=== PATIENT | male | born 1945 | race African-American/Black ===

== ENCOUNTER 2017-05-08 11:21 | Inpatient (IN) | payer MEDICARE, MEDICAID ==
[~2017-05-08] VITALS: Ht 177.8 cm; Wt 50.8 kg
[~2017-05-08 11:21] MED LIST: AMLODIPINE BESY10 MG ORAL; AMLODIPINE BESY10 MG PO; ASPIR 8181 MG ORAL; ATROVENT; ATROVENT HFA12.9 GM; DELARA; DULERA 100 MCG/13 GM; DULERA 100 MCG/13 GM IH; PROAIR HFA8.5 GM; TUDORZA PRESS400 MCG IH; proventil
[2017-05-08 16:00] VITALS: BP 159/83
[2017-05-08] MEDS ORDERED: Zolpidem 5mg tab ORAL PRN (16:00)
--- NOTE | 2017-05-08 16:55 | History & Physical ---
History and Physical History & Physicial 123 71-year-old male presents with increasing shortness of breath and congestion over the past 5-7 days. Patient noted to have sticky secretions and chest tightness. Patient denies any fevers or chills at this time. Patient has a long-standing history of severe COPD. The patient has had prior history of respiratory failure, requiring intubation. Patient does not have any oxygen at home. Patient has been compliant with therapy at this time and presents due to lack of improvement. Patient was recently treated with prednisone by an outside here as well as antibiotic. Patient reviewed the patient for some time. Patient also 5 difficulty with activities of daily living. Active Medications (reviewed today): DULERA 200-5 MCG/ACT INHALATION AEROSOL (MOMETASONE FURO-FORMOTEROL FUM) 2 puffs bid TUDORZA PRESSAIR 400 MCG/ACT INHALATION AEROSOL POWDER BREATH ACTIVATED ( ACLIDINIUM BROMIDE) 1puff bid PROAIR HFA 108 (90 Base) MCG/ACT INHALATION AEROSOL SOLUTION (ALBUTEROL SULFATE ) 2 puff q 4hr prn ALBUTEROL SULFATE (2.5 MG/3ML) 0.083% INHALATION NEBULIZATION SOLUTION ( ALBUTEROL SULFATE) 1 vial in HHN every 4 hours as needed VITAMIN D3 5000 UNIT ORAL TABLET (CHOLECALCIFEROL) Take one tablet daily ASPIRIN 81 MG ORAL TABLET (ASPIRIN) 1 by mouth every day ATORVASTATIN CALCIUM 40 MG ORAL TABLET (ATORVASTATIN CALCIUM) 1 tab qd HYDRALAZINE HCL 50 MG ORAL TABLET (HYDRALAZINE HCL) 1 PO BID THEOPHYLLINE 80 MG/15ML ORAL SOLUTION (THEOPHYLLINE) 15ml qid Current Allergies: No known allergies No Known Drug Allergies Past History Past Medical History (reviewed - no changes required): Hypertension, COPD, hypoxemia, GERD; copd exacerbation 02/2014 Cdif Respiratory failure vitamin D deficiency pulmonary hypertension allergic rhinitis Pt was in a coma for 2 weeks at [facility] due to respiratory failure Surgical History (reviewed - no changes required): Tracheotomy Gtube Catheter Family History (reviewed - no changes required): Uecxav-excqikxc-yigkk of unknown Nkzfys-dzjwshzg-tifyfbg causes at 89 Social History (reviewed - no changes required): TEQUILA lives alone. He lives at home in [place]. He is single with 4 children. was in a SNF and now staying with friends (DAUGHTER IN [facility] [place]- [phone] (SON IN [place]) (FRIEND-PHIL- [phone]) Risk Factors: Smoked Tobacco Use: Former smoker Cigarettes: Yes -- 1-2 every 3 days pack(s) per day, Pack-years: 2 cigars per day for 50 years Years smoked: 50 Year quit: 09/2016 Cigars: Yes -- 1 per week Year started: 50 years ago Cigars/Pipes Year Quit: 07/2014 Smokeless Tobacco Use: Never Tobacco Use Comments: patient is trying to stop smoking, patient has not smoked for 2 days Passive smoke exposure: no Drug use: no HIV high-risk behavior: no Caffeine use: 1 drinks per day Alcohol use: no Seatbelt use: 100 % Sun Exposure: occasionally Review of Systems Respiratory: see HPI Physical Exam General Appearance: well nourished, well hydrated, no acute distress thin Respiratory Respiratory Effort: no intercostal retractions or use of accessory muscles Palpation: normal fremitus Auscultation: reduced breath entry without rhonchi or wheeze; Cardiovascular Palpation: no thrill or palpable murmurs, no displacement of PMI Auscultation: S1, S2, no murmur, rub, or gallop Pedal pulse: pulses 2+, symmetric Peripheral Circulation: no cyanosis, clubbing, edema, cords on upper and lower extremities Musculoskeletal Gait and Station: using a cane LLE: knee pain IMPRESSION 1. COPD exacerbation 2. Respiratory insufficiency 3. concern for underlying infection 4. Increasing debility 5. Increasing fatigue 6. Shortness of breath 7. Weight loss Plan IV Solu-Medrol IV antibiotics Resume home meds Respiratory therapy Oxygen therapy Physical therapy evaluation Monitor clinically monitor for disposition Consider short-term rehab with worsening debility JOSIE MORRISON May 08, 2017 16:55
[2017-05-08] MEDS ORDERED: Albuterol/Ipratropium 3ml neb HHN SCH (19:00)
[2017-05-08] MEDS ORDERED: Albuterol 90mcg Inhaler 8gm INH PRN (20:30)
[2017-05-08 21:00] VITALS: BP 152/82
[2017-05-08] MEDS: Solu-MEDROL 40mg Inj IVP SCH (21:34)
[2017-05-08] MEDS: cefTRIAXone 1 GM in NS 55 ML IVPB SCH (21:34)
[2017-05-08] MEDS: Albuterol/Ipratropium 3ml neb HHN SCH (23:00)
[2017-05-09] VITALS (8 sets, daily range): BP systolic 123–197; BP diastolic 58–106
[2017-05-09] MEDS: Albuterol/Ipratropium 3ml neb HHN SCH ×6 (04:52→23:18)
[2017-05-09] MEDS: Solu-MEDROL 40mg Inj IVP SCH ×3 (05:14→21:43)
[2017-05-09] MEDS: Aspirin EC 81mg tab ORAL SCH (08:55)
[2017-05-09] MEDS: Heparin 5000 units/ml inj SUBQ SCH ×2 (09:00→21:44)
[2017-05-09] MEDS: Breo Ellipta 100/25mcg - 14 dose INH SCH (09:30)
--- NOTE | 2017-05-09 10:01 | General Progress Note ---
Assessment/Plan Assessment/Plan IMPRESSION 1. COPD exacerbation 2. Respiratory insufficiency 3. concern for underlying infection 4. Increasing debility 5. Increasing fatigue 6. Shortness of breath 7. Weight loss 8. Cdif history Plan IV Solu-Medrol for now IV antibiotics Resume home meds Respiratory therapy check stool Oxygen therapy Physical therapy evaluation Monitor clinically monitor for disposition Consider short-term rehab with worsening debility Subjective Allergies: Coded Allergies: No Known Allergies (Unverified , 03/01/14) Subjective care noted and reviewed with some sob notes some abnormal stool Objective Last 24 Hour Vital Signs Date Time Temp Pulse Resp B/P (MAP) Pulse Ox O2 Delivery O2 Flow Rate FiO2 05/09/17 08:55 100 169/85 05/09/17 08:00 98.1 100 20 169/85 97 05/09/17 07:49 86 16 100 Nasal Cannula 28 05/09/17 07:41 81 18 98 Nasal Cannula 28 05/09/17 04:57 82 16 99 Nasal Cannula 28 05/09/17 04:52 76 18 98 Nasal Cannula 28 05/09/17 04:00 97.2 98 19 158/90 95 05/09/17 01:15 98 160/90 05/09/17 00:35 100 197/106 05/09/17 00:00 97.7 104 20 197/94 94 05/08/17 23:31 Room Air 21 05/08/17 23:30 76 16 Room Air 21 05/08/17 23:30 Room Air 21 05/08/17 21:00 97.7 91 20 152/82 99 05/08/17 16:00 97.5 88 20 159/83 100 Intake and Output 05/08/17 05/09/17 19:00 07:00 Intake Total 240 ml Balance 240 ml Intake Oral 240 ml # Voids 1 2 # Bowel Movements 2 Height (Feet): 5 Height (Inches): 10.00 Weight (Pounds): 112 Objective WDWN NAD reduced breath sounds bilaterally with wheeze [id number] without MRG NABS nontender no HSM no CCE nonfocal JOSIE MORRISON May 09, 2017 10:01
[2017-05-09] MEDS: Lactobacillus-GG tablet ORAL SCH ×2 (16:43→18:00)
[2017-05-09 18:35] LABS: BASOPHILS % (AUTO) 0.8 % (0.0-2.0); HEMATOCRIT 37.3 % (42.0-52.0); HEMOGLOBIN 11.8 G/DL (14.2-18.0); LYMPHOCYTES % (AUTO) 32.8 % (20.0-45.0); MEAN CORPUSCULAR VOLUME 90 FL (80-99); NEUTROPHILS % (AUTO) 59.4 % (45.0-75.0); PLATELET COUNT 412 K/UL (150-450); RED BLOOD COUNT 4.13 M/UL (4.70-6.10); RED CELL DISTRIBUTION WIDTH 14.6 % (11.6-14.8); WHITE BLOOD COUNT 7.2 K/UL (4.8-10.8)
[2017-05-09] MEDS: cefTRIAXone 1 GM in NS 55 ML IVPB SCH (22:06)
[2017-05-10] VITALS: BP 129/65
[2017-05-10] MEDS: Albuterol/Ipratropium 3ml neb HHN SCH ×5 (03:43→21:48)
[2017-05-10 04:00] VITALS: BP 144/64
[2017-05-10] MEDS: Solu-MEDROL 40mg Inj IVP SCH ×3 (06:17→22:24)
[2017-05-10 08:15] VITALS: BP 136/67
[2017-05-10] MEDS: Aspirin EC 81mg tab ORAL SCH (08:53)
[2017-05-10] MEDS: Lactobacillus-GG tablet ORAL SCH ×3 (08:53→17:58)
[2017-05-10] MEDS: Heparin 5000 units/ml inj SUBQ SCH ×2 (08:54→21:00)
[2017-05-10] MEDS: Breo Ellipta 100/25mcg - 14 dose INH SCH (09:00)
--- NOTE | 2017-05-10 09:00 | General Progress Note ---
Assessment/Plan Assessment/Plan IMPRESSION 1. COPD exacerbation 2. Respiratory insufficiency 3. concern for underlying infection 4. Increasing debility 5. Increasing fatigue 6. Shortness of breath 7. Weight loss 8. Cdif history Plan IV Solu-Medrol for now as is IV antibiotics and dc in am if improved Resume home meds Respiratory therapy check stool Oxygen therapy Physical therapy evaluation short term rehab Monitor clinically monitor for disposition Consider short-term rehab with worsening debility Subjective Allergies: Coded Allergies: No Known Allergies (Unverified , 03/01/14) Subjective care noted and reviewed with some sob and slightly improved notes some abnormal stool Objective Last 24 Hour Vital Signs Date Time Temp Pulse Resp B/P (MAP) Pulse Ox O2 Delivery O2 Flow Rate FiO2 05/10/17 08:15 97.7 86 20 136/67 98 Room Air 05/10/17 08:01 81 16 100 21 05/10/17 07:53 78 18 99 Room Air 21 05/10/17 04:00 98.5 84 21 144/64 96 05/10/17 03:18 83 16 100 21 05/10/17 03:10 82 18 99 Room Air 21 05/10/17 00:00 98.5 88 21 129/65 94 05/09/17 23:31 87 18 100 21 05/09/17 23:18 88 18 98 Room Air 21 05/09/17 20:00 97.5 83 21 135/71 100 05/09/17 19:49 85 18 100 Nasal Cannula 1.0 24 05/09/17 19:42 85 18 100 Nasal Cannula 1.0 24 05/09/17 16:05 86 18 98 Nasal Cannula 1.0 24 05/09/17 16:04 98.6 93 19 123/58 100 05/09/17 12:19 88 16 100 Nasal Cannula 1.0 24 05/09/17 12:07 91 18 99 Nasal Cannula 1.0 24 05/09/17 12:01 Nasal Cannula 05/09/17 12:00 98.4 94 20 135/76 99 Intake and Output 05/09/17 05/10/17 19:00 07:00 Intake Total 560 ml Balance 560 ml Intake Oral 560 ml # Voids 6 4 # Bowel Movements 1 Laboratory Tests 05/09/17 17:50: White Blood Count 7.2, Red Blood Count 4.13L, Hemoglobin 11.8L, Hematocrit 37.3L , Mean Corpuscular Volume 90, Mean Corpuscular Hemoglobin 28.6, Mean Corpuscular Hemoglobin Concent 31.7L, Red Cell Distribution Width 14.6, Platelet Count 412, Mean Platelet Volume 6.0L, Neutrophils (%) (Auto) 59.4, Lymphocytes (%) (Auto) 32.8, Monocytes (%) (Auto) 7.0, Eosinophils (%) (Auto) 0.0, Basophils (%) (Auto) 0.8 Height (Feet): 5 Height (Inches): 10.00 Weight (Pounds): 112 Objective WDWN NAD reduced breath sounds bilaterally with wheeze [id number] without MRG NABS nontender no HSM no CCE nonfocal JOSIE MORRISON May 10, 2017 09:00
[2017-05-10 11:59] VITALS: BP 165/85
[2017-05-10 16:01] VITALS: BP 135/68
[2017-05-10 20:00] VITALS: BP 131/66
[2017-05-10] MEDS: cefTRIAXone 1 GM in NS 55 ML IVPB SCH (22:24)
[2017-05-11] VITALS: BP 127/67
[2017-05-11] MEDS: Albuterol/Ipratropium 3ml neb HHN SCH ×4 (00:02→10:44)
[2017-05-11 04:00] VITALS: BP 141/77
[2017-05-11] MEDS: Solu-MEDROL 40mg Inj IVP SCH (06:13)
[2017-05-11 08:00] VITALS: BP 141/76
--- NOTE | 2017-05-11 08:25 | General Progress Note ---
Assessment/Plan Assessment/Plan IMPRESSION 1. COPD exacerbation 2. Respiratory insufficiency 3. concern for underlying infection 4. Increasing debility 5. Increasing fatigue 6. Shortness of breath 7. Weight loss 8. Cdif history Plan IV Solu-Medrol dc IV antibiotics dc Respiratory therapy check stool - none available Oxygen therapy Physical therapy evaluation short term rehab for now Monitor clinically monitor for disposition dc today and stable for dc Subjective Allergies: Coded Allergies: No Known Allergies (Unverified , 03/01/14) Subjective care noted and reviewed improved overall Objective Last 24 Hour Vital Signs Date Time Temp Pulse Resp B/P (MAP) Pulse Ox O2 Delivery O2 Flow Rate FiO2 05/11/17 08:00 92.0 92 18 141/76 100 05/11/17 07:44 92 18 100 Room Air 21 05/11/17 07:35 21 05/11/17 07:34 91 20 98 Room Air 21 05/11/17 04:00 97.0 94 20 141/77 96 05/11/17 03:10 82 18 100 Room Air 21 05/11/17 03:00 21 05/11/17 03:00 82 20 98 Room Air 21 05/11/17 00:00 98.2 94 21 127/67 100 05/10/17 23:14 85 22 100 Room Air 21 05/10/17 23:02 95 18 97 Room Air 21 05/10/17 23:02 21 05/10/17 21:56 71 21 96 Room Air 21 05/10/17 21:47 21 05/10/17 21:46 71 21 96 Room Air 21 05/10/17 20:00 98.8 80 21 131/66 98 05/10/17 16:01 98.5 91 21 135/68 99 Room Air 05/10/17 15:13 85 16 98 Room Air 21 05/10/17 15:04 76 18 98 Room Air 05/10/17 11:59 97.7 102 23 165/85 99 05/10/17 11:52 80 16 100 Room Air 21 05/10/17 11:42 80 18 98 Room Air 21 05/10/17 08:53 86 136/67 Intake and Output 05/10/17 05/11/17 19:00 07:00 Intake Total 1440 ml 55 ml Balance 1440 ml 55 ml Intake Oral 1440 ml IV Total 55 ml # Voids 2 1 Height (Feet): 5 Height (Inches): 10.00 Weight (Pounds): 112 Objective WDWN NAD reduced breath sounds bilaterally with improved wheeze [id number] without MRG NABS nontender no HSM no CCE nonfocal able to ambulate but unsteady JOSIE MORRISON May 11, 2017 08:25
[2017-05-11] MEDS: Aspirin EC 81mg tab ORAL SCH (08:54)
[2017-05-11] MEDS: Heparin 5000 units/ml inj SUBQ SCH (08:54)
[2017-05-11] MEDS: Lactobacillus-GG tablet ORAL SCH ×2 (08:54→13:13)
[2017-05-11] MEDS: Breo Ellipta 100/25mcg - 14 dose INH SCH (09:00)
[2017-05-11] MEDS ORDERED: AMBIEN5 M1 PO (11:21)
[2017-05-11] MEDS ORDERED: PROTONIX20 MG ORAL (11:22)
[2017-05-11] MEDS ORDERED: CULTURELLE1 TAB GT (11:28)
[2017-05-11] MEDS ORDERED: HEPARIN2000 UNIT/ SUBQ (11:29)
[2017-05-11] MEDS ORDERED: BREO ELLIPTA 11 EACH IH (11:30)
[2017-05-11] MEDS ORDERED: MYLANTA30 M1 ORAL (11:32)
[2017-05-11] MEDS ORDERED: ALBUTEROL2.5 MG/3 M INH (11:33)
[2017-05-11] MEDS ORDERED: ACETAMINOPHEN160 MG ORAL (11:36)
[2017-05-11 12:00] VITALS: BP 130/67
[2017-05-11] MEDS ORDERED: NS 275ml ONE (13:59)
--- NOTE | 2017-05-12 12:15 | Discharge Summary ---
Discharge Summary Hospital Course Date of Admission May 08, 2017 at 14:07 Date of Discharge May 11, 2017 at 14:00 Admitting Diagnosis HPI Kristyn James is a 71 year old male who was admitted on May 08, 2017 at 14:07 for Chronic Obstruction Pulmonary Desease Hospital Course [id number] Discharge Discharge Disposition Patient was discharged to SNF/Subacute Facility(03) Discharge Diagnoses: Ashly Jerry NP May 12, 2017 12:15
--- NOTE | 2017-05-13 01:15 | Discharge Summary 2 SIG ---
DATE OF ADMISSION: 05/08/2017 DATE OF DISCHARGE: 05/11/2017 BRIEF HOSPITAL COURSE: The patient is a 71-year-old male, who presented to ED with increasing shortness of breath and congestion over the past five to seven days. He had secretions and chest tightness. Denied fevers or chills. He has longstanding history of severe chronic obstructive pulmonary disease and had prior history of respiratory failure requiring intubation. He had been compliant with his usual therapy, however, there was lack of improvement. He was recently treated with prednisone and was given antibiotic. He had difficulty with activities of daily living. He was then admitted for acute chronic obstructive pulmonary disease exacerbation and respiratory insufficiency. He was started on IV Solu-Medrol, O2 therapy, and nebulization therapy. He was given ceftriaxone. Sputum culture showed growth of Deanna and usual upper respiratory zuleyma. IV ceftriaxone was discontinued. He was given PT and OT and was eventually discharged home with home health. FINAL DIAGNOSES: 1. Acute chronic obstructive pulmonary disease exacerbation. 2. Respiratory insufficiency. 3. Concerning for underlying infection. 4. Increasing debility. 5. Increasing fatigue. 6. Shortness of breath. 7. Weight loss. 8. Clostridium difficile history. DISPOSITION: The patient was discharged home with home health. DISCHARGE MEDICATIONS: Refer to medication list. DISCHARGE INSTRUCTIONS: Follow up with office in a week as outpatient. Phil Felipe M.D. I have been assigned to dictate discharge summary on this account and I was not involved in the patient's management. Ashly Jerry N.P. DR: ELE JOB#: [id number] CC:
== END 2017-05-11 14:00 | disposition home health service (06) | DRG 191 ==
LOC: 4E 14:07
DX: J44.1 Chronic obstructive pulmonary disease with (acute) exacerbation (principal); Z68.1 Body mass index [BMI] 19.9 or less, adult; R53.81 Other malaise; R53.83 Other fatigue; R63.4 Abnormal weight loss; Z87.891 Personal history of nicotine dependence; K21.9 Gastro-esophageal reflux disease without esophagitis
CPT/HCPCS: 36415; 85025; 87070; 87205; 94640; 94664; J7620

== ENCOUNTER 2017-07-21 13:01 | Inpatient (IN) | payer MEDICARE, MEDICAID ==
[~2017-07-21] VITALS: Ht 172.7 cm; Wt 58.1 kg
[~2017-07-21 13:01] MED LIST changes: +ACETAMINOPHEN160 MG ORAL; +ALBUTEROL2.5 MG/3 M INH; +AMBIEN5 M1 PO; +BREO ELLIPTA 11 EACH IH; +CULTURELLE1 TAB GT; +HEPARIN2000 UNIT/ SUBQ; +MYLANTA30 M1 ORAL; +PROTONIX20 MG ORAL
[2017-07-21] MEDS ORDERED: Milk of Magnesia 30ml Ud ORAL PRN (18:30)
[2017-07-21] MEDS ORDERED: Zolpidem 5mg tab ORAL PRN (18:30)
[2017-07-21 18:50] VITALS: BP 152/81
[2017-07-21 19:26] VITALS: BP 154/85
[2017-07-21] MEDS: cefTRIAXone 1 GM in D5W 55 ML IVPB SCH (20:29)
[2017-07-21] MEDS: Solu-MEDROL 125mg Inj IVP SCH (20:30)
[2017-07-21 20:35] LABS: EOSINOPHILS % (AUTO) 1.2 % (0.0-3.0); HEMATOCRIT 42.3 % (42.0-52.0); HEMOGLOBIN 13.6 G/DL (14.2-18.0); LYMPHOCYTES % (AUTO) 48.5 % (20.0-45.0); MEAN CORPUSCULAR VOLUME 88 FL (80-99); MONOCYTES % (AUTO) 8.5 % (1.0-10.0); NEUTROPHILS % (AUTO) 39.9 % (45.0-75.0); PLATELET COUNT 308 K/UL (150-450); RED CELL DISTRIBUTION WIDTH 14.1 % (11.6-14.8); WHITE BLOOD COUNT 7.2 K/UL (4.8-10.8)
[2017-07-21 20:48] LABS: ANION GAP 8 mmol/L (5-15); BLOOD UREA NITROGEN 12 mg/dL (7-18); CARBON DIOXIDE 26 MMOL/L (21-32); CHLORIDE 106 MMOL/L (98-107); POTASSIUM 5.2 MMOL/L (3.5-5.1); SODIUM 140 MMOL/L (136-145)
[2017-07-21] MEDS: Heparin 5000 units/ml inj SUBQ SCH (21:10)
[2017-07-21] MEDS: Albuterol/Ipratropium 3ml neb HHN SCH (21:43)
[2017-07-22] VITALS (7 sets, daily range): BP systolic 138–168; BP diastolic 59–79
[2017-07-22] MEDS: Albuterol/Ipratropium 3ml neb HHN SCH ×4 (07:13→20:09)
[2017-07-22] MEDS: Solu-MEDROL 125mg Inj IVP SCH ×2 (08:34→21:01)
[2017-07-22] MEDS: Heparin 5000 units/ml inj SUBQ SCH ×2 (08:45→21:00)
[2017-07-22] MEDS: Aspirin Baby 81mg ORAL SCH (08:45)
[2017-07-22] MEDS ORDERED: Albuterol 90mcg Inhaler 8gm INH PRN (09:00)
[2017-07-22] MEDS: TUDORZA INH SCH ×2 (09:00→18:00)
--- NOTE | 2017-07-22 09:14 | Consultation ---
Consult Note Consult Note 71-year-old male presents with increasing shortness of breath and congestion over the past 5-7 days. Patient noted to have worsening secretions and chest tightness. Patient denies any fevers or chills at this time. Patient has a long-standing history of severe COPD and now notes worsening symptoms. The patient has had prior history of respiratory failure, requiring intubation this year. Patient does not have any oxygen at home but has low oxygen saturation. Patient has been compliant with therapy at this time and presents due to lack of improvement. Patient was recently treated with prednisone on repeated episodes as an outpatient but has failed to improve. Patient care reviewed. Patient also with difficulty with activities of daily living. Active Medications (reviewed today): DULERA 200-5 MCG/ACT INHALATION AEROSOL (MOMETASONE FURO-FORMOTEROL FUM) 2 puffs bid TUDORZA PRESSAIR 400 MCG/ACT INHALATION AEROSOL POWDER BREATH ACTIVATED ( ACLIDINIUM BROMIDE) 1puff bid PROAIR HFA 108 (90 Base) MCG/ACT INHALATION AEROSOL SOLUTION (ALBUTEROL SULFATE ) 2 puff q 4hr prn ALBUTEROL SULFATE (2.5 MG/3ML) 0.083% INHALATION NEBULIZATION SOLUTION ( ALBUTEROL SULFATE) 1 vial in HHN every 4 hours as needed VITAMIN D3 5000 UNIT ORAL TABLET (CHOLECALCIFEROL) Take one tablet daily ASPIRIN 81 MG ORAL TABLET (ASPIRIN) 1 by mouth every day ATORVASTATIN CALCIUM 40 MG ORAL TABLET (ATORVASTATIN CALCIUM) 1 tab qd HYDRALAZINE HCL 50 MG ORAL TABLET (HYDRALAZINE HCL) 1 PO BID THEOPHYLLINE 80 MG/15ML ORAL SOLUTION (THEOPHYLLINE) 15ml qid Current Allergies: No known allergies No Known Drug Allergies Past History Past Medical History (reviewed - no changes required): Hypertension, COPD, hypoxemia, GERD; copd exacerbation 02/2014 Cdif Respiratory failure vitamin D deficiency pulmonary hypertension allergic rhinitis Pt was in a coma for 2 weeks at [facility] due to respiratory failure Surgical History (reviewed - no changes required): Tracheotomy Gtube Catheter Family History (reviewed - no changes required): Cucvou-wnlxknau-aicdc of unknown Ariqfb-rewfdyny-qvxeftg causes at 89 Social History (reviewed - no changes required): TEQUILA lives alone. He lives at home in [place]. He is single with 4 children. was in a SNF and now staying with friends (DAUGHTER IN [facility]- [phone] (SON IN [place]) (FRIEND-PHIL- [phone]) Risk Factors: Smoked Tobacco Use: Former smoker Cigarettes: Yes -- 1-2 every 3 days pack(s) per day, Pack-years: 2 cigars per day for 50 years Years smoked: 50 Year quit: 09/2016 Cigars: Yes -- 1 per week Year started: 50 years ago Cigars/Pipes Year Quit: 07/2014 Smokeless Tobacco Use: Never Tobacco Use Comments: patient is trying to stop smoking, patient has not smoked for 2 days Passive smoke exposure: no Drug use: no HIV high-risk behavior: no Caffeine use: 1 drinks per day Alcohol use: no Seatbelt use: 100 % Sun Exposure: occasionally Review of Systems Respiratory: see HPI Physical Exam General Appearance: well nourished, well hydrated, no acute distress thin Respiratory Respiratory Effort: no intercostal retractions or use of accessory muscles Palpation: normal fremitus Auscultation: reduced breath entry without rhonchi or wheeze; Cardiovascular Palpation: no thrill or palpable murmurs, no displacement of PMI Auscultation: S1, S2, no murmur, rub, or gallop Pedal pulse: pulses 2+, symmetric Peripheral Circulation: no cyanosis, clubbing, edema, cords on upper and lower extremities Musculoskeletal Gait and Station: using a cane LLE: knee pain Laboratory Tests Test 07/21/17 20:00 White Blood Count 7.2 K/UL (4.8-10.8) Red Blood Count 4.80 M/UL (4.70-6.10) Hemoglobin 13.6 G/DL (14.2-18.0) L Hematocrit 42.3 % (42.0-52.0) Mean Corpuscular Volume 88 FL (80-99) Mean Corpuscular Hemoglobin 28.4 PG (27.0-31.0) Mean Corpuscular Hemoglobin Concent 32.2 G/DL (32.0-36.0) Red Cell Distribution Width 14.1 % (11.6-14.8) Platelet Count 308 K/UL (150-450) Mean Platelet Volume 6.1 FL (6.5-10.1) L Neutrophils (%) (Auto) 39.9 % (45.0-75.0) L Lymphocytes (%) (Auto) 48.5 % (20.0-45.0) H Monocytes (%) (Auto) 8.5 % (1.0-10.0) Eosinophils (%) (Auto) 1.2 % (0.0-3.0) Basophils (%) (Auto) 2.0 % (0.0-2.0) Sodium Level 140 MMOL/L (136-145) Potassium Level 5.2 MMOL/L (3.5-5.1) H Chloride Level 106 MMOL/L (98-107) Carbon Dioxide Level 26 MMOL/L (21-32) Anion Gap 8 mmol/L (5-15) Blood Urea Nitrogen 12 mg/dL (7-18) Creatinine 1.0 MG/DL (0.55-1.30) Estimat Glomerular Filtration Rate > 60 mL/min (>60) Glucose Level 155 MG/DL (74-106) H Calcium Level 9.0 MG/DL (8.5-10.1) IMPRESSION 1. COPD exacerbation 2. Respiratory insufficiency 3. concern for underlying infection 4. Increasing debility 5. Increasing fatigue 6. Shortness of breath 7. Weight loss Plan IV Solu-Medrol IV antibiotics Resume home meds Respiratory therapy Oxygen therapy Physical therapy evaluation Monitor clinically monitor for disposition Consider short-term rehab with worsening debility impression, plan, and exam edited and reviewed in detail care discussed with JOSIE BIRD Jul 22, 2017 09:14
--- NOTE | 2017-07-22 10:00 | History and Physical Report ---
DATE OF ADMISSION: 07/21/2017 CHIEF COMPLAINT: COPD exacerbation. HISTORY OF PRESENT ILLNESS: The patient is a pleasant 71-year-old male. 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 According to the patient, he has been well until 5 days prior to admission when he noticed increased dyspnea on exertion, shortness of breath. He has had increased mucus production that is mostly clear. He has been taking his nebulizers without any improvement. In light of his failure to respond to outpatient therapy, he is now admitted for further evaluation and care. He denies any ill contacts. He has had no recent travel. He denies any medication noncompliance. He denies any chest pain. PAST MEDICAL HISTORY: As above. PAST SURGICAL HISTORY: None. CURRENT MEDICATIONS: Reconciled and reviewed. ALLERGIES: None. SOCIAL HISTORY: The patient has a 50-pack year history of smoking. No alcohol. No drugs. FAMILY HISTORY: None. REVIEW OF SYSTEMS: GENERAL: No fever or chills. HEENT: No headaches or visual changes. CARDIOPULMONARY: No chest pain. Positive shortness of breath. GASTROINTESTINAL: No nausea or vomiting. GENITOURINARY: No urgency or frequency. MUSCULOSKELETAL: No joint pain or swelling. NEUROLOGIC: No evidence of seizures. PHYSICAL EXAMINATION: VITAL SIGNS: Temperature 97.5 degrees, pulse 82, respirations 20, and blood pressure 144/73. GENERAL: The patient is a well-developed male, in no apparent distress. He is awake and alert. NECK: Supple. There is no jugular venous distention. HEART: Regular rate and rhythm. LUNGS: Diminished breath sounds throughout. ABDOMEN: Soft, nontender, and nondistended. EXTREMITIES: No clubbing, cyanosis, or edema. LABORATORY DATA: The white count was 7, hemoglobin 13, hematocrit 42, platelets of 308,000. Sodium 140, potassium was 5.2. ASSESSMENT: This is a pleasant male with complaints of chronic obstructive pulmonary disease exacerbation: 1. Chronic obstructive pulmonary disease exacerbation. 2. Hypertension. 3. Gastroesophageal reflux disease. PLAN: Follow up chest x-ray. Continue respiratory treatments and intravenous steroids. Pulmonary evaluation has been obtained. IV antibiotics. Temo Navarro M.D. DR: Akanksha JOB#: [id number] CC:
--- NOTE | 2017-07-22 10:29 | Diagnostic Imaging Report ---
Indication: Cough Technique: XRAY Chest 1v Comparison: 04/14/2015 Findings: Cardiomediastinal silhouette is within normal limits. Atherosclerotic changes are present. The lungs are hyperinflated. There is no consolidation or pleural effusion. Osseous structures are stable. Impression: No acute cardiopulmonary disease.
[2017-07-22] MEDS: cefTRIAXone 1 GM in D5W 55 ML IVPB SCH (21:01)
[2017-07-23] VITALS: BP 147/81
[2017-07-23 04:00] VITALS: BP 149/89
[2017-07-23] MEDS: Albuterol/Ipratropium 3ml neb HHN SCH ×4 (07:45→19:48)
[2017-07-23 07:49] LABS: ALANINE AMINOTRANSFERASE 20 U/L (12-78); ALBUMIN 3.1 G/DL (3.4-5.0); ALBUMIN/GLOBULIN RATIO 0.8 (1.0-2.7); ALKALINE PHOSPHATASE 90 U/L (46-116); ANION GAP 7 mmol/L (5-15); ASPARTATE AMINO TRANSFERASE 22 U/L (15-37); BILIRUBIN,TOTAL 0.2 MG/DL (0.2-1.0); BLOOD UREA NITROGEN 18 mg/dL (7-18); CALCIUM 9.3 MG/DL (8.5-10.1); CARBON DIOXIDE 28 MMOL/L (21-32); CHLORIDE 103 MMOL/L (98-107); POTASSIUM 4.6 MMOL/L (3.5-5.1); SODIUM 138 MMOL/L (136-145)
[2017-07-23 08:00] VITALS: BP 142/83
[2017-07-23] MEDS: Aspirin Baby 81mg ORAL SCH (08:27)
[2017-07-23] MEDS: Heparin 5000 units/ml inj SUBQ SCH ×2 (08:27→20:36)
--- NOTE | 2017-07-23 08:54 | General Progress Note ---
Assessment/Plan Problem List: (1) Dyspnea ICD Codes: R06.00 - Dyspnea, unspecified SNOMED: 252586769 (2) Respiratory distress ICD Codes: R06.00 - Dyspnea, unspecified SNOMED: 907913051 (3) COPD exacerbation ICD Codes: J44.1 - Chronic obstructive pulmonary disease with (acute) exacerbation SNOMED: 170318854 Status: stable Assessment/Plan steroids resp rx abx o2 Subjective ROS Limited/Unobtainable: No Constitutional: Reports: malaise, weakness HEENT: Reports: no symptoms Cardiovascular: Reports: no symptoms Respiratory: Reports: cough, shortness of breath Gastrointestinal/Abdominal: Reports: no symptoms Genitourinary: Reports: no symptoms Neurologic/Psychiatric: Reports: no symptoms Endocrine: Reports: no symptoms Hematologic/Lymphatic: Reports: no symptoms Allergies: Coded Allergies: No Known Allergies (Unverified , 03/01/14) All Systems: reviewed and negative except above Subjective stable sob. decreased wheezing. no chest pain . Objective Last 24 Hour Vital Signs Date Time Temp Pulse Resp B/P (MAP) Pulse Ox O2 Delivery O2 Flow Rate FiO2 07/23/17 08:27 99 142/83 07/23/17 08:00 97.9 99 21 142/83 94 Room Air 97.9 07/23/17 07:54 Nasal Cannula 2.0 28 07/23/17 07:54 99 Nasal Cannula 2.0 28 07/23/17 07:53 88 18 98 Nasal Cannula 2.0 28 07/23/17 07:40 83 20 98 Nasal Cannula 2.0 28 07/23/17 04:00 Nasal Cannula 2.0 07/23/17 04:00 98.2 74 18 149/89 100 98.2 07/23/17 00:45 Nasal Cannula 2.0 07/23/17 00:00 97.9 86 18 147/81 97 97.9 07/22/17 20:10 21 07/22/17 20:10 88 20 95 Room Air 21 07/22/17 20:00 Nasal Cannula 2.0 07/22/17 20:00 98.1 76 18 138/59 98 98.1 07/22/17 16:30 85 141/79 07/22/17 16:00 Room Air 07/22/17 16:00 98.1 76 20 168/71 100 98.1 07/22/17 15:51 83 18 98 Nasal Cannula 2.0 28 07/22/17 15:42 21 07/22/17 15:36 81 20 95 Room Air 21 07/22/17 12:00 Room Air 07/22/17 12:00 97.7 80 20 138/75 99 97.7 07/22/17 11:28 28 07/22/17 11:28 95 18 96 Nasal Cannula 2.0 28 Intake and Output 07/22/17 07/23/17 19:00 07:00 Intake Total 500 ml 455 ml Balance 500 ml 455 ml Intake Oral 500 ml 400 ml IV Total 55 ml # Voids 2 3 Laboratory Tests 07/23/17 05:10: Sodium Level 138, Potassium Level 4.6, Chloride Level 103, Carbon Dioxide Level 28, Anion Gap 7, Blood Urea Nitrogen 18, Creatinine 1.0, Estimat Glomerular Filtration Rate > 60, Glucose Level 138H, Calcium Level 9.3, Total Bilirubin 0.2 , Aspartate Amino Transf (AST/SGOT) 22, Alanine Aminotransferase (ALT/SGPT) 20, Alkaline Phosphatase 90, Total Protein 7.2, Albumin 3.1L, Globulin 4.1, Albumin/ Globulin Ratio 0.8L Height (Feet): 5 Height (Inches): 8.00 Weight (Pounds): 128 General Appearance: WD/WN, alert Neck: supple Cardiovascular: regular rhythm Respiratory/Chest: rhonchi - bilaterally Abdomen: normal bowel sounds, non tender, soft, no organomegaly Edema: no edema noted Arm (L), no edema noted Arm (R), no edema noted Leg (L), no edema noted Leg (R), no edema noted Pedal (L), no edema noted Pedal (R), no edema noted Generalized MELVIN AWAD Jul 23, 2017 08:54
[2017-07-23] MEDS: Solu-MEDROL 125mg Inj IVP SCH ×2 (09:00→20:37)
[2017-07-23] MEDS: TUDORZA INH SCH ×2 (11:36→17:31)
[2017-07-23 11:49] VITALS: BP 144/79
--- NOTE | 2017-07-23 12:01 | Pulmonology Progress Note ---
Assessment/Plan Assessment/Plan IMPRESSION 1. COPD exacerbation 2. Respiratory insufficiency 3. concern for underlying infection 4. Increasing debility 5. Increasing fatigue 6. Shortness of breath 7. Weight loss Plan IV Solu-Medrol IV antibiotics pending cultures maintain home meds Respiratory therapy Oxygen therapy Physical therapy evaluation and therapy Monitor clinically monitor for disposition Plan for short-term rehab with worsening debility impression, plan, and exam edited and reviewed in detail care discussed with RN Subjective Allergies: Coded Allergies: No Known Allergies (Unverified , 03/01/14) Subjective care noted slight improvement on oxygen Objective Last 24 Hour Vital Signs Date Time Temp Pulse Resp B/P (MAP) Pulse Ox O2 Delivery O2 Flow Rate FiO2 07/23/17 11:54 84 18 98 Room Air 21 07/23/17 11:49 98.2 77 18 144/79 95 Room Air 98.2 07/23/17 11:40 81 16 Room Air 21 07/23/17 08:27 99 142/83 07/23/17 08:00 97.9 99 21 142/83 94 Room Air 97.9 07/23/17 07:54 Nasal Cannula 2.0 28 07/23/17 07:54 99 Nasal Cannula 2.0 28 07/23/17 07:53 88 18 98 Nasal Cannula 2.0 28 07/23/17 07:40 83 20 98 Nasal Cannula 2.0 28 07/23/17 04:00 Nasal Cannula 2.0 07/23/17 04:00 98.2 74 18 149/89 100 98.2 07/23/17 00:45 Nasal Cannula 2.0 07/23/17 00:00 97.9 86 18 147/81 97 97.9 07/22/17 20:10 21 07/22/17 20:10 88 20 95 Room Air 21 07/22/17 20:00 Nasal Cannula 2.0 07/22/17 20:00 98.1 76 18 138/59 98 98.1 07/22/17 16:30 85 141/79 07/22/17 16:00 Room Air 07/22/17 16:00 98.1 76 20 168/71 100 98.1 07/22/17 15:51 83 18 98 Nasal Cannula 2.0 28 07/22/17 15:42 21 07/22/17 15:36 81 20 95 Room Air 21 07/22/17 12:00 Room Air 4/21/18 12:00 97.7 80 20 138/75 99 97.7 Intake and Output 07/22/17 07/23/17 19:00 07:00 Intake Total 500 ml 455 ml Balance 500 ml 455 ml Intake Oral 500 ml 400 ml IV Total 55 ml # Voids 2 3 Objective WDWN NAD reduced breath sounds with wheeze [id number] without MRG NABS nontender no HSM no CCE thin nonfocal Laboratory Tests 07/23/17 05:10: Sodium Level 138, Potassium Level 4.6, Chloride Level 103, Carbon Dioxide Level 28, Anion Gap 7, Blood Urea Nitrogen 18, Creatinine 1.0, Estimat Glomerular Filtration Rate > 60, Glucose Level 138H, Calcium Level 9.3, Total Bilirubin 0.2 , Aspartate Amino Transf (AST/SGOT) 22, Alanine Aminotransferase (ALT/SGPT) 20, Alkaline Phosphatase 90, Total Protein 7.2, Albumin 3.1L, Globulin 4.1, Albumin/ Globulin Ratio 0.8L Current Medications Medications (Trade) Dose Ordered Sig/Charlie Route PRN Reason Start Time Stop Time Status Last Admin Dose Admin Acetaminophen (Tylenol) 650 mg Q4H PRN ORAL Mild Pain/Temp > 100.5 07/21/17 18:30 08/20/17 18:29 Al Hydroxide/Mg Hydroxide (Mylanta) 30 ml Q4H PRN ORAL HEARTBURN 07/21/17 18:30 08/20/17 18:29 Albuterol Sulfate (Proventil MDI) 2 puff Q12H PRN INH Shortness of Breath 07/22/17 09:00 08/21/17 08:59 Albuterol/ Ipratropium (Albuterol/ Ipratropium) 3 ml QIDRT HHN 07/21/17 19:00 07/26/17 18:59 07/23/17 11:42 Amlodipine Besylate (Norvasc) 5 mg DAILY ORAL 07/22/17 09:00 08/21/17 08:59 07/23/17 08:27 Aspirin (ASA) 81 mg DAILY ORAL 07/22/17 09:00 08/21/17 08:59 07/23/17 08:27 Ceftriaxone Sodium 1 gm/ Dextrose 55 ml @ 110 mls/hr Q24H IVPB 07/21/17 20:00 07/28/17 19:59 07/22/17 21:01 Heparin Sodium (Porcine) (Heparin 5000 units/ml) 5,000 units EVERY 12 HOURS SUBQ 07/21/17 21:00 08/20/17 20:59 07/21/17 21:10 Magnesium Hydroxide (Mom) 30 ml DAILYPRN PRN ORAL Constipation 07/21/17 18:30 08/20/17 18:29 Methylprednisolone Sodium Succinate (Solu-MEDROL) 60 mg EVERY 12 HOURS IVP 07/21/17 21:00 08/20/17 20:59 07/23/17 09:00 Pantoprazole (Protonix) 40 mg ACBREAKFAST ORAL 07/22/17 06:30 08/21/17 06:29 07/23/17 05:49 Patient Own Medication (Patient's Own Med) 2 ea BID INH 07/22/17 09:00 08/21/17 08:59 07/23/17 11:36 Zolpidem Tartrate (Ambien) 5 mg HSPRN PRN ORAL Insomnia 07/21/17 18:30 07/28/17 18:29 JOSIE MORRISON Jul 23, 2017 12:01
[2017-07-23] MEDS ORDERED: NS 275ml ONE (14:28)
[2017-07-23 16:00] VITALS: BP 156/75
[2017-07-23 20:00] VITALS: BP 143/80
[2017-07-23] MEDS: cefTRIAXone 1 GM in D5W 55 ML IVPB SCH (20:37)
[2017-07-24] VITALS (8 sets, daily range): BP systolic 129–164; BP diastolic 67–90
--- NOTE | 2017-07-24 07:49 | General Progress Note ---
Assessment/Plan Problem List: (1) Dyspnea ICD Codes: R06.00 - Dyspnea, unspecified SNOMED: 053122973 (2) Respiratory distress ICD Codes: R06.00 - Dyspnea, unspecified SNOMED: 705874903 (3) COPD exacerbation ICD Codes: J44.1 - Chronic obstructive pulmonary disease with (acute) exacerbation SNOMED: 062926432 Status: stable Assessment/Plan steroids resp rx abx o2 dc per pulm Subjective ROS Limited/Unobtainable: No Constitutional: Reports: malaise, weakness HEENT: Reports: no symptoms Cardiovascular: Reports: no symptoms Respiratory: Reports: cough, shortness of breath, SOB with excertion Gastrointestinal/Abdominal: Reports: no symptoms Genitourinary: Reports: no symptoms Neurologic/Psychiatric: Reports: no symptoms Endocrine: Reports: no symptoms Hematologic/Lymphatic: Reports: no symptoms Allergies: Coded Allergies: No Known Allergies (Unverified , 03/01/14) All Systems: reviewed and negative except above Subjective stable sob. decreased wheezing. no chest pain .still with some sob with exertion Objective Last 24 Hour Vital Signs Date Time Temp Pulse Resp B/P (MAP) Pulse Ox O2 Delivery O2 Flow Rate FiO2 07/24/17 04:00 97.7 80 20 143/67 100 Room Air 97.7 07/24/17 00:00 98.6 84 17 143/80 100 Room Air 98.6 07/23/17 20:00 98.4 78 19 143/80 96 Room Air 98.4 07/23/17 19:58 83 18 99 Nasal Cannula 2.0 07/23/17 19:48 95 Room Air 21 07/23/17 19:48 Nasal Cannula 2.0 28 07/23/17 19:48 91 18 95 Room Air 21 07/23/17 16:00 98.2 79 20 156/75 98 Room Air 98.2 07/23/17 15:27 86 16 Room Air 21 07/23/17 15:19 81 16 95 Room Air 21 07/23/17 11:54 84 18 98 Room Air 21 07/23/17 11:49 98.2 77 18 144/79 95 Room Air 98.2 07/23/17 11:40 81 16 Room Air 21 07/23/17 08:27 99 142/83 07/23/17 08:00 97.9 99 21 142/83 94 Room Air 97.9 07/23/17 07:54 Nasal Cannula 2.0 28 07/23/17 07:54 99 Nasal Cannula 2.0 28 07/23/17 07:53 88 18 98 Nasal Cannula 2.0 28 Intake and Output 07/23/17 07/24/17 19:00 07:00 Intake Total 640 ml 55 ml Balance 640 ml 55 ml Intake Oral 640 ml IV Total 55 ml # Voids 5 3 # Bowel Movements 1 Height (Feet): 5 Height (Inches): 8.00 Weight (Pounds): 128 MELVIN AWAD Jul 24, 2017 07:49
--- NOTE | 2017-07-24 08:03 | Pulmonology Progress Note ---
Assessment/Plan Assessment/Plan IMPRESSION 1. COPD exacerbation 2. Respiratory insufficiency 3. concern for underlying infection 4. Increasing debility 5. Increasing fatigue 6. Shortness of breath 7. Weight loss Plan dc Solu-Medrol IV antibiotics to po maintain home meds Respiratory therapy Oxygen therapy Physical therapy dc to snf today for short term rehab impression, plan, and exam edited and reviewed in detail care discussed with RN Subjective Allergies: Coded Allergies: No Known Allergies (Unverified , 03/01/14) Subjective care noted better on oxygen Objective Last 24 Hour Vital Signs Date Time Temp Pulse Resp B/P (MAP) Pulse Ox O2 Delivery O2 Flow Rate FiO2 07/24/17 04:00 97.7 80 20 143/67 100 Room Air 97.7 07/24/17 00:00 98.6 84 17 143/80 100 Room Air 98.6 07/23/17 20:00 98.4 78 19 143/80 96 Room Air 98.4 07/23/17 19:58 83 18 99 Nasal Cannula 2.0 28 07/23/17 19:48 95 Room Air 21 07/23/17 19:48 Nasal Cannula 2.0 28 07/23/17 19:48 91 18 95 Room Air 21 07/23/17 16:00 98.2 79 20 156/75 98 Room Air 98.2 07/23/17 15:27 86 16 Room Air 21 07/23/17 15:19 81 16 95 Room Air 21 07/23/17 11:54 84 18 98 Room Air 21 07/23/17 11:49 98.2 77 18 144/79 95 Room Air 98.2 07/23/17 11:40 81 16 Room Air 21 07/23/17 08:27 99 142/83 Intake and Output 07/23/17 07/24/17 19:00 07:00 Intake Total 640 ml 55 ml Balance 640 ml 55 ml Intake Oral 640 ml IV Total 55 ml # Voids 5 3 # Bowel Movements 1 Objective WDWN NAD reduced breath sounds with reduced wheeze [id number] without MRG NABS nontender no HSM no CCE thin nonfocal ambulatory and less dyspneic Current Medications Medications (Trade) Dose Ordered Sig/Charlie Route PRN Reason Start Time Stop Time Status Last Admin Dose Admin Acetaminophen (Tylenol) 650 mg Q4H PRN ORAL Mild Pain/Temp > 100.5 07/21/17 18:30 5/20/18 18:29 Al Hydroxide/Mg Hydroxide (Mylanta) 30 ml Q4H PRN ORAL HEARTBURN 07/21/17 18:30 08/20/17 18:29 Albuterol Sulfate (Proventil MDI) 2 puff Q12H PRN INH Shortness of Breath 07/22/17 09:00 08/21/17 08:59 Albuterol/ Ipratropium (Albuterol/ Ipratropium) 3 ml QIDRT HHN 07/21/17 19:00 07/26/17 18:59 07/23/17 19:48 Amlodipine Besylate (Norvasc) 5 mg DAILY ORAL 07/22/17 09:00 08/21/17 08:59 07/23/17 08:27 Aspirin (ASA) 81 mg DAILY ORAL 07/22/17 09:00 08/21/17 08:59 07/23/17 08:27 Ceftriaxone Sodium 1 gm/ Dextrose 55 ml @ 110 mls/hr Q24H IVPB 07/21/17 20:00 07/28/17 19:59 07/23/17 20:37 Heparin Sodium (Porcine) (Heparin 5000 units/ml) 5,000 units EVERY 12 HOURS SUBQ 07/21/17 21:00 08/20/17 20:59 07/21/17 21:10 Magnesium Hydroxide (Mom) 30 ml DAILYPRN PRN ORAL Constipation 07/21/17 18:30 08/20/17 18:29 Methylprednisolone Sodium Succinate (Solu-MEDROL) 60 mg EVERY 12 HOURS IVP 07/21/17 21:00 08/20/17 20:59 07/23/17 20:37 Pantoprazole (Protonix) 40 mg ACBREAKFAST ORAL 07/22/17 06:30 08/21/17 06:29 07/24/17 05:48 Patient Own Medication (Patient's Own Med) 2 ea BID INH 07/22/17 09:00 08/21/17 08:59 07/23/17 17:31 Zolpidem Tartrate (Ambien) 5 mg HSPRN PRN ORAL Insomnia 07/21/17 18:30 07/28/17 18:29 JOSIE MORRISON Jul 24, 2017 08:03
[2017-07-24] MEDS: Albuterol/Ipratropium 3ml neb HHN SCH ×3 (08:09→15:52)
[2017-07-24] MEDS: TUDORZA INH SCH ×2 (08:17→20:21)
[2017-07-24] MEDS: Aspirin Baby 81mg ORAL SCH (08:48)
[2017-07-24] MEDS: Heparin 5000 units/ml inj SUBQ SCH (08:50)
[2017-07-24] MEDS ORDERED: Levofloxacin 500mg tab ORAL SCH (09:00)
[2017-07-24] MEDS ORDERED: LEVAQUIN500 MG ORAL (18:30)
[2017-07-24] MEDS ORDERED: NORVASC5 MG ORAL (18:30)
[2017-07-24] MEDS ORDERED: MILK OF MA400 MG/51 ORAL (18:30)
[2017-07-24] MEDS ORDERED: PROVENTIL HFA6.7 G1 INH (18:32)
[2017-07-24] MEDS ORDERED: MYLANTA30 M1 PO (18:36)
--- NOTE | 2017-07-25 18:16 | Discharge Summary ---
Discharge Summary Hospital Course Date of Admission Jul 21, 2017 at 17:43 Date of Discharge Jul 24, 2017 at 21:10 Admitting Diagnosis HPI Kristyn James is a 71 year old male who was admitted on Jul 21, 2017 at 17:43 for Chronic Obstractive Pulmonary Disease Hospital Course [id number] Discharge Discharge Disposition Patient was discharged to SNF/Subacute Facility(03) Ashly Jerry NP Jul 25, 2017 18:16
--- NOTE | 2017-07-25 19:45 | Discharge Summary 2 SIG ---
DATE OF ADMISSION: 07/21/2017 DATE OF DISCHARGE: 07/24/2017 GRADUATING MACHINE OPERATOR: Temo Navarro M.D. BRIEF HOSPITAL COURSE: The patient is a 71-year-old male with history of severe chronic obstructive pulmonary disease, pulmonary hypertension, and gastroesophageal reflux disease presented from the office with worsening shortness of breath, cough, and congestion. According to the patient, he had been doing well until 5 days prior to admission when he noticed increased dyspnea on exertion with shortness of breath. He had increased mucus production and has been taking his nebulizers without any improvement. He in light of his failure to respond to outpatient therapy, he was admitted for further evaluation and care. He was continued on respiratory treatments and was started on IV steroids. Chest x-ray done showed no acute cardiopulmonary disease. He was started on IV antibiotic ceftriaxone, which was eventually switched to Levaquin p.o. Solu-Medrol was discontinued. He was given physical therapy. He was eventually discharged to SNF for short-term rehabilitation. FINAL DIAGNOSES: 1. Acute chronic obstructive pulmonary disease exacerbation. 2. Respiratory insufficiency. 3. Concerning for underlying infection. 4. Increasing debility. 5. Increasing fatigue. 6. Shortness of breath. 7. Weight loss. DISPOSITION: The patient was discharged to [facility]. DISCHARGE MEDICATIONS: Refer to medication list. Phil Felipe M.D. I have been assigned to dictate discharge summary on this account and I was not involved in the patient's management. Ashly Jerry N.P. DR: ELE JOB#: [id number] CC: DARYL
== END 2017-07-24 21:10 | DRG 192 ==
LOC: 4W 17:43
DX: J44.1 Chronic obstructive pulmonary disease with (acute) exacerbation (principal); I10 Essential (primary) hypertension; K21.9 Gastro-esophageal reflux disease without esophagitis; R63.4 Abnormal weight loss; R53.81 Other malaise; I27.20 Pulmonary hypertension, unspecified; Z79.82 Long term (current) use of aspirin
CPT/HCPCS: 36415; 71045; 80048; 80053; 85025; 94640; 94664; 94760; J7620

== ENCOUNTER 2017-12-16 18:23 | Emergency (ER) | payer MEDICARE, MEDICAID ==
[~2017-12-16] VITALS: Ht 177.8 cm; Wt 54.0 kg
[~2017-12-16 18:23] MED LIST changes: +LEVAQUIN500 MG ORAL; +MILK OF MA400 MG/51 ORAL; +MYLANTA30 M1 PO; +NORVASC5 MG ORAL; +PROVENTIL HFA6.7 G1 INH
[2017-12-16] MEDS ORDERED: MELOXICAM15 MG PO (18:37)
[2017-12-16] MEDS ORDERED: ARNUITY ELLIP100 MCG IH (18:37)
[2017-12-16 18:44] VITALS: BP 166/88
[2017-12-16] MEDS ORDERED: Albuterol/Ipratropium 3ml neb HHN ONE (19:15)
--- NOTE | 2017-12-16 20:21 | Diagnostic Imaging Report ---
EXAM: XR Chest, 2 Views CLINICAL HISTORY: SOB TECHNIQUE: Frontal and lateral views of the chest. COMPARISON: 07/22/17 FINDINGS: Lungs: Suspect COPD. Lungs are clear Pleural space: Unremarkable. No pneumothorax. Heart: Unremarkable. No cardiomegaly. Mediastinum: Unremarkable. Bones/joints: Unremarkable. IMPRESSION: No acute findings or substantial change.
--- NOTE | 2017-12-16 20:37 | Emergency Room Report ---
History of Present Illness General Chief Complaint: Upper Respiratory Illness Source: Patient Present Illness HPI Patient is a 72-year-old male with history of COPD status, one year ago here complaining of increased shortness of shortness of breath in the past 2 days post nonproductive cough. He denies fever or chills rhinorrhea and all other URI symptoms. Denies syncope, palpitation patient has recently been using an inhaled steroid in addition to his albuterol inhaler Allergies: Coded Allergies: No Known Allergies (Unverified , 03/01/14) Patient History Past Medical History: see triage record Past Surgical History: none Social History: Reports: smoking - history of COPD Reviewed Nursing Documentation: PMH: Agreed; PSxH: Agreed Nursing Documentation-PMH Past Medical History: No History, Except For Hx Cardiac Problems: Yes Hx Hypertension: Yes Hx COPD: Yes Hx Cancer: No Hx Gastrointestinal Problems: Yes - Hx Cdiff Hx Neurological Problems: No Hx Neurologic Surgery: No Review of Systems All Other Systems: negative except mentioned in HPI Physical Exam Vital Signs Date Time Temp Pulse Resp B/P (MAP) Pulse Ox O2 Delivery O2 Flow Rate FiO2 12/16/17 18:27 97.8 97 23 164/90 95 Room Air 97.9 12/16/17 19:38 21 Sp02 EP Interpretation: reviewed, normal General Appearance: normal inspection, well appearing, no apparent distress, alert Head: normocephalic Eyes: bilateral eye normal inspection, bilateral eye PERRL ENT: normal ENT inspection, hearing grossly normal, normal pharynx Neck: normal inspection, full range of motion, supple Respiratory: chest non-tender, lungs clear, no rhonchi, no wheezing, other - difficulty breathing when taking deep breath Cardiovascular #1: normal inspection, regular rate, rhythm, no murmur Gastrointestinal: normal inspection, soft Rectal: deferred Genitourinary: deferred Musculoskeletal: normal inspection, back normal Neurologic: normal inspection, alert, oriented x3 Psychiatric: normal inspection, judgement/insight normal, memory normal Skin: normal inspection, normal color, no rash, warm/dry Lymphatic: normal inspection, no adenopathy Medical Decision Making PA Attestation All diagnosis and treatment plans are reviewed and discussed with my supervising physician Dr. Anne Diagnostic Impression: Primary Impression: Shortness of breath Additional Impression: COPD exacerbation ER Course Patient is a 72-year-old male with history of COPD status, one year ago here complaining of increased shortness of shortness of breath in the past 2 days post nonproductive cough. He denies fever or chills rhinorrhea and all other URI symptoms. Denies syncope, palpitation patient has recently been using an inhaled steroid in addition to his albuterol inhaler Ddx considered but are not limited to shortness of breath due to COPD, pneumonia Vital signs: are WNL, pt. is afebrile H&PE are most consistent with shortness of breath due to COPD ORDERS: chest x-ray, albuterol salmeterol treatment, prednisone ED INTERVENTIONS: albuterol Solu-Medrol treatment and chest x-ray DISCHARGE: At this time pt. is stable for d/c to home. Will provide printed patient care instructions, and any necessary prescriptions. Care plan and follow up instructions have been discussed with the patient prior to discharge. follow with primary care provider regarding management of COPD and possible change of inhaled steroids, take oral steroids as directed Chest X-Ray Diagnostic Results Chest X-Ray Diagnostic Results : Chest X-Ray Ordered: Yes # of Views/Limited/Complete: 2 View Indication: Shortness of Breath EP Interpretation: Yes PA Xray: Interpretation reviewed, by supervising MD, and agrees with findings. Interpretation: no consolidation, no effusion, no pneumothorax, no acute cardiopulmonary disease Impression: No acute disease Electronically Signed by: gretel STARKS Scribe Text no acute changes, no changes and COPD according to radiologist's report Last Vital Signs Date Time Temp Pulse Resp B/P (MAP) Pulse Ox O2 Delivery O2 Flow Rate FiO2 12/16/17 19:57 80 20 100 Room Air 21 12/16/17 18:44 98.1 166/88 98.1 Disposition: HOME, SELF-CARE Condition: Stable Scripts Prednisone* (PREDNISONE*) 20 Mg Tablet 20 MG ORAL BID for 5 Days, #10 TAB 0 Refills Prov: Gretel Manning 12/16/17 Albuterol Sulfate (VENTOLIN HFA) 18 Gm Hfa.aer.ad 2 PUFFS INH EVERY 6 HOURS, #18 GM 0 Refills Prov: Gretel Manning 12/16/17 Patient Instructions: Shortness of Breath, [id number] Additional Instructions: and follow with a primary care provider regarding COPD management and shortness of breath but consider changing the inhaled steroid Gretel Manning Dec 16, 2017 20:37
[2017-12-16] MEDS ORDERED: VENTOLIN HFA18 GM INH (20:39)
[2017-12-16] MEDS ORDERED: PREDNISONE20 MG ORAL (20:39)
[2017-12-16 20:55] VITALS: BP 166/88
== END 2017-12-16 20:55 | disposition home or self-care (01) ==
LOC: EMR 18:56
DX: J44.1 Chronic obstructive pulmonary disease with (acute) exacerbation (principal); I10 Essential (primary) hypertension; R06.02 Shortness of breath; F17.200 Nicotine dependence, unspecified, uncomplicated; Z79.51 Long term (current) use of inhaled steroids
CPT/HCPCS: 71046; 94640; 99284; J7620

== ENCOUNTER 2017-12-29 09:15 | Emergency (ER) | payer MEDICARE, MEDICAID ==
[~2017-12-29] VITALS: Ht 157.5 cm; Wt 70.3 kg
[~2017-12-29 09:15] MED LIST changes: +ARNUITY ELLIP100 MCG IH; +MELOXICAM15 MG PO; +PREDNISONE20 MG ORAL; +VENTOLIN HFA18 GM INH
[2017-12-29] MEDS ORDERED: Ipratropium 0.02% Inh Soln 2.5ml UD HHN ONE ×2 (09:45→10:15)
[2017-12-29] MEDS ORDERED: Albuterol ud Inhalation HHN ONE ×2 (09:45→10:15)
--- NOTE | 2017-12-29 09:55 | Emergency Room Report ---
History of Present Illness General Chief Complaint: Dyspnea/Respdistress Source: Patient Present Illness HPI 72-year-old male presents ED for evaluation. Complaining of shortness of breath for a few days. History of COPD. States he is feeling short of breath. Denies cough. Denies chest pain. Denies fevers or chills. Was seen here a few weeks ago. Was discharged on albuterol and prednisone. States his symptoms overall did improve and then returned recently. Denies sick contacts or recent travel. No other aggravating relieving factors. Denies any other associated symptoms Allergies: Coded Allergies: No Known Allergies (Unverified , 03/01/14) Patient History Past Medical History: HTN, COPD Pertinent Family History: none Social History: Denies: smoking, alcohol use, drug use Immunizations: UTD Reviewed Nursing Documentation: PMH: Agreed; PSxH: Agreed Nursing Documentation-PMH Hx Cardiac Problems: Yes Hx Hypertension: Yes Hx COPD: Yes Hx Cancer: No Hx Gastrointestinal Problems: Yes - Hx Cdiff Hx Neurological Problems: No Hx Neurologic Surgery: No Review of Systems All Other Systems: negative except mentioned in HPI Physical Exam Vital Signs Date Time Temp Pulse Resp B/P (MAP) Pulse Ox O2 Delivery O2 Flow Rate FiO2 12/29/17 09:18 98.2 95 22 155/77 96 Room Air 98.2 12/29/17 09:45 21 Sp02 EP Interpretation: reviewed, normal General Appearance: no apparent distress, alert, GCS 15, non-toxic Head: normocephalic, atraumatic Eyes: bilateral eye normal inspection, bilateral eye PERRL ENT: hearing grossly normal, normal pharynx, no angioedema, normal voice Neck: full range of motion, supple/symm/no masses Respiratory: chest non-tender, lungs clear, no rhonchi, decreased breath sounds , speaking full sentences Cardiovascular #1: regular rate, rhythm, no edema Cardiovascular #2: 2+ carotid (R), 2+ carotid (L), 2+ radial (R), 2+ radial (L) , 2+ dorsalis pedis (R), 2+ dorsalis pedis (L) Gastrointestinal: normal bowel sounds, non tender, soft, non-distended, no guarding, no rebound Rectal: deferred Genitourinary: normal inspection, no CVA tenderness Musculoskeletal: back normal, gait/station normal, normal range of motion, non- tender Neurologic: alert, oriented x3, responsive, motor strength/tone normal, sensory intact, speech normal Psychiatric: judgement/insight normal, memory normal, mood/affect normal, no suicidal/homicidal ideation Reflexes: 3+ bicep (R), 3+ bicep (L), 3+ tricep (R), 3+ tricep (L), 3+ knee (R) , 3+ knee (L) Skin: normal color, no rash, warm/dry, well hydrated Lymphatic: no adenopathy Medical Decision Making Diagnostic Impression: Primary Impression: COPD exacerbation ER Course Hospital Course 72-year-old male presents to ED complaining of sob, wheezing. h/o COPD Differential diagnoses include: URI, bronchitis, asthma/COPD, pneumonia Clinical course Patient placed on stretcher. After initial history and physical I ordered prednisone and nebulizer treatment. Chest x-ray shows hyperinflated lungs, no acute infiltrate, no pneumothorax Upon reassessment patient states his shortness of breath has resolved. Breathing better. Given history of COPD we will discharge on antibiotics. After prednisone course patient will resume his inhaled steroid. PMD Dr Felipe aware; will followup as outpatient Diagnosis -COPD exacerbation Stable and discharged home with prescriptions for Rx levaquin, prednisone, albuterol. Instructed to followup with PMD. Return to ED if symptoms recur or worsen Chest X-Ray Diagnostic Results Chest X-Ray Diagnostic Results : Chest X-Ray Ordered: Yes # of Views/Limited/Complete: 1 View Indication: Shortness of Breath EP Interpretation: Yes Interpretation: no consolidation, no effusion, no pneumothorax, no acute cardiopulmonary disease, other - hyperinflated lungs Impression: Other - COPD Electronically Signed by: Electronically signed by Angelo Barber MD Last Vital Signs Date Time Temp Pulse Resp B/P (MAP) Pulse Ox O2 Delivery O2 Flow Rate FiO2 12/29/17 09:46 89 20 Room Air 21 12/29/17 09:45 97 12/29/17 09:18 98.2 155/77 98.2 Status: improved Disposition: HOME, SELF-CARE Condition: Stable Scripts Levofloxacin* (LEVAQUIN*) 750 Mg Tablet 750 MG ORAL DAILY for 5 Days, TAB Prov: Angelo Barber MD 12/29/17 Prednisone* (PREDNISONE*) 20 Mg Tablet 40 MG ORAL DAILY, #10 TAB Prov: Angelo Barber MD 12/29/17 Albuterol Sulfate* (ALBUTEROL SULFATE MDI*) 8.5 Gm Hfa.aer.ad 2 PUFF INH Q6H, #1 EA 0 Refills Prov: Angelo Barber MD 12/29/17 Referrals: Phil Felipe MD (PCP) Angelo Barber MD Dec 29, 2017 09:55
[2017-12-29 10:12] VITALS: BP 155/77
--- NOTE | 2017-12-29 10:14 | Diagnostic Imaging Report ---
Indication: Shortness of breath Technique: One view of the chest Comparison: 12/16/2017 Findings: No acute infiltrates, effusions, or congestion. Tortuous calcified aorta. Normal heart size. Upper mediastinum unremarkable. No significant interim change Impression: No acute process.
[2017-12-29] MEDS ORDERED: PREDNISONE20 MG ORAL (10:49)
[2017-12-29] MEDS ORDERED: ALBUTEROL SULF8.5 GM INH (10:49)
[2017-12-29] MEDS ORDERED: LEVAQUIN750 MG ORAL (10:49)
[2017-12-29 11:02] VITALS: BP 151/76
== END 2017-12-29 11:16 | disposition home or self-care (01) ==
LOC: EMR 09:35
DX: J44.1 Chronic obstructive pulmonary disease with (acute) exacerbation (principal); I10 Essential (primary) hypertension; Z86.79 Personal history of other diseases of the circulatory system
CPT/HCPCS: 71045; 94640; 94664; 99284; J7512

== ENCOUNTER 2018-02-21 17:25 | Inpatient (IN) | payer MEDICAID, MEDICARE ==
[~2018-02-21] VITALS: Ht 177.8 cm; Wt 54.4 kg
[~2018-02-21 17:25] MED LIST changes: +ALBUTEROL SULF8.5 GM INH; +LEVAQUIN750 MG ORAL
[2018-02-21] MEDS ORDERED: UNOBMED (17:33)
[2018-02-21] MEDS ORDERED: Solu-MEDROL 125mg Inj IVP ONE (17:45)
[2018-02-21] MEDS ORDERED: Levalbuterol Inh UD 1.25mg/0.5ml HHN ONE (17:45)
--- NOTE | 2018-02-21 17:50 | Emergency Room Report ---
History of Present Illness General Chief Complaint: Dyspnea/Respdistress Source: Patient, Medical Record Present Illness HPI Patient just with complaints of shortness of breath and COPD exacerbation Patient reports that he was Crossing the street when he became more short of breath and says the afternoon has had difficulty catching his breath Denies any chest pain denies any vomiting Patient has had multiple hospitalizations for similar COPD exacerbation Reports that he is on his medications and denies any recent travel denies any fevers Allergies: Coded Allergies: No Known Allergies (Unverified , 02/21/18) Patient History Past Medical History: see triage record Pertinent Family History: none Reviewed Nursing Documentation: PMH: Agreed; PSxH: Agreed Nursing Documentation-PMH Past Medical History: No History, Except For Hx Cardiac Problems: Yes Hx Hypertension: Yes Hx COPD: Yes Hx Cancer: No Hx Gastrointestinal Problems: Yes - Hx Cdiff Hx Neurological Problems: No Hx Neurologic Surgery: No Review of Systems All Other Systems: negative except mentioned in HPI Physical Exam Vital Signs Date Time Temp Pulse Resp B/P (MAP) Pulse Ox O2 Delivery O2 Flow Rate FiO2 02/21/18 17:29 98.4 98 18 176/84 95 Room Air Sp02 EP Interpretation: reviewed, normal General Appearance: well appearing, no apparent distress Head: normocephalic, atraumatic Eyes: bilateral eye PERRL, bilateral eye EOMI ENT: hearing grossly normal, normal pharynx, TMs + canals normal, uvula midline Neck: full range of motion, supple, no meningismus, no bony tend Respiratory: no retraction, no accessory muscle use, wheezing - And crackles bilaterally, other - Mildly tachypneic Cardiovascular #1: normal peripheral pulses, regular rate, rhythm, no edema, no gallop, no JVD, no murmur Gastrointestinal: normal bowel sounds, non tender, soft, no mass, no organomegaly, non-distended, no guarding, no hernia, no pulsatile mass, no rebound Genitourinary: no CVA tenderness Musculoskeletal: normal inspection Neurologic: oriented x3, responsive, special education coordinator III-XII nml as tested, motor strength/ tone normal, sensory intact Psychiatric: mood/affect normal Skin: normal color, no rash, warm/dry, palpation normal Lymphatic: normal inspection, no adenopathy Medical Decision Making ER Course Patient is a fairly complex patient with multiple differential to consideration including but not limited to cardiac cardiopulmonary and vascular emergencies Patient's imaging shows findings consistent with COPD Blood work initially shows high calcium level My suspicion is that there is some hemolysis with this And this will be repeated at a later time No EKG changes Patient received continued breathing treatments low steroids and requires further inpatient care Labs Test 02/21/18 17:50 02/21/18 17:55 02/21/18 18:20 02/21/18 18:25 White Blood Count 6.0 K/UL (4.8-10.8) Red Blood Count 4.57 M/UL (4.70-6.10) Hemoglobin 12.9 G/DL (14.2-18.0) Hematocrit 38.9 % (42.0-52.0) Mean Corpuscular Volume 85 FL (80-99) Mean Corpuscular Hemoglobin 28.3 PG (27.0-31.0) Mean Corpuscular Hemoglobin Concent 33.1 G/DL (32.0-36.0) Red Cell Distribution Width 14.4 % (11.6-14.8) Platelet Count 471 K/UL (150-450) Mean Platelet Volume 5.8 FL (6.5-10.1) Neutrophils (%) (Auto) 36.0 % (45.0-75.0) Lymphocytes (%) (Auto) 47.5 % (20.0-45.0) Monocytes (%) (Auto) 7.6 % (1.0-10.0) Eosinophils (%) (Auto) 6.4 % (0.0-3.0) Basophils (%) (Auto) 2.5 % (0.0-2.0) Arterial Blood pH 7.390 (7.350-7.450) Arterial Blood Partial Pressure CO2 45.6 mmHg (35.0-45.0) Arterial Blood Partial Pressure O2 77.3 mmHg (75.0-100.0) Arterial Blood HCO3 27.5 mmol/L (22.0-26.0) Arterial Blood Oxygen Saturation 95.4 % (95-100) Arterial Blood Base Excess 2.2 (-2-2) Bobby Test Positive Lactic Acid Level 0.80 mmol/L (0.4-2.0) Sodium Level 139 MMOL/L (136-145) Potassium Level 6.4 MMOL/L (3.5-5.1) Chloride Level 104 MMOL/L (98-107) Carbon Dioxide Level 27 MMOL/L (21-32) Anion Gap 8 mmol/L (5-15) Blood Urea Nitrogen 19 mg/dL (7-18) Creatinine 1.1 MG/DL (0.55-1.30) Estimat Glomerular Filtration Rate mL/min (>60) Glucose Level 109 MG/DL (74-106) Calcium Level 9.4 MG/DL (8.5-10.1) Total Bilirubin 0.4 MG/DL (0.2-1.0) Aspartate Amino Transf (AST/SGOT) 42 U/L (15-37) Alanine Aminotransferase (ALT/SGPT) < 6 U/L (12-78) Alkaline Phosphatase 105 U/L (46-116) Total Creatine Kinase 410 U/L (26-308) Creatine Kinase MB 5.7 NG/ML (0.0-3.6) Creatine Kinase MB Relative Index 1.3 Troponin I 0.111 ng/mL (0.000-0.056) Pro-B-Type Natriuretic Peptide 148 pg/mL (0-125) Total Protein 8.5 G/DL (6.4-8.2) Albumin 3.1 G/DL (3.4-5.0) Globulin 5.4 g/dL Albumin/Globulin Ratio 0.6 (1.0-2.7) Lipase 91 U/L (73-393) Test 02/21/18 19:30 02/21/18 19:35 02/22/18 05:15 Potassium Level 4.2 MMOL/L (3.5-5.1) 5.1 MMOL/L (3.5-5.1) Urine Color Yellow Urine Appearance Clear Urine pH 5 (4.5-8.0) Urine Specific [place] 1.025 (1.005-1.035) Urine Protein Negative (NEGATIVE) Urine Glucose (UA) Negative (NEGATIVE) Urine Ketones 1+ (NEGATIVE) Urine Blood 1+ (NEGATIVE) Urine Nitrite Negative (NEGATIVE) Urine Bilirubin Negative (NEGATIVE) Urine Urobilinogen Normal MG/DL (0.0-1.0) Urine Leukocyte Esterase Negative (NEGATIVE) Urine RBC 0-2 /HPF (0 - 0) Urine WBC 0-2 /HPF (0 - 0) Urine Squamous Epithelial Cells None /LPF (NONE/OCC) Urine Bacteria Few /HPF (NONE) Urine Mucus Moderate /LPF (NONE/OCC) White Blood Count 4.4 K/UL (4.8-10.8) Red Blood Count 5.02 M/UL (4.70-6.10) Hemoglobin 13.5 G/DL (14.2-18.0) Hematocrit 42.5 % (42.0-52.0) Mean Corpuscular Volume 85 FL (80-99) Mean Corpuscular Hemoglobin 27.0 PG (27.0-31.0) Mean Corpuscular Hemoglobin Concent 31.9 G/DL (32.0-36.0) Red Cell Distribution Width 14.1 % (11.6-14.8) Platelet Count 501 K/UL (150-450) Mean Platelet Volume 5.3 FL (6.5-10.1) Neutrophils (%) (Auto) 59.5 % (45.0-75.0) Lymphocytes (%) (Auto) 37.4 % (20.0-45.0) Monocytes (%) (Auto) 2.3 % (1.0-10.0) Eosinophils (%) (Auto) 0.1 % (0.0-3.0) Basophils (%) (Auto) 0.7 % (0.0-2.0) Sodium Level 142 MMOL/L (136-145) Chloride Level 106 MMOL/L (98-107) Carbon Dioxide Level 29 MMOL/L (21-32) Anion Gap 7 mmol/L (5-15) Blood Urea Nitrogen 17 mg/dL (7-18) Creatinine 1.1 MG/DL (0.55-1.30) Estimat Glomerular Filtration Rate mL/min (>60) Glucose Level 115 MG/DL (74-106) Calcium Level 10.1 MG/DL (8.5-10.1) EKG Diagnostic Results Rate: normal Rhythm: NSR ST Segments: other - , Nonspecific ST T-wave changes Rhythm Strip Diag. Results EP Interpretation: yes Rate: 77 Rhythm: NSR, no PVC's, no ectopy Chest X-Ray Diagnostic Results Chest X-Ray Diagnostic Results : Chest X-Ray Ordered: Yes # of Views/Limited/Complete: 1 View Indication: Chest Pain EP Interpretation: Yes Interpretation: no consolidation, no effusion, no pneumothorax, other - Hyperinflation Impression: No acute disease - COPD Electronically Signed by: Allan Duarte DO Last Vital Signs Date Time Temp Pulse Resp B/P (MAP) Pulse Ox O2 Delivery O2 Flow Rate FiO2 02/21/18 17:29 98.4 98 18 176/84 95 Room Air Status: improved Disposition: ADMITTED INPATIENT Condition: Serious Allan Duarte DO Feb 21, 2018 17:50
[2018-02-21 18:02] LABS: BASOPHILS % (AUTO) 2.5 % (0.0-2.0); EOSINOPHILS % (AUTO) 6.4 % (0.0-3.0); HEMATOCRIT 38.9 % (42.0-52.0); HEMOGLOBIN 12.9 G/DL (14.2-18.0); LYMPHOCYTES % (AUTO) 47.5 % (20.0-45.0); MEAN CORPUSCULAR VOLUME 85 FL (80-99); MONOCYTES % (AUTO) 7.6 % (1.0-10.0); PLATELET COUNT 471 K/UL (150-450); RED BLOOD COUNT 4.57 M/UL (4.70-6.10); RED CELL DISTRIBUTION WIDTH 14.4 % (11.6-14.8)
[2018-02-21 18:08] VITALS: BP 156/72
[2018-02-21] MEDS ORDERED: VITAMIN D1000 UNI1 ORAL (18:33)
[2018-02-21] MEDS ORDERED: VITAMIN B COMP1 EAC2 ORAL (18:33)
--- NOTE | 2018-02-21 18:46 | Diagnostic Imaging Report ---
EXAM: XR Chest, 1 View CLINICAL HISTORY: SOB TECHNIQUE: Frontal view of the chest. COMPARISON: Chest x-ray 12/16/17. FINDINGS: Lungs: Pulmonary hyperinflation. No consolidation. Pleural space: Unremarkable. No pneumothorax. Heart: Unremarkable. No cardiomegaly. Mediastinum: Unremarkable. Bones/joints: No acute fracture. IMPRESSION: Pulmonary hyperinflation. No consolidation.
[2018-02-21 19:15] VITALS: BP 151/67
[2018-02-21 19:25] LABS: ALANINE AMINOTRANSFERASE < 6 U/L (12-78); ALBUMIN 3.1 G/DL (3.4-5.0); ALBUMIN/GLOBULIN RATIO 0.6 (1.0-2.7); ALKALINE PHOSPHATASE 105 U/L (46-116); ANION GAP 8 mmol/L (5-15); ASPARTATE AMINO TRANSFERASE 42 U/L (15-37); BILIRUBIN,TOTAL 0.4 MG/DL (0.2-1.0); BLOOD UREA NITROGEN 19 mg/dL (7-18); CALCIUM 9.4 MG/DL (8.5-10.1); CARBON DIOXIDE 27 MMOL/L (21-32); CHLORIDE 104 MMOL/L (98-107); CKMB 5.7 NG/ML (0.0-3.6); CREATINE KINASE 410 U/L (26-308); CREATININE 1.1 MG/DL (0.55-1.30); SODIUM 139 MMOL/L (136-145)
[2018-02-21 19:28] LABS: POTASSIUM 6.4 MMOL/L (3.5-5.1)
[2018-02-21 20:19] LABS: APPEARANCE,URINE CLEAR; BILIRUBIN, URINE NEGATIVE (NEGATIVE); GLUCOSE, URINE (UA) NEGATIVE (NEGATIVE); KETONES,URINE 1+ (NEGATIVE); LEUKOCYTE ESTERASE ,URINE NEGATIVE (NEGATIVE); NITRITE,URINE NEGATIVE (NEGATIVE); PH,URINE 5 (4.5-8.0); PROTEIN,URINE NEGATIVE (NEGATIVE); UROBILINOGEN,URINE NORMAL MG/DL (0.0-1.0)
[2018-02-21 20:21] LABS: COLOR,URINE YELLOW
[2018-02-21 20:30] VITALS: BP 123/99
[2018-02-22] VITALS: BP 127/84
[2018-02-22] MEDS ORDERED: Milk of Magnesia 30ml Ud ORAL PRN
[2018-02-22] MEDS ORDERED: Albuterol 90mcg Inhaler 8gm INH PRN
[2018-02-22] MEDS ORDERED: Albuterol ud Inhalation HHN PRN
[2018-02-22] MEDS: cefTRIAXone 1 GM in D5W 55 ML IVPB SCH (01:34)
[2018-02-22 04:00] VITALS: BP 150/90
[2018-02-22 07:09] LABS: BASOPHILS % (AUTO) 0.7 % (0.0-2.0); EOSINOPHILS % (AUTO) 0.1 % (0.0-3.0); HEMATOCRIT 42.5 % (42.0-52.0); HEMOGLOBIN 13.5 G/DL (14.2-18.0); LYMPHOCYTES % (AUTO) 37.4 % (20.0-45.0); MEAN CORPUSCULAR VOLUME 85 FL (80-99); MONOCYTES % (AUTO) 2.3 % (1.0-10.0); NEUTROPHILS % (AUTO) 59.5 % (45.0-75.0); PLATELET COUNT 501 K/UL (150-450); RED BLOOD COUNT 5.02 M/UL (4.70-6.10); RED CELL DISTRIBUTION WIDTH 14.1 % (11.6-14.8); WHITE BLOOD COUNT 4.4 K/UL (4.8-10.8)
[2018-02-22 07:15] LABS: ANION GAP 7 mmol/L (5-15); BLOOD UREA NITROGEN 17 mg/dL (7-18); CALCIUM 10.1 MG/DL (8.5-10.1); CARBON DIOXIDE 29 MMOL/L (21-32); CHLORIDE 106 MMOL/L (98-107); CREATININE 1.1 MG/DL (0.55-1.30); POTASSIUM 5.1 MMOL/L (3.5-5.1); SODIUM 142 MMOL/L (136-145)
[2018-02-22] MEDS: Albuterol/Ipratropium 3ml neb HHN SCH ×6 (07:31→23:27)
[2018-02-22 08:10] VITALS: BP 149/82
[2018-02-22] MEDS: Vitamin D 1000 IU Tab ORAL SCH (08:30)
[2018-02-22] MEDS: Vitamin B Complex Tab ORAL SCH (08:30)
[2018-02-22] MEDS: Solu-MEDROL 125mg Inj IVP SCH ×2 (08:31→20:19)
[2018-02-22] MEDS: Heparin 5000 units/ml inj SUBQ SCH ×2 (08:33→20:18)
--- NOTE | 2018-02-22 08:47 | Consultation ---
Consult Note Consult Note Consult Note 71-year-old male presents with increasing shortness of breath and congestion over the past week. Patient noted to have worsening secretions and chest tightness, which has worsened. Patient denies any fevers or chills at this time. Patient has a long-standing history of severe endstage COPD and now notes worsening symptoms. The patient has had prior history of respiratory failure, requiring intubation in the past. Patient does not have any oxygen at home at present. Patient has been compliant with therapy at this time and presents due to lack of improvement. Patient was recently treated with prednisone on repeated episodes as an outpatient but has failed to improve. Patient care reviewed. Patient also with difficulty with activities of daily living. Active Medications (reviewed today): reviewed and reconciled Current Allergies: No known allergies No Known Drug Allergies Past Medical History (reviewed - no changes required): Hypertension, COPD, hypoxemia, GERD; copd exacerbation 02/2014 Cdif Respiratory failure vitamin D deficiency pulmonary hypertension allergic rhinitis Pt was in a coma for 2 weeks at [facility] due to respiratory failure Surgical History (reviewed - no changes required): Tracheotomy Gtube (removed) Family History (reviewed - no changes required): Hprlrv-ccyduzyj-gakkx of unknown Osvpyx-qufagcoy-jbwlgio causes at 89 Social History (reviewed - no changes required): TEQUILA lives alone. He lives at home in [place]. He is single with 4 children. was in a SNF and now staying with friend Smoked Tobacco Use: Former smoker Cigarettes: Yes -- 1-2 every 3 days pack(s) per day, Pack-years: 2 cigars per day for 50 years Years smoked: 50 Year quit: 09/2016 Cigars: Yes -- 1 per week Year started: 50 years ago Cigars/Pipes Year Quit: 07/2014 Smokeless Tobacco Use: Never Tobacco Use Comments: patient is trying to stop smoking, patient has not smoked for 2 days Passive smoke exposure: no Drug use: no Review of Systems Respiratory: see HPI 10 points reviewed and otherwise stable Physical Exam General Appearance: well nourished, well hydrated, no acute distress thin Respiratory Respiratory Effort: no intercostal retractions or use of accessory muscles Palpation: normal fremitus Auscultation: reduced breath entry without rhonchi or wheeze; Cardiovascular Palpation: no thrill or palpable murmurs, no displacement of PMI Auscultation: S1, S2, no murmur, rub, or gallop Pedal pulse: pulses 2+, symmetric Peripheral Circulation: no cyanosis, clubbing, edema, cords on upper and lower extremities Abdomen NABS nontender no distention Musculoskeletal Gait and Station: using a cane LLE: knee pain nonfocal Labs Test 02/21/18 17:50 02/21/18 17:55 02/21/18 18:20 02/21/18 18:25 White Blood Count 6.0 K/UL (4.8-10.8) Red Blood Count 4.57 M/UL (4.70-6.10) Hemoglobin 12.9 G/DL (14.2-18.0) Hematocrit 38.9 % (42.0-52.0) Mean Corpuscular Volume 85 FL (80-99) Mean Corpuscular Hemoglobin 28.3 PG (27.0-31.0) Mean Corpuscular Hemoglobin Concent 33.1 G/DL (32.0-36.0) Red Cell Distribution Width 14.4 % (11.6-14.8) Platelet Count 471 K/UL (150-450) Mean Platelet Volume 5.8 FL (6.5-10.1) Neutrophils (%) (Auto) 36.0 % (45.0-75.0) Lymphocytes (%) (Auto) 47.5 % (20.0-45.0) Monocytes (%) (Auto) 7.6 % (1.0-10.0) Eosinophils (%) (Auto) 6.4 % (0.0-3.0) Basophils (%) (Auto) 2.5 % (0.0-2.0) Arterial Blood pH 7.390 (7.350-7.450) Arterial Blood Partial Pressure CO2 45.6 mmHg (35.0-45.0) Arterial Blood Partial Pressure O2 77.3 mmHg (75.0-100.0) Arterial Blood HCO3 27.5 mmol/L (22.0-26.0) Arterial Blood Oxygen Saturation 95.4 % (95-100) Arterial Blood Base Excess 2.2 (-2-2) Bobby Test Positive Lactic Acid Level 0.80 mmol/L (0.4-2.0) Sodium Level 139 MMOL/L (136-145) Potassium Level 6.4 MMOL/L (3.5-5.1) Chloride Level 104 MMOL/L (98-107) Carbon Dioxide Level 27 MMOL/L (21-32) Anion Gap 8 mmol/L (5-15) Blood Urea Nitrogen 19 mg/dL (7-18) Creatinine 1.1 MG/DL (0.55-1.30) Estimat Glomerular Filtration Rate mL/min (>60) Glucose Level 109 MG/DL (74-106) Calcium Level 9.4 MG/DL (8.5-10.1) Total Bilirubin 0.4 MG/DL (0.2-1.0) Aspartate Amino Transf (AST/SGOT) 42 U/L (15-37) Alanine Aminotransferase (ALT/SGPT) < 6 U/L (12-78) Alkaline Phosphatase 105 U/L (46-116) Total Creatine Kinase 410 U/L (26-308) Creatine Kinase MB 5.7 NG/ML (0.0-3.6) Creatine Kinase MB Relative Index 1.3 Troponin I 0.111 ng/mL (0.000-0.056) Pro-B-Type Natriuretic Peptide 148 pg/mL (0-125) Total Protein 8.5 G/DL (6.4-8.2) Albumin 3.1 G/DL (3.4-5.0) Globulin 5.4 g/dL Albumin/Globulin Ratio 0.6 (1.0-2.7) Lipase 91 U/L (73-393) Test 02/21/18 19:30 02/21/18 19:35 02/22/18 05:15 Potassium Level 4.2 MMOL/L (3.5-5.1) 5.1 MMOL/L (3.5-5.1) Urine Color Yellow Urine Appearance Clear Urine pH 5 (4.5-8.0) Urine Specific [place] 1.025 (1.005-1.035) Urine Protein Negative (NEGATIVE) Urine Glucose (UA) Negative (NEGATIVE) Urine Ketones 1+ (NEGATIVE) Urine Blood 1+ (NEGATIVE) Urine Nitrite Negative (NEGATIVE) Urine Bilirubin Negative (NEGATIVE) Urine Urobilinogen Normal MG/DL (0.0-1.0) Urine Leukocyte Esterase Negative (NEGATIVE) Urine RBC 0-2 /HPF (0 - 0) Urine WBC 0-2 /HPF (0 - 0) Urine Squamous Epithelial Cells None /LPF (NONE/OCC) Urine Bacteria Few /HPF (NONE) Urine Mucus Moderate /LPF (NONE/OCC) White Blood Count 4.4 K/UL (4.8-10.8) Red Blood Count 5.02 M/UL (4.70-6.10) Hemoglobin 13.5 G/DL (14.2-18.0) Hematocrit 42.5 % (42.0-52.0) Mean Corpuscular Volume 85 FL (80-99) Mean Corpuscular Hemoglobin 27.0 PG (27.0-31.0) Mean Corpuscular Hemoglobin Concent 31.9 G/DL (32.0-36.0) Red Cell Distribution Width 14.1 % (11.6-14.8) Platelet Count 501 K/UL (150-450) Mean Platelet Volume 5.3 FL (6.5-10.1) Neutrophils (%) (Auto) 59.5 % (45.0-75.0) Lymphocytes (%) (Auto) 37.4 % (20.0-45.0) Monocytes (%) (Auto) 2.3 % (1.0-10.0) Eosinophils (%) (Auto) 0.1 % (0.0-3.0) Basophils (%) (Auto) 0.7 % (0.0-2.0) Sodium Level 142 MMOL/L (136-145) Chloride Level 106 MMOL/L (98-107) Carbon Dioxide Level 29 MMOL/L (21-32) Anion Gap 7 mmol/L (5-15) Blood Urea Nitrogen 17 mg/dL (7-18) Creatinine 1.1 MG/DL (0.55-1.30) Estimat Glomerular Filtration Rate mL/min (>60) Glucose Level 115 MG/DL (74-106) Calcium Level 10.1 MG/DL (8.5-10.1) IMPRESSION 1. COPD exacerbation 2. Respiratory insufficiency 3. concern for underlying infection 4. Increasing debility 5. Increasing fatigue 6. Shortness of breath 7. Weight loss Plan IV Solu-Medrol IV antibiotics Resume home meds Respiratory therapy Oxygen therapy Physical therapy evaluation Monitor clinically monitor for disposition Consider short-term rehab with worsening debility if does not improved impression, plan, and exam edited and reviewed in detail care discussed with Phil Lopes MD Feb 22, 2018 08:47
[2018-02-22] MEDS ORDERED: Tubing IV Secondary IV ONE (09:14)
[2018-02-22] MEDS ORDERED: NS 275ml ONE (09:14)
--- NOTE | 2018-02-22 09:14 | History and Physical Report ---
DATE OF ADMISSION: 02/21/2018 CHIEF COMPLAINT: COPD exacerbation. HISTORY OF PRESENT ILLNESS: The patient is a pleasant 72-year-old male, well known to me. He has a history of severe COPD, hypertension, and pulmonary hypertension, presented with complaints of several days of worsening progressive shortness of breath. According to the patient, he was well until several days prior to admission. He knows that he ran out of one of his inhalers and the other one he did not take because he felt that was not helping him. He had progressive worsening shortness of breath, cough, and congestion, and eventually presented to the emergency room. On evaluation there, he was noted to be in COPD exacerbation. His chest x-ray was clear. He was given intravenous steroids and respiratory treatments. He only had minimal improvement. Therefore, he is admitted for further evaluation and treatment. PAST MEDICAL HISTORY: As above. PAST SURGICAL HISTORY: None. CURRENT MEDICATIONS: Reconciled and reviewed. ALLERGIES: None. FAMILY HISTORY: None. SOCIAL HISTORY: The patient is a [id number] history of smoking, but quit. No alcohol. No drugs. REVIEW OF SYSTEMS: GENERAL: No fevers or chills. HEENT: No headaches or visual changes. CARDIOPULMONARY: No chest pain. Positive shortness of breath, cough, congestion, and wheezing. GASTROINTESTINAL: No nausea or vomiting. GENITOURINARY: No urgency or frequency. MUSCULOSKELETAL: No joint pain or swelling. NEUROLOGIC: No history of seizures. PHYSICAL EXAMINATION: VITAL SIGNS: Temperature 98.5 degrees, pulse 86, respirations 18, and blood pressure 150/90. GENERAL: The patient is a well-developed male, in no apparent distress. He is able to speak in full sentences. NECK: Supple. There is no jugular venous distention. HEART: Regular rate and rhythm. LUNGS: Significant diminished breath sounds with few scattered wheezes. ABDOMEN: Soft, nontender, and nondistended. EXTREMITIES: No clubbing, cyanosis, or edema. LABORATORY DATA: Labs showed white count 6, hemoglobin 12, hematocrit 38, and platelets of 471,000. Sodium 139 and potassium 6.4. Troponin 0.11. ABG showed pH of 7.39, pCO2 of 45, pO2 of 77, bicarb 27, and O2 saturation of 95%. ASSESSMENT: This is a pleasant male with history of hypertension and severe chronic obstructive pulmonary disease, admitted with chronic obstructive pulmonary disease exacerbation. 1. Chronic obstructive pulmonary disease exacerbation. 2. Hyperkalemia. 3. Acute on chronic respiratory failure. 4. Pulmonary hypertension. 5. Elevated troponin, rule out acute coronary syndrome. PLAN: 1. Intravenous steroids, respiratory treatments [id number]. 2. Repeat troponin. 3. DVT and stress ulcer prophylaxis. 4. Continue outpatient antihypertensive regimen. 5. Empiric antibiotic therapy for bronchitis. 6. Pulmonary consultation will be obtained. Temo Navarro M.D. DR: STEVEN JOB#: [id number] CC:
[2018-02-22 12:05] VITALS: BP 152/85
[2018-02-22 16:02] VITALS: BP 123/72
[2018-02-22 20:00] VITALS: BP 148/87
[2018-02-23] VITALS: BP 116/65
[2018-02-23] MEDS: cefTRIAXone 1 GM in D5W 55 ML IVPB SCH (00:25)
[2018-02-23] MEDS: Albuterol/Ipratropium 3ml neb HHN SCH ×6 (03:40→23:00)
[2018-02-23 04:00] VITALS: BP 132/74
[2018-02-23 08:00] VITALS: BP 141/71
[2018-02-23] MEDS: Vitamin B Complex Tab ORAL SCH (08:14)
[2018-02-23] MEDS: Solu-MEDROL 125mg Inj IVP SCH ×2 (08:15→21:35)
[2018-02-23] MEDS: Vitamin D 1000 IU Tab ORAL SCH (08:15)
[2018-02-23] MEDS: Heparin 5000 units/ml inj SUBQ SCH ×2 (08:16→21:00)
--- NOTE | 2018-02-23 08:31 | Pulmonology Progress Note ---
Assessment/Plan Assessment/Plan Pulmonary Follow Up Note Patient is a 71-year-old male presents with increasing shortness of breath and congestion over the past week. Patient noted to have worsening secretions and chest tightness, which has worsened. Patient denies any fevers or chills at this time. Patient has a long-standing history of severe endstage COPD and now notes worsening symptoms. The patient has had prior history of respiratory failure, requiring intubation in the past. Patient does not have any oxygen at home at present. Patient has been compliant with therapy at this time and presents due to lack of improvement. Patient was recently treated with prednisone on repeated episodes as an outpatient but has failed to improve. Patient care reviewed. Patient also with difficulty with activities of daily living. Current Allergies: No known allergies No Known Drug Allergies Past Medical History: Hypertension, COPD, hypoxemia, GERD; copd exacerbation 2013 Cdif Respiratory failure vitamin D deficiency pulmonary hypertension allergic rhinitis Pt was in a coma for 2 weeks at [facility] due to respiratory failure Surgical History (reviewed - no changes required): Tracheotomy Gtube (removed) Family History (reviewed - no changes required): Lolucr-[id number]-yovhk of unknown Clnzbt-[id number]-oxeanbn causes at 89 Social History (reviewed - no changes required): TEQUILA lives alone. He lives at home in [place]. He is single with 4 children. was in a SNF and now staying with friend Smoked Tobacco Use: Former smoker Cigarettes: Yes -- 1-2 every 3 days pack(s) per day, Pack-years: 2 cigars per day for 50 years Years smoked: 50 Year quit: 09/2016 Cigars: Yes -- 1 per week Year started: 50 years ago Cigars/Pipes Year Quit: 07/2014 Smokeless Tobacco Use: Never Tobacco Use Comments: patient is trying to stop smoking, patient has not smoked for 2 days Passive smoke exposure: no Drug use: no Review of Systems Respiratory: see HPI 10 points reviewed and otherwise stable Physical Exam General Appearance: well nourished, well hydrated, no acute distress thin Respiratory Respiratory Effort: no intercostal retractions or use of accessory muscles Palpation: normal fremitus Auscultation: reduced breath entry without rhonchi or wheeze; Cardiovascular Palpation: no thrill or palpable murmurs, no displacement of PMI Auscultation: S1, S2, no murmur, rub, or gallop Pedal pulse: pulses 2+, symmetric Peripheral Circulation: no cyanosis, clubbing, edema, cords on upper and lower extremities Abdomen NABS nontender no distention Musculoskeletal Gait and Station: using a cane LLE: knee pain nonfocal Labs Test 02/21/18 17:50 02/21/18 17:55 02/21/18 18:20 02/21/18 18:25 White Blood Count 6.0 K/UL (4.8-10.8) Red Blood Count 4.57 M/UL (4.70-6.10) Hemoglobin 12.9 G/DL (14.2-18.0) Hematocrit 38.9 % (42.0-52.0) Mean Corpuscular Volume 85 FL (80-99) Mean Corpuscular Hemoglobin 28.3 PG (27.0-31.0) Mean Corpuscular Hemoglobin Concent 33.1 G/DL (32.0-36.0) Red Cell Distribution Width 14.4 % (11.6-14.8) Platelet Count 471 K/UL (150-450) Mean Platelet Volume 5.8 FL (6.5-10.1) Neutrophils (%) (Auto) 36.0 % (45.0-75.0) Lymphocytes (%) (Auto) 47.5 % (20.0-45.0) Monocytes (%) (Auto) 7.6 % (1.0-10.0) Eosinophils (%) (Auto) 6.4 % (0.0-3.0) Basophils (%) (Auto) 2.5 % (0.0-2.0) Arterial Blood pH 7.390 (7.350-7.450) Arterial Blood Partial Pressure CO2 45.6 mmHg (35.0-45.0) Arterial Blood Partial Pressure O2 77.3 mmHg (75.0-100.0) Arterial Blood HCO3 27.5 mmol/L (22.0-26.0) Arterial Blood Oxygen Saturation 95.4 % (95-100) Arterial Blood Base Excess 2.2 (-2-2) Bobby Test Positive Lactic Acid Level 0.80 mmol/L (0.4-2.0) Sodium Level 139 MMOL/L (136-145) Potassium Level 6.4 MMOL/L (3.5-5.1) Chloride Level 104 MMOL/L (98-107) Carbon Dioxide Level 27 MMOL/L (21-32) Anion Gap 8 mmol/L (5-15) Blood Urea Nitrogen 19 mg/dL (7-18) Creatinine 1.1 MG/DL (0.55-1.30) Estimat Glomerular Filtration Rate mL/min (>60) Glucose Level 109 MG/DL (74-106) Calcium Level 9.4 MG/DL (8.5-10.1) Total Bilirubin 0.4 MG/DL (0.2-1.0) Aspartate Amino Transf (AST/SGOT) 42 U/L (15-37) Alanine Aminotransferase (ALT/SGPT) < 6 U/L (12-78) Alkaline Phosphatase 105 U/L (46-116) Total Creatine Kinase 410 U/L (26-308) Creatine Kinase MB 5.7 NG/ML (0.0-3.6) Creatine Kinase MB Relative Index 1.3 Troponin I 0.111 ng/mL (0.000-0.056) Pro-B-Type Natriuretic Peptide 148 pg/mL (0-125) Total Protein 8.5 G/DL (6.4-8.2) Albumin 3.1 G/DL (3.4-5.0) Globulin 5.4 g/dL Albumin/Globulin Ratio 0.6 (1.0-2.7) Lipase 91 U/L (73-393) Test 02/21/18 19:30 02/21/18 19:35 02/22/18 05:15 Potassium Level 4.2 MMOL/L (3.5-5.1) 5.1 MMOL/L (3.5-5.1) Urine Color Yellow Urine Appearance Clear Urine pH 5 (4.5-8.0) Urine Specific [place] 1.025 (1.005-1.035) Urine Protein Negative (NEGATIVE) Urine Glucose (UA) Negative (NEGATIVE) Urine Ketones 1+ (NEGATIVE) Urine Blood 1+ (NEGATIVE) Urine Nitrite Negative (NEGATIVE) Urine Bilirubin Negative (NEGATIVE) Urine Urobilinogen Normal MG/DL (0.0-1.0) Urine Leukocyte Esterase Negative (NEGATIVE) Urine RBC 0-2 /HPF (0 - 0) Urine WBC 0-2 /HPF (0 - 0) Urine Squamous Epithelial Cells None /LPF (NONE/OCC) Urine Bacteria Few /HPF (NONE) Urine Mucus Moderate /LPF (NONE/OCC) White Blood Count 4.4 K/UL (4.8-10.8) Red Blood Count 5.02 M/UL (4.70-6.10) Hemoglobin 13.5 G/DL (14.2-18.0) Hematocrit 42.5 % (42.0-52.0) Mean Corpuscular Volume 85 FL (80-99) Mean Corpuscular Hemoglobin 27.0 PG (27.0-31.0) Mean Corpuscular Hemoglobin Concent 31.9 G/DL (32.0-36.0) Red Cell Distribution Width 14.1 % (11.6-14.8) Platelet Count 501 K/UL (150-450) Mean Platelet Volume 5.3 FL (6.5-10.1) Neutrophils (%) (Auto) 59.5 % (45.0-75.0) Lymphocytes (%) (Auto) 37.4 % (20.0-45.0) Monocytes (%) (Auto) 2.3 % (1.0-10.0) Eosinophils (%) (Auto) 0.1 % (0.0-3.0) Basophils (%) (Auto) 0.7 % (0.0-2.0) Sodium Level 142 MMOL/L (136-145) Chloride Level 106 MMOL/L (98-107) Carbon Dioxide Level 29 MMOL/L (21-32) Anion Gap 7 mmol/L (5-15) Blood Urea Nitrogen 17 mg/dL (7-18) Creatinine 1.1 MG/DL (0.55-1.30) Estimat Glomerular Filtration Rate mL/min (>60) Glucose Level 115 MG/DL (74-106) Calcium Level 10.1 MG/DL (8.5-10.1) IMPRESSION 1. COPD exacerbation 2. Respiratory insufficiency 3. concern for underlying infection 4. Increasing debility 5. Increasing fatigue 6. Shortness of breath 7. Weight loss Plan IV Solu-Medrol IV antibiotics Resume home meds Respiratory therapy Oxygen therapy Physical therapy evaluation Monitor clinically monitor for disposition Consider short-term rehab with worsening debility if does not improved impression, plan, and exam edited and reviewed in detail care discussed with RN Subjective ROS Limited/Unobtainable: No Allergies: Coded Allergies: No Known Allergies (Unverified , 02/21/18) Objective Last 24 Hour Vital Signs Date Time Temp Pulse Resp B/P (MAP) Pulse Ox O2 Delivery O2 Flow Rate FiO2 02/23/18 08:15 89 141/71 02/23/18 08:10 89 18 100 Nasal Cannula 2.0 28 02/23/18 08:00 85 18 100 Nasal Cannula 2.0 28 02/23/18 08:00 Nasal Cannula 2.0 28 02/23/18 08:00 97.9 89 21 141/71 (94) 100 02/23/18 08:00 98 Nasal Cannula 2.0 28 02/23/18 04:00 74 02/23/18 04:00 98.9 76 18 132/74 (93) 99 02/23/18 03:40 Nasal Cannula 2.0 28 02/23/18 03:40 Nasal Cannula 2.0 28 02/23/18 00:00 80 02/23/18 00:00 98.2 81 18 116/65 (82) 99 02/22/18 23:37 91 18 99 Nasal Cannula 2.0 28 02/22/18 23:27 90 18 98 Nasal Cannula 2.0 28 02/22/18 21:00 Nasal Cannula 2.0 Nasal Cannula 2.0 Nasal Cannula 2.0 02/22/18 20:19 84 18 99 Nasal Cannula 2.0 28 02/22/18 20:09 83 18 98 Nasal Cannula 2.0 28 02/22/18 20:09 98 Nasal Cannula 2.0 28 02/22/18 20:09 Nasal Cannula 2.0 28 02/22/18 20:00 98.1 80 18 148/87 (107) 98 02/22/18 20:00 97 02/22/18 16:11 86 20 100 Nasal Cannula 2.0 02/22/18 16:02 98.2 82 21 123/72 (89) 97 02/22/18 16:01 86 20 97 Nasal Cannula 2.0 02/22/18 16:00 90 02/22/18 12:05 98.6 87 21 152/85 (107) 97 02/22/18 12:00 79 02/22/18 11:25 98 18 99 Nasal Cannula 2.0 02/22/18 11:15 77 18 98 Nasal Cannula 2.0 02/22/18 09:00 Nasal Cannula 2.0 Nasal Cannula 2.0 02/22/18 08:31 93 149/82 Intake and Output 02/22/18 02/23/18 19:00 07:00 Intake Total 600 ml Balance 600 ml Intake Oral 600 ml # Voids 5 4 Microbiology Date/Time Source Procedure Growth Status 02/21/18 17:50 Blood Blood Culture - Preliminary NO GROWTH AFTER 24 HOURS Resulted 02/21/18 17:50 Blood Blood Culture - Preliminary NO GROWTH AFTER 24 HOURS Resulted Current Medications Medications (Trade) Dose Ordered Sig/Charlie Route PRN Reason Start Time Stop Time Status Last Admin Dose Admin Acetaminophen (Tylenol) 650 mg Q4H PRN ORAL Mild Pain/Temp > 100.5 02/22/18 00:00 03/24/18 00:00 Al Hydroxide/Mg Hydroxide (Mylanta) 30 ml Q4HR PRN ORAL HEARTBURN 02/22/18 00:00 03/24/18 00:00 Albuterol Sulfate (Proventil MDI) 2 puff Q4HR PRN INH Shortness of Breath 02/22/18 00:00 03/24/18 00:00 Albuterol Sulfate (Proventil) 2.5 mg Q4HRT PRN HHN Shortness of Breath 02/22/18 00:00 02/27/18 00:00 Albuterol/ Ipratropium (Albuterol/ Ipratropium) 3 ml Q4HRT HHN 02/22/18 03:00 02/27/18 02:59 02/23/18 08:01 Amlodipine Besylate (Norvasc) 5 mg DAILY ORAL 02/22/18 09:00 03/24/18 08:59 02/23/18 08:15 Ceftriaxone Sodium 1 gm/ Dextrose 55 ml @ 110 mls/hr Q24H IVPB 02/22/18 00:00 03/01/18 00:00 02/23/18 00:25 Heparin Sodium (Porcine) (Heparin 5000 units/ml) 5,000 units EVERY 12 HOURS SUBQ 02/22/18 09:00 03/24/18 08:59 02/23/18 08:16 Magnesium Hydroxide (Mom) 30 ml DAILYPRN PRN ORAL Constipation 02/22/18 00:00 03/24/18 00:00 Methylprednisolone Sodium Succinate (Solu-MEDROL) 60 mg EVERY 12 HOURS IVP 02/22/18 09:00 03/24/18 08:59 02/23/18 08:15 Pantoprazole (Protonix) 40 mg DAILY ORAL 02/22/18 09:00 03/24/18 08:59 02/23/18 08:15 Vitamin B Complex (Vitamin B Complex) 1 tab DAILY ORAL 02/22/18 09:00 03/24/18 08:59 02/23/18 08:14 Vitamin D (Vitamin D) 1,000 intlu DAILY ORAL 02/22/18 09:00 03/24/18 08:59 02/23/18 08:15 Amor Schrader MD Feb 23, 2018 08:31
--- NOTE | 2018-02-23 08:40 | General Progress Note ---
Assessment/Plan Problem List: (1) Dyspnea ICD Codes: R06.00 - Dyspnea, unspecified SNOMED: 399800549 (2) Respiratory distress ICD Codes: R06.00 - Dyspnea, unspecified SNOMED: 437710765 (3) COPD exacerbation ICD Codes: J44.1 - Chronic obstructive pulmonary disease with (acute) exacerbation SNOMED: 872942543 Status: stable Assessment/Plan bed rest iv steroids resp rx abx Subjective ROS Limited/Unobtainable: No Constitutional: Reports: malaise, weakness HEENT: Reports: no symptoms Cardiovascular: Reports: no symptoms Respiratory: Reports: cough, shortness of breath, SOB with excertion Gastrointestinal/Abdominal: Reports: no symptoms Genitourinary: Reports: no symptoms Neurologic/Psychiatric: Reports: no symptoms Endocrine: Reports: no symptoms Hematologic/Lymphatic: Reports: no symptoms Allergies: Coded Allergies: No Known Allergies (Unverified , 02/21/18) All Systems: reviewed and negative except above Subjective more sob today. was more active last night. compliant with meds Objective Last 24 Hour Vital Signs Date Time Temp Pulse Resp B/P (MAP) Pulse Ox O2 Delivery O2 Flow Rate FiO2 02/23/18 08:15 89 141/71 02/23/18 08:10 89 18 100 Nasal Cannula 2.0 28 02/23/18 08:00 85 18 100 Nasal Cannula 2.0 28 02/23/18 08:00 Nasal Cannula 2.0 28 02/23/18 08:00 97.9 89 21 141/71 (94) 100 02/23/18 08:00 98 Nasal Cannula 2.0 28 02/23/18 04:00 74 02/23/18 04:00 98.9 76 18 132/74 (93) 99 02/23/18 03:40 Nasal Cannula 2.0 28 02/23/18 03:40 Nasal Cannula 2.0 28 02/23/18 00:00 80 02/23/18 00:00 98.2 81 18 116/65 (82) 99 02/22/18 23:37 91 18 99 Nasal Cannula 2.0 28 02/22/18 23:27 90 18 98 Nasal Cannula 2.0 28 02/22/18 21:00 Nasal Cannula 2.0 Nasal Cannula 2.0 Nasal Cannula 2.0 02/22/18 20:19 84 18 99 Nasal Cannula 2.0 28 02/22/18 20:09 83 18 98 Nasal Cannula 2.0 28 02/22/18 20:09 98 Nasal Cannula 2.0 28 02/22/18 20:09 Nasal Cannula 2.0 28 02/22/18 20:00 98.1 80 18 148/87 (107) 98 02/22/18 20:00 97 02/22/18 16:11 86 20 100 Nasal Cannula 2.0 02/22/18 16:02 98.2 82 21 123/72 (89) 97 02/22/18 16:01 86 20 97 Nasal Cannula 2.0 02/22/18 16:00 90 02/22/18 12:05 98.6 87 21 152/85 (107) 97 02/22/18 12:00 79 02/22/18 11:25 98 18 99 Nasal Cannula 2.0 02/22/18 11:15 77 18 98 Nasal Cannula 2.0 02/22/18 09:00 Nasal Cannula 2.0 Nasal Cannula 2.0 Intake and Output 02/22/18 02/23/18 19:00 07:00 Intake Total 600 ml Balance 600 ml Intake Oral 600 ml # Voids 5 4 Height (Feet): 5 Height (Inches): 10.00 Weight (Pounds): 120 General Appearance: WD/WN, alert Neck: supple Cardiovascular: normal rate Respiratory/Chest: chest wall non-tender, no accessory muscle use, expiratory wheezing Abdomen: normal bowel sounds, non tender, soft, no organomegaly Edema: no edema noted Arm (L), no edema noted Arm (R), no edema noted Leg (L), no edema noted Leg (R), no edema noted Pedal (L), no edema noted Pedal (R), no edema noted Generalized Temo Navarro MD Feb 23, 2018 08:40
[2018-02-23 12:00] VITALS: BP 152/72
[2018-02-23 16:00] VITALS: BP 125/65
[2018-02-23 20:00] VITALS: BP 116/76
[2018-02-24] VITALS (7 sets, daily range): BP systolic 118–146; BP diastolic 53–79
[2018-02-24] MEDS: cefTRIAXone 1 GM in D5W 55 ML IVPB SCH (00:55)
[2018-02-24] MEDS: Albuterol/Ipratropium 3ml neb HHN SCH ×6 (03:00→23:20)
[2018-02-24] MEDS: Vitamin B Complex Tab ORAL SCH (08:27)
[2018-02-24] MEDS: Vitamin D 1000 IU Tab ORAL SCH (08:27)
[2018-02-24] MEDS: Solu-MEDROL 125mg Inj IVP SCH ×2 (08:27→21:01)
[2018-02-24] MEDS: Heparin 5000 units/ml inj SUBQ SCH ×2 (08:28→21:08)
--- NOTE | 2018-02-24 10:09 | Pulmonology Progress Note ---
Assessment/Plan Assessment/Plan IMPRESSION 1. COPD exacerbation 2. Respiratory insufficiency 3. concern for underlying infection 4. Increasing debility 5. Increasing fatigue 6. Shortness of breath 7. Weight loss Plan IV Solu-Medrol as is IV antibiotics as is Resume home meds Respiratory therapy to continue Oxygen therapy Monitor clinically monitor for disposition- hope in am patient would like to go home when well impression, plan, and exam edited and reviewed in detail care discussed with RN Subjective Allergies: Coded Allergies: No Known Allergies (Unverified , 02/21/18) Subjective still with sob does not feel ready for dc dyspneic with going to [facility] Objective Last 24 Hour Vital Signs Date Time Temp Pulse Resp B/P (MAP) Pulse Ox O2 Delivery O2 Flow Rate FiO2 02/24/18 09:00 Nasal Cannula 2.0 Nasal Cannula 2.0 02/24/18 08:27 94 146/78 02/24/18 08:00 98.2 94 20 146/78 (100) 96 02/24/18 07:19 94 18 100 Nasal Cannula 2.0 28 02/24/18 07:07 98 Nasal Cannula 2.0 28 02/24/18 07:07 Nasal Cannula 2.0 28 02/24/18 07:03 95 18 98 Nasal Cannula 2.0 28 02/24/18 04:00 87 02/24/18 04:00 98.0 88 18 142/70 (94) 97 02/24/18 03:15 Nasal Cannula 02/24/18 03:15 Nasal Cannula 02/24/18 00:00 98.6 100 18 118/79 (92) 95 02/24/18 00:00 91 02/23/18 23:11 Nasal Cannula 2.0 28 02/23/18 23:10 Nasal Cannula 2.0 28 02/23/18 21:00 Nasal Cannula 2.0 02/23/18 20:23 96 18 100 Nasal Cannula 2.0 28 02/23/18 20:22 98 Nasal Cannula 2.0 28 02/23/18 20:22 Nasal Cannula 2.0 28 02/23/18 20:22 93 18 100 Nasal Cannula 2.0 28 02/23/18 20:00 101 02/23/18 20:00 98.3 92 18 116/76 (89) 94 02/23/18 16:33 89 18 100 Nasal Cannula 2.0 28 02/23/18 16:24 86 18 100 Nasal Cannula 2.0 28 02/23/18 16:00 98.3 82 20 125/65 (85) 95 02/23/18 16:00 83 02/23/18 12:06 81 16 100 Nasal Cannula 2.0 28 02/23/18 12:00 97.5 89 20 152/72 (98) 99 02/23/18 12:00 75 02/23/18 11:57 82 18 100 Nasal Cannula 2.0 28 Intake and Output 02/23/18 02/24/18 19:00 07:00 Intake Total 860 ml 250 ml Balance 860 ml 250 ml Intake Oral 860 ml 250 ml # Voids 2 3 # Bowel Movements 2 Objective WDWN NAD thin poor breath sounds bilaterally without rhonchi or wheeze [id number] without MRG NABS nontender no HSM no CCE adequate skin turgor nonfocal Microbiology Date/Time Source Procedure Growth Status 02/21/18 17:50 Blood Blood Culture - Preliminary NO GROWTH AFTER 48 HOURS Resulted 02/21/18 17:50 Blood Blood Culture - Preliminary NO GROWTH AFTER 48 HOURS Resulted Current Medications Medications (Trade) Dose Ordered Sig/Charlie Route PRN Reason Start Time Stop Time Status Last Admin Dose Admin Acetaminophen (Tylenol) 650 mg Q4H PRN ORAL Mild Pain/Temp > 100.5 02/22/18 00:00 03/24/18 00:00 Al Hydroxide/Mg Hydroxide (Mylanta) 30 ml Q4HR PRN ORAL HEARTBURN 02/22/18 00:00 03/24/18 00:00 Albuterol Sulfate (Proventil MDI) 2 puff Q4HR PRN INH Shortness of Breath 02/22/18 00:00 03/24/18 00:00 Albuterol Sulfate (Proventil) 2.5 mg Q4HRT PRN HHN Shortness of Breath 02/22/18 00:00 02/27/18 00:00 Albuterol/ Ipratropium (Albuterol/ Ipratropium) 3 ml Q4HRT HHN 02/22/18 03:00 02/27/18 02:59 02/24/18 07:03 Amlodipine Besylate (Norvasc) 5 mg DAILY ORAL 02/22/18 09:00 03/24/18 08:59 02/24/18 08:27 Ceftriaxone Sodium 1 gm/ Dextrose 55 ml @ 110 mls/hr Q24H IVPB 02/22/18 00:00 03/01/18 00:00 02/24/18 00:55 Heparin Sodium (Porcine) (Heparin 5000 units/ml) 5,000 units EVERY 12 HOURS SUBQ 02/22/18 09:00 03/24/18 08:59 02/23/18 08:16 Magnesium Hydroxide (Mom) 30 ml DAILYPRN PRN ORAL Constipation 02/22/18 00:00 03/24/18 00:00 Methylprednisolone Sodium Succinate (Solu-MEDROL) 60 mg EVERY 12 HOURS IVP 02/22/18 09:00 03/24/18 08:59 02/24/18 08:27 Pantoprazole (Protonix) 40 mg DAILY ORAL 02/22/18 09:00 03/24/18 08:59 02/24/18 08:27 Vitamin B Complex (Vitamin B Complex) 1 tab DAILY ORAL 02/22/18 09:00 03/24/18 08:59 02/24/18 08:27 Vitamin D (Vitamin D) 1,000 intlu DAILY ORAL 02/22/18 09:00 03/24/18 08:59 02/24/18 08:27 Phil Felipe MD Feb 24, 2018 10:09
--- NOTE | 2018-02-24 13:41 | General Progress Note ---
Assessment/Plan Problem List: (1) Dyspnea ICD Codes: R06.00 - Dyspnea, unspecified SNOMED: 812288848 (2) Respiratory distress ICD Codes: R06.00 - Dyspnea, unspecified SNOMED: 831551839 (3) COPD exacerbation ICD Codes: J44.1 - Chronic obstructive pulmonary disease with (acute) exacerbation SNOMED: 517646015 Status: stable, progressing Assessment/Plan bed rest iv steroids resp rx abx add mucolytic Subjective ROS Limited/Unobtainable: No Constitutional: Reports: malaise, weakness HEENT: Reports: no symptoms Cardiovascular: Reports: no symptoms Respiratory: Reports: cough, SOB at rest, sputum Gastrointestinal/Abdominal: Reports: no symptoms Genitourinary: Reports: no symptoms Neurologic/Psychiatric: Reports: no symptoms Endocrine: Reports: no symptoms Hematologic/Lymphatic: Reports: no symptoms Allergies: Coded Allergies: No Known Allergies (Unverified , 02/21/18) Subjective no better. feels congested, +sob and SANDS. Objective Last 24 Hour Vital Signs Date Time Temp Pulse Resp B/P (MAP) Pulse Ox O2 Delivery O2 Flow Rate FiO2 02/24/18 12:00 98.5 98 20 140/71 (94) 100 02/24/18 12:00 89 02/24/18 10:54 94 18 100 Nasal Cannula 2.0 28 02/24/18 10:46 93 18 100 Nasal Cannula 2.0 28 02/24/18 09:00 Nasal Cannula 2.0 Nasal Cannula 2.0 02/24/18 08:27 94 146/78 02/24/18 08:00 98 02/24/18 08:00 98.2 94 20 146/78 (100) 96 02/24/18 07:19 94 18 100 Nasal Cannula 2.0 28 02/24/18 07:07 98 Nasal Cannula 2.0 28 02/24/18 07:07 Nasal Cannula 2.0 28 02/24/18 07:03 95 18 98 Nasal Cannula 2.0 28 02/24/18 04:00 87 02/24/18 04:00 98.0 88 18 142/70 (94) 97 02/24/18 03:15 Nasal Cannula 02/24/18 03:15 Nasal Cannula 02/24/18 00:00 98.6 100 18 118/79 (92) 95 02/24/18 00:00 91 02/23/18 23:11 Nasal Cannula 2.0 28 02/23/18 23:10 Nasal Cannula 2.0 28 02/23/18 21:00 Nasal Cannula 2.0 02/23/18 20:23 96 18 100 Nasal Cannula 2.0 28 02/23/18 20:22 98 Nasal Cannula 2.0 28 02/23/18 20:22 Nasal Cannula 2.0 28 02/23/18 20:22 93 18 100 Nasal Cannula 2.0 28 02/23/18 20:00 101 02/23/18 20:00 98.3 92 18 116/76 (89) 94 02/23/18 16:33 89 18 100 Nasal Cannula 2.0 28 02/23/18 16:24 86 18 100 Nasal Cannula 2.0 28 02/23/18 16:00 98.3 82 20 125/65 (85) 95 02/23/18 16:00 83 Intake and Output 02/23/18 02/24/18 19:00 07:00 Intake Total 860 ml 250 ml Balance 860 ml 250 ml Intake Oral 860 ml 250 ml # Voids 2 3 # Bowel Movements 2 Height (Feet): 5 Height (Inches): 10.00 Weight (Pounds): 120 Objective General Appearance: WD/WN, alert Neck: supple Cardiovascular: normal rate Respiratory/Chest: chest wall non-tender, no accessory muscle use, expiratory wheezing Abdomen: normal bowel sounds, non tender, soft, no organomegaly Edema: no edema noted Arm (L), no edema noted Arm (R), no edema noted Leg (L), no edema noted Leg (R), no edema noted Pedal (L), no edema noted Pedal (R), no edema noted Generalized Temo Navarro MD Feb 24, 2018 13:41
[2018-02-24] MEDS: guaiFENesin ER 600mg tab ORAL SCH (17:10)
[2018-02-25 00:45] VITALS: BP 146/66
[2018-02-25] MEDS: cefTRIAXone 1 GM in D5W 55 ML IVPB SCH ×2 (01:07→23:23)
[2018-02-25] MEDS: Albuterol/Ipratropium 3ml neb HHN SCH ×6 (02:34→23:03)
[2018-02-25 05:49] VITALS: BP 139/72
--- NOTE | 2018-02-25 07:40 | Pulmonology Progress Note ---
Assessment/Plan Assessment/Plan IMPRESSION 1. COPD exacerbation 2. Respiratory insufficiency 3. concern for underlying infection 4. Increasing debility 5. Increasing fatigue 6. Shortness of breath 7. Weight loss 8. elevated troponin 9. PSVT Plan IV Solu-Medrol taper IV antibiotics dc cards recommendations consider outpatient nuclear stress Resume home meds Respiratory therapy to continue Oxygen therapy Monitor clinically monitor for disposition- hope in am patient would like to go home when well dc with home health impression, plan, and exam edited and reviewed in detail care discussed with RN Subjective Allergies: Coded Allergies: No Known Allergies (Unverified , 02/21/18) Subjective still with sob had episode of PSVT Objective Last 24 Hour Vital Signs Date Time Temp Pulse Resp B/P (MAP) Pulse Ox O2 Delivery O2 Flow Rate FiO2 02/25/18 05:51 92 02/25/18 05:49 96.9 89 18 139/72 (94) 97 02/25/18 02:34 Room Air 02/25/18 02:34 Room Air 21 02/25/18 00:46 91 02/25/18 00:45 98.1 93 18 146/66 (92) 98 02/24/18 23:31 93 16 98 Room Air 21 02/24/18 23:20 88 16 94 Room Air 21 02/24/18 22:01 Room Air Room Air Room Air 02/24/18 21:58 95 02/24/18 21:56 97.7 100 18 132/53 (79) 95 02/24/18 21:55 97.7 100 18 132/53 (79) 95 02/24/18 20:40 99 16 95 Room Air 21 02/24/18 20:28 Room Air 21 02/24/18 20:28 98 16 93 Room Air 21 02/24/18 20:28 93 Room Air 21 02/24/18 16:00 97 02/24/18 16:00 97.7 97 20 132/70 (90) 94 02/24/18 14:54 98 18 100 Nasal Cannula 2.0 28 02/24/18 14:47 95 18 100 Nasal Cannula 2.0 28 02/24/18 12:00 98.5 98 20 140/71 (94) 100 02/24/18 12:00 89 02/24/18 10:54 94 18 100 Nasal Cannula 2.0 28 02/24/18 10:46 93 18 100 Nasal Cannula 2.0 28 02/24/18 09:00 Nasal Cannula 2.0 Nasal Cannula 2.0 02/24/18 08:27 94 146/78 02/24/18 08:00 98 02/24/18 08:00 98.2 94 20 146/78 (100) 96 Intake and Output 02/24/18 02/25/18 19:00 07:00 Intake Total 770 ml Balance 770 ml Intake Oral 770 ml # Voids 2 2 Objective WDWN NAD thin poor breath sounds bilaterally without rhonchi or wheeze [id number] without MRG NABS nontender no HSM no CCE adequate skin turgor nonfocal Laboratory Tests 02/24/18 16:45: Troponin I 0.075H Current Medications Medications (Trade) Dose Ordered Sig/Charlie Route PRN Reason Start Time Stop Time Status Last Admin Dose Admin Acetaminophen (Tylenol) 650 mg Q4H PRN ORAL Mild Pain/Temp > 100.5 02/22/18 00:00 03/24/18 00:00 Al Hydroxide/Mg Hydroxide (Mylanta) 30 ml Q4HR PRN ORAL HEARTBURN 02/22/18 00:00 03/24/18 00:00 Albuterol Sulfate (Proventil MDI) 2 puff Q4HR PRN INH Shortness of Breath 02/22/18 00:00 03/24/18 00:00 Albuterol Sulfate (Proventil) 2.5 mg Q4HRT PRN HHN Shortness of Breath 02/22/18 00:00 02/27/18 00:00 Albuterol/ Ipratropium (Albuterol/ Ipratropium) 3 ml Q4HRT HHN 02/22/18 03:00 02/27/18 02:59 02/24/18 23:20 Amlodipine Besylate (Norvasc) 5 mg DAILY ORAL 02/22/18 09:00 03/24/18 08:59 02/24/18 08:27 Ceftriaxone Sodium 1 gm/ Dextrose 55 ml @ 110 mls/hr Q24H IVPB 02/22/18 00:00 03/01/18 00:00 02/25/18 01:07 Guaifenesin (Mucinex ER) 600 mg TWICE A DAY ORAL 02/24/18 18:00 03/26/18 17:59 02/24/18 17:10 Heparin Sodium (Porcine) (Heparin 5000 units/ml) 5,000 units EVERY 12 HOURS SUBQ 02/22/18 09:00 03/24/18 08:59 02/24/18 21:08 Magnesium Hydroxide (Mom) 30 ml DAILYPRN PRN ORAL Constipation 02/22/18 00:00 03/24/18 00:00 Methylprednisolone Sodium Succinate (Solu-MEDROL) 60 mg EVERY 12 HOURS IVP 02/22/18 09:00 03/24/18 08:59 02/24/18 21:01 Pantoprazole (Protonix) 40 mg DAILY ORAL 02/22/18 09:00 03/24/18 08:59 02/24/18 08:27 Vitamin B Complex (Vitamin B Complex) 1 tab DAILY ORAL 02/22/18 09:00 03/24/18 08:59 02/24/18 08:27 Vitamin D (Vitamin D) 1,000 intlu DAILY ORAL 02/22/18 09:00 03/24/18 08:59 02/24/18 08:27 Phil Felipe MD Feb 25, 2018 07:40
[2018-02-25 07:58] VITALS: BP 147/74
[2018-02-25] MEDS: Solu-MEDROL 125mg Inj IVP SCH ×2 (08:02→20:39)
[2018-02-25] MEDS: Vitamin B Complex Tab ORAL SCH (08:02)
[2018-02-25] MEDS: guaiFENesin ER 600mg tab ORAL SCH ×2 (08:02→17:05)
[2018-02-25] MEDS: Vitamin D 1000 IU Tab ORAL SCH (08:02)
[2018-02-25] MEDS: Heparin 5000 units/ml inj SUBQ SCH ×2 (08:03→20:39)
--- NOTE | 2018-02-25 10:04 | General Progress Note ---
Assessment/Plan Problem List: (1) Dyspnea ICD Codes: R06.00 - Dyspnea, unspecified SNOMED: 156321750 (2) Respiratory distress ICD Codes: R06.00 - Dyspnea, unspecified SNOMED: 435103870 (3) COPD exacerbation ICD Codes: J44.1 - Chronic obstructive pulmonary disease with (acute) exacerbation SNOMED: 896236455 Assessment/Plan mobilize iv steroids resp rx abx cough rx dc planning soon Subjective ROS Limited/Unobtainable: No Constitutional: Reports: malaise, weakness HEENT: Reports: no symptoms Cardiovascular: Reports: no symptoms Respiratory: Reports: no symptoms Gastrointestinal/Abdominal: Reports: no symptoms Genitourinary: Reports: no symptoms Neurologic/Psychiatric: Reports: no symptoms Endocrine: Reports: no symptoms Hematologic/Lymphatic: Reports: no symptoms Allergies: Coded Allergies: No Known Allergies (Unverified , 02/21/18) All Systems: reviewed and negative except above Subjective no better. feels better today. less cough and congestion. decreased sob/patton Objective Last 24 Hour Vital Signs Date Time Temp Pulse Resp B/P (MAP) Pulse Ox O2 Delivery O2 Flow Rate FiO2 02/25/18 09:00 Nasal Cannula 2.0 Nasal Cannula 2.0 Room Air 02/25/18 08:03 89 147/74 02/25/18 07:58 98.1 89 20 147/74 (98) 99 02/25/18 07:49 94 18 100 Room Air 21 02/25/18 07:42 Nasal Cannula 2.0 28 02/25/18 07:42 100 Nasal Cannula 2.0 28 02/25/18 07:39 98 18 100 Nasal Cannula 2.0 28 02/25/18 05:51 92 02/25/18 05:49 96.9 89 18 139/72 (94) 97 02/25/18 02:34 Room Air 02/25/18 02:34 Room Air 21 02/25/18 00:46 91 02/25/18 00:45 98.1 93 18 146/66 (92) 98 02/24/18 23:31 93 16 98 Room Air 21 02/24/18 23:20 88 16 94 Room Air 21 02/24/18 22:01 Room Air Room Air Room Air 02/24/18 21:58 95 02/24/18 21:56 97.7 100 18 132/53 (79) 95 02/24/18 21:55 97.7 100 18 132/53 (79) 95 02/24/18 20:40 99 16 95 Room Air 21 02/24/18 20:28 Room Air 21 02/24/18 20:28 98 16 93 Room Air 21 02/24/18 20:28 93 Room Air 21 02/24/18 16:00 97 02/24/18 16:00 97.7 97 20 132/70 (90) 94 02/24/18 14:54 98 18 100 Nasal Cannula 2.0 28 02/24/18 14:47 95 18 100 Nasal Cannula 2.0 28 02/24/18 12:00 98.5 98 20 140/71 (94) 100 02/24/18 12:00 89 02/24/18 10:54 94 18 100 Nasal Cannula 2.0 28 02/24/18 10:46 93 18 100 Nasal Cannula 2.0 28 Intake and Output 02/24/18 02/25/18 19:00 07:00 Intake Total 770 ml Balance 770 ml Intake Oral 770 ml # Voids 2 2 Laboratory Tests 02/24/18 16:45: Troponin I 0.075H Height (Feet): 5 Height (Inches): 10.00 Weight (Pounds): 120 Objective General Appearance: WD/WN, alert Neck: supple Cardiovascular: normal rate Respiratory/Chest: chest wall non-tender, no accessory muscle use, expiratory wheezing Abdomen: normal bowel sounds, non tender, soft, no organomegaly Edema: no edema noted Arm (L), no edema noted Arm (R), no edema noted Leg (L), no edema noted Leg (R), no edema noted Pedal (L), no edema noted Pedal (R), no edema noted Generalized Temo Navarro MD Feb 25, 2018 10:04
[2018-02-25 12:00] VITALS: BP 137/78
[2018-02-25 16:00] VITALS: BP 145/74
[2018-02-25] MEDS ORDERED: Albuterol/Ipratropium 3ml neb ONE (19:06)
[2018-02-25 20:00] VITALS: BP 122/67
[2018-02-26] VITALS: BP 158/64
--- NOTE | 2018-02-26 01:15 | Progress Note ---
DATE: 02/25/2018 CARDIOLOGY PROGRESS NOTE SUBJECTIVE: The patient remains on IV steroids and inhaled bronchodilators, but he is off antimicrobials. He is less short of breath, but not at baseline. OBJECTIVE: VITAL SIGNS: Blood pressure 139/72, pulse 89, respiratory rate 18. LUNGS: Diminished breath sounds and rhonchi, but no wheezing. HEART: Regular rhythm and rate. Normal S1, S2 with a fourth heart sound. ABDOMEN: Soft. EXTREMITIES: No edema. IMPRESSION: 1. COPD exacerbation. 2. Paroxysmal atrial flutter/SVT. 3. History of pulmonary hypertension. 4. Acute myocardial ischemia. 5. History of respiratory failure and tracheostomy. PLAN: 1. Steroid taper. 2. Limit use of inhaled beta-agonists. 3. Anti-platelet prophylaxis with aspirin. 4. Consider diltiazem or amlodipine for better suppression of atrial arrhythmias. 5. Agree with outpatient myocardial perfusion scan for assessment of coronary flow reserve once pulmonary parameters have been optimize to baseline. Amor Lorenzo M.D. DR: Abrahan JOB#: [id number] CC:
[2018-02-26] MEDS: Albuterol/Ipratropium 3ml neb HHN SCH ×3 (02:14→10:53)
--- NOTE | 2018-02-26 03:00 | Consultation ---
DATE OF CONSULTATION: 02/24/2018 CARDIOLOGY CONSULTATION CONSULTING PHYSICIAN: Amor Lorenzo M.D. REQUESTING PHYSICIAN: Phil Felipe M.D. REASON FOR CONSULTATION: Supraventricular tachyarrhythmia. HISTORY OF PRESENT ILLNESS: This is a 72-year-old male with severe COPD, hypertension, and pulmonary hypertension, who presented to the hospital several days ago with increasing shortness of breath associated with cough, congestion, and wheezing. He used one of his 2 inhalers, but did not have any improvement noted in his symptoms. He was out of the other inhaler. Symptoms since progressed for him to come to the emergency room just before Thanksgiving. He was given IV steroids and respiratory treatments and is improving since admission. Earlier today while resting in bed, he had an episode of supraventricular tachyarrhythmia, rate well over 160. I have reviewed the strips. The episode was asymptomatic and unprovoked. It is unclear whether that was associated with a breathing treatment or not, but does not appear to be so. The rhythm appears to be an atrial flutter with 2:1 block. There is no prior record of atrial arrhythmias. PAST MEDICAL HISTORY: COPD, pulmonary hypertension, allergic rhinitis, vitamin D deficiency, hypertension, gastroesophageal reflux disease, history of C. difficile infection, history of tracheostomy and gastrostomy tube which is now removed. FAMILY HISTORY: Noncontributory. SOCIAL HISTORY: He continues to smoke half to 1 pack of cigarettes daily and has done so for over 50 years. No alcohol or substance abuse. MEDICATIONS: Reviewed and reconciled. REVIEW OF SYSTEMS: A 10-point review of systems performed. All systems are negative other than noted above. PHYSICAL EXAMINATION: VITAL SIGNS: Blood pressure 132/53, pulse 100, respiratory rate 18, oxygen saturation 95% on room air, afebrile. NECK: Jugular venous pressure grossly normal. Carotid upstrokes without delay. LUNGS: With diminished breath sounds, scattered rhonchi, few wheezes. CARDIAC: Regular rhythm and rate. Normal S1, S2 with a fourth heart sound. ABDOMEN: Soft and nontender. EXTREMITIES: Distal pulses palpable. No clubbing, cyanosis, or edema. NEUROLOGIC: There is no asterixis. LABORATORY DATA: Troponin on admission was 0.111 and today is 0.075. Potassium on admission was 5.1. IMPRESSION: 1. COPD exacerbation. 2. History of pulmonary hypertension due to underlying lung disease. 3. Paroxysmal atrial flutter/SVT, likely right-sided and due to elevated pulmonary artery systolic pressure. 4. History of hypertension. 5. Acute myocardial ischemia, likely precipitated by respiratory insufficiency. 6. History of respiratory failure and tracheostomy. 7. Mild protein-calorie malnutrition. PLAN: 1. Cardiac monitoring. 2. Limit use of beta-agonist. 3. Consider diltiazem for recurring sustained atrial arrhythmias. 4. Optimize pulmonary parameters and acid-based status, and as a result, we will see decrease in PA systolic pressures and an increase in the threshold for atrial arrhythmias. 5. Consider assessment of coronary flow reserve in the future once pulmonary parameters have been optimized based on anti-platelet therapy with aspirin long-term. 6. Check lipid panel. Amor Lorenzo M.D. DR: Abrahan JOB#: [id number] CC:
[2018-02-26 04:00] VITALS: BP 135/66
[2018-02-26 08:00] VITALS: BP 160/91
--- NOTE | 2018-02-26 08:01 | Pulmonology Progress Note ---
Assessment/Plan Assessment/Plan IMPRESSION 1. COPD exacerbation 2. Respiratory insufficiency 3. concern for underlying infection 4. Increasing debility 5. Increasing fatigue 6. Shortness of breath 7. Weight loss 8. elevated troponin 9. PSVT Plan medrol dose montez dc antibiotics cards recommendations outpatient nuclear stress Resume home meds on discharge Respiratory therapy to continue Oxygen therapy dc with home health today impression, plan, and exam edited and reviewed in detail care discussed with RN Subjective Allergies: Coded Allergies: No Known Allergies (Unverified , 02/21/18) Subjective cleared by cardiology no chest pain sob improved Objective Last 24 Hour Vital Signs Date Time Temp Pulse Resp B/P (MAP) Pulse Ox O2 Delivery O2 Flow Rate FiO2 02/26/18 07:02 Nasal Cannula 2.0 28 02/26/18 07:02 97 Nasal Cannula 2.0 28 02/26/18 07:02 84 16 97 Nasal Cannula 2.0 28 02/26/18 04:00 87 02/26/18 04:00 97.0 93 20 135/66 (89) 97 02/26/18 02:14 Room Air 02/26/18 02:14 Room Air 21 02/26/18 00:00 97 02/26/18 00:00 98.0 93 20 158/64 (95) 96 02/25/18 23:13 96 18 95 Room Air 21 02/25/18 23:03 100 18 94 Room Air 21 02/25/18 20:01 Room Air 02/25/18 20:00 94 02/25/18 20:00 98.0 95 20 122/67 (85) 98 02/25/18 19:38 98 16 99 Room Air 21 02/25/18 19:29 94 18 94 Room Air 21 02/25/18 19:29 Nasal Cannula 2.0 28 02/25/18 19:29 94 Nasal Cannula 2.0 28 02/25/18 16:00 98.4 95 20 145/74 (97) 98 02/25/18 16:00 90 02/25/18 16:00 95 18 97 Room Air 21 02/25/18 15:50 95 18 96 Nasal Cannula 2.0 28 02/25/18 12:37 94 18 98 Room Air 21 02/25/18 12:27 97 18 96 Nasal Cannula 2.0 28 02/25/18 12:00 83 02/25/18 12:00 97.5 82 20 137/78 (97) 100 02/25/18 09:00 Nasal Cannula 2.0 Nasal Cannula 2.0 Room Air 02/25/18 08:03 89 147/74 02/25/18 08:00 94 Intake and Output 02/25/18 02/26/18 19:00 07:00 Intake Total 1110 ml 55 ml Balance 1110 ml 55 ml Intake Oral 1110 ml IV Total 55 ml # Voids 5 3 Objective WDWN NAD thin moderate breath sounds bilaterally without rhonchi or wheeze [id number] without MRG NABS nontender no HSM no CCE nonfocal Current Medications Medications (Trade) Dose Ordered Sig/Charlie Route PRN Reason Start Time Stop Time Status Last Admin Dose Admin Acetaminophen (Tylenol) 650 mg Q4H PRN ORAL Mild Pain/Temp > 100.5 02/22/18 00:00 03/24/18 00:00 Al Hydroxide/Mg Hydroxide (Mylanta) 30 ml Q4HR PRN ORAL HEARTBURN 02/22/18 00:00 03/24/18 00:00 Albuterol Sulfate (Proventil MDI) 2 puff Q4HR PRN INH Shortness of Breath 02/22/18 00:00 03/24/18 00:00 Albuterol Sulfate (Proventil) 2.5 mg Q4HRT PRN HHN Shortness of Breath 02/22/18 00:00 02/27/18 00:00 Albuterol/ Ipratropium (Albuterol/ Ipratropium) 3 ml Q4HRT HHN 02/22/18 03:00 02/27/18 02:59 02/26/18 07:02 Amlodipine Besylate (Norvasc) 5 mg DAILY ORAL 02/22/18 09:00 03/24/18 08:59 02/25/18 08:03 Aspirin (ASA) 81 mg DAILY ORAL 02/26/18 09:00 03/28/18 08:59 Ceftriaxone Sodium 1 gm/ Dextrose 55 ml @ 110 mls/hr Q24H IVPB 02/22/18 00:00 03/01/18 00:00 02/25/18 23:23 Guaifenesin (Mucinex ER) 600 mg TWICE A DAY ORAL 02/24/18 18:00 03/26/18 17:59 02/25/18 17:05 Heparin Sodium (Porcine) (Heparin 5000 units/ml) 5,000 units EVERY 12 HOURS SUBQ 02/22/18 09:00 03/24/18 08:59 02/25/18 20:39 Magnesium Hydroxide (Mom) 30 ml DAILYPRN PRN ORAL Constipation 02/22/18 00:00 03/24/18 00:00 Methylprednisolone Sodium Succinate (Solu-MEDROL) 30 mg EVERY 12 HOURS IVP 02/25/18 21:00 03/24/18 20:59 02/25/18 20:39 Pantoprazole (Protonix) 40 mg DAILY ORAL 02/22/18 09:00 03/24/18 08:59 02/25/18 08:02 Vitamin B Complex (Vitamin B Complex) 1 tab DAILY ORAL 02/22/18 09:00 03/24/18 08:59 02/25/18 08:02 Vitamin D (Vitamin D) 1,000 intlu DAILY ORAL 02/22/18 09:00 03/24/18 08:59 02/25/18 08:02 Phil Felipe MD Feb 26, 2018 08:01
[2018-02-26] MEDS: Vitamin D 1000 IU Tab ORAL SCH (08:35)
[2018-02-26] MEDS: Vitamin B Complex Tab ORAL SCH (08:35)
[2018-02-26] MEDS: guaiFENesin ER 600mg tab ORAL SCH (08:35)
[2018-02-26] MEDS: Solu-MEDROL 125mg Inj IVP SCH (08:36)
[2018-02-26] MEDS: Heparin 5000 units/ml inj SUBQ SCH (08:37)
[2018-02-26] MEDS ORDERED: Aspirin Baby 81mg ORAL SCH (09:00)
[2018-02-26 09:48] LABS: EOSINOPHILS % (AUTO) 0.1 % (0.0-3.0); HEMATOCRIT 39.3 % (42.0-52.0); HEMOGLOBIN 12.3 G/DL (14.2-18.0); LYMPHOCYTES % (AUTO) 23.9 % (20.0-45.0); MEAN CORPUSCULAR VOLUME 86 FL (80-99); MONOCYTES % (AUTO) 3.8 % (1.0-10.0); NEUTROPHILS % (AUTO) 71.1 % (45.0-75.0); PLATELET COUNT 456 K/UL (150-450); RED BLOOD COUNT 4.58 M/UL (4.70-6.10); RED CELL DISTRIBUTION WIDTH 14.9 % (11.6-14.8); WHITE BLOOD COUNT 15.3 K/UL (4.8-10.8)
[2018-02-26 10:30] LABS: ALANINE AMINOTRANSFERASE 25 U/L (12-78); ALBUMIN 2.8 G/DL (3.4-5.0); ALBUMIN/GLOBULIN RATIO 0.7 (1.0-2.7); ALKALINE PHOSPHATASE 84 U/L (46-116); ANION GAP 9 mmol/L (5-15); ASPARTATE AMINO TRANSFERASE 13 U/L (15-37); BILIRUBIN,TOTAL 0.2 MG/DL (0.2-1.0); BLOOD UREA NITROGEN 20 mg/dL (7-18); CALCIUM 8.9 MG/DL (8.5-10.1); CARBON DIOXIDE 29 MMOL/L (21-32); CHLORIDE 106 MMOL/L (98-107); CHOLESTEROL 188 MG/DL (< 200); CREATININE 1.1 MG/DL (0.55-1.30); HDL CHOLESTEROL 93 MG/DL (40-60); POTASSIUM 3.6 MMOL/L (3.5-5.1); SODIUM 143 MMOL/L (136-145); TRIGLYCERIDES 79 MG/DL (30-150)
[2018-02-26 12:00] VITALS: BP 144/79
--- NOTE | 2018-02-26 14:13 | Cardiology Report ---
APPROVED REPORT EKG Measurement Heart [id number] [place] 140P85 [id number] Normal sinus rhythm Rightward axis Nonspecific T wave abnormality Abnormal ECG
[2018-02-26] MEDS ORDERED: PREDNISONE10 MG ORAL (14:20)
[2018-02-26 16:00] VITALS: BP 141/77
--- NOTE | 2018-02-26 19:15 | Discharge Summary ---
DATE OF ADMISSION: 02/21/2018 DATE OF DISCHARGE: 02/26/2018 ADMISSION DIAGNOSES: 1. COPD exacerbation. 2. Bronchitis. 3. Possible pneumonia. 4. Hypertension. DISCHARGE DIAGNOSES: 1. COPD exacerbation. 2. Bronchitis. 3. Possible pneumonia. 4. Hypertension. HOSPITAL COURSE: The patient is a pleasant male admitted with complaints of shortness of breath secondary to COPD exacerbation, bronchitis, pneumonia. He received intravenous steroids and respiratory treatments [id number]. He was treated with IV antibiotics, initially improved, but had re-exacerbation on the second day. He was continued on steroids and breathing treatments with bed rest. On discharge, he was stable to be discharged on a steroid taper. Antibiotics were completed while in-house. DISCHARGE MEDICATIONS: Please see discharge medication list. DIET: Cardiac diet . 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 Temo Navarro M.D. DR: Verna JOB#: [id number] CC:
--- NOTE | 2018-02-27 02:00 | Progress Note ---
DATE: 02/26/2018 CARDIOLOGY PROGRESS NOTE SUBJECTIVE: The patient has less shortness of breath. No chest pain. OBJECTIVE: VITAL SIGNS: Blood pressure 135/66, pulse 93, and respirations 20. Afebrile. Room air oxygen sat 97%. LUNGS: Coarse breath sounds. No wheezing. HEART: Regular rhythm and rate. Normal S1, S2 with a fourth heart sound. ABDOMEN: Soft. EXTREMITIES: No edema. LABORATORY DATA: White count 15.3 and hemoglobin 12.3. Potassium 3.6, BUN 20, and creatinine 1.1. Troponin 0.061. Total cholesterol is 188. IMPRESSION: 1. Acute myocardial ischemia precipitated by acute pulmonary insufficiency. 2. Chronic obstructive pulmonary disease exacerbation. 3. Paroxysmal bronchospasm. 4. Elevated troponin levels possibly suggesting a [id number]-HN-ojywwojvt infarction. 5. Mild protein-calorie malnutrition. 6. Hypokalemia, corrected. PLAN: 1. Optimize respiratory parameters as outpatient with steroid taper. 2. Continued bronchodilators and anti-platelet therapy. 3. Once pulmonary parameters have recovered to baseline, a noninvasive assessment of coronary flow reserve should be obtained. Amor Lorenzo M.D. DR: BRET JOB#: [id number] CC:
--- NOTE | 2018-02-28 17:14 | Cardiology Report ---
APPROVED REPORT EKG Measurement Heart [id number] [place] 140P85 [id number] Normal sinus rhythm Nonspecific T wave abnormality Abnormal ECG
== END 2018-02-26 16:10 | disposition home health service (06) | DRG 190 ==
LOC: EMR 17:52 → 2E 17:54 → EDBEDREQ 18:55 → 2E 02-22 10:41
DX: J44.1 Chronic obstructive pulmonary disease with (acute) exacerbation (principal); J96.20 Acute and chronic respiratory failure, unspecified whether with hypoxia or hypercapnia; J18.9 Pneumonia, unspecified organism; E44.1 Mild protein-calorie malnutrition; I47.1 Supraventricular tachycardia; I48.92 Unspecified atrial flutter; Z87.891 Personal history of nicotine dependence; E87.5 Hyperkalemia; I27.20 Pulmonary hypertension, unspecified; J40 Bronchitis, not specified as acute or chronic; I10 Essential (primary) hypertension; K21.9 Gastro-esophageal reflux disease without esophagitis; I51.3 Intracardiac thrombosis, not elsewhere classified
CPT/HCPCS: 36415; 36600; 71045; 80048; 80053; 80061; 81003; 82550; 82553; 82803; 83605; 83690; 83735; 83880; 84132; 84443; 84484; 85025; 87040; 93005; 94640; 94760; 96374; 99284; J7620

== ENCOUNTER 2018-03-15 17:43 | Inpatient (IN) | payer MEDICARE ==
[~2018-03-15] VITALS: Ht 177.8 cm; Wt 51.7 kg
[~2018-03-15 17:43] MED LIST changes: +PREDNISONE10 MG ORAL; +UNOBMED; +VITAMIN B COMP1 EAC2 ORAL; +VITAMIN D1000 UNI1 ORAL
[2018-03-15] MEDS ORDERED: cefTRIAXone 1 GM in NS 55 ML IV STA (17:57)
[2018-03-15] MEDS ORDERED: Ipratropium 0.02% Inh Soln 2.5ml UD HHN ONE (18:00)
[2018-03-15] MEDS ORDERED: Albuterol ud Inhalation HHN ONE (18:00)
[2018-03-15] MEDS ORDERED: Solu-MEDROL 125mg Inj IVP ONE (18:00)
[2018-03-15 18:02] VITALS: BP 174/101
--- NOTE | 2018-03-15 18:03 | Emergency Room Report ---
History of Present Illness General Chief Complaint: Dyspnea/Respdistress Source: Patient Present Illness HPI Patient is been ill for 4-5 days. Been having chills and fever. Not documented. He's also been coughing and had mild chest pain. Patient stopped smoking a year ago. He's been treated for pneumonia in the past and has been in a coma related to his breathing difficulties. His initial oxygen sat in the field was 80%. He is not on oxygen at home. He has had steroids in the past but is not taking them. Cough has been mildly productive. No NVD, dysuria, calf pain or edema. Occasional headache. No rashes. No depression. + fatigue + weight loss H/O HTN. Denies DM Last admitted 02/21- this year. D/C dx: 1. COPD exacerbation. 2. Bronchitis. 3. Possible pneumonia. 4. Hypertension. Allergies: Coded Allergies: No Known Allergies (Unverified , 02/21/18) Patient History Past Medical History: see triage record, old chart reviewed Social History: Denies: smoking - stopped 1 year ago Social History Narrative Born [facility] - [place] Citizen - recent rehab for COPD Reviewed Nursing Documentation: PMH: Agreed; PSxH: Agreed Nursing Documentation-PMH Past Medical History: No History, Except For Hx Cardiac Problems: Yes Hx Hypertension: Yes Hx COPD: Yes Hx Cancer: No Hx Gastrointestinal Problems: No Hx Neurological Problems: No Hx Neurologic Surgery: No Review of Systems All Other Systems: negative except mentioned in HPI Physical Exam Vital Signs Date Time Temp Pulse Resp B/P (MAP) Pulse Ox O2 Delivery O2 Flow Rate FiO2 03/15/18 17:52 99.0 126 25 174/101 100 Simple Mask 10.0 Sp02 EP Interpretation: reviewed, normal General Appearance: GCS 15, mild distress, Chronically Ill Head: normocephalic Eyes: bilateral eye normal inspection ENT: moist mucus membranes Neck: supple Respiratory: decreased breath sounds, rales - L base, wheezing, expiration Cardiovascular #1: regular rate, rhythm Cardiovascular #2: 2+ radial (R) Gastrointestinal: normal inspection, normal bowel sounds, non tender, no mass, non-distended, scaphoid Musculoskeletal: back normal, normal range of motion, no calf tenderness, João 's Sign negative Neurologic: alert, oriented x3, grossly normal Psychiatric: mood/affect normal Skin: normal inspection, warm/dry Medical Decision Making Diagnostic Impression: Primary Impression: Pneumonia Qualified Codes: J18.1 - Lobar pneumonia, unspecified organism Additional Impressions: COPD exacerbation Hypoxia ER Course Patient presents with dyspnea, cough fever and chills. Differential includes COPD exacerbation, pneumonia, bronchospasm, bronchitis, PE amongst others. He' s hypoxemic at this time and needs oxygen and breathing treatments. He'll be evaluated with EKG, blood cultures, chest x-ray and labs. He will receive Solu- Medrol, and antibiotics. Patient will be needed to be admitted to the hospital and based on the underlying lung disease will be admitted to telemetry. EKG without injury. CXR COPD with infiltrate L base. WBC elevated - no left shift. CMP essentially normal. Troponin and lactate normal. UA clear. Patient improved with treatment. Still hypoxemic off of oxygen. Admit telemetry, Dr. Felipe. Laboratory Tests Test 03/15/18 18:00 03/15/18 19:30 White Blood Count 10.1 K/UL (4.8-10.8) Red Blood Count 4.63 M/UL (4.70-6.10) L Hemoglobin 12.6 G/DL (14.2-18.0) L Hematocrit 39.9 % (42.0-52.0) L Mean Corpuscular Volume 86 FL (80-99) Mean Corpuscular Hemoglobin 27.2 PG (27.0-31.0) Mean Corpuscular Hemoglobin Concent 31.5 G/DL (32.0-36.0) L Red Cell Distribution Width 14.6 % (11.6-14.8) Platelet Count 368 K/UL (150-450) Mean Platelet Volume 5.6 FL (6.5-10.1) L Neutrophils (%) (Auto) 60.6 % (45.0-75.0) Lymphocytes (%) (Auto) 25.6 % (20.0-45.0) Monocytes (%) (Auto) 10.0 % (1.0-10.0) Eosinophils (%) (Auto) 2.1 % (0.0-3.0) Basophils (%) (Auto) 1.7 % (0.0-2.0) Prothrombin Time 10.7 SEC (9.30-11.50) Prothrombin Time INR 1.0 (0.9-1.1) PTT 29 SEC (23-33) Sodium Level 140 MMOL/L (136-145) Potassium Level 4.2 MMOL/L (3.5-5.1) Chloride Level 102 MMOL/L (98-107) Carbon Dioxide Level 29 MMOL/L (21-32) Anion Gap 9 mmol/L (5-15) Blood Urea Nitrogen 15 mg/dL (7-18) Creatinine 1.1 MG/DL (0.55-1.30) Estimate Glomerular Filtration Rate mL/min (>60) Glucose Level 127 MG/DL (74-106) H Lactic Acid Level 1.30 mmol/L (0.4-2.0) Calcium Level 9.6 MG/DL (8.5-10.1) Total Bilirubin 0.3 MG/DL (0.2-1.0) Aspartate Amino Transferase (AST) 20 U/L (15-37) Alanine Aminotransferase (ALT) 21 U/L (12-78) Alkaline Phosphatase 102 U/L (46-116) Total Creatine Kinase 149 U/L (26-308) Troponin I 0.040 ng/mL (0.000-0.056) Pro-B-Type Natriuretic Peptide 142 pg/mL (0-125) H Total Protein 8.1 G/DL (6.4-8.2) Albumin 3.1 G/DL (3.4-5.0) L Globulin 5.0 g/dL Albumin/Globulin Ratio 0.6 (1.0-2.7) L Urine Color Yellow Urine Appearance Clear Urine pH 5 (4.5-8.0) Urine Specific [place] 1.030 (1.005-1.035) Urine Protein 2+ (NEGATIVE) H Urine Glucose (UA) Negative (NEGATIVE) Urine Ketones 1+ (NEGATIVE) H Urine Blood 2+ (NEGATIVE) H Urine Nitrite Negative (NEGATIVE) Urine Bilirubin Negative (NEGATIVE) Urine Urobilinogen Normal MG/DL (0.0-1.0) Urine Leukocyte Esterase Negative (NEGATIVE) Urine RBC 0-2 /HPF (0 - 0) H Urine WBC 0 /HPF (0 - 0) Urine Squamous Epithelial Cells Occasional /LPF Urine Bacteria Occasional /HPF (NONE) Urine Mucus Moderate /LPF (NONE/OCC) H Microbiology Date/Time Source Procedure Growth Status 03/15/18 18:35 Nasal Nares Influenza Types A,B Antigen (ANA LUISA) - Final Complete EKG Diagnostic Results Rate: tachycardiac ST Segments: no acute changes Rhythm Strip Diag. Results EP Interpretation: yes Rhythm: no PVC's, no ectopy, other - Sinus tachycardia Chest X-Ray Diagnostic Results Chest X-Ray Diagnostic Results : Chest X-Ray Ordered: Yes # of Views/Limited/Complete: 1 View Indication: Other EP Interpretation: Yes Interpretation: no effusion, no pneumothorax, other - COPD with scarring and possible infiltrate Impression: Other Electronically Signed by: Electronically signed by Amor Flanagan MD Last Vital Signs Date Time Temp Pulse Resp B/P (MAP) Pulse Ox O2 Delivery O2 Flow Rate FiO2 03/16/18 00:00 Nasal Cannula 2.0 03/16/18 00:00 86 03/15/18 23:05 98.5 26 142/72 98 28 Status: improved Disposition: ADMITTED INPATIENT Condition: Serious Amor Flanagan MD Mar 15, 2018 18:03
[2018-03-15 18:33] LABS: BASOPHILS % (AUTO) 1.7 % (0.0-2.0); EOSINOPHILS % (AUTO) 2.1 % (0.0-3.0); HEMATOCRIT 39.9 % (42.0-52.0); HEMOGLOBIN 12.6 G/DL (14.2-18.0); LYMPHOCYTES % (AUTO) 25.6 % (20.0-45.0); MEAN CORPUSCULAR VOLUME 86 FL (80-99); NEUTROPHILS % (AUTO) 60.6 % (45.0-75.0); PLATELET COUNT 368 K/UL (150-450); RED BLOOD COUNT 4.63 M/UL (4.70-6.10); RED CELL DISTRIBUTION WIDTH 14.6 % (11.6-14.8); WHITE BLOOD COUNT 10.1 K/UL (4.8-10.8)
[2018-03-15 18:38] LABS: ANION GAP 9 mmol/L (5-15); BLOOD UREA NITROGEN 15 mg/dL (7-18); CALCIUM 9.6 MG/DL (8.5-10.1); CARBON DIOXIDE 29 MMOL/L (21-32); CHLORIDE 102 MMOL/L (98-107); CREATININE 1.1 MG/DL (0.55-1.30); POTASSIUM 4.2 MMOL/L (3.5-5.1); SODIUM 140 MMOL/L (136-145)
[2018-03-15 18:49] LABS: ALANINE AMINOTRANSFERASE 21 U/L (12-78); ALBUMIN 3.1 G/DL (3.4-5.0); ALBUMIN/GLOBULIN RATIO 0.6 (1.0-2.7); ALKALINE PHOSPHATASE 102 U/L (46-116); ASPARTATE AMINO TRANSFERASE 20 U/L (15-37); BILIRUBIN,TOTAL 0.3 MG/DL (0.2-1.0); CREATINE KINASE 149 U/L (26-308)
[2018-03-15 19:38] LABS: APPEARANCE,URINE CLEAR; BILIRUBIN, URINE NEGATIVE (NEGATIVE); GLUCOSE, URINE (UA) NEGATIVE (NEGATIVE); KETONES,URINE 1+ (NEGATIVE); LEUKOCYTE ESTERASE ,URINE NEGATIVE (NEGATIVE); NITRITE,URINE NEGATIVE (NEGATIVE); PH,URINE 5 (4.5-8.0); PROTEIN,URINE 2+ (NEGATIVE); UROBILINOGEN,URINE NORMAL MG/DL (0.0-1.0)
[2018-03-15 19:43] LABS: COLOR,URINE YELLOW
[2018-03-15] MEDS ORDERED: VENTOLIN HFA18 GM INH (20:19)
[2018-03-15] MEDS ORDERED: VITAMIN B-12500 MCG ORAL (20:20)
[2018-03-15 20:48] VITALS: BP 146/70
[2018-03-15 23:00] VITALS: BP 136/86
[2018-03-15 23:04] VITALS: BP 142/72
[2018-03-16 04:00] VITALS: BP 142/76
[2018-03-16] MEDS ORDERED: Zolpidem 5mg tab ORAL PRN (06:45)
[2018-03-16] MEDS ORDERED: Milk of Magnesia 30ml Ud ORAL PRN (06:45)
[2018-03-16] MEDS ORDERED: Albuterol 90mcg Inhaler 8gm INH PRN (07:00)
[2018-03-16] MEDS: Albuterol/Ipratropium 3ml neb HHN SCH ×5 (07:46→23:00)
[2018-03-16 08:15] VITALS: BP 140/70
[2018-03-16] MEDS: Solu-MEDROL 125mg Inj IVP SCH ×2 (08:29→20:48)
[2018-03-16] MEDS: Vitamin B-12 500mcg tab ORAL SCH (08:37)
[2018-03-16] MEDS: Vitamin D 1000 IU Tab ORAL SCH (08:37)
[2018-03-16] MEDS: Heparin 5000 units/ml inj SUBQ SCH ×2 (08:38→21:00)
--- NOTE | 2018-03-16 09:21 | Consultation ---
Consult Note Consult Note 71-year-old male presents with increasing shortness of breath and congestion over the past week. Patient with recent hospitalization for COPD exacerbation and improved. Patient notes change in weather and now increasing difficulty breathing. Patient noted to have worsening chest tightness. Patient denies any fevers or chills at this time. Patient has a long-standing history of severe endstage COPD and now required readmission. The patient has had prior history of respiratory failure, requiring intubation in the past. Patient does not have any oxygen at home at present. Patient has been compliant with therapy at this time and presents due to lack of improvement with home therapy. Patient was recently treated with prednisone and solumedrol on repeated episodes as an outpatient but has failed to improve. Patient care reviewed. Patient also with difficulty with activities of daily living. Active Medications (reviewed today): reviewed and reconciled Current Allergies: No known allergies No Known Drug Allergies Past Medical History (reviewed - no changes required): Hypertension, COPD, hypoxemia, GERD; copd exacerbation 02/2014 Cdif Respiratory failure vitamin D deficiency pulmonary hypertension allergic rhinitis Pt was in a coma for 2 weeks at [facility] due to respiratory failure Surgical History (reviewed - no changes required): Tracheotomy Gtube (removed) Family History (reviewed - no changes required): Orbddu-pwqgsllc-xxbnx of unknown Vkcvan-qmazxvub-zswyjio causes at 89 Social History (reviewed - no changes required): TEQUILA lives alone. He lives at home in [place]. He is single with 4 children. was in a SNF and now staying with friend Smoked Tobacco Use: Former smoker Cigarettes: Yes -- 1-2 every 3 days pack(s) per day, Pack-years: 2 cigars per day for 50 years Years smoked: 50 Year quit: 09/2016 Cigars: Yes -- 1 per week Year started: 50 years ago Cigars/Pipes Year Quit: 07/2014 Smokeless Tobacco Use: Never Tobacco Use Comments: patient is trying to stop smoking, patient has not smoked for 2 days Passive smoke exposure: no Drug use: no Review of Systems Respiratory: see HPI 10 points reviewed and otherwise stable Physical Exam General Appearance: well nourished, well hydrated, no acute distress thin Respiratory Respiratory Effort: no intercostal retractions or use of accessory muscles Palpation: normal fremitus Auscultation: reduced breath entry with scattered wheezes noted dyspnea after walking to the bathroom Cardiovascular Palpation: no thrill or palpable murmurs, no displacement of PMI Auscultation: S1, S2, no murmur, rub, or gallop Pedal pulse: pulses 2+, symmetric Peripheral Circulation: no cyanosis, clubbing, edema, cords on upper and lower extremities Abdomen NABS nontender no distention Musculoskeletal Gait and Station: using a cane LLE: knee pain nonfocal Labs Test 03/15/18 18:00 03/15/18 19:30 White Blood Count 10.1 K/UL (4.8-10.8) Red Blood Count 4.63 M/UL (4.70-6.10) Hemoglobin 12.6 G/DL (14.2-18.0) Hematocrit 39.9 % (42.0-52.0) Mean Corpuscular Volume 86 FL (80-99) Mean Corpuscular Hemoglobin 27.2 PG (27.0-31.0) Mean Corpuscular Hemoglobin Concent 31.5 G/DL (32.0-36.0) Red Cell Distribution Width 14.6 % (11.6-14.8) Platelet Count 368 K/UL (150-450) Mean Platelet Volume 5.6 FL (6.5-10.1) Neutrophils (%) (Auto) 60.6 % (45.0-75.0) Lymphocytes (%) (Auto) 25.6 % (20.0-45.0) Monocytes (%) (Auto) 10.0 % (1.0-10.0) Eosinophils (%) (Auto) 2.1 % (0.0-3.0) Basophils (%) (Auto) 1.7 % (0.0-2.0) Prothrombin Time 10.7 SEC (9.30-11.50) Prothromb Time International Ratio 1.0 (0.9-1.1) Activated Partial Thromboplast Time 29 SEC (23-33) Sodium Level 140 MMOL/L (136-145) Potassium Level 4.2 MMOL/L (3.5-5.1) Chloride Level 102 MMOL/L (98-107) Carbon Dioxide Level 29 MMOL/L (21-32) Anion Gap 9 mmol/L (5-15) Blood Urea Nitrogen 15 mg/dL (7-18) Creatinine 1.1 MG/DL (0.55-1.30) Estimat Glomerular Filtration Rate mL/min (>60) Glucose Level 127 MG/DL (74-106) Lactic Acid Level 1.30 mmol/L (0.4-2.0) Calcium Level 9.6 MG/DL (8.5-10.1) Total Bilirubin 0.3 MG/DL (0.2-1.0) Aspartate Amino Transf (AST/SGOT) 20 U/L (15-37) Alanine Aminotransferase (ALT/SGPT) 21 U/L (12-78) Alkaline Phosphatase 102 U/L (46-116) Total Creatine Kinase 149 U/L (26-308) Troponin I 0.040 ng/mL (0.000-0.056) Pro-B-Type Natriuretic Peptide 142 pg/mL (0-125) Total Protein 8.1 G/DL (6.4-8.2) Albumin 3.1 G/DL (3.4-5.0) Globulin 5.0 g/dL Albumin/Globulin Ratio 0.6 (1.0-2.7) Urine Color Yellow Urine Appearance Clear Urine pH 5 (4.5-8.0) Urine Specific [place] 1.030 (1.005-1.035) Urine Protein 2+ (NEGATIVE) Urine Glucose (UA) Negative (NEGATIVE) Urine Ketones 1+ (NEGATIVE) Urine Blood 2+ (NEGATIVE) Urine Nitrite Negative (NEGATIVE) Urine Bilirubin Negative (NEGATIVE) Urine Urobilinogen Normal MG/DL (0.0-1.0) Urine Leukocyte Esterase Negative (NEGATIVE) Urine RBC 0-2 /HPF (0 - 0) Urine WBC 0 /HPF (0 - 0) Urine Squamous Epithelial Cells Occasional /LPF Urine Bacteria Occasional /HPF (NONE) Urine Mucus Moderate /LPF (NONE/OCC) IMPRESSION COPD with exacerbation shortness of breath respiratory failure, acute hypertension PLAN care noted IV antibiotics respiratory care IV steroids supportive care encourage cough oxygen therapy prognosis guarded impression, plan, and exam edited and reviewed in detail care discussed with Phil Lopes MD Mar 16, 2018 09:21
--- NOTE | 2018-03-16 09:21 | Pulmonology Progress Note ---
Subjective Allergies: Coded Allergies: No Known Allergies (Unverified , 02/21/18) Objective Last 24 Hour Vital Signs Date Time Temp Pulse Resp B/P (MAP) Pulse Ox O2 Delivery O2 Flow Rate FiO2 03/16/18 08:36 80 140/70 03/16/18 08:15 97.9 80 20 140/70 (93) 99 03/16/18 07:57 74 03/16/18 07:56 83 21 100 Nasal Cannula 2.0 28 03/16/18 07:46 81 21 98 Nasal Cannula 2.0 28 03/16/18 07:45 81 21 Nasal Cannula 2.0 28 03/16/18 04:00 75 03/16/18 04:00 98.6 81 17 142/76 (98) 99 03/16/18 04:00 Nasal Cannula 2.0 03/16/18 00:00 Nasal Cannula 2.0 03/16/18 00:00 86 03/15/18 23:05 98.5 94 26 142/72 98 Nasal Cannula 2.0 28 03/15/18 23:04 98.5 94 26 142/72 98 Nasal Cannula 2.0 03/15/18 23:00 Nasal Cannula 2.0 03/15/18 23:00 97.7 82 18 136/86 (103) 100 03/15/18 20:48 99.0 116 20 146/70 95 Room Air 03/15/18 19:06 122 21 100 Nasal Cannula 2.0 28 03/15/18 18:44 112 22 99 Nasal Cannula 2.0 28 03/15/18 18:02 126 25 Nasal Cannula 2.0 03/15/18 18:02 99.0 125 25 174/101 100 Nasal Cannula 2.0 03/15/18 17:52 99.0 126 25 174/101 100 Simple Mask 10.0 Intake and Output 03/15/18 03/16/18 18:59 06:59 Intake Total 1500 ml Output Total 500 ml Balance 1000 ml Intake IV Total 1500 ml Output Urine Total 500 ml # Voids 3 Microbiology Date/Time Source Procedure Growth Status 03/15/18 18:35 Nasal Nares Influenza Types A,B Antigen (ANA LUISA) - Final Complete 03/15/18 22:30 Rectum Received Laboratory Tests 03/15/18 18:00: White Blood Count 10.1, Red Blood Count 4.63L, Hemoglobin 12.6L, Hematocrit 39.9L, Mean Corpuscular Volume 86, Mean Corpuscular Hemoglobin 27.2, Mean Corpuscular Hemoglobin Concent 31.5L, Red Cell Distribution Width 14.6, Platelet Count 368, Mean Platelet Volume 5.6L, Neutrophils (%) (Auto) 60.6, Lymphocytes (%) (Auto) 25.6, Monocytes (%) (Auto) 10.0, Eosinophils (%) (Auto) 2.1, Basophils (%) (Auto) 1.7, Prothrombin Time 10.7, Prothromb Time International Ratio 1.0, Activated Partial Thromboplast Time 29, Sodium Level 140, Potassium Level 4.2, Chloride Level 102, Carbon Dioxide Level 29, Anion Gap 9, Blood Urea Nitrogen 15, Creatinine 1.1, Estimat Glomerular Filtration Rate , Glucose Level 127H, Lactic Acid Level 1.30, Calcium Level 9.6, Total Bilirubin 0.3, Aspartate Amino Transf (AST/SGOT) 20, Alanine Aminotransferase ( ALT/SGPT) 21, Alkaline Phosphatase 102, Total Creatine Kinase 149, Troponin I 0.040, Pro-B-Type Natriuretic Peptide 142H, Total Protein 8.1, Albumin 3.1L, Globulin 5.0, Albumin/Globulin Ratio 0.6L 03/15/18 19:30: Urine Color Yellow, Urine Appearance Clear, Urine pH 5, Urine Specific [place] 1.030, Urine Protein 2+H, Urine Glucose (UA) Negative, Urine Ketones 1+H, Urine Blood 2+H, Urine Nitrite Negative, Urine Bilirubin Negative, Urine Urobilinogen Normal, Urine Leukocyte Esterase Negative, Urine RBC 0-2H, Urine WBC 0, Urine Squamous Epithelial Cells Occasional, Urine Bacteria Occasional, Urine Mucus ModerateH Current Medications Medications (Trade) Dose Ordered Sig/Charlie Route PRN Reason Start Time Stop Time Status Last Admin Dose Admin Acetaminophen (Tylenol) 650 mg Q4H PRN ORAL Mild Pain/Temp > 100.5 03/16/18 06:45 04/15/18 06:44 Al Hydroxide/Mg Hydroxide (Mylanta) 30 ml Q4HR PRN ORAL Constipation 03/16/18 06:45 04/15/18 06:44 Albuterol Sulfate (Proventil MDI) 2 puff Q6H PRN INH Shortness of Breath 03/16/18 07:00 04/15/18 06:59 Albuterol/ Ipratropium (Albuterol/ Ipratropium) 3 ml Q4HRT HHN 03/16/18 07:00 03/21/18 06:59 03/16/18 07:46 Amlodipine Besylate (Norvasc) 5 mg DAILY ORAL 03/16/18 09:00 04/15/18 08:59 03/16/18 08:36 Ceftriaxone Sodium 1 gm/ Dextrose 55 ml @ 110 mls/hr Q24H IVPB 03/16/18 18:00 03/23/18 17:59 Cyanocobalamin (Vitamin B-12) 500 mcg DAILY ORAL 03/16/18 09:00 04/15/18 08:59 03/16/18 08:37 Heparin Sodium (Porcine) (Heparin 5000 units/ml) 5,000 units EVERY 12 HOURS SUBQ 03/16/18 09:00 04/15/18 08:59 03/16/18 08:38 Magnesium Hydroxide (Mom) 30 ml DAILYPRN PRN ORAL Constipation 03/16/18 06:45 04/15/18 06:44 Methylprednisolone Sodium Succinate (Solu-MEDROL) 60 mg EVERY 12 HOURS IVP 03/16/18 09:00 04/15/18 08:59 03/16/18 08:29 Pantoprazole (Protonix) 40 mg EVERY 12 HOURS ORAL 03/16/18 09:00 04/15/18 08:59 03/16/18 08:37 Sodium Chloride 1,000 ml @ 100 mls/hr Q10H IV 03/16/18 08:15 04/15/18 08:14 03/16/18 08:27 Vitamin D (Vitamin D) 1,000 intlu DAILY ORAL 03/16/18 09:00 04/15/18 08:59 03/16/18 08:37 Zolpidem Tartrate (Ambien) 5 mg HSPRN PRN ORAL Insomnia 03/16/18 06:45 03/23/18 06:44 Phil Felipe MD Mar 16, 2018 09:21
[2018-03-16 11:37] VITALS: BP 142/75
--- NOTE | 2018-03-16 13:48 | Diagnostic Imaging Report ---
Indication: Cough Comparison: 02/21/2018 A single view chest radiograph was obtained. Findings: Hyperinflation of the lungs demonstrated with the lucency in the upper lobes consistent with emphysema. Heart size is normal. IMPRESSION: COPD/emphysema. No change
[2018-03-16 16:00] VITALS: BP 119/70
--- NOTE | 2018-03-16 16:04 | Cardiology Report ---
APPROVED REPORT EKG Measurement Heart [id number] Sinus tachycardia Otherwise normal ECG
[2018-03-16] MEDS: cefTRIAXone 1 GM in D5W 55 ML IVPB SCH (17:17)
[2018-03-16 20:00] VITALS: BP 132/65
[2018-03-17] VITALS: BP 123/58
[2018-03-17] MEDS: Albuterol/Ipratropium 3ml neb HHN SCH ×7 (03:00→23:02)
[2018-03-17 04:00] VITALS: BP 132/59
[2018-03-17 08:00] VITALS: BP 135/88
[2018-03-17] MEDS: Vitamin B-12 500mcg tab ORAL SCH (08:34)
[2018-03-17] MEDS: Vitamin D 1000 IU Tab ORAL SCH (08:34)
[2018-03-17] MEDS: Solu-MEDROL 125mg Inj IVP SCH ×2 (08:35→20:50)
[2018-03-17] MEDS: Heparin 5000 units/ml inj SUBQ SCH ×2 (08:56→20:50)
[2018-03-17 12:00] VITALS: BP 128/62
--- NOTE | 2018-03-17 15:50 | Pulmonology Progress Note ---
Assessment/Plan Assessment/Plan Pulmonary Progress Note Subjective Patient admitted with COPD exaccerbation, less SOB today Plan Continue current medications O2 PRN HHN/steroids/AB Allergies: Coded Allergies: No Known Allergies (Unverified , 02/21/18) Objective Vital Signs Noted Microbiology Date/Time Source Procedure Growth Status 03/15/18 18:35 Nasal Nares Influenza Types A,B Antigen (ANA LUISA) - Final Complete 03/15/18 22:30 Rectum Received Laboratory Tests 03/15/18 18:00: White Blood Count 10.1, Red Blood Count 4.63L, Hemoglobin 12.6L, Hematocrit 39.9L, Mean Corpuscular Volume 86, Mean Corpuscular Hemoglobin 27.2, Mean Corpuscular Hemoglobin Concent 31.5L, Red Cell Distribution Width 14.6, Platelet Count 368, Mean Platelet Volume 5.6L, Neutrophils (%) (Auto) 60.6, Lymphocytes (%) (Auto) 25.6, Monocytes (%) (Auto) 10.0, Eosinophils (%) (Auto) 2.1, Basophils (%) (Auto) 1.7, Prothrombin Time 10.7, Prothromb Time International Ratio 1.0, Activated Partial Thromboplast Time 29, Sodium Level 140, Potassium Level 4.2, Chloride Level 102, Carbon Dioxide Level 29, Anion Gap 9, Blood Urea Nitrogen 15, Creatinine 1.1, Estimat Glomerular Filtration Rate , Glucose Level 127H, Lactic Acid Level 1.30, Calcium Level 9.6, Total Bilirubin 0.3, Aspartate Amino Transf (AST/SGOT) 20, Alanine Aminotransferase ( ALT/SGPT) 21, Alkaline Phosphatase 102, Total Creatine Kinase 149, Troponin I 0.040, Pro-B-Type Natriuretic Peptide 142H, Total Protein 8.1, Albumin 3.1L, Globulin 5.0, Albumin/Globulin Ratio 0.6L 03/15/18 19:30: Urine Color Yellow, Urine Appearance Clear, Urine pH 5, Urine Specific [place] 1.030, Urine Protein 2+H, Urine Glucose (UA) Negative, Urine Ketones 1+H, Urine Blood 2+H, Urine Nitrite Negative, Urine Bilirubin Negative, Urine Urobilinogen Normal, Urine Leukocyte Esterase Negative, Urine RBC 0-2H, Urine WBC 0, Urine Squamous Epithelial Cells Occasional, Urine Bacteria Occasional, Urine Mucus ModerateH Current Medications Medications (Trade) Dose Ordered Sig/Charlie Route PRN Reason Start Time Stop Time Status Last Admin Dose Admin Acetaminophen (Tylenol) 650 mg Q4H PRN ORAL Mild Pain/Temp > 100.5 03/16/18 06:45 04/15/18 06:44 Al Hydroxide/Mg Hydroxide (Mylanta) 30 ml Q4HR PRN ORAL Constipation 03/16/18 06:45 04/15/18 06:44 Albuterol Sulfate (Proventil MDI) 2 puff Q6H PRN INH Shortness of Breath 03/16/18 07:00 04/15/18 06:59 Albuterol/ Ipratropium (Albuterol/ Ipratropium) 3 ml Q4HRT HHN 03/16/18 07:00 03/21/18 06:59 03/16/18 07:46 Amlodipine Besylate (Norvasc) 5 mg DAILY ORAL 03/16/18 09:00 04/15/18 08:59 03/16/18 08:36 Ceftriaxone Sodium 1 gm/ Dextrose 55 ml @ 110 mls/hr Q24H IVPB 03/16/18 18:00 03/23/18 17:59 Cyanocobalamin (Vitamin B-12) 500 mcg DAILY ORAL 03/16/18 09:00 04/15/18 08:59 03/16/18 08:37 Heparin Sodium (Porcine) (Heparin 5000 units/ml) 5,000 units EVERY 12 HOURS SUBQ 03/16/18 09:00 04/15/18 08:59 03/16/18 08:38 Magnesium Hydroxide (Mom) 30 ml DAILYPRN PRN ORAL Constipation 03/16/18 06:45 04/15/18 06:44 Methylprednisolone Sodium Succinate (Solu-MEDROL) 60 mg EVERY 12 HOURS IVP 03/16/18 09:00 04/15/18 08:59 03/16/18 08:29 Pantoprazole (Protonix) 40 mg EVERY 12 HOURS ORAL 03/16/18 09:00 04/15/18 08:59 03/16/18 08:37 Sodium Chloride 1,000 ml @ 100 mls/hr Q10H IV 03/16/18 08:15 04/15/18 08:14 03/16/18 08:27 Vitamin D (Vitamin D) 1,000 intlu DAILY ORAL 03/16/18 09:00 1/13/19 08:59 03/16/18 08:37 Zolpidem Tartrate (Ambien) 5 mg HSPRN PRN ORAL Insomnia 03/16/18 06:45 03/23/18 06:44 Subjective ROS Limited/Unobtainable: No Allergies: Coded Allergies: No Known Allergies (Unverified , 02/21/18) Objective Last 24 Hour Vital Signs Date Time Temp Pulse Resp B/P (MAP) Pulse Ox O2 Delivery O2 Flow Rate FiO2 03/17/18 12:00 98.2 82 18 128/62 (84) 99 03/17/18 10:57 79 18 99 Nasal Cannula 2.0 28 03/17/18 10:49 87 18 97 Nasal Cannula 2.0 28 03/17/18 09:26 82 18 99 Nasal Cannula 2.0 28 03/17/18 09:16 84 18 98 Nasal Cannula 2.0 28 03/17/18 09:02 Nasal Cannula 2.0 28 03/17/18 09:02 97 Nasal Cannula 2.0 28 03/17/18 09:02 82 18 97 Nasal Cannula 2.0 28 03/17/18 09:00 Nasal Cannula 2.0 03/17/18 08:35 84 135/88 03/17/18 08:00 82 03/17/18 08:00 98.1 84 20 135/88 (104) 97 03/17/18 04:09 77 18 99 Nasal Cannula 2.0 28 03/17/18 04:08 72 18 96 Nasal Cannula 2.0 28 03/17/18 04:00 Nasal Cannula 2.0 03/17/18 04:00 78 03/17/18 04:00 97.4 85 24 132/59 (83) 100 03/17/18 03:40 Nasal Cannula 2.0 28 03/17/18 03:40 Nasal Cannula 2.0 28 03/17/18 00:00 98.0 71 24 123/58 (79) 97 03/17/18 00:00 74 03/17/18 00:00 Nasal Cannula 2.0 03/16/18 23:14 Nasal Cannula 2.0 28 03/16/18 23:13 Nasal Cannula 2.0 28 03/16/18 20:03 Nasal Cannula 2.0 28 03/16/18 20:01 99 Nasal Cannula 2.0 28 03/16/18 20:00 98.2 66 24 132/65 (87) 99 03/16/18 20:00 Nasal Cannula 2.0 03/16/18 20:00 76 03/16/18 20:00 78 18 99 Nasal Cannula 2.0 28 03/16/18 19:49 74 18 98 Nasal Cannula 2.0 28 03/16/18 16:00 98.1 82 18 119/70 (86) 99 03/16/18 16:00 83 03/16/18 16:00 Nasal Cannula 2.0 Intake and Output 03/16/18 03/17/18 19:00 07:00 Intake Total 1830 ml 1515 ml Output Total 990 ml 600 ml Balance 840 ml 915 ml Intake Oral 720 ml 300 ml IV Total 1110 ml 1215 ml Output Urine Total 990 ml 600 ml # Voids 2 Microbiology Date/Time Source Procedure Growth Status 03/15/18 18:10 Blood Blood Culture - Preliminary NO GROWTH AFTER 24 HOURS Resulted 03/15/18 18:00 Blood Blood Culture - Preliminary NO GROWTH AFTER 24 HOURS Resulted 03/15/18 18:35 Nasal Nares Influenza Types A,B Antigen (ANA LUISA) - Final Complete 03/15/18 22:30 Rectum Received Current Medications Medications (Trade) Dose Ordered Sig/Charlie Route PRN Reason Start Time Stop Time Status Last Admin Dose Admin Acetaminophen (Tylenol) 650 mg Q4H PRN ORAL Mild Pain/Temp > 100.5 03/16/18 06:45 04/15/18 06:44 Al Hydroxide/Mg Hydroxide (Mylanta) 30 ml Q4HR PRN ORAL Constipation 03/16/18 06:45 04/15/18 06:44 Albuterol Sulfate (Proventil MDI) 2 puff Q6H PRN INH Shortness of Breath 03/16/18 07:00 04/15/18 06:59 Albuterol/ Ipratropium (Albuterol/ Ipratropium) 3 ml Q4HRT HHN 03/16/18 07:00 03/21/18 06:59 03/17/18 15:47 Amlodipine Besylate (Norvasc) 5 mg DAILY ORAL 03/16/18 09:00 04/15/18 08:59 03/17/18 08:35 Ceftriaxone Sodium 1 gm/ Dextrose 55 ml @ 110 mls/hr Q24H IVPB 03/16/18 18:00 03/23/18 17:59 03/16/18 17:17 Cyanocobalamin (Vitamin B-12) 500 mcg DAILY ORAL 03/16/18 09:00 04/15/18 08:59 03/17/18 08:34 Heparin Sodium (Porcine) (Heparin 5000 units/ml) 5,000 units EVERY 12 HOURS SUBQ 03/16/18 09:00 04/15/18 08:59 03/17/18 08:56 Magnesium Hydroxide (Mom) 30 ml DAILYPRN PRN ORAL Constipation 03/16/18 06:45 04/15/18 06:44 Methylprednisolone Sodium Succinate (Solu-MEDROL) 60 mg EVERY 12 HOURS IVP 03/16/18 09:00 04/15/18 08:59 03/17/18 08:35 Pantoprazole (Protonix) 40 mg EVERY 12 HOURS ORAL 03/16/18 09:00 04/15/18 08:59 03/17/18 08:34 Sodium Chloride 1,000 ml @ 100 mls/hr Q10H IV 03/16/18 08:15 04/15/18 08:14 03/17/18 13:55 Vitamin D (Vitamin D) 1,000 intlu DAILY ORAL 03/16/18 09:00 04/15/18 08:59 03/17/18 08:34 Zolpidem Tartrate (Ambien) 5 mg HSPRN PRN ORAL Insomnia 03/16/18 06:45 03/23/18 06:44 Amor Schrader MD Mar 17, 2018 15:50
[2018-03-17] MEDS ORDERED: NS 275ml ONE (15:52)
[2018-03-17] MEDS ORDERED: Tubing IV Secondary IV ONE (15:52)
[2018-03-17 16:00] VITALS: BP 137/67
[2018-03-17] MEDS: cefTRIAXone 1 GM in D5W 55 ML IVPB SCH (17:15)
[2018-03-17 20:00] VITALS: BP 127/63
[2018-03-17 22:43] LABS: APPEARANCE,URINE CLEAR; BILIRUBIN, URINE NEGATIVE (NEGATIVE); COLOR,URINE PALE YELLOW; GLUCOSE, URINE (UA) NEGATIVE (NEGATIVE); KETONES,URINE NEGATIVE (NEGATIVE); LEUKOCYTE ESTERASE ,URINE NEGATIVE (NEGATIVE); NITRITE,URINE NEGATIVE (NEGATIVE); PH,URINE 6 (4.5-8.0); PROTEIN,URINE NEGATIVE (NEGATIVE); UROBILINOGEN,URINE NORMAL MG/DL (0.0-1.0)
[2018-03-18] VITALS: BP 154/78
[2018-03-18] MEDS: Albuterol/Ipratropium 3ml neb HHN SCH ×6 (03:18→22:40)
[2018-03-18 04:00] VITALS: BP 151/78
[2018-03-18 08:00] VITALS: BP 167/81
[2018-03-18] MEDS: Solu-MEDROL 125mg Inj IVP SCH ×2 (08:17→20:44)
[2018-03-18] MEDS: Vitamin B-12 500mcg tab ORAL SCH (08:17)
[2018-03-18] MEDS: Vitamin D 1000 IU Tab ORAL SCH (08:18)
[2018-03-18] MEDS: Heparin 5000 units/ml inj SUBQ SCH ×2 (08:18→20:44)
[2018-03-18 12:00] VITALS: BP 138/67
--- NOTE | 2018-03-18 12:27 | Diagnostic Imaging Report ---
EXAM: XR Chest, 1 View CLINICAL HISTORY: COUGH TECHNIQUE: Frontal view of the chest. COMPARISON: Chest x-ray 03/15/18 and 12/16/17 FINDINGS: Lungs: Hyperinflated lungs of COPD. Mild interstitial prominence may be chronic, stable. No focal infiltrate or consolidation. Pleural space: Unremarkable. No pneumothorax. Heart: Unremarkable. No cardiomegaly. Mediastinum: Unremarkable. Bones/joints: Unremarkable. IMPRESSION: 1. Hyperinflated lungs of COPD. 2. Mild interstitial prominence may be chronic. No focal infiltrate or consolidation.
[2018-03-18 16:00] VITALS: BP 137/69
[2018-03-18] MEDS: cefTRIAXone 1 GM in D5W 55 ML IVPB SCH (17:40)
[2018-03-18 20:00] VITALS: BP 138/68
--- NOTE | 2018-03-18 20:45 | General Progress Note ---
Assessment/Plan Problem List: (1) Hypoxia ICD Codes: R09.02 - Hypoxemia SNOMED: 053057470 (2) Pneumonia ICD Codes: J18.9 - Pneumonia, unspecified organism SNOMED: 254857916 Qualifiers: Qualified Codes: J18.1 - Lobar pneumonia, unspecified organism (3) COPD exacerbation ICD Codes: J44.1 - Chronic obstructive pulmonary disease with (acute) exacerbation SNOMED: 512098232 (4) Dyspnea ICD Codes: R06.00 - Dyspnea, unspecified SNOMED: 425338420 Status: stable Assessment/Plan o2 resp rx iv steroids abx dvt/stress ulcer prophylaxis Subjective ROS Limited/Unobtainable: No Constitutional: Reports: weakness HEENT: Reports: no symptoms Cardiovascular: Reports: no symptoms Respiratory: Reports: shortness of breath Gastrointestinal/Abdominal: Reports: no symptoms Genitourinary: Reports: no symptoms Neurologic/Psychiatric: Reports: no symptoms Endocrine: Reports: no symptoms Hematologic/Lymphatic: Reports: no symptoms Allergies: Coded Allergies: No Known Allergies (Unverified , 02/21/18) All Systems: reviewed and negative except above Subjective still feels very sob. better at rest but unable to ambulate without significant sob Objective Last 24 Hour Vital Signs Date Time Temp Pulse Resp B/P (MAP) Pulse Ox O2 Delivery O2 Flow Rate FiO2 03/18/18 20:00 Nasal Cannula 2.0 03/18/18 19:55 89 18 98 Nasal Cannula 2.0 28 03/18/18 19:55 98 Nasal Cannula 2.0 28 03/18/18 19:55 Nasal Cannula 2.0 28 03/18/18 16:00 96.4 03/18/18 16:00 85 24 137/69 (91) 99 03/18/18 15:23 92 03/18/18 15:14 92 20 99 Nasal Cannula 2.0 28 03/18/18 15:10 89 20 97 Nasal Cannula 2.0 28 03/18/18 12:00 97.5 88 24 138/67 (90) 92 03/18/18 11:56 86 03/18/18 10:52 101 22 99 Nasal Cannula 2.0 28 03/18/18 10:45 99 18 97 Nasal Cannula 2.0 28 03/18/18 09:00 Nasal Cannula 2.0 03/18/18 08:18 120 167/81 03/18/18 08:00 97.2 120 25 167/81 (109) 99 03/18/18 07:56 104 03/18/18 07:21 90 20 99 Nasal Cannula 2.0 28 03/18/18 07:20 98 Nasal Cannula 2.0 28 03/18/18 07:20 Nasal Cannula 2.0 28 03/18/18 07:14 87 18 98 Nasal Cannula 2.0 28 03/18/18 04:00 96.8 85 18 151/78 (102) 97 03/18/18 04:00 79 03/18/18 03:30 113 03/18/18 03:29 91 18 98 Nasal Cannula 2.0 28 03/18/18 03:19 89 18 96 Nasal Cannula 2.0 28 03/18/18 00:00 96.1 96 26 154/78 (103) 98 03/18/18 00:00 83 03/17/18 23:12 78 18 99 Nasal Cannula 2.0 28 03/17/18 23:02 84 18 97 Nasal Cannula 2.0 28 03/17/18 21:00 Nasal Cannula 2.0 Intake and Output 03/17/18 03/18/18 19:00 07:00 Intake Total 360 ml 100 ml Output Total 800 ml 750 ml Balance -440 ml -650 ml Intake Oral 360 ml 100 ml Output Urine Total 800 ml 750 ml # Bowel Movements 1 1 Laboratory Tests 03/17/18 22:30: Urine Color Pale yellow, Urine Appearance Clear, Urine pH 6, Urine Specific [place] 1.015, Urine Protein Negative, Urine Glucose (UA) Negative, Urine Ketones Negative, Urine Blood Negative, Urine Nitrite Negative, Urine Bilirubin Negative, Urine Urobilinogen Normal, Urine Leukocyte Esterase Negative, Urine RBC 0-2H, Urine WBC 0-2, Urine Squamous Epithelial Cells None, Urine Bacteria Few Height (Feet): 5 Height (Inches): 10.00 Weight (Pounds): 114 General Appearance: WD/WN, alert Neck: supple Cardiovascular: normal rate, regular rhythm Respiratory/Chest: decreased breath sounds, expiratory wheezing Abdomen: normal bowel sounds, non tender, soft, no organomegaly Edema: no edema noted Arm (L), no edema noted Arm (R), no edema noted Leg (L), no edema noted Leg (R), no edema noted Pedal (L), no edema noted Pedal (R), no edema noted Generalized 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
--- NOTE | 2018-03-18 21:19 | Pulmonology Progress Note ---
Assessment/Plan Assessment/Plan Pulmonary Progress Note Subjective Patient admitted with COPD exaccerbation, less SOB today Plan Continue current medications O2 PRN HHN/steroids/AB Allergies: Coded Allergies: No Known Allergies (Unverified , 02/21/18) Objective Vital Signs Noted Microbiology Date/Time Source Procedure Growth Status 03/15/18 18:35 Nasal Nares Influenza Types A,B Antigen (ANA LUISA) - Final Complete 03/15/18 22:30 Rectum Received Laboratory Tests 03/15/18 18:00: White Blood Count 10.1, Red Blood Count 4.63L, Hemoglobin 12.6L, Hematocrit 39.9L, Mean Corpuscular Volume 86, Mean Corpuscular Hemoglobin 27.2, Mean Corpuscular Hemoglobin Concent 31.5L, Red Cell Distribution Width 14.6, Platelet Count 368, Mean Platelet Volume 5.6L, Neutrophils (%) (Auto) 60.6, Lymphocytes (%) (Auto) 25.6, Monocytes (%) (Auto) 10.0, Eosinophils (%) (Auto) 2.1, Basophils (%) (Auto) 1.7, Prothrombin Time 10.7, Prothromb Time International Ratio 1.0, Activated Partial Thromboplast Time 29, Sodium Level 140, Potassium Level 4.2, Chloride Level 102, Carbon Dioxide Level 29, Anion Gap 9, Blood Urea Nitrogen 15, Creatinine 1.1, Estimat Glomerular Filtration Rate , Glucose Level 127H, Lactic Acid Level 1.30, Calcium Level 9.6, Total Bilirubin 0.3, Aspartate Amino Transf (AST/SGOT) 20, Alanine Aminotransferase ( ALT/SGPT) 21, Alkaline Phosphatase 102, Total Creatine Kinase 149, Troponin I 0.040, Pro-B-Type Natriuretic Peptide 142H, Total Protein 8.1, Albumin 3.1L, Globulin 5.0, Albumin/Globulin Ratio 0.6L 03/15/18 19:30: Urine Color Yellow, Urine Appearance Clear, Urine pH 5, Urine Specific [place] 1.030, Urine Protein 2+H, Urine Glucose (UA) Negative, Urine Ketones 1+H, Urine Blood 2+H, Urine Nitrite Negative, Urine Bilirubin Negative, Urine Urobilinogen Normal, Urine Leukocyte Esterase Negative, Urine RBC 0-2H, Urine WBC 0, Urine Squamous Epithelial Cells Occasional, Urine Bacteria Occasional, Urine Mucus ModerateH Current Medications Medications (Trade) Dose Ordered Sig/Charlie Route PRN Reason Start Time Stop Time Status Last Admin Dose Admin Acetaminophen (Tylenol) 650 mg Q4H PRN ORAL Mild Pain/Temp > 100.5 03/16/18 06:45 04/15/18 06:44 Al Hydroxide/Mg Hydroxide (Mylanta) 30 ml Q4HR PRN ORAL Constipation 03/16/18 06:45 04/15/18 06:44 Albuterol Sulfate (Proventil MDI) 2 puff Q6H PRN INH Shortness of Breath 03/16/18 07:00 04/15/18 06:59 Albuterol/ Ipratropium (Albuterol/ Ipratropium) 3 ml Q4HRT HHN 03/16/18 07:00 03/21/18 06:59 03/16/18 07:46 Amlodipine Besylate (Norvasc) 5 mg DAILY ORAL 03/16/18 09:00 04/15/18 08:59 03/16/18 08:36 Ceftriaxone Sodium 1 gm/ Dextrose 55 ml @ 110 mls/hr Q24H IVPB 03/16/18 18:00 03/23/18 17:59 Cyanocobalamin (Vitamin B-12) 500 mcg DAILY ORAL 03/16/18 09:00 04/15/18 08:59 03/16/18 08:37 Heparin Sodium (Porcine) (Heparin 5000 units/ml) 5,000 units EVERY 12 HOURS SUBQ 03/16/18 09:00 04/15/18 08:59 03/16/18 08:38 Magnesium Hydroxide (Mom) 30 ml DAILYPRN PRN ORAL Constipation 03/16/18 06:45 04/15/18 06:44 Methylprednisolone Sodium Succinate (Solu-MEDROL) 60 mg EVERY 12 HOURS IVP 03/16/18 09:00 04/15/18 08:59 03/16/18 08:29 Pantoprazole (Protonix) 40 mg EVERY 12 HOURS ORAL 03/16/18 09:00 04/15/18 08:59 03/16/18 08:37 Sodium Chloride 1,000 ml @ 100 mls/hr Q10H IV 03/16/18 08:15 04/15/18 08:14 03/16/18 08:27 Vitamin D (Vitamin D) 1,000 intlu DAILY ORAL 03/16/18 09:00 1/13/19 08:59 03/16/18 08:37 Zolpidem Tartrate (Ambien) 5 mg HSPRN PRN ORAL Insomnia 03/16/18 06:45 03/23/18 06:44 Subjective ROS Limited/Unobtainable: No Allergies: Coded Allergies: No Known Allergies (Unverified , 02/21/18) Objective Last 24 Hour Vital Signs Date Time Temp Pulse Resp B/P (MAP) Pulse Ox O2 Delivery O2 Flow Rate FiO2 03/18/18 20:06 80 20 98 Nasal Cannula 2.0 28 03/18/18 20:00 98.6 84 19 138/68 (91) 99 03/18/18 20:00 Nasal Cannula 2.0 03/18/18 19:55 89 18 98 Nasal Cannula 2.0 28 03/18/18 19:55 98 Nasal Cannula 2.0 28 03/18/18 19:55 Nasal Cannula 2.0 28 03/18/18 16:00 96.4 03/18/18 16:00 85 24 137/69 (91) 99 03/18/18 15:23 92 03/18/18 15:14 92 20 99 Nasal Cannula 2.0 28 03/18/18 15:10 89 20 97 Nasal Cannula 2.0 28 03/18/18 12:00 97.5 88 24 138/67 (90) 92 03/18/18 11:56 86 03/18/18 10:52 101 22 99 Nasal Cannula 2.0 28 03/18/18 10:45 99 18 97 Nasal Cannula 2.0 28 03/18/18 09:00 Nasal Cannula 2.0 03/18/18 08:18 120 167/81 03/18/18 08:00 97.2 120 25 167/81 (109) 99 03/18/18 07:56 104 03/18/18 07:21 90 20 99 Nasal Cannula 2.0 28 03/18/18 07:20 98 Nasal Cannula 2.0 28 03/18/18 07:20 Nasal Cannula 2.0 28 03/18/18 07:14 87 18 98 Nasal Cannula 2.0 28 03/18/18 04:00 96.8 85 18 151/78 (102) 97 03/18/18 04:00 79 03/18/18 03:30 113 03/18/18 03:29 91 18 98 Nasal Cannula 2.0 28 03/18/18 03:19 89 18 96 Nasal Cannula 2.0 28 03/18/18 00:00 96.1 96 26 154/78 (103) 98 03/18/18 00:00 83 03/17/18 23:12 78 18 99 Nasal Cannula 2.0 28 03/17/18 23:02 84 18 97 Nasal Cannula 2.0 28 Intake and Output 03/17/18 03/18/18 19:00 07:00 Intake Total 360 ml 100 ml Output Total 800 ml 750 ml Balance -440 ml -650 ml Intake Oral 360 ml 100 ml Output Urine Total 800 ml 750 ml # Bowel Movements 1 1 Microbiology Date/Time Source Procedure Growth Status 03/15/18 22:30 Nasal Nares MRSA Culture - Final NO METHICILLIN RESISTANT STAPH AUREUS... Complete 03/17/18 22:30 Urine,Clean Catch Urine Culture - Preliminary NO GROWTH Resulted 03/15/18 22:30 Rectum - Preliminary Resulted 03/15/18 22:30 Rectum VRE Culture - Final NO VANCOMYCIN RESISTANT ENTEROCOCCUS ... Complete Laboratory Tests 03/17/18 22:30: Urine Color Pale yellow, Urine Appearance Clear, Urine pH 6, Urine Specific [place] 1.015, Urine Protein Negative, Urine Glucose (UA) Negative, Urine Ketones Negative, Urine Blood Negative, Urine Nitrite Negative, Urine Bilirubin Negative, Urine Urobilinogen Normal, Urine Leukocyte Esterase Negative, Urine RBC 0-2H, Urine WBC 0-2, Urine Squamous Epithelial Cells None, Urine Bacteria Few Current Medications Medications (Trade) Dose Ordered Sig/Charlie Route PRN Reason Start Time Stop Time Status Last Admin Dose Admin Acetaminophen (Tylenol) 650 mg Q4H PRN ORAL Mild Pain/Temp > 100.5 03/16/18 06:45 04/15/18 06:44 Al Hydroxide/Mg Hydroxide (Mylanta) 30 ml Q4HR PRN ORAL Constipation 03/16/18 06:45 04/15/18 06:44 Albuterol Sulfate (Proventil MDI) 2 puff Q6H PRN INH Shortness of Breath 03/16/18 07:00 04/15/18 06:59 Albuterol/ Ipratropium (Albuterol/ Ipratropium) 3 ml Q4HRT HHN 03/16/18 07:00 03/21/18 06:59 03/18/18 19:55 Amlodipine Besylate (Norvasc) 5 mg DAILY ORAL 03/16/18 09:00 04/15/18 08:59 03/18/18 08:18 Ceftriaxone Sodium 1 gm/ Dextrose 55 ml @ 110 mls/hr Q24H IVPB 03/16/18 18:00 03/23/18 17:59 03/18/18 17:40 Cyanocobalamin (Vitamin B-12) 500 mcg DAILY ORAL 03/16/18 09:00 04/15/18 08:59 03/18/18 08:17 Heparin Sodium (Porcine) (Heparin 5000 units/ml) 5,000 units EVERY 12 HOURS SUBQ 03/16/18 09:00 04/15/18 08:59 03/17/18 08:56 Magnesium Hydroxide (Mom) 30 ml DAILYPRN PRN ORAL Constipation 03/16/18 06:45 04/15/18 06:44 Methylprednisolone Sodium Succinate (Solu-MEDROL) 60 mg EVERY 12 HOURS IVP 03/16/18 09:00 04/15/18 08:59 03/18/18 20:44 Pantoprazole (Protonix) 40 mg EVERY 12 HOURS ORAL 03/16/18 09:00 04/15/18 08:59 03/18/18 20:43 Vitamin D (Vitamin D) 1,000 intlu DAILY ORAL 03/16/18 09:00 04/15/18 08:59 03/18/18 08:18 Zolpidem Tartrate (Ambien) 5 mg HSPRN PRN ORAL Insomnia 03/16/18 06:45 03/23/18 06:44 Amor Schrader MD Mar 18, 2018 21:19
--- NOTE | 2018-03-18 22:15 | History and Physical Report ---
DATE OF ADMISSION: 03/15/2018 HISTORY OF PRESENT ILLNESS: The patient is a pleasant 72-year-old male, well known to me. He has a history of COPD, hypertensive heart disease, and BPH, who presented with complaints of progressive shortness of breath. He had a recent hospitalization for COPD exacerbation, who responded well to intravenous steroids and respiratory treatments. He was discharged home. According to the patient, he is doing well, but noted several days later that he had worsening dyspnea on exertion. According to the patient, he is normally able to walk one to two blocks without significant shortness of breath, but so difficult that he can only walk a few feet. He saw his automotive brake specialist, who recommended that he be admitted for evaluation for COPD exacerbation. The patient admits to some nonproductive cough, some runny nose. He denies any chest pain, but does admit to some wheezing and chest tightness. PAST MEDICAL HISTORY: As above.x PAST SURGICAL HISTORY: None. CURRENT MEDICATIONS: Reconciled and reviewed. ALLERGIES: None. FAMILY HISTORY: None. SOCIAL HISTORY: There is no known history of tobacco, ethanol, or drugs. The patient smoker. PHYSICAL EXAMINATION: VITAL SIGNS: Temperature is 98 degrees, pulse 90, blood pressure 154/78, and respirations 20. GENERAL: The patient is a well-developed, thin male, in no apparent distress. HEART: Regular rate and rhythm. LUNGS: Diminished breath sounds with few wheezes. ABDOMEN: Soft, nontender, and nondistended. EXTREMITIES: Without clubbing, cyanosis, or edema. LABORATORY DATA: White count 10, hemoglobin 12, hematocrit 39, and platelet count 368,000. Sodium 140, potassium 4.2, chloride 102, bicarb 29, BUN 15, creatinine 1.1. Troponin 0.04. Coags are normal. UA was clear. Chest x-ray showed COPD and emphysema. ASSESSMENT: This is a pleasant male with history of chronic obstructive pulmonary disease, hypertension, and benign prostatic hypertrophy, admitted with complaints of chronic obstructive pulmonary disease exacerbation. 1. Bronchitis versus pneumonia. 2. Hypertension. 3. Benign prostatic hypertrophy. PLAN: Intravenous steroids, respiratory treatments. Empiric antibiotic therapy. Pulmonary consultation. The patient will receive DVT and stress ulcer prophylaxis. Temo Navarro M.D. DR: Stephanie JOB#: [id number] CC:
[2018-03-19] VITALS: BP 143/73
[2018-03-19] MEDS: Albuterol/Ipratropium 3ml neb HHN SCH ×6 (03:00→22:40)
[2018-03-19 04:00] VITALS: BP 157/85
[2018-03-19 08:00] VITALS: BP 134/98
--- NOTE | 2018-03-19 08:34 | General Progress Note ---
Assessment/Plan Problem List: (1) Hypoxia ICD Codes: R09.02 - Hypoxemia SNOMED: 985973970 (2) Pneumonia ICD Codes: J18.9 - Pneumonia, unspecified organism SNOMED: 990989831 Qualifiers: Qualified Codes: J18.1 - Lobar pneumonia, unspecified organism (3) COPD exacerbation ICD Codes: J44.1 - Chronic obstructive pulmonary disease with (acute) exacerbation SNOMED: 003562322 (4) Dyspnea ICD Codes: R06.00 - Dyspnea, unspecified SNOMED: 162209187 Status: stable, progressing Assessment/Plan o2 resp rx iv steroids abx dvt/stress ulcer prophylaxis mobilize Subjective ROS Limited/Unobtainable: No Constitutional: Reports: malaise, weakness HEENT: Reports: no symptoms Cardiovascular: Reports: no symptoms Respiratory: Reports: cough, shortness of breath Gastrointestinal/Abdominal: Reports: no symptoms Genitourinary: Reports: no symptoms Neurologic/Psychiatric: Reports: no symptoms Endocrine: Reports: no symptoms Hematologic/Lymphatic: Reports: no symptoms Allergies: Coded Allergies: No Known Allergies (Unverified , 02/21/18) All Systems: reviewed and negative except above Subjective c/o SANDS. better at rest but unable to ambulate without significant sob Objective Last 24 Hour Vital Signs Date Time Temp Pulse Resp B/P (MAP) Pulse Ox O2 Delivery O2 Flow Rate FiO2 03/19/18 07:35 85 19 100 Nasal Cannula 2.0 28 03/19/18 07:23 86 17 98 Nasal Cannula 2.0 28 03/19/18 07:23 98 Nasal Cannula 2.0 28 03/19/18 07:23 Nasal Cannula 2.0 28 03/19/18 04:00 91 03/19/18 04:00 98.0 98 19 157/85 (109) 98 03/19/18 03:00 Nasal Cannula 2.0 28 03/19/18 03:00 Nasal Cannula 2.0 28 03/19/18 00:00 83 03/19/18 00:00 98.5 89 19 143/73 (96) 99 03/18/18 22:50 82 20 99 Nasal Cannula 2.0 28 03/18/18 22:40 83 18 98 Nasal Cannula 2.0 28 03/18/18 20:06 80 20 98 Nasal Cannula 2.0 28 03/18/18 20:00 98.6 84 19 138/68 (91) 99 03/18/18 20:00 85 03/18/18 20:00 Nasal Cannula 2.0 03/18/18 19:55 89 18 98 Nasal Cannula 2.0 28 03/18/18 19:55 98 Nasal Cannula 2.0 28 03/18/18 19:55 Nasal Cannula 2.0 28 03/18/18 16:00 96.4 03/18/18 16:00 85 24 137/69 (91) 99 03/18/18 15:23 92 03/18/18 15:14 92 20 99 Nasal Cannula 2.0 28 03/18/18 15:10 89 20 97 Nasal Cannula 2.0 28 03/18/18 12:00 97.5 88 24 138/67 (90) 92 03/18/18 11:56 86 03/18/18 10:52 101 22 99 Nasal Cannula 2.0 28 03/18/18 10:45 99 18 97 Nasal Cannula 2.0 28 03/18/18 09:00 Nasal Cannula 2.0 Intake and Output 03/18/18 03/19/18 19:00 07:00 Output Total 1700 ml 600 ml Balance -1700 ml -600 ml Output Urine Total 1700 ml 600 ml # Bowel Movements 1 Height (Feet): 5 Height (Inches): 10.00 Weight (Pounds): 114 Objective General Appearance: WD/WN, alert Neck: supple Cardiovascular: normal rate, regular rhythm Respiratory/Chest: decreased breath sounds, expiratory wheezing Abdomen: normal bowel sounds, non tender, soft, no organomegaly Edema: no edema noted Arm (L), no edema noted Arm (R), no edema noted Leg (L), no edema noted Leg (R), no edema noted Pedal (L), no edema noted Pedal (R), no edema noted 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
[2018-03-19] MEDS: Vitamin D 1000 IU Tab ORAL SCH (08:52)
[2018-03-19] MEDS: Vitamin B-12 500mcg tab ORAL SCH (08:52)
[2018-03-19] MEDS: Solu-MEDROL 125mg Inj IVP SCH ×2 (08:53→21:27)
[2018-03-19] MEDS: Heparin 5000 units/ml inj SUBQ SCH ×2 (08:53→21:00)
--- NOTE | 2018-03-19 09:04 | Pulmonology Progress Note ---
Assessment/Plan Assessment/Plan COPD with exacerbation dyspnea hypoxemia hypertension urinary frequency PLAN reduced steroids IV antibiotics-dc respiratory care short term snf oxygen as needed PT evaluation impression, plan, and exam edited and reviewed in detail care discussed with RN Subjective Allergies: Coded Allergies: No Known Allergies (Unverified , 02/21/18) Subjective still with sob wants rehab Objective Last 24 Hour Vital Signs Date Time Temp Pulse Resp B/P (MAP) Pulse Ox O2 Delivery O2 Flow Rate FiO2 03/19/18 08:52 98 134/98 03/19/18 08:00 97.9 98 20 134/98 (110) 95 03/19/18 07:35 85 19 100 Nasal Cannula 2.0 28 03/19/18 07:23 86 17 98 Nasal Cannula 2.0 28 03/19/18 07:23 98 Nasal Cannula 2.0 28 03/19/18 07:23 Nasal Cannula 2.0 28 03/19/18 04:00 91 03/19/18 04:00 98.0 98 19 157/85 (109) 98 03/19/18 03:00 Nasal Cannula 2.0 28 03/19/18 03:00 Nasal Cannula 2.0 28 03/19/18 00:00 83 03/19/18 00:00 98.5 89 19 143/73 (96) 99 03/18/18 22:50 82 20 99 Nasal Cannula 2.0 28 03/18/18 22:40 83 18 98 Nasal Cannula 2.0 28 03/18/18 20:06 80 20 98 Nasal Cannula 2.0 28 03/18/18 20:00 98.6 84 19 138/68 (91) 99 03/18/18 20:00 85 03/18/18 20:00 Nasal Cannula 2.0 03/18/18 19:55 89 18 98 Nasal Cannula 2.0 28 03/18/18 19:55 98 Nasal Cannula 2.0 28 03/18/18 19:55 Nasal Cannula 2.0 28 03/18/18 16:00 96.4 03/18/18 16:00 85 24 137/69 (91) 99 03/18/18 15:23 92 03/18/18 15:14 92 20 99 Nasal Cannula 2.0 28 03/18/18 15:10 89 20 97 Nasal Cannula 2.0 28 03/18/18 12:00 97.5 88 24 138/67 (90) 92 03/18/18 11:56 86 03/18/18 10:52 101 22 99 Nasal Cannula 2.0 28 03/18/18 10:45 99 18 97 Nasal Cannula 2.0 28 Intake and Output 03/18/18 03/19/18 19:00 07:00 Output Total 1700 ml 600 ml Balance -1700 ml -600 ml Output Urine Total 1700 ml 600 ml # Bowel Movements 1 Objective WDWN NAD reduced breath sounds bilaterally without rhonchi or wheeze [id number] without MRG NABS nontender no HSM no CCE nonfocal weak and dyspneic Microbiology Date/Time Source Procedure Growth Status 03/17/18 22:30 Urine,Clean Catch Urine Culture - Preliminary NO GROWTH Resulted Current Medications Medications (Trade) Dose Ordered Sig/Charlie Route PRN Reason Start Time Stop Time Status Last Admin Dose Admin Acetaminophen (Tylenol) 650 mg Q4H PRN ORAL Mild Pain/Temp > 100.5 03/16/18 06:45 04/15/18 06:44 Al Hydroxide/Mg Hydroxide (Mylanta) 30 ml Q4HR PRN ORAL Constipation 03/16/18 06:45 04/15/18 06:44 Albuterol Sulfate (Proventil MDI) 2 puff Q6H PRN INH Shortness of Breath 03/16/18 07:00 04/15/18 06:59 Albuterol/ Ipratropium (Albuterol/ Ipratropium) 3 ml Q4HRT HHN 03/16/18 07:00 03/21/18 06:59 03/19/18 07:23 Amlodipine Besylate (Norvasc) 5 mg DAILY ORAL 03/16/18 09:00 04/15/18 08:59 03/19/18 08:52 Ceftriaxone Sodium 1 gm/ Dextrose 55 ml @ 110 mls/hr Q24H IVPB 03/16/18 18:00 03/23/18 17:59 03/18/18 17:40 Cyanocobalamin (Vitamin B-12) 500 mcg DAILY ORAL 03/16/18 09:00 04/15/18 08:59 03/19/18 08:52 Heparin Sodium (Porcine) (Heparin 5000 units/ml) 5,000 units EVERY 12 HOURS SUBQ 03/16/18 09:00 04/15/18 08:59 03/17/18 08:56 Magnesium Hydroxide (Mom) 30 ml DAILYPRN PRN ORAL Constipation 03/16/18 06:45 04/15/18 06:44 Methylprednisolone Sodium Succinate (Solu-MEDROL) 60 mg EVERY 12 HOURS IVP 03/16/18 09:00 04/15/18 08:59 03/19/18 08:53 Pantoprazole (Protonix) 40 mg EVERY 12 HOURS ORAL 03/16/18 09:00 04/15/18 08:59 03/18/18 20:43 Vitamin D (Vitamin D) 1,000 intlu DAILY ORAL 03/16/18 09:00 04/15/18 08:59 03/19/18 08:52 Zolpidem Tartrate (Ambien) 5 mg HSPRN PRN ORAL Insomnia 03/16/18 06:45 03/23/18 06:44 Phil Felipe MD Mar 19, 2018 09:04
[2018-03-19 12:00] VITALS: BP 142/84
[2018-03-19 15:55] VITALS: BP 127/80
[2018-03-19 20:00] VITALS: BP 147/72
[2018-03-20] VITALS: BP 130/71
[2018-03-20 04:00] VITALS: BP 150/79
[2018-03-20] MEDS: Albuterol/Ipratropium 3ml neb HHN SCH ×4 (04:22→14:30)
[2018-03-20 08:00] VITALS: BP 137/85
--- NOTE | 2018-03-20 08:33 | Pulmonology Progress Note ---
Assessment/Plan Assessment/Plan COPD with exacerbation dyspnea hypoxemia hypertension urinary frequency PLAN reduced steroids further with slow taper IV antibiotics-off respiratory care short term snf today oxygen as needed PT evaluation impression, plan, and exam edited and reviewed in detail care discussed with RN Subjective Allergies: Coded Allergies: No Known Allergies (Unverified , 02/21/18) Subjective dc planning noted wants rehab Objective Last 24 Hour Vital Signs Date Time Temp Pulse Resp B/P (MAP) Pulse Ox O2 Delivery O2 Flow Rate FiO2 03/20/18 07:04 87 18 100 Room Air 21 03/20/18 07:04 99 Room Air 21 03/20/18 07:04 Room Air 21 03/20/18 06:57 92 18 97 Room Air 03/20/18 04:33 78 18 100 Nasal Cannula 2.0 28 03/20/18 04:22 78 18 98 Room Air 2.0 28 03/20/18 04:00 90 03/20/18 04:00 97.5 90 20 150/79 (102) 98 03/20/18 00:00 97.8 90 17 130/71 (90) 95 03/20/18 00:00 90 03/19/18 22:42 Nasal Cannula 2.0 28 03/19/18 22:40 Room Air 2.0 28 03/19/18 21:00 Nasal Cannula 2.0 03/19/18 20:00 86 03/19/18 20:00 98.1 86 17 147/72 (97) 99 03/19/18 19:28 92 18 99 Nasal Cannula 2.0 28 03/19/18 19:22 Nasal Cannula 2.0 28 03/19/18 19:21 97 Nasal Cannula 2.0 28 03/19/18 19:21 90 18 96 Room Air 2.0 28 03/19/18 15:55 97.7 94 21 127/80 (96) 97 03/19/18 15:48 88 19 100 Nasal Cannula 2.0 28 03/19/18 15:39 93 03/19/18 15:37 87 18 96 Room Air 21 03/19/18 12:00 97.9 99 20 142/84 (103) 100 03/19/18 11:52 84 03/19/18 11:22 87 19 100 Nasal Cannula 2.0 28 03/19/18 11:11 89 17 98 Nasal Cannula 2.0 28 03/19/18 09:00 Nasal Cannula 2.0 03/19/18 08:52 98 134/98 Intake and Output 03/19/18 03/20/18 19:00 07:00 Output Total 400 ml Balance -400 ml Output Urine Total 400 ml # Voids 3 # Bowel Movements 1 Objective WDWN NAD reduced breath sounds bilaterally without rhonchi or wheeze [id number] without MRG NABS nontender no HSM no CCE nonfocal weak and dyspneic Microbiology Date/Time Source Procedure Growth Status 03/17/18 22:30 Urine,Clean Catch Urine Culture - Final NO GROWTH AFTER 48 HOURS Complete Current Medications Medications (Trade) Dose Ordered Sig/Charlie Route PRN Reason Start Time Stop Time Status Last Admin Dose Admin Acetaminophen (Tylenol) 650 mg Q4H PRN ORAL Mild Pain/Temp > 100.5 03/16/18 06:45 04/15/18 06:44 Al Hydroxide/Mg Hydroxide (Mylanta) 30 ml Q4HR PRN ORAL Constipation 03/16/18 06:45 04/15/18 06:44 Albuterol Sulfate (Proventil MDI) 2 puff Q6H PRN INH Shortness of Breath 03/16/18 07:00 04/15/18 06:59 Albuterol/ Ipratropium (Albuterol/ Ipratropium) 3 ml Q4HRT HHN 03/16/18 07:00 03/21/18 06:59 03/20/18 07:03 Amlodipine Besylate (Norvasc) 5 mg DAILY ORAL 03/16/18 09:00 04/15/18 08:59 03/19/18 08:52 Cyanocobalamin (Vitamin B-12) 500 mcg DAILY ORAL 03/16/18 09:00 04/15/18 08:59 03/19/18 08:52 Heparin Sodium (Porcine) (Heparin 5000 units/ml) 5,000 units EVERY 12 HOURS SUBQ 03/16/18 09:00 04/15/18 08:59 03/17/18 08:56 Magnesium Hydroxide (Mom) 30 ml DAILYPRN PRN ORAL Constipation 03/16/18 06:45 04/15/18 06:44 Methylprednisolone Sodium Succinate (Solu-MEDROL) 60 mg EVERY 12 HOURS IVP 03/16/18 09:00 04/15/18 08:59 03/19/18 21:27 Pantoprazole (Protonix) 40 mg EVERY 12 HOURS ORAL 03/16/18 09:00 04/15/18 08:59 03/19/18 21:28 Vitamin D (Vitamin D) 1,000 intlu DAILY ORAL 03/16/18 09:00 04/15/18 08:59 03/19/18 08:52 Zolpidem Tartrate (Ambien) 5 mg HSPRN PRN ORAL Insomnia 03/16/18 06:45 03/23/18 06:44 Phil Felipe MD Mar 20, 2018 08:33
--- NOTE | 2018-03-20 08:35 | General Progress Note ---
Assessment/Plan Problem List: (1) Hypoxia ICD Codes: R09.02 - Hypoxemia SNOMED: 154702318 (2) Pneumonia ICD Codes: J18.9 - Pneumonia, unspecified organism SNOMED: 956660485 Qualifiers: Qualified Codes: J18.1 - Lobar pneumonia, unspecified organism (3) COPD exacerbation ICD Codes: J44.1 - Chronic obstructive pulmonary disease with (acute) exacerbation SNOMED: 511346642 (4) Dyspnea ICD Codes: R06.00 - Dyspnea, unspecified SNOMED: 404574745 Status: stable, progressing Assessment/Plan o2 resp rx steroids abx dvt/stress ulcer prophylaxis mobilize dc planning to snf Subjective ROS Limited/Unobtainable: No Constitutional: Reports: malaise, weakness HEENT: Reports: no symptoms Cardiovascular: Reports: no symptoms Respiratory: Reports: shortness of breath Gastrointestinal/Abdominal: Reports: no symptoms Genitourinary: Reports: no symptoms Neurologic/Psychiatric: Reports: no symptoms Endocrine: Reports: no symptoms Hematologic/Lymphatic: Reports: no symptoms Allergies: Coded Allergies: No Known Allergies (Unverified , 02/21/18) All Systems: reviewed and negative except above Subjective c/o DO after walking 20-30ft. O2 sats nml. sob better at rest. overall feels like he is improving Objective Last 24 Hour Vital Signs Date Time Temp Pulse Resp B/P (MAP) Pulse Ox O2 Delivery O2 Flow Rate FiO2 03/20/18 07:04 87 18 100 Room Air 03/20/18 07:04 99 Room Air 03/20/18 07:04 Room Air 03/20/18 06:57 92 18 97 Room Air 03/20/18 04:33 78 18 100 Nasal Cannula 2.0 28 03/20/18 04:22 78 18 98 Room Air 2.0 28 03/20/18 04:00 90 03/20/18 04:00 97.5 90 20 150/79 (102) 98 03/20/18 00:00 97.8 90 17 130/71 (90) 95 03/20/18 00:00 90 03/19/18 22:42 Nasal Cannula 2.0 28 03/19/18 22:40 Room Air 2.0 28 03/19/18 21:00 Nasal Cannula 2.0 03/19/18 20:00 86 03/19/18 20:00 98.1 86 17 147/72 (97) 99 03/19/18 19:28 92 18 99 Nasal Cannula 2.0 28 03/19/18 19:22 Nasal Cannula 2.0 28 03/19/18 19:21 97 Nasal Cannula 2.0 28 03/19/18 19:21 90 18 96 Room Air 2.0 28 03/19/18 15:55 97.7 94 21 127/80 (96) 97 03/19/18 15:48 88 19 100 Nasal Cannula 2.0 28 03/19/18 15:39 93 03/19/18 15:37 87 18 96 Room Air 21 03/19/18 12:00 97.9 99 20 142/84 (103) 100 03/19/18 11:52 84 03/19/18 11:22 87 19 100 Nasal Cannula 2.0 28 03/19/18 11:11 89 17 98 Nasal Cannula 2.0 28 03/19/18 09:00 Nasal Cannula 2.0 03/19/18 08:52 98 134/98 Intake and Output 03/19/18 03/20/18 19:00 07:00 Output Total 400 ml Balance -400 ml Output Urine Total 400 ml # Voids 3 # Bowel Movements 1 Height (Feet): 5 Height (Inches): 10.00 Weight (Pounds): 114 Objective General Appearance: WD/WN, alert Neck: supple Cardiovascular: normal rate, regular rhythm Respiratory/Chest: decreased breath sounds, expiratory wheezing Abdomen: normal bowel sounds, non tender, soft, no organomegaly Edema: no edema noted Arm (L), no edema noted Arm (R), no edema noted Leg (L), no edema noted Leg (R), no edema noted Pedal (L), no edema noted Pedal (R), no edema noted 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
[2018-03-20] MEDS: Vitamin D 1000 IU Tab ORAL SCH (08:38)
[2018-03-20] MEDS: Vitamin B-12 500mcg tab ORAL SCH (08:39)
[2018-03-20] MEDS: Solu-MEDROL 125mg Inj IVP SCH (08:39)
[2018-03-20] MEDS: Heparin 5000 units/ml inj SUBQ SCH (08:39)
[2018-03-20 12:00] VITALS: BP 136/71
[2018-03-20 16:00] VITALS: BP 135/63
--- NOTE | 2018-03-21 13:27 | Discharge Summary ---
Discharge Summary Discharge Summary _ DATE OF ADMISSION: 03/15/2018 DATE OF DISCHARGE: 03/20/2018 DISCHARGED BY: Dr. Navarro REASON FOR ADMISSION: 72 years old male, resident of correction facility, with past medical history of hypertension, COPD, BPH, presented to emergency department for evaluation due to chills, fevers (undocumented), cough and mid chest pain. Patient was treated for pneumonia in the past . Patient stopped smoking a year ago. Patient initially required high flow of oxygen to maintain proper oxygenation. Patient was found to be tachycardic tachypneic blood pressure was elevated 174/ 101. Laboratory workup revealed leukocytosis. Lactic acid stable. Troponin negative. ECG revealed normal sinus rhythm, no acute ischemic changes. Urinalysis showed no evidence of UTI. Chest x-ray revealed COPD/emphysema. Patient admitted with diagnosis of hypoxia, shortness of breath, acute respiratory failure, COPD exacerbation, possible pneumonia., hypertension. [facility] to [facility] floor. Pulmonology consult was requested Supplemental oxygen provided as needed to keep pulse oximetry above 90%. Pulmonary toilet provided with nebulizing therapy around the clock and as needed. Patient was started on intravenous steroids with gradual tapering down. Patient was started on empiric antibiotic. Follow up CXR revealed . COPD changes, but no evidence of pneumonia. Antitussive provided as needed Patient was counseled to continue abstinence from smoking . DVT and GI prophylaxis provided Blood culture were negative. Influenza screen test was negative. Urine culture were negative. Patient status post treatment with empiric antibiotic. Steroids tapered and changed to oral upon discharge. Blood pressure was managed with calcium channel coleen. Dietary recommendation implemented in plan of care . Patient at high risk for malnutrition. Patient was working with physical therapy, fall precautions maintained. Prior to discharge pulse oximetry stable on room air. Blood pressure stable. Patient condition stabilized, and he was ready for transfer back to correction facility for continuation of care. FINAL DIAGNOSES: Acute respiratory failure COPD exacerbation Hypoxia Emphysema Hypertension BPH DISCHARGE MEDICATIONS: List of medications was sent to accepting facility. DISCHARGE INSTRUCTIONS: Patient was discharged to the correction facility. Follow up with medical doctor at the facility. I have been assigned to dictate discharge summary for this account. I was not involved in the patient's management. Sanam Buenrostro NP Mar 21, 2018 13:27
== END 2018-03-20 20:05 | DRG 190 ==
LOC: EMR 18:13 → 2W 18:34 → EDBEDREQ 21:25 → 2E 03-17 07:07
DX: J44.1 Chronic obstructive pulmonary disease with (acute) exacerbation (principal); J96.01 Acute respiratory failure with hypoxia; N40.0 Benign prostatic hyperplasia without lower urinary tract symptoms; I10 Essential (primary) hypertension; Z87.891 Personal history of nicotine dependence; M25.569 Pain in unspecified knee
CPT/HCPCS: 36415; 71045; 80053; 81001; 81003; 82550; 83605; 83880; 84484; 85025; 85610; 85730; 86710; 87040; 87081; 87086; 93005; 94640; 94664; 94760; 96365; 96368; 96375; 99285; J7620

== ENCOUNTER 2018-08-03 12:04 | Inpatient (IN) | payer MEDICAID, MEDICARE, OTHER ==
[~2018-08-03] VITALS: Ht 177.8 cm; Wt 47.2 kg
[~2018-08-03 12:04] MED LIST changes: +METRONIDAZOLE500 MG ORAL; +PREDNISONE20 M1 PO; +VITAMIN B-12500 MCG ORAL
--- NOTE | 2018-08-03 12:13 | NUR ---
ED Nurse Note: Patient walked into ED from home c/o SOB for "couple days" patient's primary doctor Dr. Felipe sent him to ED. Patient also presents with neck problem. patient is alert and awake x4 ambulatory with a cane without assistance.
[2018-08-03 12:25] VITALS: BP 169/83
[2018-08-03] MEDS ORDERED: Albuterol ud Inhalation HHN ONE (12:30)
[2018-08-03] MEDS ORDERED: Solu-MEDROL 125mg Inj IVP ONE (12:30)
[2018-08-03] MEDS ORDERED: Ipratropium 0.02% Inh Soln 2.5ml UD HHN ONE (12:30)
--- NOTE | 2018-08-03 12:35 | Emergency Room Report ---
History of Present Illness General Chief Complaint: Dyspnea/Respdistress Source: Patient Present Illness HPI Patient presents with increased dyspnea this been worsening over the last week. He is on home O2. He's been using his nebulizer also. Denies any fevers or chills. He thought that his oxygen wasn't working anymore. He denies any chest pain, nausea, vomiting or diarrhea. He has been losing weight. He's been off of prednisone for several weeks. His doctor told him recently there was a problem with his circulation in his neck. He denies any headaches or weakness. He also denies numbness. He believes that his doctor wants to perform a vascular study of his neck. He was admitted June of this year. Discharge diagnoses: COPD with acute exacerbation C. difficile colitis Mild leukocytosis ,possibly steroid-induced - resolved Azotemia, probably acute kidney injury -improving Metabolic alkalosis likely due to underlying chronic respiratory acidosis Chronic respiratory failure Chronic debility Allergies: Coded Allergies: ORANGE JUICE (Verified Allergy, Unknown, 06/17/18) Patient History Past Medical History: see triage record Social History: Denies: smoking - Former smoker, stopped over a year ago, drug use Social History Narrative Born in [facility], [place] citizen Reviewed Nursing Documentation: PMH: Agreed; PSxH: Agreed Nursing Documentation-PMH Past Medical History: No History, Except For Hx Cardiac Problems: Yes Hx Hypertension: Yes Hx COPD: Yes Hx Cancer: No Hx Gastrointestinal Problems: No Hx Neurological Problems: No Hx Neurologic Surgery: No Review of Systems All Other Systems: negative except mentioned in HPI Physical Exam Vital Signs Date Time Temp Pulse Resp B/P (MAP) Pulse Ox O2 Delivery O2 Flow Rate FiO2 08/03/18 12:06 98.1 95 20 90 Room Air 08/03/18 12:25 169/83 Sp02 EP Interpretation: reviewed, abnormal - Interpreted as low by me General Appearance: thin, Chronically Ill Head: normocephalic Eyes: bilateral eye PERRL, bilateral eye EOMI, bilateral eye other - Arcus bilaterally ENT: moist mucus membranes Neck: supple Respiratory: respiratory distress - Mild, wheezing, expiration Cardiovascular #1: regular rate, rhythm Cardiovascular #2: 2+ radial (R) Gastrointestinal: normal inspection, normal bowel sounds, non tender, no mass, non-distended, scaphoid Genitourinary: no CVA tenderness Musculoskeletal: back normal, gait/station normal, normal range of motion Neurologic: alert, oriented x3, grossly normal Psychiatric: mood/affect normal Skin: normal inspection, warm/dry Medical Decision Making Diagnostic Impression: Primary Impression: COPD exacerbation Additional Impressions: Elevated troponin Eosinophilia ER Course Patient presents with increased dyspnea. Differential includes acute myocardial infarction, COPD exacerbation, bronchitis, pneumonia, absence of steroids. The patient be evaluated with EKG, chest x-ray and labs. The patient retreated with breathing treatments site Medrol. O2 sats better after tx. Called for + troponin. Aspirin and nitrates ordered. Patient denies chest pain. Patient admitted to telemetry Dr. Felipe. Laboratory Tests Test 08/03/18 12:43 08/03/18 14:45 08/03/18 16:27 White Blood Count 5.9 K/UL (4.8-10.8) Red Blood Count 4.86 M/UL (4.70-6.10) Hemoglobin 13.8 G/DL (14.2-18.0) L Hematocrit 43.9 % (42.0-52.0) Mean Corpuscular Volume 90 FL (80-99) Mean Corpuscular Hemoglobin 28.4 PG (27.0-31.0) Mean Corpuscular Hemoglobin Concent 31.4 G/DL (32.0-36.0) L Red Cell Distribution Width 15.2 % (11.6-14.8) H Platelet Count 278 K/UL (150-450) Mean Platelet Volume 6.3 FL (6.5-10.1) L Neutrophils (%) (Auto) 48.1 % (45.0-75.0) Lymphocytes (%) (Auto) 35.6 % (20.0-45.0) Monocytes (%) (Auto) 6.8 % (1.0-10.0) Eosinophils (%) (Auto) 7.0 % (0.0-3.0) H Basophils (%) (Auto) 2.5 % (0.0-2.0) H Prothrombin Time 10.7 SEC (9.30-11.50) Prothrombin Time INR 1.0 (0.9-1.1) PTT 28 SEC (23-33) Sodium Level 143 MMOL/L (136-145) Potassium Level 3.9 MMOL/L (3.5-5.1) Chloride Level 103 MMOL/L (98-107) Carbon Dioxide Level 33 MMOL/L (21-32) H Anion Gap 8 mmol/L (5-15) Blood Urea Nitrogen 15 mg/dL (7-18) Creatinine 1.0 MG/DL (0.55-1.30) Estimate Glomerular Filtration Rate mL/min (>60) Glucose Level 104 MG/DL (74-106) Lactic Acid Level 1.70 mmol/L (0.4-2.0) Calcium Level 10.1 MG/DL (8.5-10.1) Total Bilirubin 0.3 MG/DL (0.2-1.0) Aspartate Amino Transferase (AST) 23 U/L (15-37) Alanine Aminotransferase (ALT) 20 U/L (12-78) Alkaline Phosphatase 75 U/L (46-116) Total Creatine Kinase 119 U/L (26-308) Troponin I 0.069 ng/mL (0.000-0.056) 0.048 ng/mL (0.000-0.056) Pro-B-Type Natriuretic Peptide 136 pg/mL (0-125) H Total Protein 7.9 G/DL (6.4-8.2) Albumin 3.8 G/DL (3.4-5.0) Globulin 4.1 g/dL Albumin/Globulin Ratio 0.9 (1.0-2.7) L Urine Color Yellow Urine Appearance Clear Urine pH 5 (4.5-8.0) Urine Specific [place] 1.030 (1.005-1.035) Urine Protein 1+ (NEGATIVE) H Urine Glucose (UA) Negative (NEGATIVE) Urine Ketones Negative (NEGATIVE) Urine Blood 1+ (NEGATIVE) H Urine Nitrite Negative (NEGATIVE) Urine Bilirubin Negative (NEGATIVE) Urine Urobilinogen Normal MG/DL (0.0-1.0) Urine Leukocyte Esterase Negative (NEGATIVE) Urine RBC 0-2 /HPF (0 - 0) H Urine WBC 0-2 /HPF (0 - 0) Urine Squamous Epithelial Cells Occasional /LPF Urine Calcium Oxalate Crystals Few /LPF (NONE) Urine Bacteria Occasional /HPF (NONE) Urine Mucus Moderate /LPF (NONE/OCC) H EKG Diagnostic Results Rate: normal Rhythm: NSR ST Segments: no acute changes - Right axis Rhythm Strip Diag. Results EP Interpretation: yes Rhythm: NSR, no PVC's, no ectopy Chest X-Ray Diagnostic Results Chest X-Ray Diagnostic Results : Chest X-Ray Ordered: Yes # of Views/Limited/Complete: 1 View Indication: Shortness of Breath EP Interpretation: Yes Interpretation: no consolidation, no effusion, no pneumothorax, other - bullous emphysema Impression: Other Electronically Signed by: Electronically signed by Amor Flanagan MD Last Vital Signs Date Time Temp Pulse Resp B/P (MAP) Pulse Ox O2 Delivery O2 Flow Rate FiO2 08/03/18 17:32 98.1 78 20 149/74 95 Nasal Cannula 2.0 21 Status: improved Disposition: ADMITTED INPATIENT Condition: Serious Amor Flanagan MD August 03, 2018 12:35
--- NOTE | 2018-08-03 12:45 | NUR ---
ED Nurse Note: blood sent to urine cxr taken at bedside
--- NOTE | 2018-08-03 13:00 | NUR ---
ED Nurse Note: sandwich and water provided to patient as Dr. Flanagan is ok with patient eating.
[2018-08-03 13:06] LABS: BASOPHILS % (AUTO) 2.5 % (0.0-2.0); HEMATOCRIT 43.9 % (42.0-52.0); HEMOGLOBIN 13.8 G/DL (14.2-18.0); LYMPHOCYTES % (AUTO) 35.6 % (20.0-45.0); MEAN CORPUSCULAR VOLUME 90 FL (80-99); MONOCYTES % (AUTO) 6.8 % (1.0-10.0); NEUTROPHILS % (AUTO) 48.1 % (45.0-75.0); PLATELET COUNT 278 K/UL (150-450); RED BLOOD COUNT 4.86 M/UL (4.70-6.10); RED CELL DISTRIBUTION WIDTH 15.2 % (11.6-14.8); WHITE BLOOD COUNT 5.9 K/UL (4.8-10.8)
[2018-08-03 13:13] LABS: ANION GAP 8 mmol/L (5-15); BLOOD UREA NITROGEN 15 mg/dL (7-18); CALCIUM 10.1 MG/DL (8.5-10.1); CARBON DIOXIDE 33 MMOL/L (21-32); CHLORIDE 103 MMOL/L (98-107); POTASSIUM 3.9 MMOL/L (3.5-5.1); SODIUM 143 MMOL/L (136-145)
[2018-08-03 13:23] LABS: ALANINE AMINOTRANSFERASE 20 U/L (12-78); ALBUMIN 3.8 G/DL (3.4-5.0); ALBUMIN/GLOBULIN RATIO 0.9 (1.0-2.7); ALKALINE PHOSPHATASE 75 U/L (46-116); ASPARTATE AMINO TRANSFERASE 23 U/L (15-37); BILIRUBIN,TOTAL 0.3 MG/DL (0.2-1.0); CREATINE KINASE 119 U/L (26-308)
[2018-08-03] MEDS ORDERED: Nitroglycerin 2% oint pkt TOPIC ONE (13:30)
--- NOTE | 2018-08-03 14:41 | NUR ---
ED Nurse Note: patient unable to provide urine sample at this time, Dr. Panchito echavarria with it
[2018-08-03 15:01] LABS: APPEARANCE,URINE CLEAR; BILIRUBIN, URINE NEGATIVE (NEGATIVE); GLUCOSE, URINE (UA) NEGATIVE (NEGATIVE); KETONES,URINE NEGATIVE (NEGATIVE); LEUKOCYTE ESTERASE ,URINE NEGATIVE (NEGATIVE); NITRITE,URINE NEGATIVE (NEGATIVE); PH,URINE 5 (4.5-8.0); PROTEIN,URINE 1+ (NEGATIVE); UROBILINOGEN,URINE NORMAL MG/DL (0.0-1.0)
[2018-08-03 15:04] LABS: COLOR,URINE YELLOW
--- NOTE | 2018-08-03 16:26 | NUR ---
ED Nurse Note: 2nd troponin blood sent to lab
--- NOTE | 2018-08-03 17:01 | NUR ---
ED Nurse Note: PLEASE FAX INPATIENT ORDERS ONCE AVAILABLE, TO [phone] ATTElvis GARCIA, FROM [facility] [employer]. 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
[2018-08-03 17:16] VITALS: BP 149/74
--- NOTE | 2018-08-03 17:26 | NUR ---
ED Nurse Note: report given to Franchesca KOEHLER at 2E. endorsed all belongings and care to Franchesca KOEHLER, endorsed that inpt orders need to be faxed, patient is being transferred with float nurse Marah KOEHLER
--- NOTE | 2018-08-03 18:07 | NUR ---
NURSE NOTES: Patient arrived to unit at 1750 via gurney from ED. Report received from RODO Barnes. Belongings reviewed and accounted for. Patient oriented to room. Call placed within reach. Will continue to monitor. Dr. Felipe called for admission orders. Admission orders received, entered, and will carry out.
[2018-08-03 18:14] VITALS: BP 165/89
--- NOTE | 2018-08-03 18:55 | NUR ---
NURSE NOTES: Patient noted to have elevated Heart rate of 145. Dr. Felipe called, message left. Awaiting call back for orders.
--- NOTE | 2018-08-03 19:16 | NUR ---
NURSE NOTES: Dr. Felipe returned call. New order received to consult Dr. Lorenzo. Dr. Lorenzo called. Dr. Navarro answered who is covering for Dr. Lorenzo. Dr. Navarro notified of one episode of elevated heart rate 145, current heart rate 77, no new orders received at the moment.
[2018-08-03] MEDS: Albuterol ud Inhalation HHN SCH ×2 (19:26→23:20)
--- NOTE | 2018-08-03 19:32 | NUR ---
HAND-OFF: Report given to RODO Valentin.
--- NOTE | 2018-08-03 19:50 | NUR ---
NURSE NOTES: Received pt from RODO Sorensen. Pt awake, alert, and talkative. Bed in lowest position. Call light within reach. Will continue to monitor.
[2018-08-03 20:00] VITALS: BP 159/86
[2018-08-03] MEDS: Solu-MEDROL 125mg Inj IVP SCH (21:11)
[2018-08-03] MEDS: Heparin 5000 units/ml inj SUBQ SCH (21:19)
[2018-08-04] VITALS: BP 157/79
[2018-08-04] MEDS: Albuterol ud Inhalation HHN SCH ×6 (03:24→23:00)
[2018-08-04 04:00] VITALS: BP 155/86
--- NOTE | 2018-08-04 07:30 | NUR ---
NURSE NOTES: Received bedside report from Barbie KOEHLER. Pt. a/o x 4. No sign of distress. Denies pain at present. Pleasant and cooperative. IV line at left wrist #[id number]. SL. Bed in low position, locked. Call light within reach. Will cont. to monitor.
[2018-08-04 08:00] VITALS: BP 158/85
[2018-08-04 08:27] LABS: HEMATOCRIT 41.1 % (42.0-52.0); HEMOGLOBIN 13.1 G/DL (14.2-18.0); MEAN CORPUSCULAR VOLUME 89 FL (80-99); PLATELET COUNT 260 K/UL (150-450); RED BLOOD COUNT 4.59 M/UL (4.70-6.10); RED CELL DISTRIBUTION WIDTH 14.7 % (11.6-14.8); WHITE BLOOD COUNT 3.2 K/UL (4.8-10.8)
[2018-08-04 08:55] LABS: ANION GAP 6 mmol/L (5-15); BLOOD UREA NITROGEN 15 mg/dL (7-18); CALCIUM 9.6 MG/DL (8.5-10.1); CARBON DIOXIDE 31 MMOL/L (21-32); CHLORIDE 102 MMOL/L (98-107); POTASSIUM 3.9 MMOL/L (3.5-5.1); SODIUM 139 MMOL/L (136-145)
[2018-08-04] MEDS: Solu-MEDROL 125mg Inj IVP SCH ×2 (09:29→21:17)
[2018-08-04] MEDS: Heparin 5000 units/ml inj SUBQ SCH ×2 (09:30→21:27)
[2018-08-04 12:00] VITALS: BP 144/67
--- NOTE | 2018-08-04 12:38 | History & Physical ---
History and Physical History & Physicial HISTORY: 72-year-old unfortunate male with longstanding history of COPD with end-stage disease. The patient with worsening symptoms. The patient's care discussed and reviewed. The patient has been in and out hospital as well as nursing homes. The patient's care discussed and reviewed. The patient with increased chest tightness and congestion. ON admit, he was tachycardic and short of breath. The patient denies any fevers or chills. Denies any hemoptysis at this time. The patient denies any smoking at this time. The patient has had multiple admissions in the past for COPD and seems to have worsened overall PAST MEDICAL HISTORY: Notable for COPD end-stage disease, history of C. diff, history of hypertension, and history of hypertensive heart disease. MEDICATIONS: Reviewed. ALLERGIES: Reviewed. SOCIAL HISTORY: The patient does not currently smoke. REVIEW OF SYSTEMS: All 10 points reviewed and otherwise negative. PHYSICAL EXAMINATION: GENERAL: The patient is a frail-appearing male overall with mild distress, HEENT: Fairly negative. Extraocular movements are grossly intact. NECK: Supple. No adenopathy. LUNGS: With reduced breath sounds. scattered wheezes. CARDIAC: S1 and S2. Regular rate and rhythm without clear murmurs, rubs, or gallops. ABDOMEN: Soft, nontender, nondistended. EXTREMITIES: No cyanosis or clubbing. No significant edema. NEUROLOGIC: Grossly nonfocal. Labs Test 08/03/18 12:43 08/03/18 14:45 08/03/18 16:27 08/04/18 07:10 White Blood Count 5.9 K/UL (4.8-10.8) 3.2 K/UL (4.8-10.8) Red Blood Count 4.86 M/UL (4.70-6.10) 4.59 M/UL (4.70-6.10) Hemoglobin 13.8 G/DL (14.2-18.0) 13.1 G/DL (14.2-18.0) Hematocrit 43.9 % (42.0-52.0) 41.1 % (42.0-52.0) Mean Corpuscular Volume 90 FL (80-99) 89 FL (80-99) Mean Corpuscular Hemoglobin 28.4 PG (27.0-31.0) 28.5 PG (27.0-31.0) Mean Corpuscular Hemoglobin Concent 31.4 G/DL (32.0-36.0) 31.9 G/DL (32.0-36.0) Red Cell Distribution Width 15.2 % (11.6-14.8) 14.7 % (11.6-14.8) Platelet Count 278 K/UL (150-450) 260 K/UL (150-450) Mean Platelet Volume 6.3 FL (6.5-10.1) 6.6 FL (6.5-10.1) Neutrophils (%) (Auto) 48.1 % (45.0-75.0) % (45.0-75.0) Lymphocytes (%) (Auto) 35.6 % (20.0-45.0) % (20.0-45.0) Monocytes (%) (Auto) 6.8 % (1.0-10.0) % (1.0-10.0) Eosinophils (%) (Auto) 7.0 % (0.0-3.0) % (0.0-3.0) Basophils (%) (Auto) 2.5 % (0.0-2.0) % (0.0-2.0) Prothrombin Time 10.7 SEC (9.30-11.50) Prothromb Time International Ratio 1.0 (0.9-1.1) Activated Partial Thromboplast Time 28 SEC (23-33) Sodium Level 143 MMOL/L (136-145) 139 MMOL/L (136-145) Potassium Level 3.9 MMOL/L (3.5-5.1) 3.9 MMOL/L (3.5-5.1) Chloride Level 103 MMOL/L (98-107) 102 MMOL/L (98-107) Carbon Dioxide Level 33 MMOL/L (21-32) 31 MMOL/L (21-32) Anion Gap 8 mmol/L (5-15) 6 mmol/L (5-15) Blood Urea Nitrogen 15 mg/dL (7-18) 15 mg/dL (7-18) Creatinine 1.0 MG/DL (0.55-1.30) 1.0 MG/DL (0.55-1.30) Estimat Glomerular Filtration Rate mL/min (>60) mL/min (>60) Glucose Level 104 MG/DL (74-106) 139 MG/DL (74-106) Lactic Acid Level 1.70 mmol/L (0.4-2.0) Calcium Level 10.1 MG/DL (8.5-10.1) 9.6 MG/DL (8.5-10.1) Total Bilirubin 0.3 MG/DL (0.2-1.0) Aspartate Amino Transf (AST/SGOT) 23 U/L (15-37) Alanine Aminotransferase (ALT/SGPT) 20 U/L (12-78) Alkaline Phosphatase 75 U/L (46-116) Total Creatine Kinase 119 U/L (26-308) Troponin I 0.069 ng/mL (0.000-0.056) 0.048 ng/mL (0.000-0.056) Pro-B-Type Natriuretic Peptide 136 pg/mL (0-125) Total Protein 7.9 G/DL (6.4-8.2) Albumin 3.8 G/DL (3.4-5.0) Globulin 4.1 g/dL Albumin/Globulin Ratio 0.9 (1.0-2.7) Urine Color Yellow Urine Appearance Clear Urine pH 5 (4.5-8.0) Urine Specific [place] 1.030 (1.005-1.035) Urine Protein 1+ (NEGATIVE) Urine Glucose (UA) Negative (NEGATIVE) Urine Ketones Negative (NEGATIVE) Urine Blood 1+ (NEGATIVE) Urine Nitrite Negative (NEGATIVE) Urine Bilirubin Negative (NEGATIVE) Urine Urobilinogen Normal MG/DL (0.0-1.0) Urine Leukocyte Esterase Negative (NEGATIVE) Urine RBC 0-2 /HPF (0 - 0) Urine WBC 0-2 /HPF (0 - 0) Urine Squamous Epithelial Cells Occasional /LPF Urine Calcium Oxalate Crystals Few /LPF (NONE) Urine Bacteria Occasional /HPF (NONE) Urine Mucus Moderate /LPF (NONE/OCC) Differential Total Cells Counted 100 Neutrophils % (Manual) 57 % (45-75) Lymphocytes % (Manual) 38 % (20-45) Monocytes % (Manual) 5 % (1-10) Eosinophils % (Manual) 0 % (0-3) Basophils % (Manual) 0 % (0-2) Band Neutrophils 0 % (0-8) Platelet Estimate Adequate Platelet Morphology Normal Anisocytosis 1+ Magnesium Level 1.8 MG/DL (1.8-2.4) Thyroid Stimulating Hormone (TSH) 0.233 uiU/mL (0.358-3.740) IMPRESSION: 1. COPD with acute exacerbation 2. Tachycardia 3. failure to thrive 4. Metabolic alkalosis, 5. Chronic respiratory failure. 6. Chronic debility. PLAN care noted IV antibiotics respiratory care IV steroids supportive care monitor vitals cards evaluation oxygen therapy prognosis guarded impression, plan, and exam edited and reviewed in detail care discussed with Phil Lopes MD August 04, 2018 12:38
--- NOTE | 2018-08-04 12:39 | Pulmonology Progress Note ---
Subjective Allergies: Coded Allergies: ORANGE JUICE (Verified Allergy, Unknown, 08/03/18) Patient reports that he does not have allergy to [place] Juice. Objective Last 24 Hour Vital Signs Date Time Temp Pulse Resp B/P (MAP) Pulse Ox O2 Delivery O2 Flow Rate FiO2 08/04/18 11:42 75 18 100 Nasal Cannula 2.0 28 08/04/18 11:32 75 18 94 Room Air 21 08/04/18 09:00 Room Air 08/04/18 08:29 84 18 100 Nasal Cannula 2.0 28 08/04/18 08:09 99 Nasal Cannula 2.0 28 08/04/18 08:09 84 20 99 Nasal Cannula 2.0 28 08/04/18 08:09 Nasal Cannula 2.0 28 08/04/18 08:00 97.1 72 18 158/85 (109) 99 08/04/18 04:00 75 08/04/18 04:00 97.6 81 18 155/86 (109) 97 08/04/18 03:35 80 18 99 Nasal Cannula 2.0 28 08/04/18 03:24 75 18 99 Nasal Cannula 2.0 28 08/04/18 00:00 98.1 73 18 157/79 (105) 100 08/04/18 00:00 75 08/03/18 23:30 78 18 99 Nasal Cannula 2.0 08/03/18 23:20 79 18 99 Nasal Cannula 2.0 28 08/03/18 21:00 Room Air 08/03/18 20:00 98.3 76 18 159/86 (110) 99 08/03/18 19:36 86 20 100 Nasal Cannula 2.0 08/03/18 19:26 85 20 100 Nasal Cannula 2.0 08/03/18 19:26 Nasal Cannula 2.0 28 08/03/18 19:26 100 Nasal Cannula 2.0 08/03/18 18:39 Nasal Cannula 2.0 08/03/18 18:14 98.6 83 18 165/89 (114) 94 08/03/18 17:32 98.1 78 20 149/74 95 Nasal Cannula 2.0 21 08/03/18 17:17 78 20 Nasal Cannula 2.0 08/03/18 17:16 98.1 78 20 149/74 95 Room Air 2.0 21 5/3/19 13:40 169/83 08/03/18 12:45 85 20 100 Room Air 21 Intake and Output 08/03/18 08/04/18 19:00 07:00 Output Total 400 ml Balance -400 ml Output Urine Total 400 ml Laboratory Tests 08/03/18 12:43: White Blood Count 5.9, Red Blood Count 4.86, Hemoglobin 13.8L, Hematocrit 43.9, Mean Corpuscular Volume 90, Mean Corpuscular Hemoglobin 28.4, Mean Corpuscular Hemoglobin Concent 31.4L, Red Cell Distribution Width 15.2H, Platelet Count 278 , Mean Platelet Volume 6.3L, Neutrophils (%) (Auto) 48.1, Lymphocytes (%) (Auto ) 35.6, Monocytes (%) (Auto) 6.8, Eosinophils (%) (Auto) 7.0H, Basophils (%) ( Auto) 2.5H, Prothrombin Time 10.7, Prothromb Time International Ratio 1.0, Activated Partial Thromboplast Time 28, Sodium Level 143, Potassium Level 3.9, Chloride Level 103, Carbon Dioxide Level 33H, Anion Gap 8, Blood Urea Nitrogen 15, Creatinine 1.0, Estimat Glomerular Filtration Rate , Glucose Level 104, Lactic Acid Level 1.70, Calcium Level 10.1, Total Bilirubin 0.3, Aspartate Amino Transf (AST/SGOT) 23, Alanine Aminotransferase (ALT/SGPT) 20, Alkaline Phosphatase 75, Total Creatine Kinase 119, Troponin I 0.069H, Pro-B-Type Natriuretic Peptide 136H, Total Protein 7.9, Albumin 3.8, Globulin 4.1, Albumin/ Globulin Ratio 0.9L 08/03/18 14:45: Urine Color Yellow, Urine Appearance Clear, Urine pH 5, Urine Specific [place] 1.030, Urine Protein 1+H, Urine Glucose (UA) Negative, Urine Ketones Negative, Urine Blood 1+H, Urine Nitrite Negative, Urine Bilirubin Negative, Urine Urobilinogen Normal, Urine Leukocyte Esterase Negative, Urine RBC 0-2H, Urine WBC 0-2, Urine Squamous Epithelial Cells Occasional, Urine Calcium Oxalate Crystals Few, Urine Bacteria Occasional, Urine Mucus ModerateH 08/03/18 16:27: Troponin I 0.048 08/04/18 07:10: White Blood Count 3.2L, Red Blood Count 4.59L, Hemoglobin 13.1L, Hematocrit 41.1L, Mean Corpuscular Volume 89, Mean Corpuscular Hemoglobin 28.5, Mean Corpuscular Hemoglobin Concent 31.9L, Red Cell Distribution Width 14.7, Platelet Count 260, Mean Platelet Volume 6.6, Neutrophils (%) (Auto) , Lymphocytes (%) (Auto) , Monocytes (%) (Auto) , Eosinophils (%) (Auto) , Basophils (%) (Auto) , Sodium Level 139, Potassium Level 3.9, Chloride Level 102 , Carbon Dioxide Level 31, Anion Gap 6, Blood Urea Nitrogen 15, Creatinine 1.0, Estimat Glomerular Filtration Rate , Glucose Level 139H, Calcium Level 9.6, Differential Total Cells Counted 100, Neutrophils % (Manual) 57, Lymphocytes % ( Manual) 38, Monocytes % (Manual) 5, Eosinophils % (Manual) 0, Basophils % ( Manual) 0, Band Neutrophils 0, Platelet Estimate Adequate, Platelet Morphology Normal, Anisocytosis 1+, Magnesium Level 1.8, Thyroid Stimulating Hormone (TSH) 0.233L Current Medications Medications (Trade) Dose Ordered Sig/Charlie Route PRN Reason Start Time Stop Time Status Last Admin Dose Admin Acetaminophen (Tylenol) 650 mg Q4H PRN ORAL Mild Pain/Temp > 100.5 08/03/18 18:00 09/02/18 17:59 Albuterol Sulfate (Proventil) 2.5 mg Q4HRT HHN 08/03/18 19:00 08/08/18 18:59 08/04/18 11:32 Clonidine HCl (Catapres Tab) 0.1 mg Q4H PRN ORAL For High Blood Pressure 08/03/18 18:00 09/02/18 17:59 Heparin Sodium (Porcine) (Heparin 5000 units/ml) 5,000 units EVERY 12 HOURS SUBQ 08/03/18 21:00 09/02/18 20:59 08/04/18 09:30 Methylprednisolone Sodium Succinate (Solu-MEDROL) 60 mg EVERY 12 HOURS IVP 08/03/18 21:00 09/02/18 20:59 08/04/18 09:29 Phil Felipe MD August 04, 2018 12:39
--- NOTE | 2018-08-04 14:25 | NUR ---
CASE MANAGEMENT: REVIEW 72Y/M PRESENTED TO ED FROM HOME CC: SOB SI: COPD EXACERBATION T 98.1 HR 92 RR 21 BP 169/83 SAT 95% NC/2L CO2 33 TROPONIN I 0.069 BNP 136 IS: SOLU MEDROL IV X1 ATROVENT HHN X1 ALBUTEROL HHN X1 NITRO BID TOPICAL X1 ASA PO X1 PATIENT ADMITTED TO TELEMETRY UNIT 08/03/2018 DCP: PATIENT IS FROM HOME
[2018-08-04 16:00] VITALS: BP 146/74
--- NOTE | 2018-08-04 18:30 | NUR ---
NURSE NOTES: Pt. got episode of ext. tachy of 140HR. Pt. went to the bathroom without his O2 and got SOB. Only lasted for few minutes. Went back to sit in his chair with O2 on at 2LPM via NC. Pt. is doing good no sign of distress. O2 sat at 92-94%. HR went to 98 now. Will cont. to monitor.
--- NOTE | 2018-08-04 19:00 | History and Physical Report ---
DATE OF ADMISSION: 08/03/2018 CHIEF COMPLAINT: Shortness of breath. HISTORY OF PRESENT ILLNESS: The patient is a pleasant 72-year-old male well known to me. He has a history of chronic obstructive pulmonary disease, hypertension, and pneumonia, who is admitted with complaints of shortness of breath, fever, productive phlegm, and chest palpitations. According to the patient, he was well until several days prior to admission when he began to develop worsening shortness of breath and palpitations. He presented to the emergency room where he was noted to have wheezing. He received a dose of steroids and breathing treatments with improvement. Chest x-ray results are currently pending. He is now admitted for further evaluation and care. PAST MEDICAL HISTORY: As above. CURRENT MEDICATIONS: Reconciled and reviewed. ALLERGIES: None. FAMILY HISTORY: None. SOCIAL HISTORY: There is no known history of alcohol or drugs. The patient is a heavy smoker, but quit. REVIEW OF SYSTEMS: GENERAL: No fevers or chills. HEENT: No headaches or visual changes. CARDIOPULMONARY: No chest pain. Positive shortness of breath, cough, and congestion. GASTROINTESTINAL: No nausea or vomiting. GENITOURINARY: No urgency or frequency. MUSCULOSKELETAL: No joint pain or swelling. NEUROLOGIC: No history of seizures. PHYSICAL EXAM: VITAL SIGNS: Temperature 97.1, pulse 72, respirations 18, and blood pressure 150/85. GENERAL: The patient is well developed, in no apparent distress. HEART: Regular rate and rhythm. LUNGS: Significant bilateral wheezes. ABDOMEN: Soft, nontender, and nondistended. EXTREMITIES: Without clubbing, cyanosis, or edema. LABORATORY DATA: UA was clear. White count was 5, hemoglobin 13, hematocrit 43, and platelets of 278,000. Coags were normal. Sodium 143, potassium 3.9, chloride 103, bicarbonate 33, BUN is 15, and creatinine is 1. Troponin was 0.069. X-ray results are currently pending. ASSESSMENT: This is a pleasant male with a history of chronic obstructive pulmonary disease admitted with complaints of shortness of breath secondary to chronic obstructive pulmonary disease exacerbation. 1. Chronic obstructive pulmonary disease exacerbation. 2. Palpitations. 3. Elevated troponin, rule out [id number] myocardial infarction. PLAN: 1. Respiratory treatments. 2. Intravenous steroids. 3. Anti-platelet therapy. 4. Cardiology and Pulmonary followup. 5. Check a duplex of the legs and a carotid duplex of the neck. Temo Navarro M.D. DR: PHILIP JOB#: [id number] CC:
--- NOTE | 2018-08-04 19:32 | NUR ---
HAND-OFF: Report given to Barbie KOEHLER. Pt. remain stable.
--- NOTE | 2018-08-04 19:40 | NUR ---
NURSE NOTES: Received pt from Asad RN. Pt awake, alert, and talkative. Bed in lowest position. Call light within reach. Will continue to monitor.
[2018-08-04 20:00] VITALS: BP 136/63
--- NOTE | 2018-08-04 23:51 | NUR ---
NURSE NOTES: Called and left a message with Dr. Felipe regarding pts HR. awaiting call back.
[2018-08-05] VITALS: BP 135/67
[2018-08-05] MEDS: Albuterol ud Inhalation HHN SCH ×6 (03:00→22:40)
[2018-08-05 04:00] VITALS: BP 105/52
--- NOTE | 2018-08-05 04:02 | NUR ---
NURSE NOTES: Informed Dr. Felipe of pts low wbc count. Awaiting call back.
--- NOTE | 2018-08-05 05:45 | Consultation ---
DATE OF CONSULTATION: 08/03/2018 CONSULTING PHYSICIAN: Amor Lorenzo M.D. REQUESTING PHYSICIAN: Temo Navarro M.D. REASON FOR CONSULTATION: Tachycardia. HISTORY OF PRESENT ILLNESS: This is a 72-year-old male with a longstanding history of COPD who presented to the hospital with cough, congestion, shortness of breath, and notably tachycardia, which he described as palpitations. He was noted to have heart rates to 145. He has not had fevers or chills. He has not had leg swelling or chest pressure, but has had chest tightness with cough and deep inspiration. PAST MEDICAL HISTORY: History of hypertension with hypertensive heart disease, COPD, history of C. difficile. SOCIAL HISTORY: Prior smoker, greater than 50 pack years. No alcohol or substance abuse. MEDICATIONS: Reviewed and reconciled. ALLERGIES: None. FAMILY HISTORY: Noncontributory. REVIEW OF SYSTEMS: No fevers. No headache. No leg swelling. No history of abnormal blood clotting. No history of kidney failure. No history of elevated PSA. No history of seizure or stroke. No known history of diabetes or thyroid impairment. PHYSICAL EXAMINATION: VITAL SIGNS: Blood pressure 159/86, pulse 76, respirations 18, and afebrile. Heart rates up to 145, documented by staff. LUNGS: Diminished breath sounds. Expiratory wheezes. HEART: Regular rhythm and rate. Normal S1, S2 with no murmur. ABDOMEN: Soft. EXTREMITIES: No edema. LABORATORY DATA: Troponin 1 is 0.069. Troponin 2 is 0.048. Lactic acid 1.7. Potassium 3.9, BUN 15, and creatinine 1. White count is 5.9 and hemoglobin 13.8. Chest x-ray revealed no acute process other than hyperinflation and EKG revealed sinus rhythm with rightward axis, and no acute abnormality. Oxygen saturation on 2 liters is 95%. IMPRESSION: 1. COPD with acute exacerbation. 2. Acute bronchospasm. 3. Pleuritic chest pain. 4. Acute myocardial ischemia, resolved, likely precipitated by significant respiratory compromise. 5. Secondary sinus tachycardia, again due to respiratory distress and beta agonist bronchodilator therapy. 6. Hypertensive heart disease. PLAN: Intravenous steroid. Cautious use of inhaled bronchodilators. Monitor blood pressure. Consider Cardizem for continued blood pressure elevation. DVT and stress ulcer prophylaxis. Thyroid panel. Echocardiogram. Amor Lorenzo M.D. DR: JULIA JOB#: [id number] CC: DARYL
--- NOTE | 2018-08-05 07:45 | NUR ---
HAND-OFF: Report given to RODO Guzman. Pt stable.
--- NOTE | 2018-08-05 07:50 | NUR ---
NURSE NOTES: Received report from Barbie KOEHLER. AOx4. Pt in bed awake. No c/o pain. No signs of distress noted. Bed in lowest position and locked. IV in L wrist 20G SL. placed contact isolation for h/o c-diff Will continue to monitor with plan of care.
[2018-08-05 08:00] VITALS: BP 163/75
--- NOTE | 2018-08-05 09:13 | Pulmonology Progress Note ---
Assessment/Plan Assessment/Plan COPD with exacerbation respiratory failure tachycardia protein calorie malnutrition hypertension ho Cdif PLAN care as is still very tight will need daliresp but may not tolerate due to BMI hope to dc home impression, plan, and exam edited and reviewed in detail care discussed with RN Subjective Allergies: Coded Allergies: ORANGE JUICE (Verified Allergy, Unknown, 08/03/18) Patient reports that he does not have allergy to [place] Juice. Subjective still with sob intermittent tachycardia Objective Last 24 Hour Vital Signs Date Time Temp Pulse Resp B/P (MAP) Pulse Ox O2 Delivery O2 Flow Rate FiO2 08/05/18 08:39 92 18 100 Nasal Cannula 2.0 28 08/05/18 08:00 98.6 85 11 163/75 (104) 99 08/05/18 07:44 Nasal Cannula 2.0 28 08/05/18 07:44 99 Nasal Cannula 2.0 28 08/05/18 04:00 71 08/05/18 04:00 97.3 69 18 105/52 (69) 100 08/05/18 03:45 Nasal Cannula 2.0 28 08/05/18 03:45 Nasal Cannula 2.0 28 08/05/18 00:00 97.6 80 20 135/67 (89) 96 08/05/18 00:00 83 08/04/18 23:48 Nasal Cannula 2.0 28 08/04/18 23:48 Nasal Cannula 2.0 28 08/04/18 21:00 Room Air 08/04/18 20:09 98 Nasal Cannula 2.0 28 08/04/18 20:09 Nasal Cannula 2.0 28 08/04/18 20:00 88 18 100 Nasal Cannula 2.0 28 08/04/18 20:00 97.7 85 19 136/63 (87) 99 08/04/18 20:00 110 08/04/18 19:50 80 18 98 Nasal Cannula 2.0 28 08/04/18 16:00 97.7 85 20 146/74 (98) 100 08/04/18 15:35 87 08/04/18 15:27 85 18 100 Nasal Cannula 2.0 28 08/04/18 15:17 85 18 99 Nasal Cannula 2.0 28 08/04/18 12:01 83 08/04/18 12:00 98.0 77 20 144/67 (92) 95 08/04/18 11:42 75 18 100 Nasal Cannula 2.0 28 08/04/18 11:32 75 18 94 Room Air 21 Intake and Output 08/04/18 08/05/18 19:00 07:00 Intake Total 960 ml Output Total 800 ml Balance 960 ml -800 ml Intake Oral 960 ml Output Urine Total 800 ml # Voids 3 # Bowel Movements 1 Objective WDWN NAD poor breath sounds bilaterally without rhonchi or wheeze [id number] without MRG NABS nontender no HSM no CCE nonfocal Current Medications Medications (Trade) Dose Ordered Sig/Charlie Route PRN Reason Start Time Stop Time Status Last Admin Dose Admin Acetaminophen (Tylenol) 650 mg Q4H PRN ORAL Mild Pain/Temp > 100.5 08/03/18 18:00 09/02/18 17:59 Albuterol Sulfate (Proventil) 2.5 mg Q4HRT HHN 08/03/18 19:00 08/08/18 18:59 08/05/18 08:39 Amlodipine Besylate (Norvasc) 5 mg DAILY ORAL 08/05/18 09:00 09/04/18 08:59 Clonidine HCl (Catapres Tab) 0.1 mg Q4H PRN ORAL For High Blood Pressure 08/03/18 18:00 09/02/18 17:59 Heparin Sodium (Porcine) (Heparin 5000 units/ml) 5,000 units EVERY 12 HOURS SUBQ 08/03/18 21:00 09/02/18 20:59 08/04/18 21:27 Methylprednisolone Sodium Succinate (Solu-MEDROL) 60 mg EVERY 12 HOURS IVP 08/03/18 21:00 09/02/18 20:59 08/04/18 21:17 Vitamin D (Vitamin D) 5,000 intlu DAILY ORAL 08/05/18 09:00 09/04/18 08:59 Phil Felipe MD August 05, 2018 09:13
[2018-08-05] MEDS: Solu-MEDROL 125mg Inj IVP SCH ×2 (09:22→20:21)
[2018-08-05] MEDS: Vitamin D 1000 IU Tab ORAL SCH (09:22)
[2018-08-05] MEDS: Heparin 5000 units/ml inj SUBQ SCH ×2 (09:23→20:23)
[2018-08-05 12:00] VITALS: BP 133/78
--- NOTE | 2018-08-05 12:11 | NUR ---
RD ASSESSMENT & RECOMMENDATIONS SEE CARE ACTIVITY FOR COMPLETE ASSESSMENT DAILY ESTIMATED NEEDS: Needs based on Underweight, wt loss, COPD/ 49kg 35-40 kcals/kg 3466-7390 total kcals 1-2 g protein/kg 49-98 g total protein 25-30 mL/kg 4512-8941 total fluid mLs NUTRITION DIAGNOSIS: * Unintentional wt loss R/T clinical condition, end stage COPD, as evidenced by previous hospitalizations w/ prior trach placement now removed, possible 27lbs/20% wt loss in <2 years, currently severely underweight w/ BMI=15.6, 65% IBW. CURRENT DIET: Regular PO DIET RECOMMENDATIONS: Liberalized REGULAR + snacks TID in b/w meals ADDITIONAL RECOMMENDATIONS: * Standing wt as able for accurate CBW * Weekly wt monitoring- hx of 27# wt loss, currently underweight * Snacks TID in b/w all meals * Monitor BGs closely while on solumedrol -
[2018-08-05 15:55] VITALS: BP 116/72
--- NOTE | 2018-08-05 19:28 | NUR ---
NURSE NOTES: Received report from RODO Guzman. patient seen in bed bed in semi emery position. alert verbally responsive, able to make needs known. denies any pain at this time. patient is on room air with no respiratory distress noted. IV site is to right FA 20g and is intact. Bed is in lowest position. call light is within easy reach while in bed. will continue to monitor.
--- NOTE | 2018-08-05 19:49 | NUR ---
HAND-OFF: Report given to Augusta KOEHLER. Pt remains stable.
[2018-08-05 20:00] VITALS: BP 144/80
[2018-08-06] VITALS: BP 137/69
--- NOTE | 2018-08-06 01:17 | Progress Note ---
DATE: 08/04/2018 CARDIOLOGY PROGRESS NOTE Late entry for August 04, 2018. SUBJECTIVE: The patient has congestion and shortness of breath, but are slightly improved. His heart rate has stabilized. OBJECTIVE: VITAL SIGNS: Blood pressure 158/85, pulse 72, and respiratory rate 18. LUNGS: Diminished breath sounds. Scattered expiratory wheezes. Few rhonchi. CARDIAC: Regular rhythm and rate. Normal S1 and S2 with a fourth heart sound. ABDOMEN: Soft and nontender. EXTREMITIES: No edema. Good distal pulses. LABORATORY DATA: White count 3 and hemoglobin 13. TSH 0.233. BUN 15 and creatinine 1. IMPRESSION: 1. COPD exacerbation. 2. Paroxysmal bronchospasm. 3. Secondary paroxysmal sinus tachycardia. 4. Acute myocardial ischemia, recovered. PLAN: 1. Check echocardiogram. 2. Await full thyroid panel. 3. No antiarrhythmics indicated. 4. Limit use of beta agonist by inhalation if tachycardia present. Amor Lorenzo M.D. DR: TIM JOB#: [id number] CC:
--- NOTE | 2018-08-06 02:30 | Progress Note ---
DATE: 08/05/2018 CARDIOLOGY PROGRESS NOTE SUBJECTIVE: The patient still with episodes of rapid heart rate and shortness of breath. OBJECTIVE: VITAL SIGNS: Blood pressure 163/75, pulse 85, and respirations 18. LUNGS: Diminished breath sounds. A few wheezes. CARDIAC: Regular rhythm and rate. Normal S1 and S2. ABDOMEN: Soft. EXTREMITIES: Trace edema. IMPRESSION: 1. Chronic obstructive pulmonary disease exacerbation with persistent paroxysms of bronchospasm. 2. Secondary sinus tachycardia. 3. Hypertensive heart disease. PLAN: 1. Add diltiazem. 2. Check echocardiogram. 3. Limit beta-agonist use. 4. Await full thyroid panel. Amor Lorenzo M.D. DR: REGGIE JOB#: [id number] CC:
[2018-08-06] MEDS: Albuterol ud Inhalation HHN SCH ×6 (03:17→23:23)
[2018-08-06 04:00] VITALS: BP 148/78
--- NOTE | 2018-08-06 07:05 | NUR ---
NURSE NOTES: Received report from RODO Ho. Patient seen in bed bed in semi emery position. Patient is AAO x 4, able to make needs known. Patient denies any pain at this time. Patient is on 2L NC with no respiratory distress noted. Patient is breathing even and unlabored. IV site is to right FA 20g and is intact. Bed is in lowest position. Call light is within easy reach while in bed. Will continue to monitor.
--- NOTE | 2018-08-06 07:29 | NUR ---
HAND-OFF: Report given to RODO Sharma.
[2018-08-06 08:00] VITALS: BP 139/68
--- NOTE | 2018-08-06 08:00 | General Progress Note ---
Assessment/Plan Problem List: (1) Dyspnea ICD Codes: R06.00 - Dyspnea, unspecified SNOMED: 094728298 (2) Respiratory distress ICD Codes: R06.00 - Dyspnea, unspecified SNOMED: 023792708 (3) Elevated troponin ICD Codes: R74.8 - Abnormal levels of other serum enzymes SNOMED: 424829471, 615115882, 162706471 (4) COPD exacerbation ICD Codes: J44.1 - Chronic obstructive pulmonary disease with (acute) exacerbation SNOMED: 475964448 (5) Eosinophilia ICD Codes: D72.1 - Eosinophilia SNOMED: 057016006 Status: stable Assessment/Plan: a/ copd exac palpitations ?carotid stenosis/ascvd elevated trop p/ antiplt rx await vascular us resp rx iv steroids vascular us Subjective Date patient seen: August 05, 2018 Constitutional: Reports: malaise, weakness HEENT: Reports: no symptoms Cardiovascular: Reports: no symptoms Respiratory: Reports: cough, shortness of breath Gastrointestinal/Abdominal: Reports: no symptoms Genitourinary: Reports: no symptoms Neurologic/Psychiatric: Reports: no symptoms Endocrine: Reports: no symptoms Hematologic/Lymphatic: Reports: no symptoms Allergies: Coded Allergies: No Known Allergies (Unverified , 08/06/18) All Systems: reviewed and negative except above Subjective no new complaints. stable sob. mild cough. no palpitations Objective Last 24 Hour Vital Signs Date Time Temp Pulse Resp B/P (MAP) Pulse Ox O2 Delivery O2 Flow Rate FiO2 08/06/18 07:49 95 23 99 Nasal Cannula 2.0 08/06/18 07:49 99 Nasal Cannula 2.0 08/06/18 07:49 Nasal Cannula 2.0 28 08/06/18 04:00 98.5 76 18 148/78 (101) 97 08/06/18 03:40 71 08/06/18 03:17 Nasal Cannula 2.0 08/06/18 03:17 Nasal Cannula 2.0 28 08/06/18 00:00 98.3 103 17 137/69 (91) 97 08/05/18 23:35 87 08/05/18 23:00 Room Air 08/05/18 22:52 85 18 96 Nasal Cannula 2.0 08/05/18 22:40 97 Nasal Cannula 2.0 08/05/18 22:40 Nasal Cannula 2.0 08/05/18 22:40 88 18 97 Nasal Cannula 2.0 08/05/18 22:38 Nasal Cannula 2.0 08/05/18 22:38 Nasal Cannula 2.0 08/05/18 21:00 Room Air 08/05/18 20:15 78 08/05/18 20:00 97.6 84 16 144/80 (101) 99 08/05/18 16:00 82 08/05/18 15:55 97.0 71 18 116/72 (87) 97 08/05/18 15:07 86 18 100 Nasal Cannula 2.0 28 08/05/18 14:57 86 16 97 Nasal Cannula 2.0 28 08/05/18 12:00 73 08/05/18 12:00 97.7 75 20 133/78 (96) 97 08/05/18 11:14 Nasal Cannula 2.0 08/05/18 11:14 Nasal Cannula 2.0 08/05/18 09:22 92 163/75 08/05/18 09:00 Room Air 08/05/18 08:39 92 18 100 Nasal Cannula 2.0 08/05/18 08:00 80 08/05/18 08:00 98.6 85 22 163/75 (104) 99 Intake and Output 08/05/18 08/06/18 19:00 07:00 Intake Total 360 ml 240 ml Balance 360 ml 240 ml Intake Oral 360 ml 240 ml # Voids 3 6 # Bowel Movements 3 Height (Feet): 5 Height (Inches): 10.00 Weight (Pounds): 106 General Appearance: WD/WN, alert Neck: supple Cardiovascular: normal rate, regularly irregular Respiratory/Chest: chest wall non-tender, no respiratory distress, no accessory muscle use, expiratory wheezing Abdomen: normal bowel sounds, non tender, soft, no organomegaly Extremities: normal range of motion, non-tender, normal inspection Temo Navarro MD August 06, 2018 08:00
--- NOTE | 2018-08-06 08:06 | General Progress Note ---
Assessment/Plan Problem List: (1) Dyspnea ICD Codes: R06.00 - Dyspnea, unspecified SNOMED: 740358895 (2) Respiratory distress ICD Codes: R06.00 - Dyspnea, unspecified SNOMED: 971307956 (3) Elevated troponin ICD Codes: R74.8 - Abnormal levels of other serum enzymes SNOMED: 324792261, 639698013, 977335409 (4) COPD exacerbation ICD Codes: J44.1 - Chronic obstructive pulmonary disease with (acute) exacerbation SNOMED: 148222920 (5) Eosinophilia ICD Codes: D72.1 - Eosinophilia SNOMED: 478926197 Status: stable Assessment/Plan: a/ copd exac palpitations ?carotid stenosis/ascvd elevated trop p/ antiplt rx await vascular us resp rx iv steroids- wean per pulm vascular us rate control/bp rx per cards Subjective Date patient seen: August 06, 2018 ROS Limited/Unobtainable: Yes Constitutional: Reports: malaise, weakness HEENT: Reports: no symptoms Cardiovascular: Reports: no symptoms Respiratory: Reports: cough, SOB with excertion Gastrointestinal/Abdominal: Reports: no symptoms Genitourinary: Reports: no symptoms Neurologic/Psychiatric: Reports: no symptoms Endocrine: Reports: no symptoms Hematologic/Lymphatic: Reports: no symptoms Allergies: Coded Allergies: No Known Allergies (Unverified , 08/06/18) All Systems: reviewed and negative except above Subjective no new complaints. stable sob. mild cough. no palpitations. on iv steroids. HR controlled. Objective Last 24 Hour Vital Signs Date Time Temp Pulse Resp B/P (MAP) Pulse Ox O2 Delivery O2 Flow Rate FiO2 08/06/18 07:49 95 23 99 Nasal Cannula 2.0 28 08/06/18 07:49 99 Nasal Cannula 2.0 28 08/06/18 07:49 Nasal Cannula 2.0 28 08/06/18 04:00 98.5 76 18 148/78 (101) 97 08/06/18 03:40 71 08/06/18 03:17 Nasal Cannula 2.0 28 08/06/18 03:17 Nasal Cannula 2.0 28 08/06/18 00:00 98.3 103 17 137/69 (91) 97 08/05/18 23:35 87 08/05/18 23:00 Room Air 08/05/18 22:52 85 18 96 Nasal Cannula 2.0 08/05/18 22:40 97 Nasal Cannula 2.0 08/05/18 22:40 Nasal Cannula 2.0 08/05/18 22:40 88 18 97 Nasal Cannula 2.0 08/05/18 22:38 Nasal Cannula 2.0 08/05/18 22:38 Nasal Cannula 2.0 08/05/18 21:00 Room Air 08/05/18 20:15 78 08/05/18 20:00 97.6 84 16 144/80 (101) 99 08/05/18 16:00 82 08/05/18 15:55 97.0 71 18 116/72 (87) 97 08/05/18 15:07 86 18 100 Nasal Cannula 2.0 08/05/18 14:57 86 16 97 Nasal Cannula 2.0 08/05/18 12:00 73 08/05/18 12:00 97.7 75 20 133/78 (96) 97 08/05/18 11:14 Nasal Cannula 2.0 08/05/18 11:14 Nasal Cannula 2.0 08/05/18 09:22 92 163/75 08/05/18 09:00 Room Air 08/05/18 08:39 92 18 100 Nasal Cannula 2.0 Intake and Output 08/05/18 08/06/18 19:00 07:00 Intake Total 360 ml 240 ml Balance 360 ml 240 ml Intake Oral 360 ml 240 ml # Voids 3 6 # Bowel Movements 3 Height (Feet): 5 Height (Inches): 10.00 Weight (Pounds): 106 General Appearance: WD/WN, alert EENT: TMs normal Neck: supple Cardiovascular: normal peripheral pulses, normal rate, regular rhythm Respiratory/Chest: chest wall non-tender, lungs clear, normal breath sounds, no respiratory distress Abdomen: normal bowel sounds, non tender, soft, no organomegaly Edema: no edema noted Arm (L), no edema noted Arm (R), no edema noted Leg (L), no edema noted Leg (R), no edema noted Pedal (L), no edema noted Pedal (R), no edema noted Generalized Temo Navarro MD August 06, 2018 08:06
--- NOTE | 2018-08-06 08:17 | Pulmonology Progress Note ---
Assessment/Plan Assessment/Plan COPD with exacerbation respiratory failure tachycardia protein calorie malnutrition hypertension ho Cdif carotid stenosis PLAN care as is still very tight will need daliresp but may not tolerate due to BMI hope to dc home soon check carotid us impression, plan, and exam edited and reviewed in detail care discussed with RN Subjective Allergies: Coded Allergies: No Known Allergies (Unverified , 08/06/18) Subjective still with sob intermittent tachycardia slow improvement noted Objective Last 24 Hour Vital Signs Date Time Temp Pulse Resp B/P (MAP) Pulse Ox O2 Delivery O2 Flow Rate FiO2 08/06/18 07:59 93 20 99 Nasal Cannula 2.0 28 08/06/18 07:49 95 23 99 Nasal Cannula 2.0 28 08/06/18 07:49 99 Nasal Cannula 2.0 08/06/18 07:49 Nasal Cannula 2.0 28 08/06/18 04:00 98.5 76 18 148/78 (101) 97 08/06/18 03:40 71 08/06/18 03:17 Nasal Cannula 2.0 08/06/18 03:17 Nasal Cannula 2.0 08/06/18 00:00 98.3 103 17 137/69 (91) 97 08/05/18 23:35 87 08/05/18 23:00 Room Air 08/05/18 22:52 85 18 96 Nasal Cannula 2.0 08/05/18 22:40 97 Nasal Cannula 2.0 08/05/18 22:40 Nasal Cannula 2.0 08/05/18 22:40 88 18 97 Nasal Cannula 2.0 08/05/18 22:38 Nasal Cannula 2.0 08/05/18 22:38 Nasal Cannula 2.0 08/05/18 21:00 Room Air 08/05/18 20:15 78 08/05/18 20:00 97.6 84 16 144/80 (101) 99 08/05/18 16:00 82 08/05/18 15:55 97.0 71 18 116/72 (87) 97 08/05/18 15:07 86 18 100 Nasal Cannula 2.0 08/05/18 14:57 86 16 97 Nasal Cannula 2.0 28 08/05/18 12:00 73 08/05/18 12:00 97.7 75 20 133/78 (96) 97 08/05/18 11:14 Nasal Cannula 2.0 28 08/05/18 11:14 Nasal Cannula 2.0 28 08/05/18 09:22 92 163/75 08/05/18 09:00 Room Air 08/05/18 08:39 92 18 100 Nasal Cannula 2.0 28 Intake and Output 08/05/18 08/06/18 19:00 07:00 Intake Total 360 ml 240 ml Balance 360 ml 240 ml Intake Oral 360 ml 240 ml # Voids 3 6 # Bowel Movements 3 Objective WDWN NAD poor breath sounds bilaterally without rhonchi or wheeze [id number] without MRG NABS nontender no HSM no CCE nonfocal Current Medications Medications (Trade) Dose Ordered Sig/Charlie Route PRN Reason Start Time Stop Time Status Last Admin Dose Admin Acetaminophen (Tylenol) 650 mg Q4H PRN ORAL Mild Pain/Temp > 100.5 08/03/18 18:00 09/02/18 17:59 Albuterol Sulfate (Proventil) 2.5 mg Q4HRT HHN 08/03/18 19:00 08/08/18 18:59 08/06/18 07:51 Amlodipine Besylate (Norvasc) 5 mg DAILY ORAL 08/05/18 09:00 09/04/18 08:59 08/05/18 09:22 Clonidine HCl (Catapres Tab) 0.1 mg Q4H PRN ORAL For High Blood Pressure 08/03/18 18:00 09/02/18 17:59 Diltiazem HCl (Cardizem CD) 120 mg DAILY ORAL 08/06/18 09:00 09/05/18 08:59 Heparin Sodium (Porcine) (Heparin 5000 units/ml) 5,000 units EVERY 12 HOURS SUBQ 08/03/18 21:00 09/02/18 20:59 08/05/18 20:23 Methylprednisolone Sodium Succinate (Solu-MEDROL) 60 mg EVERY 12 HOURS IVP 08/03/18 21:00 09/02/18 20:59 08/05/18 20:21 Vitamin D (Vitamin D) 5,000 intlu DAILY ORAL 08/05/18 09:00 09/04/18 08:59 08/05/18 09:22 Phil Felipe MD August 06, 2018 08:17
[2018-08-06] MEDS ORDERED: dilTIAZem HCl CD 120mg cap ORAL SCH (09:00)
[2018-08-06] MEDS: Vitamin D 1000 IU Tab ORAL SCH (09:23)
[2018-08-06] MEDS: Solu-MEDROL 125mg Inj IVP SCH ×2 (09:23→21:12)
[2018-08-06] MEDS ORDERED: NS 275ml ONE (09:48)
[2018-08-06] MEDS: Heparin 5000 units/ml inj SUBQ SCH ×2 (09:49→21:21)
--- NOTE | 2018-08-06 09:52 | NUR ---
CASE MANAGEMENT:REVIEW 08/05/18 SI: COPD. ACUTE BRONCHOSPASM. AMI 98.6 80 22 163/75 99% ON 2L/NC IS: NORVASC PO QD VIT D PO QD IV SOLUMEDROL Q12 HEPARIN SQ Q12 DUONEB HHN Q4HRS RTC : TELEMETRY STATUS 08/06/18 SI: COPD. ACUTE BRONCHOSPASM. AMI 97.2 71 18 139/68 97% ON 2L/NC TROPONIN(+) 0.195 IS: CARDIZEM PO QD NORVASC PO QD VIT D PO QD IV SOLUMEDROL Q12 HEPARIN SQ Q12 DUONEB HHN Q4HRS RTC : TELEMETRY STATUS DCP: FROM HOME
[2018-08-06 12:00] VITALS: BP 146/77
--- NOTE | 2018-08-06 12:00 | NUR ---
NURSE NOTES: Spoke with Dr. Lorenzo and he states patient does not have acute VA.
[2018-08-06 16:00] VITALS: BP 148/66
--- NOTE | 2018-08-06 18:38 | Cardiology Report ---
APPROVED REPORT EXAM: Two-dimensional and M-mode echocardiogram with Doppler and color Doppler. INDICATION Arrhythmia M-Mode DIMENSIONS IVSd1.1 (0.7-1.1cm)Left Atrium (MM)1.7 (1.6-4.0cm) LVDd3.5 (3.5-5.6cm)Aortic Root3.7 (2.0-3.7cm) PWd1.4 (0.7-1.1cm)Aortic Cusp Exc.1.7 (1.5-2.0cm) LVDs2.7 (2.5-4.0cm) PWs1.5 cm Technically difficult study due to poor acoustical windows. All views are subcostal views. Normal left ventricular chamber size, systolic function and wall motion. Left ventricular ejection fraction estimated to be 55-60 %. Borderline mild left ventricular hypertrophy. No evidence of pericardial effusion. All other cardiac chamber sizes seem to be within normal limits. Focal aortic valve sclerosis with adequate cusp excursion. Thickened mitral valve leaflets with normal excursion. Mitral annulus and aortic root calcification. Normal pulmonic valve structure. Normal tricuspid valve structure. IVC at normal size with physiologic collapse. A color flow and spectral Doppler study was performed and revealed: Mild to moderate aortic regurgitation. Trace mitral regurgitation. Mitral diastolic velocities suggest reduced left ventricular relaxation c/w mild LV diastolic dysfunction (Grade I). Trace tricuspid regurgitation. Tricuspid systolic velocities suggests peak right ventricular systolic pressure of 19 mmHg. Pulmonic regurgitation present.
--- NOTE | 2018-08-06 19:30 | NUR ---
HAND-OFF: Report given to RODO Glover.
--- NOTE | 2018-08-06 19:33 | NUR ---
NURSE NOTES: Received report from RODO Sharma. Patient sitting in bed awake showing no signs of acute distress. Respiration even and non labored. No Sob noted on 2L O2. IV patent and intact. Bed in lowest position. Bed alarm on, and wheels locked. Call light within reach. All needs attended and met. Will continue plan of care.
[2018-08-06 20:00] VITALS: BP 130/69
[2018-08-07] VITALS: BP 132/60
--- NOTE | 2018-08-07 01:30 | Progress Note ---
DATE: 08/06/2018 CARDIOLOGY PROGRESS NOTE SUBJECTIVE: The patient has less shortness of breath. Heart rate is now controlled. Monitored rhythm sinus. OBJECTIVE: VITAL SIGNS: Blood pressure 148/78, pulse 76, respirations 18, and afebrile. LUNGS: Clear. CARDIAC: Regular. Normal S1, S2. ABDOMEN: Soft. EXTREMITIES: No edema. LABORATORY AND DIAGNOSTIC DATA: Echocardiogram with normal ejection fraction and no pulmonary hypertension. Carotid duplex study pending. IMPRESSION: 1. Chronic obstructive pulmonary disease. 2. Secondary sinus tachycardia. 3. Paroxysmal bronchospasm. 4. Carotid stenosis. 5. Hypertension. PLAN: 1. Continue low-dose diltiazem. 2. Review carotid duplex study. 3. No additional cardiovascular workup presently indicated. Amor Lorenzo M.D. DR: BRET JOB#: [id number] CC:
[2018-08-07] MEDS: Albuterol ud Inhalation HHN SCH ×6 (03:00→23:51)
[2018-08-07 04:00] VITALS: BP 130/66
[2018-08-07 07:44] LABS: HEMATOCRIT 39.3 % (42.0-52.0); HEMOGLOBIN 12.5 G/DL (14.2-18.0); MEAN CORPUSCULAR VOLUME 90 FL (80-99); PLATELET COUNT 283 K/UL (150-450); RED BLOOD COUNT 4.35 M/UL (4.70-6.10); RED CELL DISTRIBUTION WIDTH 15.1 % (11.6-14.8)
--- NOTE | 2018-08-07 07:52 | NUR ---
HAND-OFF: Report given to RODO March.
[2018-08-07 08:00] VITALS: BP 136/70
[2018-08-07 08:00] LABS: ALANINE AMINOTRANSFERASE 17 U/L (12-78); ALBUMIN 3.1 G/DL (3.4-5.0); ALBUMIN/GLOBULIN RATIO 0.9 (1.0-2.7); ALKALINE PHOSPHATASE 75 U/L (46-116); ANION GAP 5 mmol/L (5-15); ASPARTATE AMINO TRANSFERASE 15 U/L (15-37); BILIRUBIN,TOTAL 0.1 MG/DL (0.2-1.0); BLOOD UREA NITROGEN 20 mg/dL (7-18); CALCIUM 9.1 MG/DL (8.5-10.1); CARBON DIOXIDE 31 MMOL/L (21-32); CHLORIDE 108 MMOL/L (98-107); CHOLESTEROL 232 MG/DL (< 200); HDL CHOLESTEROL 99 MG/DL (40-60); POTASSIUM 3.8 MMOL/L (3.5-5.1); SODIUM 144 MMOL/L (136-145); TRIGLYCERIDES 83 MG/DL (30-150)
--- NOTE | 2018-08-07 08:13 | NUR ---
NURSE NOTES: Pt in bed awake, calm and cooperative, Ox4, bed placed in lowest position with call light within reach, bed alarm not on as pt has bathroom privileges, no S/S of distress noted, will continue to monitor.
--- NOTE | 2018-08-07 08:14 | Pulmonology Progress Note ---
Assessment/Plan Assessment/Plan COPD with exacerbation respiratory failure tachycardia protein calorie malnutrition hypertension ho Cdif carotid stenosis PLAN cardizem on dc steroid taper maintain home inhalers dc planning impression, plan, and exam edited and reviewed in detail care discussed with RN Subjective Allergies: Coded Allergies: No Known Allergies (Unverified , 08/06/18) Subjective still with sob sob improved tachycardia slow improvement noted Objective Last 24 Hour Vital Signs Date Time Temp Pulse Resp B/P (MAP) Pulse Ox O2 Delivery O2 Flow Rate FiO2 08/07/18 08:07 72 20 99 Nasal Cannula 2.0 28 08/07/18 08:00 Nasal Cannula 2.0 28 08/07/18 08:00 98 Nasal Cannula 2.0 28 08/07/18 07:59 73 18 98 Nasal Cannula 2.0 28 08/07/18 04:00 67 08/07/18 04:00 98.0 79 18 130/66 (87) 97 08/07/18 03:24 Nasal Cannula 08/07/18 03:24 Nasal Cannula 08/07/18 00:00 97.8 70 18 132/60 (84) 94 08/07/18 00:00 89 08/06/18 23:35 85 20 100 Nasal Cannula 2.0 28 08/06/18 23:23 83 18 99 Nasal Cannula 2.0 28 08/06/18 21:00 Room Air 08/06/18 20:00 98.1 80 17 130/69 (89) 99 08/06/18 20:00 84 08/06/18 19:36 92 20 100 Nasal Cannula 2.0 28 08/06/18 19:26 91 20 99 Nasal Cannula 2.0 28 08/06/18 19:26 99 Nasal Cannula 2.0 28 08/06/18 19:26 Nasal Cannula 2.0 28 08/06/18 16:50 Nasal Cannula 2.0 28 08/06/18 16:49 Nasal Cannula 2.0 28 08/06/18 16:13 76 08/06/18 16:00 97.3 79 22 148/66 (93) 98 08/06/18 13:22 71 20 99 Nasal Cannula 2.0 28 08/06/18 13:03 78 20 99 Nasal Cannula 2.0 28 08/06/18 12:00 97.3 71 22 146/77 (100) 100 08/06/18 11:32 67 08/06/18 09:35 71 139/68 08/06/18 09:35 71 139/68 08/06/18 09:00 Room Air Intake and Output 08/06/18 08/07/18 18:59 06:59 Intake Total 240 ml Balance 240 ml Intake Oral 240 ml # Voids 3 4 # Bowel Movements 1 3 Objective WDWN NAD poor breath sounds bilaterally without rhonchi or wheeze [id number] without MRG NABS nontender no HSM no CCE nonfocal Laboratory Tests 08/06/18 08:15: Thyroid Stimulating Hormone (TSH) 0.195L, Free Thyroxine 0.81, Triiodothyronine (T3) Uptake 26 08/07/18 06:30: White Blood Count 7.0, Red Blood Count 4.35L, Hemoglobin 12.5L, Hematocrit 39.3L , Mean Corpuscular Volume 90, Mean Corpuscular Hemoglobin 28.7, Mean Corpuscular Hemoglobin Concent 31.8L, Red Cell Distribution Width 15.1H, Platelet Count 283, Mean Platelet Volume 6.1L, Neutrophils (%) (Auto) , Lymphocytes (%) (Auto) , Monocytes (%) (Auto) , Eosinophils (%) (Auto) , Basophils (%) (Auto) , Neutrophils % (Manual) [Pending], Lymphocytes % (Manual) [Pending], Platelet Estimate [Pending], Platelet Morphology [Pending], Sodium Level 144, Potassium Level 3.8, Chloride Level 108H, Carbon Dioxide Level 31, Anion Gap 5, Blood Urea Nitrogen 20H, Creatinine 1.0, Estimat Glomerular Filtration Rate , Glucose Level 191H, Calcium Level 9.1, Magnesium Level 2.1, Total Bilirubin 0.1L, Aspartate Amino Transf (AST/SGOT) 15, Alanine Aminotransferase (ALT/SGPT) 17, Alkaline Phosphatase 75, Total Protein 6.7, Albumin 3.1L, Globulin 3.6, Albumin/Globulin Ratio 0.9L, Triglycerides Level 83 , Cholesterol Level 232H, LDL Cholesterol 110H, HDL Cholesterol 99H, Cholesterol /HDL Ratio 2.3L Current Medications Medications (Trade) Dose Ordered Sig/Charlie Route PRN Reason Start Time Stop Time Status Last Admin Dose Admin Acetaminophen (Tylenol) 650 mg Q4H PRN ORAL Mild Pain/Temp > 100.5 08/03/18 18:00 09/02/18 17:59 Albuterol Sulfate (Proventil) 2.5 mg Q4HRT HHN 08/03/18 19:00 08/08/18 18:59 08/07/18 07:58 Clonidine HCl (Catapres Tab) 0.1 mg Q4H PRN ORAL For High Blood Pressure 08/03/18 18:00 09/02/18 17:59 Diltiazem HCl (Cardizem CD) 180 mg DAILY ORAL 08/07/18 09:00 09/06/18 08:59 Heparin Sodium (Porcine) (Heparin 5000 units/ml) 5,000 units EVERY 12 HOURS SUBQ 08/03/18 21:00 09/02/18 20:59 08/06/18 21:21 Methylprednisolone Sodium Succinate (Solu-MEDROL) 60 mg EVERY 12 HOURS IVP 08/03/18 21:00 09/02/18 20:59 08/06/18 21:12 Vitamin D (Vitamin D) 5,000 intlu DAILY ORAL 08/05/18 09:00 09/04/18 08:59 08/06/18 09:23 Phil Felipe MD August 07, 2018 08:14
--- NOTE | 2018-08-07 08:34 | NUR ---
CASE MANAGEMENT:REVIEW 08/06/18 SI: COPD. ACUTE BRONCHOSPASM. AMI REMAINS SOB 98.0 79 18 130/66 99% ON 2L/NC H/H-12.5/39.3 IS: CARDIZEM 180MG PO QD (DOSE INCREASED) VIT D PO QD IV SOLUMEDROL 60MG Q12 HEPARIN SQ Q12 ALBUTEROL HHN Q4HRS RTC : TELEMETRY STATUS DCP: FROM HOME PLAN: TAPER STEROIDS DISCHARGE PLANNING Addendum: 08/08/18 at 0906 by DILIP GARCIA LVN LVN ABOVE REVIEW IS FOR 08/07/18
[2018-08-07] MEDS ORDERED: dilTIAZem HCl CD 180mg cap ORAL SCH (09:00)
--- NOTE | 2018-08-07 09:38 | General Progress Note ---
Assessment/Plan Problem List: (1) Dyspnea ICD Codes: R06.00 - Dyspnea, unspecified SNOMED: 356469854 (2) Respiratory distress ICD Codes: R06.00 - Dyspnea, unspecified SNOMED: 753972393 (3) Elevated troponin ICD Codes: R74.8 - Abnormal levels of other serum enzymes SNOMED: 123539046, 715854997, 205954025 (4) COPD exacerbation ICD Codes: J44.1 - Chronic obstructive pulmonary disease with (acute) exacerbation SNOMED: 357829823 (5) Eosinophilia ICD Codes: D72.1 - Eosinophilia SNOMED: 464837159 Status: stable Assessment/Plan: a/ copd exac palpitations ?carotid stenosis/ascvd elevated trop p/ antiplt rx await vascular us resp rx iv steroids- wean per pulm vascular us noted add statin rate control/bp rx per cards Subjective Allergies: Coded Allergies: No Known Allergies (Unverified , 08/06/18) Subjective no new complaints. stable sob. mild cough. no palpitations. on iv steroids. HR controlled. 30% stenosis carotids. high lipids Objective Last 24 Hour Vital Signs Date Time Temp Pulse Resp B/P (MAP) Pulse Ox O2 Delivery O2 Flow Rate FiO2 08/07/18 09:07 Room Air 08/07/18 08:07 72 20 99 Nasal Cannula 2.0 28 08/07/18 08:00 98.3 81 18 136/70 (92) 98 08/07/18 08:00 Nasal Cannula 2.0 28 08/07/18 08:00 98 Nasal Cannula 2.0 28 08/07/18 07:59 73 18 98 Nasal Cannula 2.0 28 08/07/18 04:00 67 08/07/18 04:00 98.0 79 18 130/66 (87) 97 08/07/18 03:24 Nasal Cannula 08/07/18 03:24 Nasal Cannula 08/07/18 00:00 97.8 70 18 132/60 (84) 94 08/07/18 00:00 89 08/06/18 23:35 85 20 100 Nasal Cannula 2.0 28 08/06/18 23:23 83 18 99 Nasal Cannula 2.0 28 08/06/18 21:00 Room Air 08/06/18 20:00 98.1 80 17 130/69 (89) 99 08/06/18 20:00 84 08/06/18 19:36 92 20 100 Nasal Cannula 2.0 28 08/06/18 19:26 91 20 99 Nasal Cannula 2.0 08/06/18 19:26 99 Nasal Cannula 2.0 08/06/18 19:26 Nasal Cannula 2.0 08/06/18 16:50 Nasal Cannula 2.0 28 08/06/18 16:49 Nasal Cannula 2.0 28 08/06/18 16:13 76 08/06/18 16:00 97.3 79 22 148/66 (93) 98 08/06/18 13:22 71 20 99 Nasal Cannula 2.0 08/06/18 13:03 78 20 99 Nasal Cannula 2.0 28 08/06/18 12:00 97.3 71 22 146/77 (100) 100 08/06/18 11:32 67 08/06/18 09:35 71 139/68 08/06/18 09:35 71 139/68 Intake and Output 08/06/18 08/07/18 19:00 07:00 Intake Total 240 ml Balance 240 ml Intake Oral 240 ml # Voids 3 4 # Bowel Movements 1 3 Laboratory Tests 08/07/18 06:30: White Blood Count 7.0, Red Blood Count 4.35L, Hemoglobin 12.5L, Hematocrit 39.3L , Mean Corpuscular Volume 90, Mean Corpuscular Hemoglobin 28.7, Mean Corpuscular Hemoglobin Concent 31.8L, Red Cell Distribution Width 15.1H, Platelet Count 283, Mean Platelet Volume 6.1L, Neutrophils (%) (Auto) , Lymphocytes (%) (Auto) , Monocytes (%) (Auto) , Eosinophils (%) (Auto) , Basophils (%) (Auto) , Neutrophils % (Manual) [Pending], Lymphocytes % (Manual) [Pending], Platelet Estimate [Pending], Platelet Morphology [Pending], Sodium Level 144, Potassium Level 3.8, Chloride Level 108H, Carbon Dioxide Level 31, Anion Gap 5, Blood Urea Nitrogen 20H, Creatinine 1.0, Estimat Glomerular Filtration Rate , Glucose Level 191H, Calcium Level 9.1, Magnesium Level 2.1, Total Bilirubin 0.1L, Aspartate Amino Transf (AST/SGOT) 15, Alanine Aminotransferase (ALT/SGPT) 17, Alkaline Phosphatase 75, Total Protein 6.7, Albumin 3.1L, Globulin 3.6, Albumin/Globulin Ratio 0.9L, Triglycerides Level 83 , Cholesterol Level 232H, LDL Cholesterol 110H, HDL Cholesterol 99H, Cholesterol /HDL Ratio 2.3L Height (Feet): 5 Height (Inches): 10.00 Weight (Pounds): 106 General Appearance: WD/WN, alert Neck: supple Cardiovascular: normal rate, regular rhythm Respiratory/Chest: chest wall non-tender, lungs clear, normal breath sounds Abdomen: normal bowel sounds, non tender, soft Edema: no edema noted Arm (L), no edema noted Arm (R), no edema noted Leg (L), no edema noted Leg (R), no edema noted Pedal (L), no edema noted Pedal (R), no edema noted Generalized Temo Navarro MD August 07, 2018 09:38
[2018-08-07] MEDS: Solu-MEDROL 125mg Inj IVP SCH ×2 (09:57→20:20)
[2018-08-07] MEDS: Vitamin D 1000 IU Tab ORAL SCH (09:57)
[2018-08-07] MEDS: Heparin 5000 units/ml inj SUBQ SCH ×2 (09:57→20:22)
[2018-08-07 12:00] VITALS: BP 109/56
--- NOTE | 2018-08-07 12:55 | NUR ---
*-* INSURANCE *-* CLINICALS AND REVIEWS HAVE BEEN FAXED TO: ASHLEY TOMLIN: RADHA F:[phone] P:[phone] REF#[id number]
[2018-08-07 16:00] VITALS: BP 150/72
--- NOTE | 2018-08-07 19:10 | NUR ---
NURSE NOTES: Pt Report has been received from Joaquim KOEHLER. Pt appears to be resting comfortably in bed. Pt is alert and oriented times 4. 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 Pt is on Room air saturating at 99% with no signs of symptoms of acute respiratory distress noted. Pt has a Right Forearm 22G noted, patent and able to flush, no abnormalities noted. Pt is instructed to use the call light which is within easy reach, and ask for assistance before ambulating. side rails are up times 2, set in lowest position. will continue plan of care.
--- NOTE | 2018-08-07 19:24 | NUR ---
HAND-OFF: Report given to renetta eric.
[2018-08-07 20:00] VITALS: BP 143/69
[2018-08-07] MEDS ORDERED: Atorvastatin 20mg tab ORAL SCH (21:00)
[2018-08-08] VITALS: BP 140/70
--- NOTE | 2018-08-08 03:15 | Progress Note ---
DATE: 08/07/2018 CARDIOLOGY PROGRESS NOTE SUBJECTIVE: The patient with controlled heart rate. Carotid duplex reviewed 30% stenosis only. OBJECTIVE: VITAL SIGNS: Blood pressure 136/70, pulse 81, respirations 18. LUNGS: Diminished breath sounds. Few wheezes. HEART: Regular rhythm and rate. Normal S1, S2. ABDOMEN: Soft. No edema. IMPRESSION: 1. Chronic obstructive pulmonary disease exacerbation. 2. Hypertensive heart disease, resolved. 3. Secondary tachycardia, resolved. 4. Mild carotid stenosis. 5. Hyperlipidemia. PLAN: 1. Anti-platelet therapy. 2. Anti-lipid therapy for LDL goal less than 70. 3. Steroid taper. 4. Inhaled bronchodilators. 5. Cautious use of beta-agonist. 6. Continue current antihypertensive regimen. 7. No additional cardiovascular studies planned. Amor Lorenzo M.D. DR: JEF JOB#: [id number] CC:
[2018-08-08] MEDS: Albuterol ud Inhalation HHN SCH ×4 (03:34→15:00)
[2018-08-08 04:00] VITALS: BP 146/68
--- NOTE | 2018-08-08 07:23 | NUR ---
HAND-OFF: Report given to Maggy KOEHLER.
--- NOTE | 2018-08-08 07:24 | NUR ---
NURSE NOTES: Received patient from RODO Salazar. Patient VS stable at this time with no sign of acute distress. Patient alert and oriented at this time. Patient sitting up and eating breakfast at this time. Patient sinus rhythm at this time on the traffic monitor specialist at this time. Patient on 2L nasal canula with stable oxygen saturation. Patient on regular diet. Patient skin intact. Patient has a right forearm 20G PIV that is patent and saline locked at this time. Patient denies SOB at this time. Patient has plan to discharge today when Dr Felipe places the order. Patient bed in low position with call light in reach. Patient stable when ambulating. Patient gait steady. Patient to be discharged home when discharged with home health.
[2018-08-08 08:00] VITALS: BP 143/56
--- NOTE | 2018-08-08 08:14 | General Progress Note ---
Assessment/Plan Problem List: (1) Dyspnea ICD Codes: R06.00 - Dyspnea, unspecified SNOMED: 659264558 (2) Respiratory distress ICD Codes: R06.00 - Dyspnea, unspecified SNOMED: 408477122 (3) Elevated troponin ICD Codes: R74.8 - Abnormal levels of other serum enzymes SNOMED: 363361445, 278711473, 251431602 (4) COPD exacerbation ICD Codes: J44.1 - Chronic obstructive pulmonary disease with (acute) exacerbation SNOMED: 101692308 (5) Eosinophilia ICD Codes: D72.1 - Eosinophilia SNOMED: 768597504 Status: stable Assessment/Plan: a/ copd exac palpitations ?carotid stenosis/ascvd elevated trop p/ antiplt rx resp rx iv steroids- wean per pulm vascular us noted add statin rate control/bp rx per cards dc per pulm Subjective ROS Limited/Unobtainable: No Constitutional: Reports: malaise HEENT: Reports: no symptoms Cardiovascular: Reports: no symptoms Respiratory: Reports: cough, SOB with excertion Gastrointestinal/Abdominal: Reports: no symptoms Genitourinary: Reports: no symptoms Neurologic/Psychiatric: Reports: no symptoms Endocrine: Reports: no symptoms Hematologic/Lymphatic: Reports: no symptoms Allergies: Coded Allergies: No Known Allergies (Unverified , 08/06/18) All Systems: reviewed and negative except above Subjective no new complaints. stable sob. mild cough. no palpitations. decreased patton Objective Last 24 Hour Vital Signs Date Time Temp Pulse Resp B/P (MAP) Pulse Ox O2 Delivery O2 Flow Rate FiO2 08/08/18 06:51 97 Nasal Cannula 2.0 08/08/18 06:51 Nasal Cannula 2.0 28 08/08/18 06:51 Nasal Cannula 2.0 28 08/08/18 06:51 Nasal Cannula 2.0 08/08/18 04:00 71 08/08/18 04:00 98.0 79 18 146/68 (94) 99 08/08/18 03:41 74 20 99 Nasal Cannula 2.0 28 08/08/18 03:32 80 20 98 Nasal Cannula 2.0 28 08/08/18 00:03 85 20 99 Nasal Cannula 2.0 08/08/18 00:00 81 08/08/18 00:00 98.2 81 18 140/70 (93) 100 08/07/18 23:44 89 20 97 Nasal Cannula 2.0 28 08/07/18 21:00 Room Air 08/07/18 20:00 88 08/07/18 20:00 97.8 83 20 143/69 (93) 99 08/07/18 19:55 77 20 99 Nasal Cannula 2.0 28 08/07/18 19:38 77 20 98 Nasal Cannula 2.0 28 08/07/18 19:38 Nasal Cannula 2.0 28 08/07/18 19:37 98 Nasal Cannula 2.0 28 08/07/18 16:00 98.4 74 19 150/72 (98) 99 08/07/18 15:30 73 20 99 Nasal Cannula 2.0 28 08/07/18 15:20 74 20 99 Nasal Cannula 2.0 28 08/07/18 15:13 72 08/07/18 12:43 88 08/07/18 12:00 98.1 77 20 109/56 (73) 98 08/07/18 11:00 73 20 99 Nasal Cannula 2.0 28 08/07/18 10:53 72 20 98 Nasal Cannula 2.0 28 08/07/18 09:56 72 136/70 08/07/18 09:07 Room Air Intake and Output 08/07/18 08/08/18 18:59 06:59 Intake Total 1000 ml 480 ml Output Total 800 ml Balance 1000 ml -320 ml Intake Oral 1000 ml 480 ml Output Urine Total 800 ml # Voids 2 2 # Bowel Movements 2 Height (Feet): 5 Height (Inches): 10.00 Weight (Pounds): 104 Objective General Appearance: WD/WN, alert Neck: supple Cardiovascular: normal rate, regular rhythm Respiratory/Chest: chest wall non-tender, lungs clear, normal breath sounds Abdomen: normal bowel sounds, non tender, soft Edema: no edema noted Arm (L), no edema noted Arm (R), no edema noted Leg (L), no edema noted Leg (R), no edema noted Pedal (L), no edema noted Pedal (R), no edema noted Generalized Temo Navarro MD August 08, 2018 08:14
[2018-08-08] MEDS ORDERED: dilTIAZem HCl CD 180mg cap ORAL SCH (09:00)
[2018-08-08] MEDS: Heparin 5000 units/ml inj SUBQ SCH (09:00)
--- NOTE | 2018-08-08 09:07 | NUR ---
CASE MANAGEMENT:REVIEW 08/08/18 SI: COPD EXACERBATION hypertensive heart disease. mild carotid stenosis 98.0 79 18 146/68 97% ON 2L/NC IS: CARDIZEM 360MG PO QD LIPITOR PO QHS IV SOLUMEDROL 60MG Q12 HEPARIN SQ Q12 ALBUTEROL HHN Q4HRS RTC : TELEMETRY STATUS DCP: PATIENT IS FROM HOME
--- NOTE | 2018-08-08 09:09 | NUR ---
*-* INSURANCE *-* UPDAYED CLINICALS HAVE BEEN FAXED TO: ASHLEY TOMLIN: RADHA F:[phone] P:[phone] REF#[id number]
--- NOTE | 2018-08-08 09:11 | NUR ---
INSURANCE ASHLEY NCM: RADHA T: [phone] F: [phone] REF#[id number] CALLED AND SPOKE WITH RADHA.GAVE TELEPHONIC REVIEW WITH UPDATES RADHA REQUESTED SPECIFIC DOCUMENTS BE FAXED ~ FAXED BY [employer]TERN[employer]
--- NOTE | 2018-08-08 09:30 | Pulmonology Progress Note ---
Assessment/Plan Assessment/Plan COPD with exacerbation respiratory failure tachycardia protein calorie malnutrition hypertension ho Cdif carotid stenosis PLAN cardizem on dc steroid taper on dc maintain home inhalers dc planning today impression, plan, and exam edited and reviewed in detail care discussed with RN Subjective Allergies: Coded Allergies: No Known Allergies (Unverified , 08/06/18) Subjective reviewed results us reviewed Objective Last 24 Hour Vital Signs Date Time Temp Pulse Resp B/P (MAP) Pulse Ox O2 Delivery O2 Flow Rate FiO2 08/08/18 06:51 97 Nasal Cannula 2.0 28 08/08/18 06:51 Nasal Cannula 2.0 28 08/08/18 06:51 Nasal Cannula 2.0 28 08/08/18 06:51 Nasal Cannula 2.0 28 08/08/18 04:00 71 08/08/18 04:00 98.0 79 18 146/68 (94) 99 08/08/18 03:41 74 20 99 Nasal Cannula 2.0 28 08/08/18 03:32 80 20 98 Nasal Cannula 2.0 28 08/08/18 00:03 85 20 99 Nasal Cannula 2.0 28 08/08/18 00:00 81 08/08/18 00:00 98.2 81 18 140/70 (93) 100 08/07/18 23:44 89 20 97 Nasal Cannula 2.0 28 08/07/18 21:00 Room Air 08/07/18 20:00 88 08/07/18 20:00 97.8 83 20 143/69 (93) 99 08/07/18 19:55 77 20 99 Nasal Cannula 2.0 28 08/07/18 19:38 77 20 98 Nasal Cannula 2.0 28 08/07/18 19:38 Nasal Cannula 2.0 28 08/07/18 19:37 98 Nasal Cannula 2.0 28 08/07/18 16:00 98.4 74 19 150/72 (98) 99 08/07/18 15:30 73 20 99 Nasal Cannula 2.0 28 08/07/18 15:20 74 20 99 Nasal Cannula 2.0 28 08/07/18 15:13 72 08/07/18 12:43 88 08/07/18 12:00 98.1 77 20 109/56 (73) 98 08/07/18 11:00 73 20 99 Nasal Cannula 2.0 28 08/07/18 10:53 72 20 98 Nasal Cannula 2.0 28 08/07/18 09:56 72 136/70 Intake and Output 08/07/18 08/08/18 18:59 06:59 Intake Total 1000 ml 480 ml Output Total 800 ml Balance 1000 ml -320 ml Intake Oral 1000 ml 480 ml Output Urine Total 800 ml # Voids 2 2 # Bowel Movements 2 Objective WDWN NAD poor breath sounds bilaterally without rhonchi or wheeze [id number] without MRG NABS nontender no HSM no CCE nonfocal Current Medications Medications (Trade) Dose Ordered Sig/Charlie Route PRN Reason Start Time Stop Time Status Last Admin Dose Admin Acetaminophen (Tylenol) 650 mg Q4H PRN ORAL Mild Pain/Temp > 100.5 08/03/18 18:00 09/02/18 17:59 Albuterol Sulfate (Proventil) 2.5 mg Q4HRT HHN 08/03/18 19:00 08/08/18 18:59 08/08/18 03:34 Atorvastatin Calcium (Lipitor) 40 mg BEDTIME ORAL 08/07/18 21:00 09/06/18 20:59 08/07/18 20:20 Clonidine HCl (Catapres Tab) 0.1 mg Q4H PRN ORAL For High Blood Pressure 08/03/18 18:00 09/02/18 17:59 Diltiazem HCl (Cardizem CD) 360 mg DAILY ORAL 08/08/18 09:00 09/07/18 08:59 Heparin Sodium (Porcine) (Heparin 5000 units/ml) 5,000 units EVERY 12 HOURS SUBQ 08/03/18 21:00 09/02/18 20:59 08/07/18 20:22 Methylprednisolone Sodium Succinate (Solu-MEDROL) 60 mg EVERY 12 HOURS IVP 08/03/18 21:00 09/02/18 20:59 08/07/18 20:20 Vitamin D (Vitamin D) 5,000 intlu DAILY ORAL 08/05/18 09:00 09/04/18 08:59 08/07/18 09:57 Phil Felipe MD August 08, 2018 09:30
[2018-08-08] MEDS: Solu-MEDROL 125mg Inj IVP SCH (09:46)
[2018-08-08] MEDS: Vitamin D 1000 IU Tab ORAL SCH (09:47)
--- NOTE | 2018-08-08 10:00 | NUR ---
NURSE NOTES: Patient needs humidification on his oxygen when he gets discharged. I spoke with community case manager who spoke with the home health that services the patient and they reported that they did not provide the oxygen for the patient. Patient is to find out what company provides his oxygen and report it to us so that we can call and have the humidifier provided for him. Will follow up with patient and community case manager as needed.
--- NOTE | 2018-08-08 10:00 | Diagnostic Imaging Report ---
APPROVED REPORT CPT Code: 76436 Vascular Symptoms Comments: SHORTNESS OF BREATH. Doppler Spectral Velocity Analysis RightLeft artery. The Doppler spectral flow analysis indicates the degree of stenosis is minimal (10%) in the common carotid artery, mild (30%) in the internal carotid artery.VERTEBRAL- The vertebral artery is patent, without evidence of stenosis or steal. artery. The Doppler spectral flow analysis indicates the degree of stenosis is minimal (10%) in the common carotid artery, mild (30%) in the internal carotid artery.VERTEBRAL- The vertebral artery is patent, without evidence of stenosis or steal.
--- NOTE | 2018-08-08 11:45 | NUR ---
DISCHARGE PLANNING SPOKE WITH CERTIFIED NEURODIAGNOSTIC TECHNOLOGIST, RADHA. PER RADHA PATIENTS INSURANCE CHANGED OF August RADHA REQUESTED WE FAX DISCHARGE ORDERS TO HER AND SHE WILL MAKE ALL NECESSARY ARRANGEMENTS
[2018-08-08 12:00] VITALS: BP 174/146
[2018-08-08] MEDS ORDERED: MEDROL DOSEPAK4 MG ORAL ×2 (13:25→13:27)
--- NOTE | 2018-08-08 15:00 | NUR ---
NURSE NOTES: Patient discharged home with home health. Patient taken in wheel chair to the lobby where his family member picked him up. Patient stable with no sign of acute distress. Patient has all his belongings and discharge information with him.
--- NOTE | 2018-08-08 16:14 | Cardiology Report ---
APPROVED REPORT EKG Measurement Heart [id number] OR [id number] Normal sinus rhythm Rightward axis Borderline ECG
--- NOTE | 2018-08-08 16:15 | Progress Note ---
DATE: 08/08/2018 CARDIOLOGY PROGRESS NOTE SUBJECTIVE: The patient has no new complaints. Less shortness of breath noted. Monitored rhythm sinus. No tachyarrhythmias. OBJECTIVE: VITAL SIGNS: Blood pressure 146/68, pulse 79, and respirations 18. LUNGS: Diminished breath sounds. HEART: Regular rhythm and rate. Normal S1, S2. ABDOMEN: Soft. EXTREMITIES: No edema. DIAGNOSTIC DATA: Echocardiogram reviewed, revealed normal ejection fraction and pulmonary hypertension with diastolic dysfunction and mild to moderate aortic regurgitation. IMPRESSION: 1. Hypertensive heart disease. 2. Aortic insufficiency due to degenerative valve disease. 3. Secondary sinus tachycardia, resolved. 4. COPD exacerbation, improving. 5. Mild carotid stenosis. 6. Hyperlipidemia. PLAN: 1. Optimizing antihypertensive regimen. 2. Continue anti-lipid therapy. 3. Steroid taper. 4. 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 Amor Lorenzo M.D. DR: REGGIE JOB#: [id number] CC:
--- NOTE | 2018-08-09 12:41 | Discharge Summary ---
Discharge Summary Discharge Summary _ DATE OF ADMISSION: 08/03/2018 DATE OF DISCHARGE: 08/08/2018 DISCHARGED BY: Dr. Alexander Felipe CONSULTANTS: Dr. Temo Lorenzo BRIEF HOSPITAL COURSE: Patient is an unfortunate 72-year-old male with long-standing history of COPD with end-stage disease. The patient had worsening symptoms. The patient had been in and out of the hospital as well as nursing homes. He had increased chest tightness and congestion. He denied fever or chills. Denied hemoptysis. On evaluation at the ED, blood pressure was elevated to 169/83, he was saturating 90% on room air. Blood work did not show any leukocytosis. Hemoglobin and hematocrit were stable. Electrolytes were normal. Troponin was 0.069. Chest x-ray showed bullous emphysema per ER physician. He was given respiratory care. He was started on IV antibiotics and IV steroids. He was given nebulizer treatment. He was placed on oxygen therapy. He was placed on antiplatelet therapy. He was noted to have heart rate of 145. EKG showed sinus rhythm with right oreilly axis and no acute abnormality. He was given Cardizem for blood pressure elevation. Limit beta agonist use. Echocardiogram done showed normal ejection fraction with no pulmonary hypertension. Patient was noted to have slow improvement. Carotid duplex scan showed 30% stenosis. Lipid panel showed LDL of 110. Target LDL 70. He was given Lipitor 40 mg nightly. TSH was low at 0.233, T3 and T4 were normal. Steroids were tapered. He was breathing better was saturating well on 2 L nasal cannula. He was eventually cleared for discharge home with home health for physical therapy, med compliance and nurse visit. FINAL DIAGNOSES: Acute COPD exacerbation Respiratory failure Tachycardia Protein calorie malnutrition History of CAD Mild carotid stenosis Hyperlipidemia Secondary sinus tachycardia Aortic insufficiency due to degenerative valve disease Elevated troponin Hypertensive heart disease Sinus DISPOSITION: [place] home with home health DISCHARGE MEDICATIONS: Refer to Discharge Medication List. Continue Medrol Dosepak. DISCHARGE INSTRUCTIONS: Follow-up in a week. I have been assigned to complete a discharge summary on this account, I was not involved with the patient's management. Ashly Jerry NP August 09, 2018 12:41
--- NOTE | 2018-08-09 13:58 | NUR ---
*-* INSURANCE *-* UPDATED CLINICALS HAVE BEEN FAXED TO: ASHLEY TOMLIN: RADHA F:[phone] P:[phone] REF#[id number]
--- NOTE | 2018-08-09 16:24 | NUR ---
HOME HEALTH HEALTH PLAN HAS ARRANGED HOME HEALTH WITH [facility]
== END 2018-08-08 15:00 | disposition home health service (06) | DRG 191 ==
LOC: EDBEDREQ 12:40 → EMR 12:55 → 2E 13:21 → EDBEDREQ 16:53
DX: J44.1 Chronic obstructive pulmonary disease with (acute) exacerbation (principal); J96.10 Chronic respiratory failure, unspecified whether with hypoxia or hypercapnia; E46 Unspecified protein-calorie malnutrition; Z68.1 Body mass index [BMI] 19.9 or less, adult; I51.3 Intracardiac thrombosis, not elsewhere classified; R00.0 Tachycardia, unspecified; I65.29 Occlusion and stenosis of unspecified carotid artery; E78.5 Hyperlipidemia, unspecified; I35.1 Nonrheumatic aortic (valve) insufficiency; I11.9 Hypertensive heart disease without heart failure; R74.8 Abnormal levels of other serum enzymes; Z87.891 Personal history of nicotine dependence; R07.81 Pleurodynia; D72.1 Eosinophilia; I25.10 Atherosclerotic heart disease of native coronary artery without angina pectoris
CPT/HCPCS: 36415; 71045; 80048; 80053; 80061; 81003; 82550; 83605; 83735; 83880; 84439; 84443; 84480; 84484; 85007; 85025; 85610; 85730; 93005; 93306; 93880; 94640; 94760; 96374; 99285

== ENCOUNTER 2018-09-24 10:55 | Inpatient (IN) | payer MEDICARE, MEDICAID ==
[~2018-09-24] VITALS: Ht 177.8 cm; Wt 51.0 kg
[~2018-09-24 10:55] MED LIST changes: +MEDROL DOSEPAK4 MG ORAL
[2018-09-24] MEDS ORDERED: Ipratropium 0.02% Inh Soln 2.5ml UD HHN ONE (11:15)
[2018-09-24] MEDS ORDERED: Solu-MEDROL 125mg Inj IVP ONE (11:15)
[2018-09-24] MEDS ORDERED: Albuterol ud Inhalation HHN ONE (11:15)
--- NOTE | 2018-09-24 11:30 | NUR ---
ED Nurse Note:pt. came from home with COPD exacerbation and SOB, a/ox4 ambulatory, given breathing treatment placed on digital account coordinator on R/A
--- NOTE | 2018-09-24 11:42 | NUR ---
ED Nurse Note:blood and bl cultures sent to labs
[2018-09-24 11:43] VITALS: BP 140/80
[2018-09-24 11:56] LABS: EOSINOPHILS % (AUTO) 4.4 % (0.0-3.0); HEMATOCRIT 46.2 % (42.0-52.0); HEMOGLOBIN 14.6 G/DL (14.2-18.0); LYMPHOCYTES % (AUTO) 31.1 % (20.0-45.0); MEAN CORPUSCULAR VOLUME 91 FL (80-99); NEUTROPHILS % (AUTO) 54.6 % (45.0-75.0); PLATELET COUNT 260 K/UL (150-450); RED BLOOD COUNT 5.07 M/UL (4.70-6.10); RED CELL DISTRIBUTION WIDTH 13.8 % (11.6-14.8); WHITE BLOOD COUNT 6.9 K/UL (4.8-10.8)
[2018-09-24 12:04] LABS: ANION GAP 8 mmol/L (5-15); BLOOD UREA NITROGEN 15 mg/dL (7-18); CALCIUM 10.4 MG/DL (8.5-10.1); CARBON DIOXIDE 31 MMOL/L (21-32); CHLORIDE 107 MMOL/L (98-107); CREATININE 1.2 MG/DL (0.55-1.30); POTASSIUM 5.4 MMOL/L (3.5-5.1); SODIUM 146 MMOL/L (136-145)
[2018-09-24 12:17] LABS: ALANINE AMINOTRANSFERASE 19 U/L (12-78); ALBUMIN 3.7 G/DL (3.4-5.0); ALBUMIN/GLOBULIN RATIO 0.9 (1.0-2.7); ALKALINE PHOSPHATASE 92 U/L (46-116); ASPARTATE AMINO TRANSFERASE 25 U/L (15-37); BILIRUBIN,TOTAL 0.3 MG/DL (0.2-1.0); CKMB 5.4 NG/ML (0.0-3.6); CREATINE KINASE 195 U/L (26-308)
--- NOTE | 2018-09-24 13:03 | Diagnostic Imaging Report ---
Indication: Dyspnea Comparison: 08/03/2018 A single view chest radiograph was obtained. Findings: The lungs are hyperexpanded and there is increased lucency focally within the upper lobes especially on the right. Findings consistent with emphysema/COPD. The heart is normal in size. IMPRESSION: No change. COPD
[2018-09-24 13:10] VITALS: BP 137/81
--- NOTE | 2018-09-24 13:13 | Emergency Room Report ---
History of Present Illness General Chief Complaint: Dyspnea/Respdistress Source: Patient Present Illness HPI Patient presents with complaints of shortness of breath Reports that he has been worsening over the past 2 weeks however trying to see if he would get better at home Breathing treatments at home were not helping Patient has a mild increased cough than usual denies any chest pain denies any vomiting or diarrhea denies any rash Denies any recent travel Allergies: Coded Allergies: No Known Allergies (Unverified , 08/06/18) Patient History Past Medical History: see triage record Pertinent Family History: none Reviewed Nursing Documentation: PMH: Agreed; PSxH: Agreed Nursing Documentation-PMH Hx Cardiac Problems: Yes Hx Hypertension: Yes Hx COPD: Yes Hx Cancer: No Hx Gastrointestinal Problems: No Hx Neurological Problems: No Hx Neurologic Surgery: No Review of Systems All Other Systems: negative except mentioned in HPI Physical Exam Vital Signs Date Time Temp Pulse Resp B/P (MAP) Pulse Ox O2 Delivery O2 Flow Rate FiO2 09/24/18 10:58 97.5 111 26 177/73 (107) 93 09/24/18 11:16 Room Air 21 Sp02 EP Interpretation: reviewed, normal General Appearance: mild distress - short Of breath Head: normocephalic, atraumatic Eyes: bilateral eye PERRL, bilateral eye EOMI ENT: hearing grossly normal, normal pharynx, TMs + canals normal, uvula midline Neck: full range of motion, supple, no meningismus, no bony tend Respiratory: no respiratory distress, no retraction, no accessory muscle use, wheezing - bilaterally, mildly tachypneic Cardiovascular #1: normal peripheral pulses, regular rate, rhythm, no edema, no gallop, no JVD, no murmur Gastrointestinal: normal bowel sounds, non tender, soft, no mass, no organomegaly, non-distended, no guarding, no hernia, no pulsatile mass, no rebound Genitourinary: no CVA tenderness Musculoskeletal: normal inspection Neurologic: oriented x3, responsive, sales inspector III-XII nml as tested, motor strength/ tone normal, sensory intact Psychiatric: mood/affect normal Skin: normal color, no rash, warm/dry, palpation normal Lymphatic: normal inspection, no adenopathy Medical Decision Making Diagnostic Impression: Primary Impression: COPD exacerbation ER Course Patient is a fairly complex patient with multiple differential to consideration including but not limited to cardiac cardiopulmonary and vascular emergencies Patient requiring breathing treatments and steroids x-ray imaging shows similar presentation to previous patient doing significantly better however requires further treatments and inpatient care Labs Test 09/24/18 11:30 09/24/18 12:30 White Blood Count 6.9 K/UL (4.8-10.8) Red Blood Count 5.07 M/UL (4.70-6.10) Hemoglobin 14.6 G/DL (14.2-18.0) Hematocrit 46.2 % (42.0-52.0) Mean Corpuscular Volume 91 FL (80-99) Mean Corpuscular Hemoglobin 28.9 PG (27.0-31.0) Mean Corpuscular Hemoglobin Concent 31.7 G/DL (32.0-36.0) Red Cell Distribution Width 13.8 % (11.6-14.8) Platelet Count 260 K/UL (150-450) Mean Platelet Volume 6.0 FL (6.5-10.1) Neutrophils (%) (Auto) 54.6 % (45.0-75.0) Lymphocytes (%) (Auto) 31.1 % (20.0-45.0) Monocytes (%) (Auto) 8.0 % (1.0-10.0) Eosinophils (%) (Auto) 4.4 % (0.0-3.0) Basophils (%) (Auto) 2.0 % (0.0-2.0) Sodium Level 146 MMOL/L (136-145) Potassium Level 5.4 MMOL/L (3.5-5.1) Chloride Level 107 MMOL/L (98-107) Carbon Dioxide Level 31 MMOL/L (21-32) Anion Gap 8 mmol/L (5-15) Blood Urea Nitrogen 15 mg/dL (7-18) Creatinine 1.2 MG/DL (0.55-1.30) Estimat Glomerular Filtration Rate mL/min (>60) Glucose Level 104 MG/DL (74-106) Lactic Acid Level 2.60 mmol/L (0.4-2.0) Calcium Level 10.4 MG/DL (8.5-10.1) Total Bilirubin 0.3 MG/DL (0.2-1.0) Aspartate Amino Transf (AST/SGOT) 25 U/L (15-37) Alanine Aminotransferase (ALT/SGPT) 19 U/L (12-78) Alkaline Phosphatase 92 U/L (46-116) Total Creatine Kinase 195 U/L (26-308) Creatine Kinase MB 5.4 NG/ML (0.0-3.6) Creatine Kinase MB Relative Index 2.7 Troponin I 0.073 ng/mL (0.000-0.056) Pro-B-Type Natriuretic Peptide 94 pg/mL (0-125) Total Protein 7.9 G/DL (6.4-8.2) Albumin 3.7 G/DL (3.4-5.0) Globulin 4.2 g/dL Albumin/Globulin Ratio 0.9 (1.0-2.7) Lipase 57 U/L (73-393) Rhythm Strip Diag. Results EP Interpretation: yes Rate: 88 Rhythm: NSR, no PVC's, no ectopy Chest X-Ray Diagnostic Results Chest X-Ray Diagnostic Results : Chest X-Ray Ordered: Yes # of Views/Limited/Complete: 1 View Indication: Shortness of Breath EP Interpretation: Yes Interpretation: no consolidation, no effusion, no pneumothorax Impression: No acute disease - copd Electronically Signed by: Allan Duarte DO Last Vital Signs Date Time Temp Pulse Resp B/P (MAP) Pulse Ox O2 Delivery O2 Flow Rate FiO2 09/24/18 11:57 82 22 100 Room Air 21 09/24/18 11:43 97.5 140/80 Status: improved Disposition: ADMITTED INPATIENT Condition: Serious Referrals: Phil Felipe MD (PCP) Allan Duarte DO Sep 24, 2018 13:13
--- NOTE | 2018-09-24 13:15 | NUR ---
ED Nurse Note:called report to tele given to tello Oliveira. was taken up to the floor
--- NOTE | 2018-09-24 13:20 | NUR ---
NURSE NOTES: Received pt from RODO rm. Heart monitor applied to pt. Pt has $611 in his wallet. He does not want to put it in the safe. he states that he feels better having it at bedside. Charge nurse made aware. Pt alert and oriented X4. He has shortness of breath at rest with accessory muscle use. He denies any pain. Bed is in lowest position, side rails up X2, and call light is within reach. Will continue to monitor.
[2018-09-24 13:30] VITALS: BP 161/92
[2018-09-24] MEDS ORDERED: metroNIDAZOLE 500mg tab ORAL SCH (14:00)
[2018-09-24] MEDS ORDERED: Albuterol/Ipratropium 3ml neb HHN PRN (14:00)
[2018-09-24] MEDS ORDERED: Albuterol 90mcg Inhaler 8gm INH PRN (14:00)
[2018-09-24] MEDS: Albuterol/Ipratropium 3ml neb HHN SCH ×3 (15:33→23:30)
[2018-09-24 16:00] VITALS: BP 160/81
[2018-09-24] MEDS: cefTRIAXone 1 GM in D5W 55 ML IVPB SCH (16:22)
--- NOTE | 2018-09-24 19:18 | NUR ---
HAND-OFF: Report given to RODO Tadeo. Plan of care endorsed.
--- NOTE | 2018-09-24 19:20 | NUR ---
NURSE NOTES: Received report from Suraj Henley RN. Patient in bed AAO X4 with no complaints of acute pain or distress noted at this time. Kept clean, dry, and comfortable in bed at all times. IV line intact and patent SL with continuous cardiac monitoring in place. Able to ambulate to the bathroom with assistance, offered urinal at bedside PRN. On 2L NC saturating at 93-94% with no S/S of SOB or resp distress noted. Safety precaution in place; siderails X3 up, call light within reach, bed in lowest position position, brakes and alarm on at all times. Will continue plan of care and monitor for any changes noted.
[2018-09-24 20:00] VITALS: BP 142/75
--- NOTE | 2018-09-24 20:15 | NUR ---
CASE MANAGEMENT: REVIEW 73Y/M PRESENTED TO ED FROM HOME C/O SOB X2 WEEKS . HX COPD SI: RESP DISTRESS T 97.5 HR 111 RR 26 BP 177/73 SAT 98% NC/2L NA 146 K 5.4 LACTIC ACID 2.60 CK 5.4 TROPONIN I 0.073 IS: ALBUTEROL HHN X1 ATROVENT HHN X1 SOLU MEDROL IV X1 PATIENT ADMITTED TO TELEMETRY UNIT 09/24/2018 DCP: PATIENT IS FROM HOME
[2018-09-24] MEDS: Heparin 5000 units/ml inj SUBQ SCH ×2 (20:33→20:50)
[2018-09-24] MEDS: Solu-MEDROL 125mg Inj IVP SCH (20:42)
--- NOTE | 2018-09-24 22:30 | History and Physical Report ---
DATE OF ADMISSION: 09/24/2018 REASON FOR ADMISSION: COPD, hypernatremia, and lactic acidemia. HISTORY OF PRESENT ILLNESS: This is a 33-year-old male with a history of end-stage chronic obstructive pulmonary disease. The patient presented with worsening shortness of breath over the past two weeks. The patient is unable to improve at home. The patient has been taking excessive amounts of breathing treatment, but has not improved. The patient with cough, chest tightness, and difficulty breathing. The patient is seen in the emergency room and was evaluated and is now being admitted for COPD exacerbation. The patient's care reviewed and discussed. The patient is otherwise in no imminent respiratory failure, does not require BiPAP at this time. No recent travel. No ill contacts PAST MEDICAL HISTORY: Includes chronic obstructive pulmonary disease, hypertension, tachyarrhythmias, failure to thrive, remote history of C. diff, and vitamin D deficiency. MEDICATIONS: Reviewed. ALLERGIES: Reviewed. SOCIAL HISTORY: The patient has a longstanding history of smoking. He recently found housing. Previously, in the intermediate. Currently, does not smoke or drink. REVIEW OF SYSTEMS: All 10-points reviewed and otherwise negative. FAMILY HISTORY: Otherwise noncontributory as above. PHYSICAL EXAMINATION: GENERAL: A well-developed male, somewhat hypertensive. VITAL SIGNS: Temperature 98.8 respirations 22, blood pressure 116/81, and saturations 98%. HEENT: Overall negative. Extraocular movements are grossly intact. Oropharynx is moist. LUNGS: With moderate breath sounds. Scattered wheezes. CARDIAC: S1 and S2. Regular rate and rhythm. Slightly distant without murmurs, rubs, or gallops. ABDOMEN: Soft, nontender, and nondistended. EXTREMITIES: No cyanosis, clubbing, or edema. SKIN: Turgor slightly reduced. LABORATORY DATA: Reviewed. Sodium 146, potassium 5.4, calcium 10.4. Troponin 0.073. White cell count 6.9 and platelets 260,000. Chest x-ray showed chronic obstructive pulmonary disease. IMPRESSIONS: 1. Hypernatremia. 2. Hyperkalemia. 3. Possible renal dysfunction. 4. COPD with acute exacerbation. 5. Elevated troponin, possibly leak. 6. Hypertension per history. RECOMMENDATIONS: 1. Supportive care. 2. Intravenous steroids. 3. Intravenous antibiotics. 4. Intravenous fluids. 5. Renal evaluation if needed 6. Cardiology evaluation to follow. 7. Monitor clinically and recommend further supportive care. 8. He will follow up for further change and interventions and ongoing recommendations. Phil Felipe M.D. DR: YESSY JOB#: [id number] CC: DARYL
[2018-09-25] VITALS: BP 149/78
--- NOTE | 2018-09-25 02:53 | NUR ---
HAND-OFF: Report given to Varinder Cohen RN. Patient in stable condition, endorsed plan of care.
--- NOTE | 2018-09-25 03:45 | Consultation ---
DATE OF CONSULTATION: 09/24/2018 CONSULTING PHYSICIAN: Amor Lorenzo M.D. REQUESTING PHYSICIANS: Phil Felipe M.D. REASON FOR CONSULTATION: Paroxysmal atrial fibrillation, lactic acidosis, and elevated troponin level in the setting of chronic obstructive pulmonary disease. HISTORY OF PRESENT ILLNESS: This is a 73-year-old male. He has a history of end-stage chronic obstructive pulmonary disease. He was hospitalized here over a month ago with shortness of breath due to an exacerbation, stabilized and discharged home. However, over the past days, he has developed worsening shortness of breath with wheezing and has not improved with excessive amounts of inhaled bronchodilator therapy. He came to the emergency room with increasing shortness of breath, cough, chest tightness, and wheezing. He had abnormal cardiac monitors, elevated troponin level, and lactic acid in the emergency room. I have been asked to assist with further care. PAST MEDICAL HISTORY: 1. Chronic obstructive pulmonary disease. 2. Hypertension. 3. Paroxysmal atrial fibrillation. 4. History of Clostridium difficile. 5. Vitamin D deficiency. 6. Paroxysmal bronchospasm. 7. Hyperlipidemia. 8. Nonobstructive carotid stenosis. SOCIAL HISTORY: Residing in a penitentiary facility in the past, presently at home. He has a longstanding smoking history of over 50-pack year, although presently he is not smoking and does not drink alcohol. MEDICATIONS: Prior to admission are reviewed and reconciled. ALLERGIES: None known. FAMILY HISTORY: Noncontributory. REVIEW OF SYSTEMS: A 10-point review of systems performed. All systems negative other than noted above. PHYSICAL EXAMINATION: VITAL SIGNS: Blood pressure 160/81, heart rate 76, respiratory rate 22, and afebrile. Monitored strips presently sinus rhythm. Episodes of paroxysmal atrial fibrillation with rapid ventricular response noted. GENERAL: Temporal wasting. No accessory muscle use. HEENT: No thyromegaly or tracheal deviation. Jugular venous pressure is grossly normal. LUNGS: Bilateral breath sounds. Diminished slightly at bases with expiratory wheezes. CARDIAC: Reveals regular rhythm and rate. Normal S1 and S2 with a fourth heart sound. No murmur. ABDOMEN: Soft and nontender. EXTREMITIES: No clubbing or cyanosis. No edema. NEUROLOGIC: Nonfocal. LABORATORY DATA: Chest x-ray reveals hyperinflation. Sodium 146, potassium 5.4, bicarbonate 31, BUN 15, creatinine 1.2, lactic acid 2.6, repeated 1.2. Troponin is 0.073. Albumin 3.7. White count is 6.9 and hemoglobin 14.6. EKG with sinus rhythm and no acute abnormalities. IMPRESSION: 1. Chronic obstructive pulmonary disease with acute exacerbation. 2. Paroxysmal atrial fibrillation. 3. Acute myocardial ischemia and possible non-ST elevation infarction. 4. Lactic acidosis, recovered. 5. Paroxysmal bronchospasm. 6. Hypertensive heart disease with labile blood pressure. PLAN: 1. Cardiac monitoring. 2. Cautious hydration. 3. Serial troponin. 4. Inhaled bronchodilators. 5. No beta blockers. 6. Intravenous steroid. 7. Diltiazem therapy for blood pressure and rate control can be considered ____ amlodipine. 8. Presently, no indication for full anticoagulation. 9. Consider statin drug for LDL goal less than 100 and long-term anti-platelet therapy. Amor Lorenzo M.D. DR: VICTOR MANUEL JOB#: [id number] CC:
[2018-09-25 04:00] VITALS: BP 155/77
[2018-09-25] MEDS: Albuterol/Ipratropium 3ml neb HHN SCH ×6 (04:01→23:28)
--- NOTE | 2018-09-25 07:18 | NUR ---
NURSE NOTES: Report received from RODO Dobbins. Patient awake and ready to have breakfast. AOx4. In 2L NC. Denies any pain or SOB. IV running 1/2 NS at 100. Bed on lowest position, side rails upx2, brakes engaged. Call light within easy reach.
[2018-09-25 07:22] LABS: BASOPHILS % (AUTO) 0.8 % (0.0-2.0); HEMATOCRIT 42.2 % (42.0-52.0); HEMOGLOBIN 13.6 G/DL (14.2-18.0); MEAN CORPUSCULAR VOLUME 90 FL (80-99); MONOCYTES % (AUTO) 3.3 % (1.0-10.0); NEUTROPHILS % (AUTO) 75.9 % (45.0-75.0); PLATELET COUNT 270 K/UL (150-450); RED BLOOD COUNT 4.67 M/UL (4.70-6.10); RED CELL DISTRIBUTION WIDTH 13.6 % (11.6-14.8); WHITE BLOOD COUNT 5.9 K/UL (4.8-10.8)
--- NOTE | 2018-09-25 07:41 | NUR ---
HAND-OFF: Report given to RODO Garcia.
[2018-09-25 07:49] LABS: ALANINE AMINOTRANSFERASE 21 U/L (12-78); ALBUMIN 3.6 G/DL (3.4-5.0); ALBUMIN/GLOBULIN RATIO 0.9 (1.0-2.7); ALKALINE PHOSPHATASE 93 U/L (46-116); ANION GAP 10 mmol/L (5-15); ASPARTATE AMINO TRANSFERASE 20 U/L (15-37); BILIRUBIN,TOTAL 0.3 MG/DL (0.2-1.0); BLOOD UREA NITROGEN 16 mg/dL (7-18); CALCIUM 10.1 MG/DL (8.5-10.1); CARBON DIOXIDE 28 MMOL/L (21-32); CHLORIDE 105 MMOL/L (98-107); CREATININE 1.1 MG/DL (0.55-1.30); SODIUM 143 MMOL/L (136-145)
[2018-09-25 08:00] VITALS: BP 154/73
--- NOTE | 2018-09-25 08:16 | Pulmonology Progress Note ---
Assessment/Plan Assessment/Plan COPD with acute exacerbation hypernatremia hyperkalemia elevated troponin reduced TSH hypertension hypoxemia PLAN care noted maintain same cards noted follow up lytes assess further pending reeval impression, plan, and exam edited and reviewed in detail care discussed with RN Subjective Allergies: Coded Allergies: No Known Allergies (Unverified , 08/06/18) Subjective care noted and reviewed no distress at present Objective Last 24 Hour Vital Signs Date Time Temp Pulse Resp B/P (MAP) Pulse Ox O2 Delivery O2 Flow Rate FiO2 09/25/18 07:09 75 18 100 Nasal Cannula 2.0 28 09/25/18 07:00 80 18 99 Nasal Cannula 2.0 28 09/25/18 04:00 79 09/25/18 04:00 97.6 71 18 155/77 (103) 100 09/25/18 03:59 76 18 100 Nasal Cannula 2.0 28 09/25/18 03:50 72 18 98 Nasal Cannula 2.0 28 09/25/18 00:00 80 09/25/18 00:00 98.2 83 18 149/78 (101) 94 09/24/18 23:44 84 18 99 Nasal Cannula 2.0 28 09/24/18 23:30 80 18 98 Nasal Cannula 2.0 28 09/24/18 21:00 Nasal Cannula 2.0 09/24/18 20:41 81 18 99 Nasal Cannula 2.0 28 09/24/18 20:06 76 18 98 Nasal Cannula 2.0 28 09/24/18 20:00 2.0 09/24/18 20:00 98.1 75 18 142/75 (97) 97 09/24/18 16:00 79 09/24/18 16:00 98.3 76 22 160/81 (107) 97 09/24/18 16:00 2.0 09/24/18 15:43 81 18 99 Nasal Cannula 2.0 28 09/24/18 15:33 77 18 97 Nasal Cannula 2.0 28 09/24/18 15:07 Nasal Cannula 2.0 09/24/18 13:30 98.2 89 26 161/92 (115) 98 09/24/18 13:25 97.5 89 22 140/80 100 Room Air 21 09/24/18 13:20 95 09/24/18 13:10 97.5 79 21 137/81 100 Room Air 21 09/24/18 11:57 82 22 100 Room Air 21 09/24/18 11:43 97.5 89 21 140/80 100 Room Air 21 09/24/18 11:43 89 21 Room Air 21 09/24/18 11:16 89 21 100 Room Air 21 09/24/18 10:58 97.5 111 26 177/73 (107) 93 Intake and Output 09/24/18 09/25/18 18:59 06:59 Intake Total 170 ml Balance 170 ml Intake Oral 170 ml # Voids 1 6 # Bowel Movements 1 1 Objective WDWN NAD reduced breath sounds bilaterally without rhonchi or wheeze [id number] without MRG NABS nontender no HSM no CCE nonfocal Laboratory Tests 09/24/18 11:30: White Blood Count 6.9, Red Blood Count 5.07, Hemoglobin 14.6, Hematocrit 46.2, Mean Corpuscular Volume 91, Mean Corpuscular Hemoglobin 28.9, Mean Corpuscular Hemoglobin Concent 31.7L, Red Cell Distribution Width 13.8, Platelet Count 260, Mean Platelet Volume 6.0L, Neutrophils (%) (Auto) 54.6, Lymphocytes (%) (Auto) 31.1, Monocytes (%) (Auto) 8.0, Eosinophils (%) (Auto) 4.4H, Basophils (%) (Auto ) 2.0, Sodium Level 146H, Potassium Level 5.4H, Chloride Level 107, Carbon Dioxide Level 31, Anion Gap 8, Blood Urea Nitrogen 15, Creatinine 1.2, Estimat Glomerular Filtration Rate , Glucose Level 104, Lactic Acid Level 2.60H, Calcium Level 10.4H, Total Bilirubin 0.3, Aspartate Amino Transf (AST/SGOT) 25, Alanine Aminotransferase (ALT/SGPT) 19, Alkaline Phosphatase 92, Total Creatine Kinase 195, Creatine Kinase MB 5.4H, Creatine Kinase MB Relative Index 2.7, Troponin I 0.073H, Pro-B-Type Natriuretic Peptide 94, Total Protein 7.9, Albumin 3.7, Globulin 4.2, Albumin/Globulin Ratio 0.9L, Lipase 57L 09/24/18 12:30: Lactic Acid Level 1.20 09/25/18 06:08: White Blood Count 5.9, Red Blood Count 4.67L, Hemoglobin 13.6L, Hematocrit 42.2 , Mean Corpuscular Volume 90, Mean Corpuscular Hemoglobin 29.1, Mean Corpuscular Hemoglobin Concent 32.2, Red Cell Distribution Width 13.6, Platelet Count 270, Mean Platelet Volume 6.4L, Neutrophils (%) (Auto) 75.9H, Lymphocytes (%) (Auto) 20.0, Monocytes (%) (Auto) 3.3, Eosinophils (%) (Auto) 0.0, Basophils (%) (Auto) 0.8, Sodium Level 143, Potassium Level 4.0, Chloride Level 105, Carbon Dioxide Level 28, Anion Gap 10, Blood Urea Nitrogen 16, Creatinine 1.1, Estimat Glomerular Filtration Rate , Glucose Level 131H, Calcium Level 10.1 , Total Bilirubin 0.3, Aspartate Amino Transf (AST/SGOT) 20, Alanine Aminotransferase (ALT/SGPT) 21, Alkaline Phosphatase 93, Troponin I 0.069H, Pro- B-Type Natriuretic Peptide 178H, Total Protein 7.6, Albumin 3.6, Globulin 4.0, Albumin/Globulin Ratio 0.9L, Magnesium Level 2.0, Thyroid Stimulating Hormone ( TSH) 0.261L Current Medications Medications (Trade) Dose Ordered Sig/Charlie Route PRN Reason Start Time Stop Time Status Last Admin Dose Admin Acetaminophen (Tylenol) 650 mg Q4H PRN ORAL Mild Pain/Temp > 100.5 09/24/18 14:15 10/24/18 14:14 Al Hydroxide/Mg Hydroxide (Mylanta) 30 ml Q4H PRN ORAL Nausea & Vomiting 09/24/18 14:15 10/24/18 14:14 Albuterol/ Ipratropium (Albuterol/ Ipratropium) 3 ml Q4H PRN HHN Shortness of Breath 09/24/18 14:00 09/29/18 13:59 Albuterol/ Ipratropium (Albuterol/ Ipratropium) 3 ml Q4HRT HHN 09/24/18 15:00 09/29/18 14:59 09/25/18 07:00 Amlodipine Besylate (Norvasc) 5 mg DAILY ORAL 09/25/18 09:00 10/25/18 08:59 Ceftriaxone Sodium 1 gm/ Dextrose 55 ml @ 110 mls/hr Q24H IVPB 09/24/18 16:00 10/01/18 15:59 09/24/18 16:22 Clonidine HCl (Catapres Tab) 0.1 mg Q4H PRN ORAL For High Blood Pressure 09/24/18 19:00 10/24/18 18:59 Cyanocobalamin (Vitamin B-12) 500 mcg DAILY ORAL 09/25/18 09:00 10/25/18 08:59 Heparin Sodium (Porcine) (Heparin 5000 units/ml) 5,000 units EVERY 12 HOURS SUBQ 09/24/18 21:00 10/24/18 20:59 09/24/18 20:50 Levofloxacin (Levaquin) 500 mg DAILY ORAL 09/25/18 09:00 10/01/18 09:01 Methylprednisolone Sodium Succinate (Solu-MEDROL) 60 mg EVERY 12 HOURS IVP 09/24/18 21:00 10/24/18 20:59 09/24/18 20:42 Sodium Chloride 1,000 ml @ 100 mls/hr Q10H IV 09/24/18 14:00 10/24/18 13:59 09/25/18 00:23 Vitamin D (Vitamin D) 1,000 intlu DAILY ORAL 09/25/18 09:00 10/25/18 08:59 Phil Felipe MD Sep 25, 2018 08:16
[2018-09-25] MEDS: Vitamin D 1000 IU Tab ORAL SCH (08:51)
[2018-09-25] MEDS: Vitamin B-12 500mcg tab ORAL SCH (08:51)
[2018-09-25] MEDS: Levofloxacin 500mg tab ORAL SCH (08:51)
[2018-09-25] MEDS: Solu-MEDROL 125mg Inj IVP SCH ×2 (08:53→21:21)
[2018-09-25] MEDS: Heparin 5000 units/ml inj SUBQ SCH ×2 (08:54→21:00)
[2018-09-25] MEDS ORDERED: Vitamin D 1000 IU Tab ORAL SCH (09:00)
--- NOTE | 2018-09-25 10:55 | NUR ---
RD ASSESSMENT & RECOMMENDATIONS SEE CARE ACTIVITY FOR COMPLETE ASSESSMENT DAILY ESTIMATED NEEDS: Needs based on Underweight, wt loss, COPD/ 52kg 35-40 kcals/kg 9851-3516 total kcals 1-2 g protein/kg 52-104 g total protein 25-30 mL/kg 4523-3699 total fluid mLs NUTRITION DIAGNOSIS: * Unintentional wt loss R/T clinical condition, end stage COPD, as evidenced by previous hospitalizations w/ prior trach placement now removed, ph/o of wt loss, currently severely underweight w/ BMI=16.4, 69% IBW. CURRENT DIET: Regular PO DIET RECOMMENDATIONS: Liberalized REGULAR/ Soft easy chew + snacks TID in b/w meals ADDITIONAL RECOMMENDATIONS: * Standing wt as able for accurate CBW * Weekly wt monitoring- hx of severe wt loss, currently underweight * Snacks TID in b/w all meals * Monitor BGs closely while on solumedrol -
[2018-09-25] MEDS: Breo Ellipta 200/25mcg-14 dose INH SCH (11:46)
[2018-09-25 12:00] VITALS: BP 147/83
--- NOTE | 2018-09-25 13:45 | Consultation ---
DATE OF CONSULTATION: 09/25/2018 INFECTIOUS DISEASES CONSULTATION CONSULTING PHYSICIAN: Gurjit Mora M.D. REFERRING PHYSICIAN: Phil Felipe M.D. REASON FOR CONSULTATION: Possible pneumonia. HISTORY OF PRESENTING ILLNESS: This is a 73-year-old gentleman with history of COPD, hypertension, C. difficile colitis, vitamin D deficiency, who comes in with increasing shortness of breath. He also had some fever and chills. He has been admitted and an Infectious Diseases consultation has been obtained for possible pneumonia. PAST MEDICAL HISTORY: 1. COPD. 2. Hypertension. 3. Tachy arrhythmia. 4. History of C. difficile colitis. 5. Vitamin D deficiency. SOCIAL HISTORY: He has a history of smoking, he does not smoke anymore. He used to drink alcohol, he does not drink anymore. No history of drug use. FAMILY HISTORY: Noncontributory. REVIEW OF SYSTEMS: RESPIRATORY: He did have some fever and chills. No cough. He has shortness of breath. No chest pain. CARDIAC: No chest pain. No palpitation. No dizziness. No syncope. GASTROINTESTINAL: No nausea. No vomiting. No abdominal pain or diarrhea. MEDICATIONS: As an inpatient, he is on Spiriva, fluticasone, amlodipine, cyanocobalamin, vitamin D, Levaquin, subcutaneous heparin, methylprednisolone, clonidine, ceftriaxone, albuterol, ipratropium, Tylenol, and Mylanta. ALLERGIES: No known drug allergies. PHYSICAL EXAMINATION: VITAL SIGNS: Temperature of 98.2, T-max of 98.3, pulse of 87, respiratory rate of 18, blood pressure 154/73, and O2 saturation of 99%. HEENT: Pupils equally reactive to light and accommodation. Mouth appears clean without thrush. NECK: Supple. No adenopathy. No JVD. CARDIOVASCULAR: Regular rate and rhythm. No murmurs. LUNGS: Clear to auscultation bilaterally. No crackles. No wheezes. ABDOMEN: Soft and nontender. No organomegaly. EXTREMITIES: No cyanosis, no clubbing, no edema. LABORATORY AND DIAGNOSTIC DATA: White count 5.9, hemoglobin 13.6, hematocrit 42.2, MCV 90, platelet count of , neutrophils of 75%. Sodium 143, potassium 4, chloride 105, bicarb 28, BUN 16, creatinine 1.1, glucose 131, calcium 10.1. Total bilirubin 0.3. AST 20, ALT 21, alkaline phosphatase 93. Troponin 0.069. Beta-natriuretic peptide 178. Total protein 7.6. Albumin 3.6. Chest x-ray showing COPD with hyperexpanded lungs. ASSESSMENT: This is a 73-year-old gentleman with history of COPD and hypertension, who comes in with increasing shortness of breath and was found to have. 1. Possible community-acquired pneumonia versus atypical pneumonia. 2. COPD. 3. Hypertension. PLAN: 1. We will order sputum for Gram stain and culture. 2. We will follow up cultures and adjust antibiotics accordingly. I would like to thank, Dr. Felipe, for this consultation. Gurjit Mora M.D. DR: KAY JOB#: [id number] CC: Phil Felipe M.D.; Fax#: [phone]
[2018-09-25 16:00] VITALS: BP 155/79
[2018-09-25] MEDS: cefTRIAXone 1 GM in D5W 55 ML IVPB SCH (16:30)
--- NOTE | 2018-09-25 19:23 | NUR ---
HAND-OFF: Report given to RODO Streeter. Patient in stable condition. Denies SOB.
--- NOTE | 2018-09-25 19:30 | NUR ---
NURSE NOTES: Received report from RODO Mccray. Pt is awake and resting in bed. In no acute distress. Bed in lowest position, call light within reach. Will continue plan of care.
[2018-09-25 20:00] VITALS: BP 156/83
[2018-09-26] VITALS: BP 139/76
--- NOTE | 2018-09-26 02:30 | Progress Note ---
DATE: 09/25/2018 CARDIOLOGY PROGRESS NOTE SUBJECTIVE: The patient is in less distress today. Remaining on antimicrobials, respiratory hygiene, status post steroid boluses. OBJECTIVE: VITAL SIGNS: Blood pressure 155/77, pulse 71, respiratory rate 18, and afebrile. LUNGS: Coarse breath sounds. Few rhonchi and expiratory wheezes. HEART: Regular rhythm and rate. Normal S1, S2 with a fourth heart sound. ABDOMEN: Soft. EXTREMITIES: Trace edema. LABORATORY DATA: White count 5.9 and hemoglobin 13.6. Troponin is 0.069. Natriuretic peptide 178. TSH 0.26. Magnesium 2.0, potassium 4, BUN 16, and creatinine 1.1. Lactic acid is normal. IMPRESSION: 1. Acute myocardial ischemia. 2. Recovered lactic acidosis. 3. Chronic obstructive pulmonary disease exacerbation. 4. Paroxysmal atrial fibrillation. 5. Paroxysmal bronchospasm. 6. Hypertensive heart disease with improved blood pressure control. 7. Low TSH. May be reflective of slight state versus sick thyroid syndrome. PLAN: 1. Continue cardiac monitoring. 2. Adjust intravenous fluids. 3. Continue bronchodilators and steroids per tripper. 4. Titrate diltiazem. 5. No plan for full anticoagulation at this time. 6. DVT prophylaxis. Amor Lorenzo M.D. DR: BRET JOB#: [id number] CC:
[2018-09-26] MEDS: Albuterol/Ipratropium 3ml neb HHN SCH ×6 (03:34→23:53)
[2018-09-26 04:00] VITALS: BP 155/73
[2018-09-26] MEDS: dilTIAZem HCl 60mg tab ORAL SCH ×3 (06:07→21:17)
--- NOTE | 2018-09-26 07:22 | NUR ---
HAND-OFF: Report given to Shazia.
--- NOTE | 2018-09-26 07:22 | NUR ---
NURSE NOTES: Report received from RODO Streeter. AAOx4. Having breakfast. Not using his O2 at this time. Denies any SOB. Denies any pain. New IV inserted on R FA 22g 1/ NS running at 60. Bed on lowest position, side rails upx2, brakes engaged. Call light within easy reach.
[2018-09-26 08:00] VITALS: BP 154/77
[2018-09-26] MEDS: Heparin 5000 units/ml inj SUBQ SCH ×2 (09:00→21:00)
[2018-09-26] MEDS: Vitamin D 1000 IU Tab ORAL SCH (09:07)
[2018-09-26] MEDS: Levofloxacin 500mg tab ORAL SCH (09:07)
[2018-09-26] MEDS: Solu-MEDROL 125mg Inj IVP SCH ×2 (09:07→21:17)
[2018-09-26] MEDS: Vitamin B-12 500mcg tab ORAL SCH (09:07)
[2018-09-26] MEDS: Breo Ellipta 200/25mcg-14 dose INH SCH (09:25)
--- NOTE | 2018-09-26 10:14 | Pulmonology Progress Note ---
Assessment/Plan Assessment/Plan Pulmonary Progress Note Assessment/Plan COPD with acute exacerbation hypernatremia improved hyperkalemia improved elevated troponin reduced TSH hypertension hypoxemia PLAN ID following care noted maintain same cards noted follow up lytes assess further pending reeval impression, plan, and exam edited and reviewed in detail care discussed with RN Subjective Allergies: Coded Allergies: No Known Allergies Subjective care noted and reviewed no distress at present Objective Vital Signs Noted Objective WDWN NAD reduced breath sounds bilaterally without rhonchi or wheeze [id number] without MRG NABS nontender no HSM no CCE nonfocal Laboratory Tests 09/24/18 11:30: White Blood Count 6.9, Red Blood Count 5.07, Hemoglobin 14.6, Hematocrit 46.2, Mean Corpuscular Volume 91, Mean Corpuscular Hemoglobin 28.9, Mean Corpuscular Hemoglobin Concent 31.7L, Red Cell Distribution Width 13.8, Platelet Count 260, Mean Platelet Volume 6.0L, Neutrophils (%) (Auto) 54.6, Lymphocytes (%) (Auto) 31.1, Monocytes (%) (Auto) 8.0, Eosinophils (%) (Auto) 4.4H, Basophils (%) (Auto ) 2.0, Sodium Level 146H, Potassium Level 5.4H, Chloride Level 107, Carbon Dioxide Level 31, Anion Gap 8, Blood Urea Nitrogen 15, Creatinine 1.2, Estimat Glomerular Filtration Rate , Glucose Level 104, Lactic Acid Level 2.60H, Calcium Level 10.4H, Total Bilirubin 0.3, Aspartate Amino Transf (AST/SGOT) 25, Alanine Aminotransferase (ALT/SGPT) 19, Alkaline Phosphatase 92, Total Creatine Kinase 195, Creatine Kinase MB 5.4H, Creatine Kinase MB Relative Index 2.7, Troponin I 0.073H, Pro-B-Type Natriuretic Peptide 94, Total Protein 7.9, Albumin 3.7, Globulin 4.2, Albumin/Globulin Ratio 0.9L, Lipase 57L 09/24/18 12:30: Lactic Acid Level 1.20 09/25/18 06:08: White Blood Count 5.9, Red Blood Count 4.67L, Hemoglobin 13.6L, Hematocrit 42.2 , Mean Corpuscular Volume 90, Mean Corpuscular Hemoglobin 29.1, Mean Corpuscular Hemoglobin Concent 32.2, Red Cell Distribution Width 13.6, Platelet Count 270, Mean Platelet Volume 6.4L, Neutrophils (%) (Auto) 75.9H, Lymphocytes (%) (Auto) 20.0, Monocytes (%) (Auto) 3.3, Eosinophils (%) (Auto) 0.0, Basophils (%) (Auto) 0.8, Sodium Level 143, Potassium Level 4.0, Chloride Level 105, Carbon Dioxide Level 28, Anion Gap 10, Blood Urea Nitrogen 16, Creatinine 1.1, Estimat Glomerular Filtration Rate , Glucose Level 131H, Calcium Level 10.1 , Total Bilirubin 0.3, Aspartate Amino Transf (AST/SGOT) 20, Alanine Aminotransferase (ALT/SGPT) 21, Alkaline Phosphatase 93, Troponin I 0.069H, Pro- B-Type Natriuretic Peptide 178H, Total Protein 7.6, Albumin 3.6, Globulin 4.0, Albumin/Globulin Ratio 0.9L, Magnesium Level 2.0, Thyroid Stimulating Hormone ( TSH) 0.261L Current Medications Medications (Trade) Dose Ordered Sig/Charlie Route PRN Reason Start Time Stop Time Status Last Admin Dose Admin Acetaminophen (Tylenol) 650 mg Q4H PRN ORAL Mild Pain/Temp > 100.5 09/24/18 14:15 10/24/18 14:14 Al Hydroxide/Mg Hydroxide (Mylanta) 30 ml Q4H PRN ORAL Nausea & Vomiting 09/24/18 14:15 10/24/18 14:14 Albuterol/ Ipratropium (Albuterol/ Ipratropium) 3 ml Q4H PRN HHN Shortness of Breath 09/24/18 14:00 09/29/18 13:59 Albuterol/ Ipratropium (Albuterol/ Ipratropium) 3 ml Q4HRT HHN 09/24/18 15:00 09/29/18 14:59 09/25/18 07:00 Amlodipine Besylate (Norvasc) 5 mg DAILY ORAL 09/25/18 09:00 10/25/18 08:59 Ceftriaxone Sodium 1 gm/ Dextrose 55 ml @ 110 mls/hr Q24H IVPB 09/24/18 16:00 10/01/18 15:59 09/24/18 16:22 Clonidine HCl (Catapres Tab) 0.1 mg Q4H PRN ORAL For High Blood Pressure 09/24/18 19:00 10/24/18 18:59 Cyanocobalamin (Vitamin B-12) 500 mcg DAILY ORAL 09/25/18 09:00 10/25/18 08:59 Heparin Sodium (Porcine) (Heparin 5000 units/ml) 5,000 units EVERY 12 HOURS SUBQ 09/24/18 21:00 10/24/18 20:59 09/24/18 20:50 Levofloxacin (Levaquin) 500 mg DAILY ORAL 09/25/18 09:00 10/01/18 09:01 Methylprednisolone Sodium Succinate (Solu-MEDROL) 60 mg EVERY 12 HOURS IVP 09/24/18 21:00 10/24/18 20:59 09/24/18 20:42 Sodium Chloride 1,000 ml @ 100 mls/hr Q10H IV 09/24/18 14:00 10/24/18 13:59 09/25/18 00:23 Vitamin D (Vitamin D) 1,000 intlu DAILY ORAL 09/25/18 09:00 10/25/18 08:59 Subjective ROS Limited/Unobtainable: No Allergies: Coded Allergies: No Known Allergies (Unverified , 08/06/18) Objective Last 24 Hour Vital Signs Date Time Temp Pulse Resp B/P (MAP) Pulse Ox O2 Delivery O2 Flow Rate FiO2 09/26/18 09:31 90 18 97 Room Air 21 09/26/18 09:26 90 18 97 Room Air 21 09/26/18 08:00 98.3 110 20 154/77 (102) 97 09/26/18 07:12 74 18 99 Nasal Cannula 2.0 28 09/26/18 06:53 78 20 99 Room Air 21 09/26/18 06:07 80 151/74 09/26/18 04:00 97.5 82 18 155/73 (100) 97 09/26/18 04:00 82 09/26/18 03:40 77 20 100 Nasal Cannula 2.0 28 09/26/18 03:32 78 20 99 Nasal Cannula 2.0 28 09/26/18 00:00 97.6 110 18 139/76 (97) 94 09/26/18 00:00 110 09/25/18 23:35 94 20 99 Nasal Cannula 2.0 28 09/25/18 23:27 93 20 93 Nasal Cannula 2.0 28 09/25/18 21:00 Nasal Cannula 2.0 09/25/18 20:08 120 20 99 Nasal Cannula 2.0 28 09/25/18 20:00 87 09/25/18 20:00 97.3 87 20 156/83 (107) 95 09/25/18 19:54 124 24 98 Nasal Cannula 2.0 28 09/25/18 16:00 98.3 109 20 155/79 (104) 99 09/25/18 16:00 89 09/25/18 15:23 83 18 100 Nasal Cannula 2.0 28 09/25/18 15:12 84 20 98 Nasal Cannula 2.0 28 09/25/18 12:09 90 18 99 Nasal Cannula 2.0 28 09/25/18 12:07 78 18 98 Room Air 21 09/25/18 12:00 97.7 94 20 147/83 (104) 98 09/25/18 12:00 83 20 98 Nasal Cannula 2.0 28 09/25/18 12:00 78 18 98 Room Air 21 09/25/18 12:00 90 Intake and Output 09/25/18 09/26/18 18:59 06:59 Intake Total 360 ml Output Total 200 ml Balance 160 ml Intake Oral 360 ml Output Urine Total 200 ml # Voids 2 2 Microbiology Date/Time Source Procedure Growth Status 09/24/18 11:40 Blood Blood Culture - Preliminary NO GROWTH AFTER 24 HOURS Resulted 09/24/18 11:30 Blood Blood Culture - Preliminary NO GROWTH AFTER 24 HOURS Resulted 09/25/18 12:30 Sputum Gram Stain Pending Resulted 09/25/18 12:30 Sputum Sputum Culture - Preliminary Resulted Current Medications Medications (Trade) Dose Ordered Sig/Charlie Route PRN Reason Start Time Stop Time Status Last Admin Dose Admin Acetaminophen (Tylenol) 650 mg Q4H PRN ORAL Mild Pain/Temp > 100.5 09/24/18 14:15 10/24/18 14:14 Al Hydroxide/Mg Hydroxide (Mylanta) 30 ml Q4H PRN ORAL Nausea & Vomiting 09/24/18 14:15 10/24/18 14:14 Albuterol/ Ipratropium (Albuterol/ Ipratropium) 3 ml Q4H PRN HHN Shortness of Breath 09/24/18 14:00 09/29/18 13:59 Albuterol/ Ipratropium (Albuterol/ Ipratropium) 3 ml Q4HRT HHN 09/24/18 15:00 09/29/18 14:59 09/26/18 06:53 Ceftriaxone Sodium 1 gm/ Dextrose 55 ml @ 110 mls/hr Q24H IVPB 09/24/18 16:00 10/01/18 15:59 09/25/18 16:30 Clonidine HCl (Catapres Tab) 0.1 mg Q4H PRN ORAL For High Blood Pressure 09/24/18 19:00 10/24/18 18:59 Cyanocobalamin (Vitamin B-12) 500 mcg DAILY ORAL 09/25/18 09:00 10/25/18 08:59 09/26/18 09:07 Diltiazem HCl (Cardizem) 60 mg EVERY 8 HOURS ORAL 09/26/18 06:00 10/26/18 05:59 09/26/18 06:07 Fluticasone/ Vilanterol (Breo Ellipta 200/25) 1 puffs DAILY INH 09/25/18 10:00 10/25/18 09:59 09/26/18 09:25 Heparin Sodium (Porcine) (Heparin 5000 units/ml) 5,000 units EVERY 12 HOURS SUBQ 09/24/18 21:00 10/24/18 20:59 09/24/18 20:50 Levofloxacin (Levaquin) 500 mg DAILY ORAL 09/25/18 09:00 10/01/18 09:01 09/26/18 09:07 Methylprednisolone Sodium Succinate (Solu-MEDROL) 60 mg EVERY 12 HOURS IVP 09/24/18 21:00 10/24/18 20:59 09/26/18 09:07 Sodium Chloride 1,000 ml @ 60 mls/hr [id number] IV 09/26/18 02:00 10/26/18 01:59 09/26/18 03:08 Tiotropium [place] (Spiriva Inhaler) 2 puff DAILY INH 09/25/18 10:00 10/25/18 09:59 09/26/18 09:25 Vitamin D (Vitamin D) 1,000 intlu DAILY ORAL 09/25/18 09:00 10/25/18 08:59 09/26/18 09:07 Amor Schrader MD Sep 26, 2018 10:13
--- NOTE | 2018-09-26 10:53 | Infectious Diseases Prog Note ---
Assessment/Plan Assessment/Plan antibiotics : ceftriaxone, levoquin A 1. ? pneumonia 2. COPD exacerbation 3. hypertension P 1. continue ceftriaxone, levoquin 2. will follow up cultures Subjective Constitutional: Denies: fever, chills Respiratory: Reports: shortness of breath - decreased; Denies: productive cough Gastrointestinal/Abdominal: Denies: nausea, vomiting, diarrhea Musculoskeletal: Denies: pain Allergies: Coded Allergies: No Known Allergies (Unverified , 08/06/18) Objective Vital Signs Last 24 Hour Vital Signs Date Time Temp Pulse Resp B/P (MAP) Pulse Ox O2 Delivery O2 Flow Rate FiO2 09/26/18 09:31 90 18 97 Room Air 21 09/26/18 09:26 90 18 97 Room Air 21 09/26/18 09:00 Nasal Cannula 2.0 09/26/18 08:00 115 09/26/18 08:00 98.3 110 20 154/77 (102) 97 09/26/18 07:12 74 18 99 Nasal Cannula 2.0 28 09/26/18 06:53 78 20 99 Room Air 09/26/18 06:07 80 151/74 09/26/18 04:00 97.5 82 18 155/73 (100) 97 09/26/18 04:00 82 09/26/18 03:40 77 20 100 Nasal Cannula 2.0 28 09/26/18 03:32 78 20 99 Nasal Cannula 2.0 28 09/26/18 00:00 97.6 110 18 139/76 (97) 94 09/26/18 00:00 110 09/25/18 23:35 94 20 99 Nasal Cannula 2.0 28 09/25/18 23:27 93 20 93 Nasal Cannula 2.0 28 09/25/18 21:00 Nasal Cannula 2.0 09/25/18 20:08 120 20 99 Nasal Cannula 2.0 28 09/25/18 20:00 87 09/25/18 20:00 97.3 87 20 156/83 (107) 95 09/25/18 19:54 124 24 98 Nasal Cannula 2.0 28 09/25/18 16:00 98.3 109 20 155/79 (104) 99 09/25/18 16:00 89 09/25/18 15:23 83 18 100 Nasal Cannula 2.0 28 09/25/18 15:12 84 20 98 Nasal Cannula 2.0 28 09/25/18 12:09 90 18 99 Nasal Cannula 2.0 28 09/25/18 12:07 78 18 98 Room Air 21 09/25/18 12:00 97.7 94 20 147/83 (104) 98 09/25/18 12:00 83 20 98 Nasal Cannula 2.0 28 09/25/18 12:00 78 18 98 Room Air 21 09/25/18 12:00 90 Height (Feet): 5 Height (Inches): 10.00 Weight (Pounds): 112 Respiratory/Chest: lungs clear Cardiovascular: normal rate, regular rhythm, no gallop/murmur Abdomen: soft, non tender Extremities: no edema Microbiology Date/Time Source Procedure Growth Status 09/24/18 11:40 Blood Blood Culture - Preliminary NO GROWTH AFTER 24 HOURS Resulted 09/24/18 11:30 Blood Blood Culture - Preliminary NO GROWTH AFTER 24 HOURS Resulted 09/25/18 12:30 Sputum Gram Stain Pending Resulted 09/25/18 12:30 Sputum Sputum Culture - Preliminary Resulted Current Medications Medications (Trade) Dose Ordered Sig/Charlie Route PRN Reason Start Time Stop Time Status Last Admin Dose Admin Acetaminophen (Tylenol) 650 mg Q4H PRN ORAL Mild Pain/Temp > 100.5 09/24/18 14:15 10/24/18 14:14 Al Hydroxide/Mg Hydroxide (Mylanta) 30 ml Q4H PRN ORAL Nausea & Vomiting 09/24/18 14:15 10/24/18 14:14 Albuterol/ Ipratropium (Albuterol/ Ipratropium) 3 ml Q4H PRN HHN Shortness of Breath 09/24/18 14:00 09/29/18 13:59 Albuterol/ Ipratropium (Albuterol/ Ipratropium) 3 ml Q4HRT HHN 09/24/18 15:00 09/29/18 14:59 09/26/18 06:53 Ceftriaxone Sodium 1 gm/ Dextrose 55 ml @ 110 mls/hr Q24H IVPB 09/24/18 16:00 10/01/18 15:59 09/25/18 16:30 Clonidine HCl (Catapres Tab) 0.1 mg Q4H PRN ORAL For High Blood Pressure 09/24/18 19:00 10/24/18 18:59 Cyanocobalamin (Vitamin B-12) 500 mcg DAILY ORAL 09/25/18 09:00 10/25/18 08:59 09/26/18 09:07 Diltiazem HCl (Cardizem) 60 mg EVERY 8 HOURS ORAL 09/26/18 06:00 10/26/18 05:59 09/26/18 06:07 Fluticasone/ Vilanterol (Breo Ellipta 200/25) 1 puffs DAILY INH 09/25/18 10:00 10/25/18 09:59 09/26/18 09:25 Heparin Sodium (Porcine) (Heparin 5000 units/ml) 5,000 units EVERY 12 HOURS SUBQ 09/24/18 21:00 10/24/18 20:59 09/24/18 20:50 Levofloxacin (Levaquin) 500 mg DAILY ORAL 09/25/18 09:00 10/01/18 09:01 09/26/18 09:07 Methylprednisolone Sodium Succinate (Solu-MEDROL) 60 mg EVERY 12 HOURS IVP 09/24/18 21:00 10/24/18 20:59 09/26/18 09:07 Sodium Chloride 1,000 ml @ 60 mls/hr [id number] IV 09/26/18 02:00 10/26/18 01:59 09/26/18 03:08 Tiotropium [place] (Spiriva Inhaler) 2 puff DAILY INH 09/25/18 10:00 10/25/18 09:59 09/26/18 09:25 Vitamin D (Vitamin D) 1,000 intlu DAILY ORAL 09/25/18 09:00 10/25/18 08:59 09/26/18 09:07 Gurjit Mora MD Sep 26, 2018 10:53
[2018-09-26 12:00] VITALS: BP 143/78
--- NOTE | 2018-09-26 13:27 | NUR ---
CASE MANAGEMENT:REVIEW 09/26/18 SI: AMI. PAFIB. COPD 97.9 92 18 143/78 98% ON 2L/NC IS: IV SOLUMEDROL Q12 IV ROCEPHIN Q24 CARDIZEM PO Q8HRS IVF@60/HR SPIRIVA INH QD BREO INH QD LEVAQUIN QD HEPARIN SQ Q12 DUONEB HHN Q4HRS RTC : TELEMETRY STATUS DCP: FROM HOME
[2018-09-26 16:00] VITALS: BP 127/75
[2018-09-26] MEDS: cefTRIAXone 1 GM in D5W 55 ML IVPB SCH (17:05)
[2018-09-26 17:16] LABS: APPEARANCE,URINE CLEAR; BILIRUBIN, URINE NEGATIVE (NEGATIVE); COLOR,URINE PALE YELLOW; GLUCOSE, URINE (UA) NEGATIVE (NEGATIVE); KETONES,URINE NEGATIVE (NEGATIVE); LEUKOCYTE ESTERASE ,URINE NEGATIVE (NEGATIVE); NITRITE,URINE NEGATIVE (NEGATIVE); PH,URINE 6 (4.5-8.0); PROTEIN,URINE NEGATIVE (NEGATIVE); UROBILINOGEN,URINE NORMAL MG/DL (0.0-1.0)
[2018-09-26] MEDS ORDERED: ASPIR 8181 MG ORAL (18:23)
--- NOTE | 2018-09-26 19:25 | NUR ---
HAND-OFF: Report given to RODO Glover. Patient in stable condition.
--- NOTE | 2018-09-26 19:30 | NUR ---
NURSE NOTES: Received patient from RODO Garcia. Patient sitting in bed awake, showing no signs of acute distress. AOx4. Respiration even and non labored on 2L via NC. No Sob noted. VS stable. Call light within reach. Bed in lowest position, and wheels locked. All needs attended and met. Will continue plan of care.
[2018-09-26 20:00] VITALS: BP 156/73
[2018-09-27] VITALS: BP 143/63
[2018-09-27] MEDS: Albuterol/Ipratropium 3ml neb HHN SCH ×6 (03:00→22:56)
[2018-09-27 04:00] VITALS: BP 148/66
--- NOTE | 2018-09-27 05:45 | Progress Note ---
DATE: 09/26/2018 CARDIOLOGY PROGRESS NOTE SUBJECTIVE: The patient still has congestion and shortness of breath, but has improved. OBJECTIVE: VITAL SIGNS: Blood pressure 156/73, pulse 97, and respirations 21. LUNGS: Coarse breath sounds. HEART: Regular rhythm and rate. Normal S1, S2. ABDOMEN: Soft. EXTREMITIES: Trace edema. IMPRESSION: 1. Chronic obstructive pulmonary disease exacerbation. 2. Acute myocardial ischemia. 3. Hypertensive heart disease. 4. Paroxysmal atrial fibrillation. 5. Troponin yesterday was 0.069. 6. Urinalysis with no active sediment. PLAN: 1. Repeat troponin. 2. Decrease intravenous fluids. 3. Advance diltiazem. 4. Respiratory hygiene. 5. Antimicrobials. 6. Steroid taper per woodworking shop hand. 7. DVT prophylaxis. 8. No plans for full anticoagulation due to bleeding risk and rarity of atrial fibrillation. Amor Lorenzo M.D. DR: BRET JOB#: [id number] CC:
[2018-09-27] MEDS: dilTIAZem HCl 60mg tab ORAL SCH ×3 (05:58→18:49)
--- NOTE | 2018-09-27 07:10 | NUR ---
NURSE NOTES: Report received from RODO Mathews. Patient AAOx4. Not using NC at this time, noticed SOB, provided NC, O2 sat 93 at this time. Denies any pain. Voiced concern about a forgetfulness episode last night. "I think I dosed off and barely was awakened or just was confused as to where I am. It was a scary moment....." Enquired if this had happened before or was first time, was he on O2 at the time....? Encouraged to communicate with RN as well as MD if same episode happens again. Verbalized understanding. Bed on lowest position, side rails upx2, brakes engaged. Call light within easy reach.
--- NOTE | 2018-09-27 07:23 | NUR ---
HAND-OFF: Report given to RODO Garcia.
[2018-09-27 07:30] LABS: ALANINE AMINOTRANSFERASE 16 U/L (12-78); ALBUMIN 3.4 G/DL (3.4-5.0); ALBUMIN/GLOBULIN RATIO 1.1 (1.0-2.7); ALKALINE PHOSPHATASE 79 U/L (46-116); ANION GAP 9 mmol/L (5-15); ASPARTATE AMINO TRANSFERASE 17 U/L (15-37); BILIRUBIN,TOTAL 0.1 MG/DL (0.2-1.0); BLOOD UREA NITROGEN 19 mg/dL (7-18); CALCIUM 9.4 MG/DL (8.5-10.1); CARBON DIOXIDE 28 MMOL/L (21-32); CHLORIDE 105 MMOL/L (98-107); POTASSIUM 3.9 MMOL/L (3.5-5.1); SODIUM 142 MMOL/L (136-145)
--- NOTE | 2018-09-27 07:53 | Pulmonology Progress Note ---
Assessment/Plan Assessment/Plan COPD with acute exacerbation hypernatremia hyperkalemia elevated troponin reduced TSH hypertension hypoxemia PLAN care noted maintain same cards noted ID noted dc planning impression, plan, and exam edited and reviewed in detail care discussed with RN Subjective Allergies: Coded Allergies: No Known Allergies (Unverified , 08/06/18) Subjective care noted and reviewed no distress at present ID noted Objective Last 24 Hour Vital Signs Date Time Temp Pulse Resp B/P (MAP) Pulse Ox O2 Delivery O2 Flow Rate FiO2 09/27/18 05:58 73 148/66 09/27/18 04:00 73 09/27/18 04:00 97.7 87 18 148/66 (93) 99 09/27/18 03:30 Nasal Cannula 2.0 28 09/27/18 03:30 Nasal Cannula 2.0 28 09/27/18 00:00 75 09/27/18 00:00 98.2 86 18 143/63 (89) 98 09/26/18 23:59 76 20 99 Nasal Cannula 2.0 28 09/26/18 23:49 76 20 97 Nasal Cannula 2.0 28 09/26/18 21:17 97 156/73 09/26/18 21:00 Nasal Cannula 2.0 09/26/18 20:00 98.1 97 21 156/73 (100) 98 09/26/18 20:00 Nasal Cannula 2.0 28 09/26/18 20:00 91 09/26/18 19:59 Nasal Cannula 2.0 28 09/26/18 16:45 85 18 99 Nasal Cannula 2.0 28 09/26/18 16:32 81 20 99 Nasal Cannula 2.0 28 09/26/18 16:00 98.3 83 18 127/75 (92) 98 09/26/18 16:00 74 09/26/18 15:22 81 143/78 09/26/18 12:53 81 18 99 Nasal Cannula 2.0 28 09/26/18 12:40 78 20 99 Nasal Cannula 2.0 28 09/26/18 12:00 97.9 92 18 143/78 (99) 98 09/26/18 12:00 81 09/26/18 09:31 90 18 97 Room Air 21 09/26/18 09:26 90 18 97 Room Air 21 09/26/18 09:00 Nasal Cannula 2.0 09/26/18 08:00 115 6/26/19 08:00 98.3 110 20 154/77 (102) 97 Intake and Output 09/26/18 09/27/18 19:00 07:00 Intake Total 832 ml 660 ml Output Total 2100 ml Balance -1268 ml 660 ml Intake Oral 820 ml IV Total 12 ml 660 ml Output Urine Total 2100 ml # Voids 1 2 # Bowel Movements 1 2 Objective WDWN NAD reduced breath sounds bilaterally without rhonchi or wheeze [id number] without MRG NABS nontender no HSM no CCE nonfocal reviewed and edited Microbiology Date/Time Source Procedure Growth Status 09/24/18 11:40 Blood Blood Culture - Preliminary NO GROWTH AFTER 48 HOURS Resulted 09/24/18 11:30 Blood Blood Culture - Preliminary NO GROWTH AFTER 48 HOURS Resulted 09/25/18 12:30 Sputum Gram Stain - Final Complete 09/25/18 12:30 Sputum Sputum Culture - Final NORMAL UPPER RESPIRATORY DAVID PRESENT Complete Laboratory Tests 09/26/18 17:00: Urine Color Pale yellow, Urine Appearance Clear, Urine pH 6, Urine Specific [place] 1.010, Urine Protein Negative, Urine Glucose (UA) Negative, Urine Ketones Negative, Urine Blood Negative, Urine Nitrite Negative, Urine Bilirubin Negative, Urine Urobilinogen Normal, Urine Leukocyte Esterase Negative, Urine RBC 0-2H, Urine WBC 0, Urine Squamous Epithelial Cells Few, Urine Bacteria Few 09/27/18 05:20: Sodium Level 142, Potassium Level 3.9, Chloride Level 105, Carbon Dioxide Level 28, Anion Gap 9, Blood Urea Nitrogen 19H, Creatinine 1.0, Estimat Glomerular Filtration Rate , Glucose Level 114H, Calcium Level 9.4, Magnesium Level 2.1, Total Bilirubin 0.1L, Aspartate Amino Transf (AST/SGOT) 17, Alanine Aminotransferase (ALT/SGPT) 16, Alkaline Phosphatase 79, Troponin I 0.045, Pro-B -Type Natriuretic Peptide 170H, Total Protein 6.5, Albumin 3.4, Globulin 3.1, Albumin/Globulin Ratio 1.1 Current Medications Medications (Trade) Dose Ordered Sig/Charlie Route PRN Reason Start Time Stop Time Status Last Admin Dose Admin Acetaminophen (Tylenol) 650 mg Q4H PRN ORAL Mild Pain/Temp > 100.5 09/24/18 14:15 10/24/18 14:14 Al Hydroxide/Mg Hydroxide (Mylanta) 30 ml Q4H PRN ORAL Nausea & Vomiting 09/24/18 14:15 10/24/18 14:14 Albuterol/ Ipratropium (Albuterol/ Ipratropium) 3 ml Q4H PRN HHN Shortness of Breath 09/24/18 14:00 09/29/18 13:59 Albuterol/ Ipratropium (Albuterol/ Ipratropium) 3 ml Q4HRT HHN 09/24/18 15:00 09/29/18 14:59 09/26/18 23:53 Ceftriaxone Sodium 1 gm/ Dextrose 55 ml @ 110 mls/hr Q24H IVPB 09/24/18 16:00 10/01/18 15:59 09/26/18 17:05 Clonidine HCl (Catapres Tab) 0.1 mg Q4H PRN ORAL For High Blood Pressure 09/24/18 19:00 10/24/18 18:59 Cyanocobalamin (Vitamin B-12) 500 mcg DAILY ORAL 09/25/18 09:00 10/25/18 08:59 09/26/18 09:07 Diltiazem HCl (Cardizem) 60 mg EVERY 6 HOURS ORAL 09/27/18 06:00 10/27/18 05:59 09/27/18 05:58 Fluticasone/ Vilanterol (Breo Ellipta 200/25) 1 puffs DAILY INH 09/25/18 10:00 10/25/18 09:59 09/26/18 09:25 Heparin Sodium (Porcine) (Heparin 5000 units/ml) 5,000 units EVERY 12 HOURS SUBQ 09/24/18 21:00 10/24/18 20:59 09/24/18 20:50 Levofloxacin (Levaquin) 500 mg DAILY ORAL 09/25/18 09:00 10/01/18 09:01 09/26/18 09:07 Methylprednisolone Sodium Succinate (Solu-MEDROL) 60 mg EVERY 12 HOURS IVP 09/24/18 21:00 10/24/18 20:59 09/26/18 21:17 Sodium Chloride 1,000 ml @ 60 mls/hr [id number] IV 09/26/18 02:00 10/26/18 01:59 09/26/18 18:48 Tiotropium Nova (Spiriva Inhaler) 2 puff DAILY INH 09/25/18 10:00 10/25/18 09:59 09/26/18 09:25 Vitamin D (Vitamin D) 1,000 intlu DAILY ORAL 09/25/18 09:00 10/25/18 08:59 09/26/18 09:07 Phil Felipe MD Sep 27, 2018 07:53
[2018-09-27 08:00] VITALS: BP 146/71
[2018-09-27] MEDS: Levofloxacin 500mg tab ORAL SCH (08:30)
[2018-09-27] MEDS: Solu-MEDROL 125mg Inj IVP SCH ×2 (08:30→21:10)
[2018-09-27] MEDS: Vitamin B-12 500mcg tab ORAL SCH (08:30)
[2018-09-27] MEDS: Vitamin D 1000 IU Tab ORAL SCH (08:30)
[2018-09-27] MEDS: Heparin 5000 units/ml inj SUBQ SCH ×2 (08:32→21:17)
[2018-09-27] MEDS: Breo Ellipta 200/25mcg-14 dose INH SCH (08:41)
--- NOTE | 2018-09-27 10:24 | Infectious Diseases Prog Note ---
Assessment/Plan Assessment/Plan A: COPD exacerbation HPN Hypoxia Acidosis Hyperkalemia corrected P: Continue Levaquin & Rocephin Subjective ROS Limited/Unobtainable: Yes Constitutional: Denies: fever Allergies: Coded Allergies: No Known Allergies (Unverified , 08/06/18) Objective Vital Signs Last 24 Hour Vital Signs Date Time Temp Pulse Resp B/P (MAP) Pulse Ox O2 Delivery O2 Flow Rate FiO2 09/27/18 09:00 Nasal Cannula 2.0 09/27/18 08:46 Nasal Cannula 2.0 09/27/18 08:46 Nasal Cannula 2.0 09/27/18 08:45 79 20 100 Nasal Cannula 2.0 09/27/18 08:44 78 20 99 Nasal Cannula 2.0 09/27/18 08:35 75 20 99 Nasal Cannula 2.0 09/27/18 08:23 74 20 98 Nasal Cannula 2.0 09/27/18 08:00 97.6 84 20 146/71 (96) 99 09/27/18 08:00 86 09/27/18 05:58 73 148/66 09/27/18 04:00 73 09/27/18 04:00 97.7 87 18 148/66 (93) 99 09/27/18 03:30 Nasal Cannula 2.0 09/27/18 03:30 Nasal Cannula 2.0 28 09/27/18 00:00 75 09/27/18 00:00 98.2 86 18 143/63 (89) 98 09/26/18 23:59 76 20 99 Nasal Cannula 2.0 09/26/18 23:49 76 20 97 Nasal Cannula 2.0 09/26/18 21:17 97 156/73 09/26/18 21:00 Nasal Cannula 2.0 09/26/18 20:00 98.1 97 21 156/73 (100) 98 09/26/18 20:00 Nasal Cannula 2.0 28 09/26/18 20:00 91 09/26/18 19:59 Nasal Cannula 2.0 09/26/18 16:45 85 18 99 Nasal Cannula 2.0 28 09/26/18 16:32 81 20 99 Nasal Cannula 2.0 09/26/18 16:00 98.3 83 18 127/75 (92) 98 09/26/18 16:00 74 09/26/18 15:22 81 143/78 09/26/18 12:53 81 18 99 Nasal Cannula 2.0 28 09/26/18 12:40 78 20 99 Nasal Cannula 2.0 28 09/26/18 12:00 97.9 92 18 143/78 (99) 98 09/26/18 12:00 81 Height (Feet): 5 Height (Inches): 10.00 Weight (Pounds): 112 General Appearance: no acute distress HEENT: mucous membranes moist Respiratory/Chest: lungs clear, other - oxygen by nasal cannula Cardiovascular: normal rate Abdomen: soft, non tender Extremities: no edema Skin: no rash Neurologic/Psychiatric: other - sleeping Microbiology Date/Time Source Procedure Growth Status 09/24/18 11:40 Blood Blood Culture - Preliminary NO GROWTH AFTER 48 HOURS Resulted 09/24/18 11:30 Blood Blood Culture - Preliminary NO GROWTH AFTER 48 HOURS Resulted 09/25/18 12:30 Sputum Gram Stain - Final Complete 09/25/18 12:30 Sputum Sputum Culture - Final NORMAL UPPER RESPIRATORY DAVID PRESENT Complete Laboratory Tests Test 09/26/18 17:00 09/27/18 05:20 Urine Color Pale yellow Urine Appearance Clear Urine pH 6 (4.5-8.0) Urine Specific [place] 1.010 (1.005-1.035) Urine Protein Negative (NEGATIVE) Urine Glucose (UA) Negative (NEGATIVE) Urine Ketones Negative (NEGATIVE) Urine Blood Negative (NEGATIVE) Urine Nitrite Negative (NEGATIVE) Urine Bilirubin Negative (NEGATIVE) Urine Urobilinogen Normal MG/DL (0.0-1.0) Urine Leukocyte Esterase Negative (NEGATIVE) Urine RBC 0-2 /HPF (0 - 0) H Urine WBC 0 /HPF (0 - 0) Urine Squamous Epithelial Cells Few /LPF (NONE/OCC) Urine Bacteria Few /HPF (NONE) Sodium Level 142 MMOL/L (136-145) Potassium Level 3.9 MMOL/L (3.5-5.1) Chloride Level 105 MMOL/L (98-107) Carbon Dioxide Level 28 MMOL/L (21-32) Anion Gap 9 mmol/L (5-15) Blood Urea Nitrogen 19 mg/dL (7-18) H Creatinine 1.0 MG/DL (0.55-1.30) Estimat Glomerular Filtration Rate mL/min (>60) Glucose Level 114 MG/DL (74-106) H Calcium Level 9.4 MG/DL (8.5-10.1) Magnesium Level 2.1 MG/DL (1.8-2.4) Total Bilirubin 0.1 MG/DL (0.2-1.0) L Aspartate Amino Transf (AST/SGOT) 17 U/L (15-37) Alanine Aminotransferase (ALT/SGPT) 16 U/L (12-78) Alkaline Phosphatase 79 U/L (46-116) Troponin I 0.045 ng/mL (0.000-0.056) Pro-B-Type Natriuretic Peptide 170 pg/mL (0-125) H Total Protein 6.5 G/DL (6.4-8.2) Albumin 3.4 G/DL (3.4-5.0) Globulin 3.1 g/dL Albumin/Globulin Ratio 1.1 (1.0-2.7) Current Medications Medications (Trade) Dose Ordered Sig/Charlie Route PRN Reason Start Time Stop Time Status Last Admin Dose Admin Acetaminophen (Tylenol) 650 mg Q4H PRN ORAL Mild Pain/Temp > 100.5 09/24/18 14:15 10/24/18 14:14 Al Hydroxide/Mg Hydroxide (Mylanta) 30 ml Q4H PRN ORAL Nausea & Vomiting 09/24/18 14:15 10/24/18 14:14 Albuterol/ Ipratropium (Albuterol/ Ipratropium) 3 ml Q4H PRN HHN Shortness of Breath 09/24/18 14:00 09/29/18 13:59 Albuterol/ Ipratropium (Albuterol/ Ipratropium) 3 ml Q4HRT HHN 09/24/18 15:00 09/29/18 14:59 09/27/18 08:23 Ceftriaxone Sodium 1 gm/ Dextrose 55 ml @ 110 mls/hr Q24H IVPB 09/24/18 16:00 10/01/18 15:59 09/26/18 17:05 Clonidine HCl (Catapres Tab) 0.1 mg Q4H PRN ORAL For High Blood Pressure 09/24/18 19:00 10/24/18 18:59 Cyanocobalamin (Vitamin B-12) 500 mcg DAILY ORAL 09/25/18 09:00 10/25/18 08:59 09/27/18 08:30 Diltiazem HCl (Cardizem) 60 mg EVERY 6 HOURS ORAL 09/27/18 06:00 10/27/18 05:59 09/27/18 05:58 Fluticasone/ Vilanterol (Breo Ellipta 200/25) 1 puffs DAILY INH 09/25/18 10:00 10/25/18 09:59 09/27/18 08:41 Heparin Sodium (Porcine) (Heparin 5000 units/ml) 5,000 units EVERY 12 HOURS SUBQ 09/24/18 21:00 10/24/18 20:59 09/24/18 20:50 Levofloxacin (Levaquin) 500 mg DAILY ORAL 09/25/18 09:00 10/01/18 09:01 09/27/18 08:30 Methylprednisolone Sodium Succinate (Solu-MEDROL) 60 mg EVERY 12 HOURS IVP 09/24/18 21:00 10/24/18 20:59 09/27/18 08:30 Sodium Chloride 1,000 ml @ 60 mls/hr [id number] IV 09/26/18 02:00 10/26/18 01:59 09/26/18 18:48 Tiotropium [place] (Spiriva Inhaler) 2 puff DAILY INH 09/25/18 10:00 10/25/18 09:59 09/26/18 09:25 Vitamin D (Vitamin D) 1,000 intlu DAILY ORAL 09/25/18 09:00 10/25/18 08:59 09/27/18 08:30 Segun Matta MD Sep 27, 2018 10:24
[2018-09-27 12:00] VITALS: BP 145/70
--- NOTE | 2018-09-27 12:40 | NUR ---
NURSE NOTES: Pt. refusing IV insertion. Education done.
--- NOTE | 2018-09-27 14:57 | NUR ---
RD ASSESSMENT & RECOMMENDATIONS SEE CARE ACTIVITY FOR COMPLETE ASSESSMENT DAILY ESTIMATED NEEDS: Needs based on Underweight, wt loss, COPD/ 52kg 35-40 kcals/kg 2446-6704 total kcals 1-2 g protein/kg 52-104 g total protein 25-30 mL/kg 6058-4560 total fluid mLs NUTRITION DIAGNOSIS: * Unintentional wt loss R/T clinical condition, end stage COPD, as evidenced by previous hospitalizations w/ prior trach placement now removed, h/o of wt loss, currently severely underweight w/ BMI=16.4, 69% IBW. PO DIET RECOMMENDATIONS: Liberalized REGULAR/ Soft easy chew + snacks TID in b/w meals ADDITIONAL RECOMMENDATIONS: * Standing wt as able for accurate CBW * Weekly wt monitoring- hx of severe wt loss, currently underweight * Snacks TID in b/w all meals * Monitor BGs closely while on solumedrol (114-131) -
[2018-09-27 16:00] VITALS: BP 139/83
--- NOTE | 2018-09-27 16:58 | CDS Physician Query ---
Clarification is required for compliance, coding accuracy, and to reflect severity of illness for this patient Dear Dr. Felipe Date: 09/27/18 CDS Name: Jose Lorenzo Possible Pneumonia has been documented in medical records. Upon review it is difficult to determine whether this diagnosis has been treated, ruled out or still being worked up. Patient is admitted with SOB and COPD exacerbation. CXR: The lungs are hyperexpanded and there is increased lucency focally within the upper lobes especially on the right Rx: IV Ceftriaxone, Oral Levaquin Can you please clarify the status of Pneumonia? [ ] Treated and resolved [ ] Presumed and treated [ x ] Still being worked up [ ] Ruled out Present on Admission: [ x ] Yes [ ] No [ ] Clinically Undetermined Physician signature Date Please also document in your Progress Notes and/or Discharge Summary and indicate if the condition was present on admission. MTDD
[2018-09-27] MEDS: cefTRIAXone 1 GM in D5W 55 ML IVPB SCH (19:22)
--- NOTE | 2018-09-27 19:30 | NUR ---
HAND-OFF: Report given to RODO Castellanos. Patient in stable condition.
--- NOTE | 2018-09-27 19:45 | NUR ---
NURSE NOTES: Received patient from Jose RN. Patient awake, alert and oriented x4, on 2L NC, no s/s of respiratory distress. Patient has left forearm 22 gauge PIV with 1/2 NS infusing at 60ml/hr. No signs of infiltration. Patient denies having any wounds and was annoyed when attempting to check. Patient states "I've been here for 3 days, they know me."
[2018-09-27 20:00] VITALS: BP 154/72
--- NOTE | 2018-09-27 20:01 | NUR ---
HAND-OFF: Report given to RODO Castellanos. Patient in stable condition.
--- NOTE | 2018-09-27 21:30 | NUR ---
NURSE NOTES: Patient refused clonidine 0.1mg PO PRN for BP of 154/72. Patient also stated that he does not want midnight vitals if he is asleep. Informed patient that his BP is high and we need to recheck to make sure it is okay. Patient continues to refuse and states "I'll be okay."
[2018-09-28] VITALS (8 sets, daily range): BP systolic 132–159; BP diastolic 70–89
--- NOTE | 2018-09-28 02:30 | Progress Note ---
DATE: 09/27/2018 CARDIOLOGY PROGRESS NOTE SUBJECTIVE: The patient without distress. Less congestion. Resting comfortably. Monitored rhythm sinus. No recurring atrial fibrillation noted. OBJECTIVE: VITAL SIGNS: Blood pressure 148/66, pulse 87, and respirations 18. LUNGS: Diminished breath sounds. CARDIAC: Regular rhythm and rate. Normal S1, S2. ABDOMEN: Soft. EXTREMITIES: No edema. IMPRESSION: 1. Chronic obstructive pulmonary disease exacerbation. 2. Paroxysmal atrial fibrillation. 3. Hypertensive heart disease with labile blood pressure. 4. Acute on chronic respiratory acidosis, improved. 5. Hyperkalemia, corrected. 6. Hypoxia, chronic. 7. Community-acquired pneumonia. PLAN: 1. Respiratory hygiene. 2. Bronchodilators. 3. Nasal oxygen. 4. Antimicrobials. 5. Transition from short to long-acting diltiazem for blood pressure control and suppression of atrial arrhythmias. 6. DVT and stress ulcer prophylaxis. 7. Antiplatelet therapy. 8. No plan for additional anticoagulation due to scarcity of atrial fibrillation. Amor Lorenzo M.D. DR: BRET JOB#: [id number] CC:
[2018-09-28] MEDS: Albuterol/Ipratropium 3ml neb HHN SCH ×5 (02:56→20:32)
--- NOTE | 2018-09-28 07:05 | NUR ---
NURSE NOTES: Received patient from RODO Castellanos. Patient is AAO x 4. On 2L NC, no s/s of respiratory distress. 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 Patient has left forearm 22 gauge with 1/2 NS infusing at 60ml/hr. Patient denies pain at this time. Will continue plan of care.
--- NOTE | 2018-09-28 07:30 | NUR ---
HAND-OFF: Report given to Zachary KOEHLER. Patient in stable condition, plan of care endorsed.
[2018-09-28] MEDS: Levofloxacin 500mg tab ORAL SCH (08:22)
[2018-09-28] MEDS: Vitamin D 1000 IU Tab ORAL SCH (08:22)
[2018-09-28] MEDS: Vitamin B-12 500mcg tab ORAL SCH (08:22)
[2018-09-28] MEDS: Solu-MEDROL 125mg Inj IVP SCH (08:23)
[2018-09-28] MEDS: Heparin 5000 units/ml inj SUBQ SCH ×2 (08:34→21:00)
[2018-09-28] MEDS ORDERED: dilTIAZem HCl CD 180mg cap ORAL SCH (09:00)
[2018-09-28] MEDS: Breo Ellipta 200/25mcg-14 dose INH SCH (09:48)
--- NOTE | 2018-09-28 10:12 | NUR ---
CASE MANAGEMENT:REVIEW 09/28/18 SI: AMI. PAFIB. COPD OXYGEN DEPENDENT 98.1 108 22 157/89 98% ON 2L/NC IS: IV SOLUMEDROL Q12 IV ROCEPHIN Q4 LEVAQUIN PO QD CARDIZEM 180MG PO Q12 IVF@60/HR SPIRIVA INH QD BREO INH QD LEVAQUIN QD HEPARIN SQ Q12 DUONEB HHN Q4HRS RTC : TELEMETRY STATUS DCP: FROM HOME
--- NOTE | 2018-09-28 10:41 | Infectious Diseases Prog Note ---
Assessment/Plan Assessment/Plan antibiotics : ceftriaxone, levoquin A 1. ? pneumonia 2. COPD exacerbation improving 3. hypertension P 1. d/c ceftriaxone, levoquin 2. observe off antibiotics Subjective ROS Limited/Unobtainable: Yes Constitutional: Denies: fever, chills Respiratory: Reports: shortness of breath - decreased; Denies: dry cough Gastrointestinal/Abdominal: Denies: nausea, vomiting, diarrhea Musculoskeletal: Denies: pain Allergies: Coded Allergies: No Known Allergies (Unverified , 08/06/18) Objective Vital Signs Last 24 Hour Vital Signs Date Time Temp Pulse Resp B/P (MAP) Pulse Ox O2 Delivery O2 Flow Rate FiO2 09/28/18 09:54 82 20 99 Nasal Cannula 2.0 09/28/18 09:54 82 20 99 Nasal Cannula 2.0 09/28/18 09:53 Nasal Cannula 2.0 09/28/18 09:53 Nasal Cannula 2.0 09/28/18 09:00 Nasal Cannula 2.0 09/28/18 08:23 65 157/89 09/28/18 08:16 74 18 99 Nasal Cannula 2.0 09/28/18 08:05 65 20 100 Nasal Cannula 2.0 09/28/18 08:05 97 Nasal Cannula 2.0 09/28/18 08:01 98.1 99 22 157/89 (111) 98 09/28/18 07:38 108 09/28/18 04:54 75 18 100 Nasal Cannula 2.0 09/28/18 04:47 74 18 99 Nasal Cannula 2.0 09/28/18 04:00 97.9 84 19 132/70 (90) 92 09/28/18 04:00 77 09/28/18 02:56 Nasal Cannula 2.0 09/28/18 02:56 Nasal Cannula 2.0 09/28/18 00:17 98.1 86 20 144/76 (98) 99 09/28/18 00:00 97.9 96 19 152/78 (102) 98 09/28/18 00:00 86 09/27/18 23:06 95 18 99 Nasal Cannula 2.0 09/27/18 22:56 85 18 98 Nasal Cannula 2.0 09/27/18 21:00 Nasal Cannula 2.0 09/27/18 20:00 86 09/27/18 20:00 98.2 80 20 154/72 (99) 99 09/27/18 19:13 91 20 99 Nasal Cannula 2.0 28 09/27/18 19:03 93 20 97 Nasal Cannula 2.0 28 09/27/18 19:03 97 Nasal Cannula 2.0 28 09/27/18 18:49 89 139/83 09/27/18 16:00 98.4 89 18 139/83 (101) 100 09/27/18 16:00 84 09/27/18 15:30 80 20 100 Nasal Cannula 2.0 28 09/27/18 15:19 79 20 99 Nasal Cannula 2.0 28 09/27/18 13:10 75 146/78 09/27/18 12:00 97.3 76 20 145/70 (95) 98 09/27/18 12:00 88 09/27/18 11:29 98 20 100 Nasal Cannula 2.0 28 09/27/18 11:21 91 20 99 Nasal Cannula 2.0 28 Height (Feet): 5 Height (Inches): 10.00 Weight (Pounds): 112 Respiratory/Chest: lungs clear Cardiovascular: normal rate, regular rhythm, no gallop/murmur Abdomen: soft, non tender Extremities: no edema Microbiology Date/Time Source Procedure Growth Status 09/25/18 12:30 Sputum Gram Stain - Final Complete 09/25/18 12:30 Sputum Sputum Culture - Final NORMAL UPPER RESPIRATORY DAVID PRESENT Complete Current Medications Medications (Trade) Dose Ordered Sig/Charlie Route PRN Reason Start Time Stop Time Status Last Admin Dose Admin Acetaminophen (Tylenol) 650 mg Q4H PRN ORAL Mild Pain/Temp > 100.5 09/24/18 14:15 10/24/18 14:14 Al Hydroxide/Mg Hydroxide (Mylanta) 30 ml Q4H PRN ORAL Nausea & Vomiting 09/24/18 14:15 10/24/18 14:14 Albuterol/ Ipratropium (Albuterol/ Ipratropium) 3 ml Q4H PRN HHN Shortness of Breath 09/24/18 14:00 09/29/18 13:59 09/28/18 04:47 Albuterol/ Ipratropium (Albuterol/ Ipratropium) 3 ml Q4HRT HHN 09/24/18 15:00 09/29/18 14:59 09/28/18 08:04 Ceftriaxone Sodium 1 gm/ Dextrose 55 ml @ 110 mls/hr Q24H IVPB 09/24/18 16:00 10/01/18 15:59 09/27/18 19:22 Clonidine HCl (Catapres Tab) 0.1 mg Q4H PRN ORAL For High Blood Pressure 09/24/18 19:00 10/24/18 18:59 Cyanocobalamin (Vitamin B-12) 500 mcg DAILY ORAL 09/25/18 09:00 10/25/18 08:59 09/28/18 08:22 Diltiazem HCl (Cardizem CD) 180 mg Q12HR ORAL 09/28/18 09:00 10/28/18 08:59 09/28/18 08:23 Fluticasone/ Vilanterol (Breo Ellipta 200/25) 1 puffs DAILY INH 09/25/18 10:00 10/25/18 09:59 09/28/18 09:48 Heparin Sodium (Porcine) (Heparin 5000 units/ml) 5,000 units EVERY 12 HOURS SUBQ 09/24/18 21:00 10/24/18 20:59 09/28/18 08:34 Levofloxacin (Levaquin) 500 mg DAILY ORAL 09/25/18 09:00 10/01/18 09:01 09/28/18 08:22 Methylprednisolone Sodium Succinate (Solu-MEDROL) 60 mg EVERY 12 HOURS IVP 09/24/18 21:00 10/24/18 20:59 09/28/18 08:23 Sodium Chloride 1,000 ml @ 60 mls/hr [id number] IV 09/26/18 02:00 10/26/18 01:59 09/28/18 01:45 Tiotropium [place] (Spiriva Inhaler) 2 puff DAILY INH 09/25/18 10:00 10/25/18 09:59 09/26/18 09:25 Vitamin D (Vitamin D) 1,000 intlu DAILY ORAL 09/25/18 09:00 10/25/18 08:59 09/28/18 08:22 Gurjit Mora MD Sep 28, 2018 10:41
--- NOTE | 2018-09-28 12:40 | Cardiology Report ---
APPROVED REPORT EKG Measurement Heart [id number] NE 150P87 [id number] Normal sinus rhythm Possible Left atrial enlargement Rightward axis Borderline ECG
--- NOTE | 2018-09-28 19:05 | NUR ---
HAND-OFF: Report given to RODO Castellanos.
--- NOTE | 2018-09-28 19:13 | NUR ---
NURSE NOTES: Received patient from Zachary KOEHLER. Patient sitting at bedside in chair, on 2L NC, no s/s of respiratory distress. Still refusing IVF. Call light within reach.
[2018-09-28] MEDS: dilTIAZem HCl CD 180mg cap ORAL SCH (20:51)
[2018-09-28] MEDS: Solu-MEDROL 40mg Inj IVP SCH (20:51)
--- NOTE | 2018-09-28 21:13 | Pulmonology Progress Note ---
Assessment/Plan Assessment/Plan Pulmonary Progress Note Assessment/Plan COPD with acute exacerbation hypernatremia improved hyperkalemia improved elevated troponin reduced TSH hypertension hypoxemia PLAN ID following care noted maintain same cards noted follow up lytes assess further pending reeval impression, plan, and exam edited and reviewed in detail care discussed with RN Subjective Allergies: Coded Allergies: No Known Allergies Subjective care noted and reviewed no distress at present Objective Vital Signs Noted Objective WDWN NAD reduced breath sounds bilaterally without rhonchi or wheeze [id number] without MRG NABS nontender no HSM no CCE nonfocal Laboratory Tests 09/24/18 11:30: White Blood Count 6.9, Red Blood Count 5.07, Hemoglobin 14.6, Hematocrit 46.2, Mean Corpuscular Volume 91, Mean Corpuscular Hemoglobin 28.9, Mean Corpuscular Hemoglobin Concent 31.7L, Red Cell Distribution Width 13.8, Platelet Count 260, Mean Platelet Volume 6.0L, Neutrophils (%) (Auto) 54.6, Lymphocytes (%) (Auto) 31.1, Monocytes (%) (Auto) 8.0, Eosinophils (%) (Auto) 4.4H, Basophils (%) (Auto ) 2.0, Sodium Level 146H, Potassium Level 5.4H, Chloride Level 107, Carbon Dioxide Level 31, Anion Gap 8, Blood Urea Nitrogen 15, Creatinine 1.2, Estimat Glomerular Filtration Rate , Glucose Level 104, Lactic Acid Level 2.60H, Calcium Level 10.4H, Total Bilirubin 0.3, Aspartate Amino Transf (AST/SGOT) 25, Alanine Aminotransferase (ALT/SGPT) 19, Alkaline Phosphatase 92, Total Creatine Kinase 195, Creatine Kinase MB 5.4H, Creatine Kinase MB Relative Index 2.7, Troponin I 0.073H, Pro-B-Type Natriuretic Peptide 94, Total Protein 7.9, Albumin 3.7, Globulin 4.2, Albumin/Globulin Ratio 0.9L, Lipase 57L 09/24/18 12:30: Lactic Acid Level 1.20 09/25/18 06:08: White Blood Count 5.9, Red Blood Count 4.67L, Hemoglobin 13.6L, Hematocrit 42.2 , Mean Corpuscular Volume 90, Mean Corpuscular Hemoglobin 29.1, Mean Corpuscular Hemoglobin Concent 32.2, Red Cell Distribution Width 13.6, Platelet Count 270, Mean Platelet Volume 6.4L, Neutrophils (%) (Auto) 75.9H, Lymphocytes (%) (Auto) 20.0, Monocytes (%) (Auto) 3.3, Eosinophils (%) (Auto) 0.0, Basophils (%) (Auto) 0.8, Sodium Level 143, Potassium Level 4.0, Chloride Level 105, Carbon Dioxide Level 28, Anion Gap 10, Blood Urea Nitrogen 16, Creatinine 1.1, Estimat Glomerular Filtration Rate , Glucose Level 131H, Calcium Level 10.1 , Total Bilirubin 0.3, Aspartate Amino Transf (AST/SGOT) 20, Alanine Aminotransferase (ALT/SGPT) 21, Alkaline Phosphatase 93, Troponin I 0.069H, Pro- B-Type Natriuretic Peptide 178H, Total Protein 7.6, Albumin 3.6, Globulin 4.0, Albumin/Globulin Ratio 0.9L, Magnesium Level 2.0, Thyroid Stimulating Hormone ( TSH) 0.261L Current Medications Medications (Trade) Dose Ordered Sig/Charlie Route PRN Reason Start Time Stop Time Status Last Admin Dose Admin Acetaminophen (Tylenol) 650 mg Q4H PRN ORAL Mild Pain/Temp > 100.5 09/24/18 14:15 10/24/18 14:14 Al Hydroxide/Mg Hydroxide (Mylanta) 30 ml Q4H PRN ORAL Nausea & Vomiting 09/24/18 14:15 10/24/18 14:14 Albuterol/ Ipratropium (Albuterol/ Ipratropium) 3 ml Q4H PRN HHN Shortness of Breath 09/24/18 14:00 09/29/18 13:59 Albuterol/ Ipratropium (Albuterol/ Ipratropium) 3 ml Q4HRT HHN 09/24/18 15:00 09/29/18 14:59 09/25/18 07:00 Amlodipine Besylate (Norvasc) 5 mg DAILY ORAL 09/25/18 09:00 10/25/18 08:59 Ceftriaxone Sodium 1 gm/ Dextrose 55 ml @ 110 mls/hr Q24H IVPB 09/24/18 16:00 10/01/18 15:59 09/24/18 16:22 Clonidine HCl (Catapres Tab) 0.1 mg Q4H PRN ORAL For High Blood Pressure 09/24/18 19:00 10/24/18 18:59 Cyanocobalamin (Vitamin B-12) 500 mcg DAILY ORAL 09/25/18 09:00 10/25/18 08:59 Heparin Sodium (Porcine) (Heparin 5000 units/ml) 5,000 units EVERY 12 HOURS SUBQ 09/24/18 21:00 10/24/18 20:59 09/24/18 20:50 Levofloxacin (Levaquin) 500 mg DAILY ORAL 09/25/18 09:00 10/01/18 09:01 Methylprednisolone Sodium Succinate (Solu-MEDROL) 60 mg EVERY 12 HOURS IVP 09/24/18 21:00 10/24/18 20:59 09/24/18 20:42 Sodium Chloride 1,000 ml @ 100 mls/hr Q10H IV 09/24/18 14:00 10/24/18 13:59 09/25/18 00:23 Vitamin D (Vitamin D) 1,000 intlu DAILY ORAL 09/25/18 09:00 10/25/18 08:59 Subjective ROS Limited/Unobtainable: No Allergies: Coded Allergies: No Known Allergies (Unverified , 08/06/18) Objective Last 24 Hour Vital Signs Date Time Temp Pulse Resp B/P (MAP) Pulse Ox O2 Delivery O2 Flow Rate FiO2 09/28/18 20:51 85 155/78 09/28/18 20:13 98.2 85 20 155/78 (103) 99 09/28/18 20:00 98 Nasal Cannula 2.0 28 09/28/18 20:00 90 18 99 Nasal Cannula 2.0 09/28/18 19:50 88 20 98 Nasal Cannula 2.0 28 09/28/18 18:00 149/70 (96) 92 09/28/18 17:12 157/75 09/28/18 16:15 80 09/28/18 16:00 98.1 93 20 157/75 (102) 96 09/28/18 14:25 78 18 99 Nasal Cannula 2.0 28 09/28/18 14:16 72 20 98 Nasal Cannula 2.0 28 09/28/18 12:03 Nasal Cannula 2.0 28 09/28/18 12:02 97.5 88 20 159/88 (111) 96 09/28/18 12:02 Nasal Cannula 2.0 28 09/28/18 11:32 80 09/28/18 11:18 157/89 09/28/18 09:54 82 20 99 Nasal Cannula 2.0 09/28/18 09:54 82 20 99 Nasal Cannula 2.0 09/28/18 09:53 Nasal Cannula 2.0 09/28/18 09:53 Nasal Cannula 2.0 09/28/18 09:00 Nasal Cannula 2.0 09/28/18 08:23 65 157/89 09/28/18 08:16 74 18 99 Nasal Cannula 2.0 09/28/18 08:05 65 20 100 Nasal Cannula 2.0 09/28/18 08:05 97 Nasal Cannula 2.0 09/28/18 08:01 98.1 99 22 157/89 (111) 98 09/28/18 07:38 108 09/28/18 04:54 75 18 100 Nasal Cannula 2.0 09/28/18 04:47 74 18 99 Nasal Cannula 2.0 09/28/18 04:00 97.9 84 19 132/70 (90) 92 09/28/18 04:00 77 09/28/18 02:56 Nasal Cannula 2.0 09/28/18 02:56 Nasal Cannula 2.0 09/28/18 00:17 98.1 86 20 144/76 (98) 99 09/28/18 00:00 97.9 96 19 152/78 (102) 98 09/28/18 00:00 86 09/27/18 23:06 95 18 99 Nasal Cannula 2.0 09/27/18 22:56 85 18 98 Nasal Cannula 2.0 Intake and Output 09/27/18 09/28/18 19:00 07:00 Intake Total 680 ml Balance 680 ml Intake Oral 680 ml # Voids 3 5 # Bowel Movements 1 1 Current Medications Medications (Trade) Dose Ordered Sig/Charlie Route PRN Reason Start Time Stop Time Status Last Admin Dose Admin Acetaminophen (Tylenol) 650 mg Q4H PRN ORAL Mild Pain/Temp > 100.5 09/24/18 14:15 10/24/18 14:14 Al Hydroxide/Mg Hydroxide (Mylanta) 30 ml Q4H PRN ORAL Nausea & Vomiting 09/24/18 14:15 10/24/18 14:14 Albuterol/ Ipratropium (Albuterol/ Ipratropium) 3 ml Q4H PRN HHN Shortness of Breath 09/24/18 14:00 09/29/18 13:59 09/28/18 04:47 Albuterol/ Ipratropium (Albuterol/ Ipratropium) 3 ml Q4HRT HHN 09/24/18 15:00 09/29/18 14:59 09/28/18 20:32 Amlodipine Besylate (Norvasc) 10 mg DAILY ORAL 09/29/18 09:00 10/29/18 08:59 Clonidine HCl (Catapres Tab) 0.1 mg Q4H PRN ORAL For High Blood Pressure 09/24/18 19:00 10/24/18 18:59 09/28/18 17:12 Cyanocobalamin (Vitamin B-12) 500 mcg DAILY ORAL 09/25/18 09:00 10/25/18 08:59 09/28/18 08:22 Diltiazem HCl (Cardizem CD) 180 mg Q12HR ORAL 09/28/18 21:00 10/28/18 23:00 09/28/18 20:51 Fluticasone/ Vilanterol (Breo Ellipta 200/25) 1 puffs DAILY INH 09/25/18 10:00 10/25/18 09:59 09/28/18 09:48 Heparin Sodium (Porcine) (Heparin 5000 units/ml) 5,000 units EVERY 12 HOURS SUBQ 09/24/18 21:00 10/24/18 20:59 09/28/18 21:00 Methylprednisolone Sodium Succinate (Solu-MEDROL) 40 mg EVERY 12 HOURS IVP 09/28/18 21:00 10/24/18 20:59 09/28/18 20:51 Sodium Chloride 1,000 ml @ 60 mls/hr [id number] IV 09/26/18 02:00 10/26/18 01:59 09/28/18 01:45 Tiotropium [place] (Spiriva Inhaler) 2 puff DAILY INH 09/25/18 10:00 10/25/18 09:59 09/26/18 09:25 Vitamin D (Vitamin D) 1,000 intlu DAILY ORAL 09/25/18 09:00 10/25/18 08:59 09/28/18 08:22 Amor Schrader MD Sep 28, 2018 21:13
[2018-09-29] VITALS (7 sets, daily range): BP systolic 138–167; BP diastolic 73–79
--- NOTE | 2018-09-29 00:15 | Progress Note ---
DATE: 09/28/2018 CARDIOLOGY PROGRESS NOTE SUBJECTIVE: The patient has less congestion and no shortness of breath. He has been hydrated with corrected electrolyte abnormalities. OBJECTIVE: VITAL SIGNS: Blood pressure 155/78, pulse 85, respiratory rate 20, oxygen saturation 98% on 2 L. LUNGS: Diminished breath sounds. No wheezing. HEART: Regular rhythm and rate. Normal S1, S2 with a fourth heart sound. ABDOMEN: Soft. EXTREMITIES: No edema. IMPRESSION: 1. Acute myocardial ischemia, resolving. 2. COPD exacerbation, improving. 3. Paroxysmal bronchospasms, corrected. 4. Diastolic dysfunction with chronic congestive heart failure. 5. Paroxysmal atrial fibrillation precipitated by acute respiratory insufficiency and elevated pulmonary venous pressure likely. 6. Pulmonary hypertension secondary to advanced lung disease. 7. Dehydration and hypernatremia, corrected. PLAN: 1. Continue respiratory hygiene and bronchodilators. 2. Continue diltiazem for blood pressure control and suppression of atrial arrhythmias. 3. Long-term anti-platelet therapy. 4. No additional cardiovascular therapy is presently planned. 5. Monitor and correct electrolyte abnormalities as detected. Amor Lorenzo M.D. DR: Abrahan JOB#: [id number] CC:
[2018-09-29] MEDS: Albuterol/Ipratropium 3ml neb HHN SCH ×4 (03:00→12:02)
--- NOTE | 2018-09-29 07:23 | NUR ---
NURSE NOTES: I received the patient awake and resting in bed. Patient alert and oriented x4. Bed in the lowest position and call light within reach. Patient does not display any signs of distress or SOB. I will continue to monitor the patient and implement care.
--- NOTE | 2018-09-29 07:25 | NUR ---
HAND-OFF: Report given to Spring KOELHER. Plan of care endorsed.
[2018-09-29] MEDS: dilTIAZem HCl CD 180mg cap ORAL SCH ×2 (09:11→20:32)
[2018-09-29] MEDS: Solu-MEDROL 40mg Inj IVP SCH (09:11)
[2018-09-29] MEDS: Vitamin D 1000 IU Tab ORAL SCH (09:11)
[2018-09-29] MEDS: Vitamin B-12 500mcg tab ORAL SCH (09:11)
[2018-09-29] MEDS: Heparin 5000 units/ml inj SUBQ SCH ×2 (09:13→20:35)
[2018-09-29] MEDS: Breo Ellipta 200/25mcg-14 dose INH SCH (11:05)
--- NOTE | 2018-09-29 13:30 | Pulmonology Progress Note ---
Assessment/Plan Assessment/Plan Pulmonary Progress Note Assessment/Plan COPD with acute exacerbation - steroids being weaned hypernatremia improved hyperkalemia improved elevated troponin reduced TSH hypertension hypoxemia No new complaints PLAN ID following Cardiology following care noted maintain same cards noted follow up lytes assess further pending reeval impression, plan, and exam edited and reviewed in detail care discussed with RN Subjective Allergies: Coded Allergies: No Known Allergies Subjective care noted and reviewed no distress at present Objective Vital Signs Noted Objective WDWN NAD reduced breath sounds bilaterally without rhonchi or wheeze [id number] without MRG NABS nontender no HSM no CCE nonfocal Laboratory Tests 09/24/18 11:30: White Blood Count 6.9, Red Blood Count 5.07, Hemoglobin 14.6, Hematocrit 46.2, Mean Corpuscular Volume 91, Mean Corpuscular Hemoglobin 28.9, Mean Corpuscular Hemoglobin Concent 31.7L, Red Cell Distribution Width 13.8, Platelet Count 260, Mean Platelet Volume 6.0L, Neutrophils (%) (Auto) 54.6, Lymphocytes (%) (Auto) 31.1, Monocytes (%) (Auto) 8.0, Eosinophils (%) (Auto) 4.4H, Basophils (%) (Auto ) 2.0, Sodium Level 146H, Potassium Level 5.4H, Chloride Level 107, Carbon Dioxide Level 31, Anion Gap 8, Blood Urea Nitrogen 15, Creatinine 1.2, Estimat Glomerular Filtration Rate , Glucose Level 104, Lactic Acid Level 2.60H, Calcium Level 10.4H, Total Bilirubin 0.3, Aspartate Amino Transf (AST/SGOT) 25, Alanine Aminotransferase (ALT/SGPT) 19, Alkaline Phosphatase 92, Total Creatine Kinase 195, Creatine Kinase MB 5.4H, Creatine Kinase MB Relative Index 2.7, Troponin I 0.073H, Pro-B-Type Natriuretic Peptide 94, Total Protein 7.9, Albumin 3.7, Globulin 4.2, Albumin/Globulin Ratio 0.9L, Lipase 57L 09/24/18 12:30: Lactic Acid Level 1.20 09/25/18 06:08: White Blood Count 5.9, Red Blood Count 4.67L, Hemoglobin 13.6L, Hematocrit 42.2 , Mean Corpuscular Volume 90, Mean Corpuscular Hemoglobin 29.1, Mean Corpuscular Hemoglobin Concent 32.2, Red Cell Distribution Width 13.6, Platelet Count 270, Mean Platelet Volume 6.4L, Neutrophils (%) (Auto) 75.9H, Lymphocytes (%) (Auto) 20.0, Monocytes (%) (Auto) 3.3, Eosinophils (%) (Auto) 0.0, Basophils (%) (Auto) 0.8, Sodium Level 143, Potassium Level 4.0, Chloride Level 105, Carbon Dioxide Level 28, Anion Gap 10, Blood Urea Nitrogen 16, Creatinine 1.1, Estimat Glomerular Filtration Rate , Glucose Level 131H, Calcium Level 10.1 , Total Bilirubin 0.3, Aspartate Amino Transf (AST/SGOT) 20, Alanine Aminotransferase (ALT/SGPT) 21, Alkaline Phosphatase 93, Troponin I 0.069H, Pro- B-Type Natriuretic Peptide 178H, Total Protein 7.6, Albumin 3.6, Globulin 4.0, Albumin/Globulin Ratio 0.9L, Magnesium Level 2.0, Thyroid Stimulating Hormone ( TSH) 0.261L Subjective ROS Limited/Unobtainable: No Allergies: Coded Allergies: No Known Allergies (Unverified , 08/06/18) Objective Last 24 Hour Vital Signs Date Time Temp Pulse Resp B/P (MAP) Pulse Ox O2 Delivery O2 Flow Rate FiO2 09/29/18 12:39 154/77 (102) 09/29/18 12:04 89 20 100 Room Air 09/29/18 12:00 86 09/29/18 12:00 97.2 83 22 167/73 (104) 94 09/29/18 11:59 93 20 100 Nasal Cannula 2.0 09/29/18 11:50 89 20 98 Nasal Cannula 2.0 09/29/18 11:05 79 22 98 Nasal Cannula 2.0 28 09/29/18 11:05 89 16 99 Nasal Cannula 2.0 09/29/18 09:11 83 145/79 09/29/18 09:11 83 145/79 09/29/18 09:00 Nasal Cannula 2.0 09/29/18 08:25 Nasal Cannula 2.0 09/29/18 08:25 Nasal Cannula 2.0 09/29/18 08:00 83 09/29/18 08:00 97.0 83 23 145/79 (101) 99 09/29/18 06:48 89 20 100 Nasal Cannula 2.0 28 09/29/18 06:40 97 Nasal Cannula 2.0 28 09/29/18 06:40 99 22 97 Nasal Cannula 2.0 28 09/29/18 04:00 98.0 78 20 138/73 (94) 98 09/29/18 04:00 76 09/29/18 03:12 Nasal Cannula 09/29/18 03:11 Nasal Cannula 09/29/18 00:00 97.3 83 18 140/77 (98) 99 09/29/18 00:00 87 20 98 Nasal Cannula 2.0 28 09/29/18 00:00 75 09/28/18 23:45 85 20 96 Nasal Cannula 2.0 28 09/28/18 21:00 Nasal Cannula 2.0 09/28/18 20:51 85 155/78 09/28/18 20:13 98.2 85 20 155/78 (103) 99 09/28/18 20:00 74 09/28/18 20:00 98 Nasal Cannula 2.0 28 09/28/18 20:00 90 18 99 Nasal Cannula 2.0 28 09/28/18 19:50 88 20 98 Nasal Cannula 2.0 28 09/28/18 18:00 149/70 (96) 92 09/28/18 17:12 157/75 09/28/18 16:15 80 09/28/18 16:00 98.1 93 20 157/75 (102) 96 09/28/18 14:25 78 18 99 Nasal Cannula 2.0 28 09/28/18 14:16 72 20 98 Nasal Cannula 2.0 28 Intake and Output 09/28/18 09/29/18 19:00 07:00 Intake Total 525 ml Balance 525 ml Intake Oral 525 ml # Voids 5 2 # Bowel Movements 2 1 Current Medications Medications (Trade) Dose Ordered Sig/Charlie Route PRN Reason Start Time Stop Time Status Last Admin Dose Admin Acetaminophen (Tylenol) 650 mg Q4H PRN ORAL Mild Pain/Temp > 100.5 09/24/18 14:15 10/24/18 14:14 Al Hydroxide/Mg Hydroxide (Mylanta) 30 ml Q4H PRN ORAL Nausea & Vomiting 09/24/18 14:15 10/24/18 14:14 Albuterol/ Ipratropium (Albuterol/ Ipratropium) 3 ml Q4H PRN HHN Shortness of Breath 09/24/18 14:00 09/29/18 13:59 09/28/18 04:47 Albuterol/ Ipratropium (Albuterol/ Ipratropium) 3 ml Q4HRT HHN 09/24/18 15:00 09/29/18 14:59 09/29/18 12:02 Amlodipine Besylate (Norvasc) 10 mg DAILY ORAL 09/29/18 09:00 10/29/18 08:59 09/29/18 09:11 Clonidine HCl (Catapres Tab) 0.1 mg Q4H PRN ORAL For High Blood Pressure 09/24/18 19:00 10/24/18 18:59 09/28/18 17:12 Cyanocobalamin (Vitamin B-12) 500 mcg DAILY ORAL 09/25/18 09:00 10/25/18 08:59 09/29/18 09:11 Diltiazem HCl (Cardizem CD) 180 mg Q12HR ORAL 09/28/18 21:00 10/28/18 23:00 09/29/18 09:11 Fluticasone/ Vilanterol (Breo Ellipta 200/25) 1 puffs DAILY INH 09/25/18 10:00 10/25/18 09:59 09/29/18 11:05 Heparin Sodium (Porcine) (Heparin 5000 units/ml) 5,000 units EVERY 12 HOURS SUBQ 09/24/18 21:00 10/24/18 20:59 09/29/18 09:13 Methylprednisolone Sodium Succinate (Solu-MEDROL) 40 mg EVERY 12 HOURS IVP 09/28/18 21:00 10/24/18 20:59 09/29/18 09:11 Sodium Chloride 1,000 ml @ 60 mls/hr [id number] IV 09/26/18 02:00 10/26/18 01:59 09/28/18 01:45 Tiotropium [place] (Spiriva Inhaler) 2 puff DAILY INH 09/25/18 10:00 10/25/18 09:59 09/26/18 09:25 Vitamin D (Vitamin D) 1,000 intlu DAILY ORAL 09/25/18 09:00 10/25/18 08:59 09/29/18 09:11 Amor Schrader MD Sep 29, 2018 13:30
[2018-09-29] MEDS ORDERED: Tubing IV Secondary IV ONE (15:36)
[2018-09-29] MEDS ORDERED: 1/2 NS 1000ml IV ONE (15:36)
--- NOTE | 2018-09-29 19:08 | NUR ---
HAND-OFF: Report given to Gee Gonzalez RN.
--- NOTE | 2018-09-29 19:30 | NUR ---
NURSE NOTES: Received patient from Spring KOEHLER. Patient in bed, awake and oriented x4, calm and cooperative, no c/o pain. On 2L NC, no s/s of respiratory distress. Bed locked in low position, call light within reach.
[2018-09-30] VITALS (7 sets, daily range): BP systolic 142–165; BP diastolic 70–81
--- NOTE | 2018-09-30 00:15 | Progress Note ---
DATE: 09/29/2018 CARDIOLOGY PROGRESS NOTE SUBJECTIVE: The patient continues to feel better. No shortness of breath. Steroid tapering ongoing. OBJECTIVE: VITAL SIGNS: Blood pressure 154/77, pulse 89, respiratory rate 20. LUNGS: Diminished breath sounds. HEART: Regular rhythm and rate. Normal S1, S2 with a fourth heart sound. ABDOMEN: Soft. EXTREMITIES: No edema. Monitored rhythm, sinus. IMPRESSION: 1. Chronic obstructive pulmonary disease exacerbation. 2. Paroxysmal bronchospasm. 3. Hypertensive heart disease with labile blood pressure. 4. Chronic diastolic congestive heart failure. 5. Paroxysmal atrial fibrillation. PLAN: 1. Steroid taper. 2. Expect improvement in blood pressure parameters. 3. Maintain diltiazem. 4. Respiratory hygiene. 5. DVT and stress ulcer prophylaxis. 6. Follow up laboratory studies. 7. Reassess volume status. 8. May need periodic diuresis. Amor Lorenzo M.D. DR: ALEXUS JOB#: [id number] CC:
--- NOTE | 2018-09-30 04:07 | NUR ---
NURSE NOTES: SBP 163, patient refused clonidine PRN and wanted to wait and recheck in half hour first. Patient also took off nasal cannula but was 97% on room air.
--- NOTE | 2018-09-30 04:49 | NUR ---
NURSE NOTES: BP 149/79, o2sat on 2L NC 100%.
--- NOTE | 2018-09-30 07:30 | NUR ---
NURSE NOTES: I received the patient awake and resting in bed. Patient alert and oriented x4. Bed in the lowest position and call light within reach. Patient refused morning lab draw and agreed to have another person draw his blood. I will continue to monitor the patient and implement care.
--- NOTE | 2018-09-30 07:38 | NUR ---
HAND-OFF: Report given to Spring Wooten. Plan of care endorsed.
[2018-09-30] MEDS: Vitamin D 1000 IU Tab ORAL SCH (08:44)
[2018-09-30] MEDS: Vitamin B-12 500mcg tab ORAL SCH (08:44)
[2018-09-30] MEDS: dilTIAZem HCl CD 180mg cap ORAL SCH ×2 (08:45→20:45)
[2018-09-30] MEDS: Heparin 5000 units/ml inj SUBQ SCH ×2 (08:48→20:46)
[2018-09-30] MEDS: Breo Ellipta 200/25mcg-14 dose INH SCH (09:00)
--- NOTE | 2018-09-30 09:29 | Infectious Diseases Prog Note ---
Assessment/Plan Assessment/Plan A: COPD exacerbation HPN Hypoxia Acidosis Hyperkalemia corrected P: Observe off antibiotic Subjective ROS Limited/Unobtainable: Yes Constitutional: Reports: no symptoms Respiratory: Reports: no symptoms Gastrointestinal/Abdominal: Reports: no symptoms Genitourinary: Reports: no symptoms Neurologic: Reports: confusion, other - on restraint Allergies: Coded Allergies: No Known Allergies (Unverified , 08/06/18) Objective Vital Signs Last 24 Hour Vital Signs Date Time Temp Pulse Resp B/P (MAP) Pulse Ox O2 Delivery O2 Flow Rate FiO2 09/30/18 08:45 83 165/75 09/30/18 08:44 83 165/75 09/30/18 08:00 98.6 83 22 165/75 (105) 97 09/30/18 04:44 69 149/79 (102) 100 09/30/18 04:00 79 09/30/18 04:00 98.1 85 20 163/78 (106) 97 09/30/18 00:00 98.4 83 18 149/70 (96) 99 09/30/18 00:00 79 09/29/18 21:05 98 Nasal Cannula 2.0 28 09/29/18 20:32 93 157/79 09/29/18 20:29 98.7 93 19 157/79 (105) 97 09/29/18 20:00 100 09/29/18 19:56 Nasal Cannula 2.0 09/29/18 16:00 98.2 77 22 144/77 (99) 99 09/29/18 16:00 87 09/29/18 12:39 154/77 (102) 09/29/18 12:04 89 20 100 Room Air 21 09/29/18 12:00 86 09/29/18 12:00 97.2 83 22 167/73 (104) 94 09/29/18 11:59 93 20 100 Nasal Cannula 2.0 28 09/29/18 11:50 89 20 98 Nasal Cannula 2.0 28 09/29/18 11:05 79 22 98 Nasal Cannula 2.0 28 09/29/18 11:05 89 16 99 Nasal Cannula 2.0 28 Height (Feet): 5 Height (Inches): 10.00 Weight (Pounds): 112 General Appearance: no acute distress HEENT: mucous membranes moist Respiratory/Chest: lungs clear Cardiovascular: normal rate Abdomen: soft, non tender Extremities: other - edema more in hands Skin: other - skin scabs on hands Neurologic/Psychiatric: alert, responsive Current Medications Medications (Trade) Dose Ordered Sig/Charlie Route PRN Reason Start Time Stop Time Status Last Admin Dose Admin Acetaminophen (Tylenol) 650 mg Q4H PRN ORAL Mild Pain/Temp > 100.5 09/24/18 14:15 10/24/18 14:14 Al Hydroxide/Mg Hydroxide (Mylanta) 30 ml Q4H PRN ORAL Nausea & Vomiting 09/24/18 14:15 10/24/18 14:14 Amlodipine Besylate (Norvasc) 10 mg DAILY ORAL 09/29/18 09:00 10/29/18 08:59 09/30/18 08:44 Clonidine HCl (Catapres Tab) 0.1 mg Q4H PRN ORAL For High Blood Pressure 09/24/18 19:00 10/24/18 18:59 09/28/18 17:12 Cyanocobalamin (Vitamin B-12) 500 mcg DAILY ORAL 09/25/18 09:00 10/25/18 08:59 09/30/18 08:44 Diltiazem HCl (Cardizem CD) 180 mg Q12HR ORAL 09/28/18 21:00 10/28/18 23:00 09/30/18 08:45 Fluticasone/ Vilanterol (Breo Ellipta 200/25) 1 puffs DAILY INH 09/25/18 10:00 10/25/18 09:59 09/29/18 11:05 Heparin Sodium (Porcine) (Heparin 5000 units/ml) 5,000 units EVERY 12 HOURS SUBQ 09/24/18 21:00 10/24/18 20:59 09/29/18 09:13 Prednisone (PredniSONE) 30 mg DAILY ORAL 09/30/18 09:00 10/30/18 08:59 09/30/18 08:45 Sodium Chloride 1,000 ml @ 60 mls/hr [id number] IV 09/26/18 02:00 10/26/18 01:59 09/28/18 01:45 Tiotropium [place] (Spiriva Inhaler) 2 puff DAILY INH 09/25/18 10:00 10/25/18 09:59 09/26/18 09:25 Vitamin D (Vitamin D) 1,000 intlu DAILY ORAL 09/25/18 09:00 10/25/18 08:59 09/30/18 08:44 Segun Matta MD Sep 30, 2018 09:29
[2018-09-30 09:56] LABS: BASOPHILS % (AUTO) 0.4 % (0.0-2.0); HEMATOCRIT 42.5 % (42.0-52.0); HEMOGLOBIN 13.2 G/DL (14.2-18.0); LYMPHOCYTES % (AUTO) 11.7 % (20.0-45.0); MEAN CORPUSCULAR VOLUME 93 FL (80-99); MONOCYTES % (AUTO) 6.9 % (1.0-10.0); NEUTROPHILS % (AUTO) 81.1 % (45.0-75.0); PLATELET COUNT 301 K/UL (150-450); RED BLOOD COUNT 4.56 M/UL (4.70-6.10); RED CELL DISTRIBUTION WIDTH 14.2 % (11.6-14.8); WHITE BLOOD COUNT 13.4 K/UL (4.8-10.8)
[2018-09-30 10:18] LABS: ALANINE AMINOTRANSFERASE 32 U/L (12-78); ALBUMIN 2.9 G/DL (3.4-5.0); ALBUMIN/GLOBULIN RATIO 0.9 (1.0-2.7); ALKALINE PHOSPHATASE 104 U/L (46-116); ANION GAP 7 mmol/L (5-15); ASPARTATE AMINO TRANSFERASE 20 U/L (15-37); BILIRUBIN,TOTAL 0.2 MG/DL (0.2-1.0); BLOOD UREA NITROGEN 20 mg/dL (7-18); CARBON DIOXIDE 30 MMOL/L (21-32); CHLORIDE 109 MMOL/L (98-107); POTASSIUM 3.6 MMOL/L (3.5-5.1); SODIUM 146 MMOL/L (136-145)
--- NOTE | 2018-09-30 19:10 | NUR ---
NURSE NOTES: Received report from Spring KOEHLER, pt. in bed awake, no signs or symptoms of acute cardiac or respiratory distress noted, pt. is awake - A/O x's4- able to make needs known, monitoring tech is on, bed alarm on, side rails up x's3 and safety brakes engaged, call light within easy reach, and bed locked in position, pt. appears to be sating well on 2L NC at 98%- no distress noted, pt. aware to ask for assistance when ambulating to bathroom, pt. has no IV access per endorsement as he is refusing IV insertion, Asked pt. again if I may insert IV - pt. continues to refuse IV insertion, safety measures continued, will continue with plan of care.
--- NOTE | 2018-09-30 19:28 | NUR ---
HAND-OFF: Report given to RODO Haas.
--- NOTE | 2018-09-30 20:30 | Pulmonology Progress Note ---
Assessment/Plan Assessment/Plan Pulmonary Progress Note Assessment/Plan COPD with acute exacerbation - steroids being weaned hypernatremia improved hyperkalemia improved elevated troponin reduced TSH hypertension hypoxemia No new complaints PLAN ID following Cardiology following care noted maintain same cards noted follow up lytes assess further pending reeval impression, plan, and exam edited and reviewed in detail DC planning care discussed with RN Subjective Allergies: Coded Allergies: No Known Allergies Subjective care noted and reviewed no distress at present Objective Vital Signs Noted Objective WDWN NAD reduced breath sounds bilaterally without rhonchi or wheeze [id number] without MRG NABS nontender no HSM no CCE nonfocal Laboratory Tests 09/24/18 11:30: White Blood Count 6.9, Red Blood Count 5.07, Hemoglobin 14.6, Hematocrit 46.2, Mean Corpuscular Volume 91, Mean Corpuscular Hemoglobin 28.9, Mean Corpuscular Hemoglobin Concent 31.7L, Red Cell Distribution Width 13.8, Platelet Count 260, Mean Platelet Volume 6.0L, Neutrophils (%) (Auto) 54.6, Lymphocytes (%) (Auto) 31.1, Monocytes (%) (Auto) 8.0, Eosinophils (%) (Auto) 4.4H, Basophils (%) (Auto ) 2.0, Sodium Level 146H, Potassium Level 5.4H, Chloride Level 107, Carbon Dioxide Level 31, Anion Gap 8, Blood Urea Nitrogen 15, Creatinine 1.2, Estimat Glomerular Filtration Rate , Glucose Level 104, Lactic Acid Level 2.60H, Calcium Level 10.4H, Total Bilirubin 0.3, Aspartate Amino Transf (AST/SGOT) 25, Alanine Aminotransferase (ALT/SGPT) 19, Alkaline Phosphatase 92, Total Creatine Kinase 195, Creatine Kinase MB 5.4H, Creatine Kinase MB Relative Index 2.7, Troponin I 0.073H, Pro-B-Type Natriuretic Peptide 94, Total Protein 7.9, Albumin 3.7, Globulin 4.2, Albumin/Globulin Ratio 0.9L, Lipase 57L 09/24/18 12:30: Lactic Acid Level 1.20 09/25/18 06:08: White Blood Count 5.9, Red Blood Count 4.67L, Hemoglobin 13.6L, Hematocrit 42.2 , Mean Corpuscular Volume 90, Mean Corpuscular Hemoglobin 29.1, Mean Corpuscular Hemoglobin Concent 32.2, Red Cell Distribution Width 13.6, Platelet Count 270, Mean Platelet Volume 6.4L, Neutrophils (%) (Auto) 75.9H, Lymphocytes (%) (Auto) 20.0, Monocytes (%) (Auto) 3.3, Eosinophils (%) (Auto) 0.0, Basophils (%) (Auto) 0.8, Sodium Level 143, Potassium Level 4.0, Chloride Level 105, Carbon Dioxide Level 28, Anion Gap 10, Blood Urea Nitrogen 16, Creatinine 1.1, Estimat Glomerular Filtration Rate , Glucose Level 131H, Calcium Level 10.1 , Total Bilirubin 0.3, Aspartate Amino Transf (AST/SGOT) 20, Alanine Aminotransferase (ALT/SGPT) 21, Alkaline Phosphatase 93, Troponin I 0.069H, Pro- B-Type Natriuretic Peptide 178H, Total Protein 7.6, Albumin 3.6, Globulin 4.0, Albumin/Globulin Ratio 0.9L, Magnesium Level 2.0, Thyroid Stimulating Hormone ( TSH) 0.261L Subjective ROS Limited/Unobtainable: No Allergies: Coded Allergies: No Known Allergies (Unverified , 08/06/18) Objective Last 24 Hour Vital Signs Date Time Temp Pulse Resp B/P (MAP) Pulse Ox O2 Delivery O2 Flow Rate FiO2 09/30/18 19:39 98 Nasal Cannula 2.0 28 09/30/18 16:00 75 09/30/18 16:00 98.3 76 20 142/72 (95) 99 09/30/18 12:00 98.6 75 20 158/81 (106) 99 09/30/18 12:00 74 09/30/18 09:29 Nasal Cannula 09/30/18 09:29 98 Nasal Cannula 2.0 28 09/30/18 09:29 Nasal Cannula 09/30/18 09:28 Nasal Cannula 09/30/18 09:28 Nasal Cannula 09/30/18 09:00 Nasal Cannula 2.0 09/30/18 08:45 83 165/75 09/30/18 08:44 83 165/75 09/30/18 08:00 98.6 83 22 165/75 (105) 97 09/30/18 08:00 100 09/30/18 04:44 69 149/79 (102) 100 09/30/18 04:00 79 09/30/18 04:00 98.1 85 20 163/78 (106) 97 09/30/18 00:00 98.4 83 18 149/70 (96) 99 09/30/18 00:00 79 09/29/18 21:05 98 Nasal Cannula 2.0 28 09/29/18 20:32 93 157/79 Intake and Output 09/29/18 09/30/18 18:59 06:59 Intake Total 480 ml Output Total 1800 ml Balance -1320 ml Intake Oral 480 ml Output Urine Total 1800 ml # Voids 3 8 # Bowel Movements 1 2 Laboratory Tests 09/30/18 09:40: White Blood Count 13.4H, Red Blood Count 4.56L, Hemoglobin 13.2L, Hematocrit 42.5, Mean Corpuscular Volume 93, Mean Corpuscular Hemoglobin 29.0, Mean Corpuscular Hemoglobin Concent 31.1L, Red Cell Distribution Width 14.2, Platelet Count 301, Mean Platelet Volume 5.8L, Neutrophils (%) (Auto) 81.1H, Lymphocytes (%) (Auto) 11.7L, Monocytes (%) (Auto) 6.9, Eosinophils (%) (Auto) 0.0, Basophils (%) (Auto) 0.4, Sodium Level 146H, Potassium Level 3.6, Chloride Level 109H, Carbon Dioxide Level 30, Anion Gap 7, Blood Urea Nitrogen 20H, Creatinine 1.0, Estimat Glomerular Filtration Rate , Glucose Level 142H, Calcium Level 9.0, Magnesium Level 2.2, Total Bilirubin 0.2, Aspartate Amino Transf (AST/SGOT) 20, Alanine Aminotransferase (ALT/SGPT) 32, Alkaline Phosphatase 104, Pro-B-Type Natriuretic Peptide 95, Total Protein 6.0L, Albumin 2.9L, Globulin 3.1, Albumin/Globulin Ratio 0.9L Current Medications Medications (Trade) Dose Ordered Sig/Charlie Route PRN Reason Start Time Stop Time Status Last Admin Dose Admin Acetaminophen (Tylenol) 650 mg Q4H PRN ORAL Mild Pain/Temp > 100.5 09/24/18 14:15 10/24/18 14:14 Al Hydroxide/Mg Hydroxide (Mylanta) 30 ml Q4H PRN ORAL Nausea & Vomiting 09/24/18 14:15 10/24/18 14:14 Amlodipine Besylate (Norvasc) 10 mg DAILY ORAL 09/29/18 09:00 10/29/18 08:59 09/30/18 08:44 Clonidine HCl (Catapres Tab) 0.1 mg Q4H PRN ORAL For High Blood Pressure 09/24/18 19:00 10/24/18 18:59 09/28/18 17:12 Cyanocobalamin (Vitamin B-12) 500 mcg DAILY ORAL 09/25/18 09:00 10/25/18 08:59 09/30/18 08:44 Diltiazem HCl (Cardizem CD) 180 mg Q12HR ORAL 09/28/18 21:00 10/28/18 23:00 09/30/18 08:45 Fluticasone/ Vilanterol (Breo Ellipta 200/25) 1 puffs DAILY INH 09/25/18 10:00 10/25/18 09:59 09/29/18 11:05 Heparin Sodium (Porcine) (Heparin 5000 units/ml) 5,000 units EVERY 12 HOURS SUBQ 09/24/18 21:00 10/24/18 20:59 09/29/18 09:13 Prednisone (PredniSONE) 30 mg DAILY ORAL 09/30/18 09:00 10/30/18 08:59 09/30/18 08:45 Tiotropium [place] (Spiriva Inhaler) 2 puff DAILY INH 09/25/18 10:00 10/25/18 09:59 09/26/18 09:25 Vitamin D (Vitamin D) 1,000 intlu DAILY ORAL 09/25/18 09:00 10/25/18 08:59 09/30/18 08:44 Amor Schrader MD Sep 30, 2018 20:30
[2018-10-01] VITALS: BP 139/84
[2018-10-01] MEDS ORDERED: Doxazosin 1mg Tab ORAL SCH ×4 (01:15→21:00)
[2018-10-01] MEDS ORDERED: Doxazosin 1mg Tab ORAL ONE (02:00)
--- NOTE | 2018-10-01 03:15 | Progress Note ---
DATE: 09/30/2018 CARDIOLOGY PROGRESS NOTE SUBJECTIVE: The patient is without new distress. Tolerating current regimen. Monitored rhythm sinus with atrial arrhythmia at times, but no recurring atrial fibrillation. OBJECTIVE: VITAL SIGNS: Blood pressure 142/72 to 164/75, heart rate 83, respiratory rate 18, and afebrile. LUNGS: Diminished breath sounds. CARDIAC: Regular rhythm and rate. Normal S1, S2 with a fourth heart sound. ABDOMEN: Soft. EXTREMITIES: No edema. IMPRESSION: 1. Chronic obstructive pulmonary disease. 2. Hypertensive heart disease. 3. Paroxysmal atrial fibrillation. 4. Paroxysmal bronchospasm. 5. Pulmonary hypertension. 6. Hypertensive heart disease. 7. Aortic valve disease with regurgitation. PLAN: 1. Additional antihypertensive therapy will be added. 2. Maintain diltiazem for suppression of atrial arrhythmias. 3. Steroid taper ongoing. Amor Lorenzo M.D. DR: JEF JOB#: [id number] CC:
[2018-10-01 04:00] VITALS: BP 153/73
--- NOTE | 2018-10-01 07:15 | NUR ---
NURSE NOTES: Received report from RODO Haas. Patient is awake in bed AAO x 4. Patient is on 2L NC, breathing even and unlabored. Patient is on air sampling and monitoring. Bed alarm on, side rails up x's3 and safety brakes engaged, Call light within easy reach, and bed locked in position. Pt. aware to ask for assistance when ambulating to bathroom. Patient refused IV insertion and primary doctor is aware. Will continue with plan of care.
--- NOTE | 2018-10-01 07:17 | NUR ---
HAND-OFF: Report given to Teresa Rn, pt. remains stable and no signs of distress noted.
[2018-10-01 08:00] VITALS: BP 134/68
[2018-10-01] MEDS: Breo Ellipta 200/25mcg-14 dose INH SCH (08:29)
[2018-10-01] MEDS: Vitamin D 1000 IU Tab ORAL SCH (08:50)
[2018-10-01] MEDS: Vitamin B-12 500mcg tab ORAL SCH (08:50)
[2018-10-01] MEDS: dilTIAZem HCl CD 180mg cap ORAL SCH (08:51)
[2018-10-01] MEDS: Heparin 5000 units/ml inj SUBQ SCH (08:55)
--- NOTE | 2018-10-01 10:21 | Pulmonology Progress Note ---
Assessment/Plan Assessment/Plan COPD with acute exacerbation hypernatremia hyperkalemia elevated troponin reduced TSH hypertension hypoxemia PLAN care noted maintain same cards noted ID noted dc planning today impression, plan, and exam edited and reviewed in detail care discussed with RN Subjective ROS Limited/Unobtainable: Yes Allergies: Coded Allergies: No Known Allergies (Unverified , 08/06/18) Subjective care noted and reviewed no distress at present ID noted off antibiotics Objective Last 24 Hour Vital Signs Date Time Temp Pulse Resp B/P (MAP) Pulse Ox O2 Delivery O2 Flow Rate FiO2 10/01/18 09:03 Nasal Cannula 2.0 28 10/01/18 09:03 Nasal Cannula 2.0 28 10/01/18 09:02 99 Nasal Cannula 2.0 28 10/01/18 09:02 70 20 99 Nasal Cannula 2.0 28 10/01/18 09:02 70 20 99 Nasal Cannula 2.0 28 10/01/18 08:51 63 134/68 10/01/18 08:51 63 134/68 10/01/18 08:09 Nasal Cannula 2.0 10/01/18 08:00 97.7 63 18 134/68 (90) 98 10/01/18 07:30 91 10/01/18 05:05 153/73 10/01/18 04:00 77 10/01/18 04:00 98.1 80 18 153/73 (99) 98 10/01/18 04:00 2.0 10/01/18 00:00 85 10/01/18 00:00 98.2 74 18 139/84 (102) 98 10/01/18 00:00 2.0 09/30/18 21:48 2.0 09/30/18 21:00 Nasal Cannula 2.0 09/30/18 20:45 83 164/75 09/30/18 20:00 82 09/30/18 20:00 98.4 83 18 164/75 (104) 96 09/30/18 19:39 98 Nasal Cannula 2.0 28 09/30/18 16:00 75 09/30/18 16:00 98.3 76 20 142/72 (95) 99 09/30/18 12:00 98.6 75 20 158/81 (106) 99 09/30/18 12:00 74 Intake and Output 09/30/18 10/01/18 19:00 07:00 Intake Total 1080 ml Balance 1080 ml Intake Oral 1080 ml # Voids 4 2 # Bowel Movements 2 2 Objective WDWN NAD reduced breath sounds bilaterally without rhonchi or wheeze [id number] without MRG NABS nontender no HSM no CCE nonfocal reviewed and edited Current Medications Medications (Trade) Dose Ordered Sig/Charlie Route PRN Reason Start Time Stop Time Status Last Admin Dose Admin Acetaminophen (Tylenol) 650 mg Q4H PRN ORAL Mild Pain/Temp > 100.5 09/24/18 14:15 10/24/18 14:14 Al Hydroxide/Mg Hydroxide (Mylanta) 30 ml Q4H PRN ORAL Nausea & Vomiting 09/24/18 14:15 10/24/18 14:14 Amlodipine Besylate (Norvasc) 10 mg DAILY ORAL 09/29/18 09:00 10/29/18 08:59 10/01/18 08:51 Clonidine HCl (Catapres Tab) 0.1 mg Q4H PRN ORAL For High Blood Pressure 09/24/18 19:00 10/24/18 18:59 10/01/18 05:05 Cyanocobalamin (Vitamin B-12) 500 mcg DAILY ORAL 09/25/18 09:00 10/25/18 08:59 10/01/18 08:50 Diltiazem HCl (Cardizem CD) 180 mg Q12HR ORAL 09/28/18 21:00 10/28/18 23:00 10/01/18 08:51 Doxazosin Mesylate (Cardura) 1 mg BEDTIME ORAL 10/01/18 21:00 10/31/18 20:59 Fluticasone/ Vilanterol (Breo Ellipta 200/25) 1 puffs DAILY INH 09/25/18 10:00 10/25/18 09:59 10/01/18 08:29 Heparin Sodium (Porcine) (Heparin 5000 units/ml) 5,000 units EVERY 12 HOURS SUBQ 09/24/18 21:00 10/24/18 20:59 09/30/18 20:46 Prednisone (PredniSONE) 30 mg DAILY ORAL 09/30/18 09:00 10/30/18 08:59 10/01/18 08:50 Tiotropium [place] (Spiriva Inhaler) 2 puff DAILY INH 09/25/18 10:00 10/25/18 09:59 09/26/18 09:25 Vitamin D (Vitamin D) 1,000 intlu DAILY ORAL 09/25/18 09:00 10/25/18 08:59 10/01/18 08:50 Phil Felipe MD Oct 01, 2018 10:21
--- NOTE | 2018-10-01 10:48 | NUR ---
DISCHARGE PLANNING: NOTE CM MET WITH PT AT THE BEDSIDE. PT ENDORSED TO CM THAT HE CURRENTLY HAS O2 AT HOME. HE CANNOT REMEMBER THE NAME OF THE COMPANY THAT SUPPLIES HIS OXYGEN. 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 PT IS READY FOR DC AND IS AGREEABLE TO THE DC PLAN. CLINICALS FAXED TO [facility] FOR REVIEW. AWAITING FAX CONFIRMATION. Addendum: 10/01/18 at 1736 by Krys Pedro CM VM LEFT TO VERIFY [facility] CAN ACCEPT THIS PT Addendum: 10/02/18 at 1337 by Krys Pedro [facility] IS ACCEPTING THIS RETURNING PT
--- NOTE | 2018-10-01 11:42 | Infectious Diseases Prog Note ---
Assessment/Plan Assessment/Plan A: COPD exacerbation HPN Hypoxia Acidosis Hyperkalemia corrected P: Observe off antibiotic Subjective ROS Limited/Unobtainable: No Respiratory: Reports: no symptoms Cardiovascular: Reports: no symptoms Gastrointestinal/Abdominal: Reports: no symptoms Genitourinary: Reports: no symptoms Allergies: Coded Allergies: No Known Allergies (Unverified , 08/06/18) Objective Vital Signs Last 24 Hour Vital Signs Date Time Temp Pulse Resp B/P (MAP) Pulse Ox O2 Delivery O2 Flow Rate FiO2 10/01/18 09:03 Nasal Cannula 2.0 28 10/01/18 09:03 Nasal Cannula 2.0 28 10/01/18 09:02 99 Nasal Cannula 2.0 10/01/18 09:02 70 20 99 Nasal Cannula 2.0 10/01/18 09:02 70 20 99 Nasal Cannula 2.0 10/01/18 08:51 63 134/68 10/01/18 08:51 63 134/68 10/01/18 08:09 Nasal Cannula 2.0 10/01/18 08:00 97.7 63 18 134/68 (90) 98 10/01/18 07:30 91 10/01/18 05:05 153/73 10/01/18 04:00 77 10/01/18 04:00 98.1 80 18 153/73 (99) 98 10/01/18 04:00 2.0 10/01/18 00:00 85 10/01/18 00:00 98.2 74 18 139/84 (102) 98 10/01/18 00:00 2.0 09/30/18 21:48 2.0 09/30/18 21:00 Nasal Cannula 2.0 09/30/18 20:45 83 164/75 09/30/18 20:00 82 09/30/18 20:00 98.4 83 18 164/75 (104) 96 09/30/18 19:39 98 Nasal Cannula 2.0 28 09/30/18 16:00 75 09/30/18 16:00 98.3 76 20 142/72 (95) 99 09/30/18 12:00 98.6 75 20 158/81 (106) 99 09/30/18 12:00 74 Height (Feet): 5 Height (Inches): 10.00 Weight (Pounds): 112 General Appearance: no acute distress HEENT: mucous membranes moist Respiratory/Chest: lungs clear Cardiovascular: normal rate Abdomen: soft, non tender Extremities: no edema Neurologic/Psychiatric: alert, oriented x 3, responsive Current Medications Medications (Trade) Dose Ordered Sig/Charlie Route PRN Reason Start Time Stop Time Status Last Admin Dose Admin Acetaminophen (Tylenol) 650 mg Q4H PRN ORAL Mild Pain/Temp > 100.5 09/24/18 14:15 10/24/18 14:14 Al Hydroxide/Mg Hydroxide (Mylanta) 30 ml Q4H PRN ORAL Nausea & Vomiting 09/24/18 14:15 10/24/18 14:14 Amlodipine Besylate (Norvasc) 10 mg DAILY ORAL 09/29/18 09:00 10/29/18 08:59 10/01/18 08:51 Clonidine HCl (Catapres Tab) 0.1 mg Q4H PRN ORAL For High Blood Pressure 09/24/18 19:00 10/24/18 18:59 10/01/18 05:05 Cyanocobalamin (Vitamin B-12) 500 mcg DAILY ORAL 09/25/18 09:00 10/25/18 08:59 10/01/18 08:50 Diltiazem HCl (Cardizem CD) 180 mg Q12HR ORAL 09/28/18 21:00 10/28/18 23:00 10/01/18 08:51 Doxazosin Mesylate (Cardura) 1 mg BEDTIME ORAL 10/01/18 21:00 10/31/18 20:59 Fluticasone/ Vilanterol (Breo Ellipta 200/25) 1 puffs DAILY INH 09/25/18 10:00 10/25/18 09:59 10/01/18 08:29 Heparin Sodium (Porcine) (Heparin 5000 units/ml) 5,000 units EVERY 12 HOURS SUBQ 09/24/18 21:00 10/24/18 20:59 09/30/18 20:46 Prednisone (PredniSONE) 30 mg DAILY ORAL 09/30/18 09:00 10/30/18 08:59 10/01/18 08:50 Tiotropium Stickney (Spiriva Inhaler) 2 puff DAILY INH 09/25/18 10:00 10/25/18 09:59 09/26/18 09:25 Vitamin D (Vitamin D) 1,000 intlu DAILY ORAL 09/25/18 09:00 10/25/18 08:59 10/01/18 08:50 Segun Matta MD Oct 01, 2018 11:42
[2018-10-01 12:00] VITALS: BP 135/68
[2018-10-01 13:09] VITALS: BP 138/56
[2018-10-01] MEDS ORDERED: PREDNISONE10 MG ORAL (13:48)
[2018-10-01] MEDS ORDERED: NORVASC10 MG ORAL (13:49)
[2018-10-01] MEDS ORDERED: CARDIZEM CD180 MG ORAL (13:50)
[2018-10-01] MEDS ORDERED: BREO ELLIPTA 21 EACH IH (13:51)
[2018-10-01] MEDS ORDERED: SPIRIVA18 MCG INH (13:51)
--- NOTE | 2018-10-01 14:30 | NUR ---
Home Discharge: Patient is being discharged from medical care. Awake, alert and oriented x 4. Patient verbalized understanding of discharge instructions. Dc paper signed. Belongings paper signed. Discussed about follow up appointment already scheduled in about one week, diagnosis, and patient education. discussed that his medications were ready at his preferred pharmacy and any questions about them will go to Dr. Felipe. Patient verbalize understanding. All medical devices such as IV, heart monitor, and ID band were removed. Patient left on wheel chair with all personal belongings. Patient left with friend on private vehicle to home.
--- NOTE | 2018-10-02 00:45 | Progress Note ---
DATE: 10/01/2018 CARDIOLOGY PROGRESS NOTE SUBJECTIVE: The patient feels better. No shortness of breath. OBJECTIVE: VITAL SIGNS: Blood pressure 134/68, pulse 63, and respiratory rate 20. LUNGS: Diminished breath sounds. No wheezing. HEART: Regular rhythm and rate. Normal S1 and S2. ABDOMEN: Soft. EXTREMITIES: No edema. LABORATORY DATA: Cultures remain negative. IMPRESSION: 1. Stable for lower level of care. 2. Will need monitoring of electrolytes and volume status. Amor Lorenzo M.D. DR: VICTOR MANUEL JOB#: [id number] CC:
--- NOTE | 2018-10-02 08:04 | Discharge Summary ---
Discharge Summary Discharge Summary _ DATE OF ADMISSION: 09/24/2018 DATE OF DISCHARGE: 10/01/2018 DISCHARGED BY: Dr. Felipe REASON FOR ADMISSION: 73 years old male with past medical history of end-stage COPD, hypertension, tachyarrhythmia, remote history of C. difficile, vitamin D deficiency, presented to emergency department from home with worsening shortness of breath over the past 2 weeks. Patient was unable to improve at home. Patient reported cough, chest tightness, and difficulties with breathing. After evaluation in emergency department patient was admitted for COPD exacerbation. CONSULTANTS: intellectual property manager ID specialist Dr. Mora [facility] COURSE: Patient admitted to telemetry floor. Supplemental oxygen titrated to keep pulse oximetry above 90%. Pulmonary toilet provided with nebulizing therapy around the clock and as needed. Patient was started on intravenous steroids with gradual tapering down. Patient was started on empiric antibiotic as per ID specialist recommendation. Sputum culture was negative. Blood culture were negative. . CXR revealed changes consistent with a COPD, but no acute cardiopulmonary pathology. Antibiotics stopped. Intravenous steroids changed to oral prednisone as patient clinically improved. Microwave Supervisor followed. Patient was on cardiac monitoring. Telemetry showed sinus rhythm, no acute ischemic changes. No beta-coleen provided, given acute COPD exacerbation. Serial troponin revealed mildly elevated second troponin, trending down from the first, and the last troponin was negative. Patient was on diltiazem for rate control and blood pressure. No indication for full anticoagulation as per intellectual property manager. Blood pressure eventually was managed with calcium channel coleen, Cardura and clonidine on as-needed basis. DVT prophylaxis provided. Patient was on cautious hydration. Renal parameters and electrolytes were closely monitored. Hypernatremia and hyperkalemia resolved. Renal parameters remained stable. Volumes are closely monitor. Nephrotoxic's were avoided. Lactic acidosis resolved. Patient clinically stabilized and was ready for discharge home on inhalers: Spiriva and Breo. Complete prednisone for duration of time as specified. Continue current cardiovascular regimen. FINAL DIAGNOSES: COPD with acute exacerbation Hypoxemia Acute myocardial ischemia Hypertensive heart disease with labile blood pressure Hypernatremia Hyperkalemia Paroxysmal atrial fibrillation Lactic acidosis DISCHARGE MEDICATIONS: See Medication Reconciliation list. DISCHARGE INSTRUCTIONS: Patient was discharged home with home health services. Follow up with primary care provider in one week. I have been assigned to dictate discharge summary for this account. I was not involved in the patient's management. Sanam Buenrostro NP Oct 02, 2018 08:04
== END 2018-10-01 14:44 | disposition home health service (06) | DRG 190 ==
LOC: EMR 11:35 → 2E 11:43 → EDBEDREQ 11:56 → 2E 09-28 06:06
DX: J44.1 Chronic obstructive pulmonary disease with (acute) exacerbation (principal); J18.9 Pneumonia, unspecified organism; E87.0 Hyperosmolality and hypernatremia; E87.2 Acidosis; I50.32 Chronic diastolic (congestive) heart failure; I11.0 Hypertensive heart disease with heart failure; E87.5 Hyperkalemia; R09.02 Hypoxemia; I51.3 Intracardiac thrombosis, not elsewhere classified; I48.0 Paroxysmal atrial fibrillation; E78.5 Hyperlipidemia, unspecified; Z87.891 Personal history of nicotine dependence; E86.0 Dehydration; I35.1 Nonrheumatic aortic (valve) insufficiency
CPT/HCPCS: 36415; 71045; 80053; 81001; 82550; 82553; 83605; 83690; 83735; 83880; 84439; 84443; 84481; 84484; 85025; 87040; 87070; 87205; 93005; 94640; 94664; 96374; 99285; J7620

== ENCOUNTER 2018-12-22 14:59 | Inpatient (IN) | payer MEDICARE, MEDICAID ==
[~2018-12-22] VITALS: Ht 177.8 cm; Wt 50.8 kg
[~2018-12-22 14:59] MED LIST changes: +BREO ELLIPTA 21 EACH IH; +CARDIZEM CD180 MG ORAL; +NORVASC10 MG ORAL; +SPIRIVA18 MCG INH
[2018-12-22 15:21] VITALS: BP 154/81
--- NOTE | 2018-12-22 15:21 | NUR ---
ED Nurse Note: ermd at bedside pt c/o dizziness pt from home . awaiting orders.
[2018-12-22] MEDS ORDERED: Dexamethasone 4mg/ml vial IVP ONE (15:30)
--- NOTE | 2018-12-22 15:30 | Emergency Room Report ---
History of Present Illness General Chief Complaint: Dizziness Source: Patient Present Illness HPI 73-year-old male presents with cough, dyspnea x3days, cough, nasal congestion no fevers no chills, no chest pain, no aggravating or alleviating factors severity is moderate, constant patient also feels a little lightheaded patient presents for evaluation. Allergies: Coded Allergies: No Known Allergies (Unverified , 08/06/18) Patient History Past Medical History: see triage record Reviewed Nursing Documentation: PMH: Agreed; PSxH: Agreed Nursing Documentation-PMH Hx Cardiac Problems: Yes Hx Hypertension: Yes Hx COPD: Yes Hx Cancer: No Hx Gastrointestinal Problems: No Hx Neurological Problems: No Hx Neurologic Surgery: No Review of Systems All Other Systems: negative except mentioned in HPI Physical Exam Vital Signs Date Time Temp Pulse Resp B/P (MAP) Pulse Ox O2 Delivery O2 Flow Rate FiO2 12/22/18 15:08 98.2 96 19 154/81 (105) 95 Room Air Sp02 EP Interpretation: reviewed, normal General Appearance: no apparent distress, alert, cachetic Head: normocephalic, atraumatic Eyes: bilateral eye PERRL, bilateral eye EOMI ENT: uvula midline, moist mucus membranes Neck: supple, thyroid normal, supple/symm/no masses Respiratory: no respiratory distress, no retraction, no accessory muscle use, decreased breath sounds, wheezing Cardiovascular #1: normal peripheral pulses, regular rate, rhythm, no edema, no gallop, no murmur Gastrointestinal: non tender, soft, no guarding, no rebound Musculoskeletal: normal inspection Neurologic: alert, oriented x3 Psychiatric: mood/affect normal Skin: no rash, warm/dry Medical Decision Making Diagnostic Impression: Primary Impression: COPD exacerbation ER Course 73-year-old male presents with dyspnea, shortness of breath, consistent with a COPD exacerbation, patient with reduced breath sounds bilaterally, differential diagnosis includes pneumonia, COPD exacerbation, ACS Reevaluation at 4:50 PM, patient felt better Disposition home with return precautions, lung sounds improved patient counseled to follow-up with pulmonology Laboratory Tests Test 12/22/18 16:11 White Blood Count 7.3 K/UL (4.8-10.8) Red Blood Count 4.84 M/UL (4.70-6.10) Hemoglobin 14.6 G/DL (14.2-18.0) Hematocrit 45.0 % (42.0-52.0) Mean Corpuscular Volume 93 FL (80-99) Mean Corpuscular Hemoglobin 30.2 PG (27.0-31.0) Mean Corpuscular Hemoglobin Concent 32.5 G/DL (32.0-36.0) Red Cell Distribution Width 14.0 % (11.6-14.8) Platelet Count 91 K/UL (150-450) L Mean Platelet Volume 6.9 FL (6.5-10.1) Neutrophils (%) (Auto) % (45.0-75.0) Lymphocytes (%) (Auto) % (20.0-45.0) Monocytes (%) (Auto) % (1.0-10.0) Eosinophils (%) (Auto) % (0.0-3.0) Basophils (%) (Auto) % (0.0-2.0) Neutrophils % (Manual) Pending Lymphocytes % (Manual) Pending Platelet Estimate Pending Platelet Morphology Pending Sodium Level 138 MMOL/L (136-145) Potassium Level 5.0 MMOL/L (3.5-5.1) Chloride Level 106 MMOL/L (98-107) Carbon Dioxide Level 27 MMOL/L (21-32) Anion Gap 5 mmol/L (5-15) Blood Urea Nitrogen 12 mg/dL (7-18) Creatinine 0.9 MG/DL (0.55-1.30) Estimate Glomerular Filtration Rate mL/min (>60) Glucose Level 83 MG/DL (74-106) Calcium Level 9.3 MG/DL (8.5-10.1) Total Bilirubin 0.3 MG/DL (0.2-1.0) Aspartate Amino Transferase (AST) 28 U/L (15-37) Alanine Aminotransferase (ALT) 19 U/L (12-78) Alkaline Phosphatase 85 U/L (46-116) Troponin I 0.023 ng/mL (0.000-0.056) Total Protein 7.1 G/DL (6.4-8.2) Albumin 3.3 G/DL (3.4-5.0) L Globulin 3.8 g/dL Albumin/Globulin Ratio 0.9 (1.0-2.7) L Lipase 60 U/L (73-393) L EKG Diagnostic Results EKG Time: 15:34 EP Interpretation: NSR, rate 85, QTc 392, no acute ST elevations, normal axis Rhythm Strip Diag. Results Rhythm Strip Time: 15:39 EP Interpretation: yes Rate: 87 Rhythm: NSR, no PVC's, no ectopy Chest X-Ray Diagnostic Results Chest X-Ray Diagnostic Results : Chest X-Ray Ordered: Yes # of Views/Limited/Complete: 1 View Indication: Shortness of Breath EP Interpretation: Yes Interpretation: other - Large lung volumes Impression: No acute disease Electronically Signed by: Jose Armando Baldwin MD Last Vital Signs Date Time Temp Pulse Resp B/P (MAP) Pulse Ox O2 Delivery O2 Flow Rate FiO2 12/22/18 15:21 98.2 19 154/81 95 Room Air 12/22/18 15:08 96 Disposition: HOME, SELF-CARE Condition: Stable Scripts Albuterol Sulfate* (ALBUTEROL SULFATE MDI*) 8.5 Gm Hfa.aer.ad 2 PUFF INH Q4H PRN for cough/wheezing, #1 EA 0 Refills Prov: Jose Armando Baldwin MD 12/22/18 Prednisone* (PREDNISONE*) 50 Mg Tablet 50 MG ORAL DAILY, #4 TAB 0 Refills Prov: Jose Armando Baldwin MD 12/22/18 Referrals: [facility] Cy Metzger [facility] Patient Instructions: Chronic Obstructive Pulmonary Disease Exacerbation, Easy- to-Read, Inhalation Therapy, Metered Dose Inhaler With Spacer Additional Instructions: The patient was provided with discharge instructions, notified to follow-up with a primary care doctor and or specialist in the next 24-48 hours, and to return to the ED if they have worsening of their symptoms. Please note that this report is being documented using [employer] technology. This can lead to erroneous entry secondary to incorrect interpretation by the dictating instrument. PLEASE FOLLOW-UP WITH OUTSIDE SALES MANAGER Jose Armando Baldwin MD Dec 22, 2018 15:29
[2018-12-22] MEDS: Albuterol ud Inhalation HHN SCH ×7 (15:53→22:52)
[2018-12-22] MEDS: Ipratropium 0.02% Inh Soln 2.5ml UD HHN SCH ×6 (15:54→16:47)
[2018-12-22 16:36] LABS: HEMOGLOBIN 14.6 G/DL (14.2-18.0); MEAN CORPUSCULAR VOLUME 93 FL (80-99); PLATELET COUNT 91 K/UL (150-450); RED BLOOD COUNT 4.84 M/UL (4.70-6.10); WHITE BLOOD COUNT 7.3 K/UL (4.8-10.8)
[2018-12-22 16:40] LABS: ANION GAP 5 mmol/L (5-15); BLOOD UREA NITROGEN 12 mg/dL (7-18); CALCIUM 9.3 MG/DL (8.5-10.1); CARBON DIOXIDE 27 MMOL/L (21-32); CHLORIDE 106 MMOL/L (98-107); CREATININE 0.9 MG/DL (0.55-1.30); SODIUM 138 MMOL/L (136-145)
[2018-12-22] MEDS ORDERED: ALBUTEROL SULF8.5 GM INH (16:49)
[2018-12-22] MEDS ORDERED: PREDNISONE50 MG ORAL (16:49)
[2018-12-22 16:50] LABS: ALANINE AMINOTRANSFERASE 19 U/L (12-78); ALBUMIN 3.3 G/DL (3.4-5.0); ALBUMIN/GLOBULIN RATIO 0.9 (1.0-2.7); ALKALINE PHOSPHATASE 85 U/L (46-116); ASPARTATE AMINO TRANSFERASE 28 U/L (15-37); BILIRUBIN,TOTAL 0.3 MG/DL (0.2-1.0)
[2018-12-22] MEDS ORDERED: Dexamethasone 20mg/5ml ONE (16:58)
[2018-12-22] MEDS ORDERED: Dexamethasone 20mg/5ml IVP ONE (17:15)
--- NOTE | 2018-12-22 18:08 | NUR ---
ED Nurse Note: labs done and resulted pt medicated states he feels much better. No reactions noted pt refused other meds stated he wants to go home.
--- NOTE | 2018-12-22 18:10 | NUR ---
ED Nurse Note: Pt cleared by health care Provider for discharge. DC instructions/prescription was given and explained to pt and verbalized understanding of teachings. All medical deviecs such as ID band removed. Pt is AAO x4, ambulatory and left with all personal belongings.
--- NOTE | 2018-12-22 18:35 | NUR ---
ED Nurse Note: pt was getting ready to leave became short of breath. pt was assisted back in bed ermd re-eval done . pt agreed to be admitted . awaiting further orders.
--- NOTE | 2018-12-22 18:41 | Diagnostic Imaging Report ---
EXAM: XR Chest, 1 View CLINICAL HISTORY: DYSPNEA TECHNIQUE: Frontal view of the chest. COMPARISON: 09 24 18 FINDINGS: Lungs: Chronic hyperinflation. No consolidation, pleural effusion, or pneumothorax. Pleural space: See above. Heart: Unremarkable. No cardiomegaly. Mediastinum: Unremarkable. Bones joints: Unremarkable. IMPRESSION: 1. No acute cardio pulmonary disease. 2. Chronic hyperinflation. Correlate with clinical history to evaluate if this patient may qualify for annual low dose lung cancer screening CT chest protocol.
--- NOTE | 2018-12-22 19:09 | NUR ---
HAND-OFF: Report given to Franchesca KOEHLER.
--- NOTE | 2018-12-22 19:30 | NUR ---
ED Nurse Note: RECIEVED REPORT TO RESUME CARE, PT IN BED AWAKE, ALERT AND ORIENTED X 4, PT IS SITTING ON SIDE OF BED, NOTED WITH MILD SOB, O2 SAT=96% ON RA, PT WAS DISCHARGED FROM FACILITY AND RETURNED DUE TO SEVERE, SOB NOTED WHILE AT DISCHARGE DESK, PT WAS BROUGHT BACK IN AND NOW TO BE ADMITTED, WILL RESUME CARE, INSERT IV LINE AND PREPARE FOR ADMISSION, PT DENIES CHEST PAIN OR ANY PAIN.
[2018-12-22 19:35] VITALS: BP 161/69
--- NOTE | 2018-12-22 19:55 | NUR ---
ED Nurse Note: PT HAS ROOM FOR ADMISSION, REPORT CALLED TO FLOOR NURSE CHELLY, PT BELONGINGS LIST COMPLETED AND SWABS COLLECTED AND SENT DUE TO PT HISTORY, PT DENIES PAIN, MILD SOB NOTED, PT BEING TAKEN TO FLOOR UNIT VIA FRANCIERZULY WITH RN- AND DOCUMENT MANAGEMENT SPECIALIST VIA ACLS PROTOCOLS.
--- NOTE | 2018-12-22 20:45 | NUR ---
NURSE NOTES: Received report from Mari Peace RN. regarding patient's transfer to TELE floor from ED. Ambulated from gurney to bed with minimal assistance. Belongings checked and noted; money counted and kept with patient at bedside. Head to toe assessment initiated with no skin issues observed. Kept clean, dry, and comfortable in bed. No complaints of acute pain noted. Safety precaution in place; siderails X2 up, call light within reach, bed in lowest position, brakes and alarm on at all times. Needs and wants anticipated and attended. Will continue plan of care.
[2018-12-22] MEDS ORDERED: Heparin 5000 units/ml inj SUBQ SCH (21:47)
--- NOTE | 2018-12-22 22:00 | NUR ---
NURSE NOTES: MD Matteo. aware of patients arrival to the unit. New orders received and carried out
[2018-12-22] MEDS: Solu-MEDROL 125mg Inj IVP SCH (22:27)
[2018-12-22] MEDS: cefTRIAXone 1 GM in D5W 55 ML IVPB SCH (23:44)
[2018-12-23] VITALS: BP 146/75
[2018-12-23] MEDS ORDERED: LORazepam 1mg tab ORAL PRN (00:45)
[2018-12-23] MEDS: Albuterol ud Inhalation HHN SCH ×6 (03:23→23:06)
[2018-12-23 04:00] VITALS: BP 159/82
--- NOTE | 2018-12-23 07:33 | NUR ---
HAND-OFF: Report given to Sergio Crump RN. Patient in bed With no S/S of distress. Endorsed plan of care.
[2018-12-23 08:00] VITALS: BP 167/88
[2018-12-23] MEDS ORDERED: dilTIAZem HCl CD 180mg cap ORAL SCH (09:00)
--- NOTE | 2018-12-23 09:11 | NUR ---
NURSE NOTES: Received report from RODO Tadeo. Patient in bed resting, no active s/s cardiac, respiratory distress noticed at this time. Patient AOX4, denies SOB at this time. SR with HR 87, IV on right hand 22G, asymptomatic, patent, intact. Bed in lowest position, side rails upx2, call light within reach. Will continue to monitor.
[2018-12-23] MEDS: Solu-MEDROL 125mg Inj IVP SCH ×2 (09:32→20:17)
[2018-12-23] MEDS: Vitamin B-12 500mcg tab ORAL SCH (09:33)
[2018-12-23] MEDS: Vitamin D 1000 IU Tab ORAL SCH (09:33)
[2018-12-23] MEDS: Aspirin EC 81mg tab ORAL SCH (09:33)
[2018-12-23] MEDS: Breo Ellipta 200/25mcg-14 dose INH SCH (10:12)
--- NOTE | 2018-12-23 11:25 | NUR ---
NURSE NOTES: Dr. Felipe made aware patient recent BP 167/88 HR 85 no BP med ordered except Cardizem 180mg daily. Per Dr. Felipe, clonidine 0.1mg PO Q4h prn for SBP >150.
[2018-12-23 12:00] VITALS: BP 160/73
[2018-12-23 16:00] VITALS: BP 154/69
--- NOTE | 2018-12-23 16:15 | History and Physical Report ---
DATE OF ADMISSION: 12/22/2018 REASON FOR EVALUATION: COPD with acute exacerbation, dizziness. HISTORY OF PRESENT ILLNESS: This is a 73-year-old patient complains of cough over the past 3 days. Also has associated dizziness. The patient feels a bit lightheaded. The patient was recently seen in the office. Care discussed and reviewed. The patient was seen and evaluated in the emergency room. Labs overall appeared to be stable. No blood gases obtained. The patient's x-rays revealed only pulmonary hyperinflation. The patient now admitted for COPD with exacerbation and associated dizziness. The patient has history of atrial tachycardia in the past. The patient's care discussed and reviewed. The patient's findings discussed and reviewed. The patient currently comfortable at present without significant distress. PAST MEDICAL HISTORY: Notable for end-stage COPD, chronic hypoxemia, vitamin D deficiency, hypertension, paroxysmal supraventricular tachyarrhythmias, significant debility, remote history of C. diff. MEDICATIONS: Reviewed. ALLERGIES: Reviewed. SOCIAL HISTORY: The patient is a prior smoker, none currently. The patient is disabled. The patient is able to live independently at this time. REVIEW OF SYSTEMS: All 10 points reviewed and otherwise negative. FAMILY HISTORY: Noncontributory to the above. PHYSICAL EXAMINATION: GENERAL: A well-developed male, comfortable at present. VITAL SIGNS: Blood pressure 149/82, pulse 85, respirations 18, sats 97%, temperature 97.5. HEENT: Negative. Extraocular movements grossly intact. Oropharynx is moist. NECK: Supple. LUNGS: Moderate air entry, but overall slightly reduced. No rhonchi or wheezes. CARDIAC: S1, S2. Regular rate and rhythm without murmurs, rubs, or gallops. ABDOMEN: Soft, nontender, nondistended. EXTREMITIES: No cyanosis, clubbing, or edema. NEUROLOGIC: Grossly nonfocal. The patient is able to ambulate. LABORATORY DATA: All electrolytes appeared to be negative and normal. Albumin is 3.3. CBC appears to be fairly normal. Increasing lymphocytes overall. Chest x-ray with hyperinflation. IMPRESSION: 1. COPD with acute exacerbation. 2. Lightheadedness. 3. Prior history of supraventricular tachyarrhythmias. 4. History of hypertension. 5. History of C. diff, remote. RECOMMENDATIONS: Supportive care. Resume medications. IV Solu-Medrol over the next 24 to 48 hours. Reassess and re-evaluate in the a.m. Obtain Cardiology evaluation for further clearance and evaluation. The patient is otherwise stable. We will proceed with discharge planning in the a.m. No further evaluation and interventions. Phil Felipe M.D. DR: GIFTY JOB#: [id number] CC:
--- NOTE | 2018-12-23 17:19 | Cardiology Report ---
APPROVED REPORT EKG Measurement Heart [id number] Sinus rhythm with premature atrial complexes Nonspecific T wave abnormality Abnormal ECG
[2018-12-23] MEDS: dilTIAZem HCl CD 180mg cap ORAL SCH (17:45)
--- NOTE | 2018-12-23 18:40 | NUR ---
NURSE NOTES: Dr. Felipe made of patient c/o stomach upset. Per Dr. Felipe, Mylanta 30ml 4h prn po. Order noted, entered, carried out. Will continue to monitor.
--- NOTE | 2018-12-23 18:45 | Consultation ---
DATE OF CONSULTATION: 12/23/2018 REFERRING PHYSICIAN: Phil Felipe MD REASON FOR CONSULTATION: Atrial arrhythmias. HISTORY OF PRESENT ILLNESS: This is a 73-year-old male with a longstanding history of COPD, who presented to the hospital complaining of several days of progressive congestion and cough with shortness of breath. He has had lightheadedness and dizziness although he has not passed out. He notes the discomfort is associated with coughing spells as well. He has not had any palpitations that he has been aware of. However, the patient has been hospitalized here in the past and has had documented atrial and supraventricular tachyarrhythmias and did have changes in his medication regimen accordingly made during his last hospital stay. PAST MEDICAL HISTORY: COPD, hypoxia, vitamin D deficiency, hypertensive heart disease, paroxysmal supraventricular tachyarrhythmias, history of Clostridium difficile colitis. MEDICATIONS: Reviewed and reconciled. ALLERGIES: None known. SOCIAL HISTORY: He is disabled. He is a prior smoker, 50+ pack years more or unless. No alcohol or substance abuse. REVIEW OF SYSTEMS: There is no history of exertional chest pain. No flow-limiting coronary artery disease. There is no history of ventricular arrhythmias. There is no history of congenital or acquired heart disease or rheumatic heart disease or endocarditis. There is no history of diabetes or thyroid disorder. No history of seizure or stroke. PHYSICAL EXAMINATION: GENERAL: Well developed and well nourished, no acute distress. VITAL SIGNS: Blood pressure 149/82, pulse 85, respirations 18, afebrile. Mild temporal wasting. HEENT: Conjunctivae pink. Oropharynx clear. NECK: Supple. Jugular venous pressure normal. No accessory muscle use. No thyromegaly. Old trach site noted. LUNGS: With diminished breath sounds. No wheezing or rales. CARDIAC: Regular rhythm and rate. Normal S1, S2 with a fourth heart sound. ABDOMEN: Soft and nontender. EXTREMITIES: Good pulses. No edema. NEUROLOGIC: Nonfocal. IMAGING: Chest x-ray with no acute process. EKG revealed sinus rhythm with no acute abnormalities. IMPRESSION: 1. COPD exacerbation. 2. Acute bronchitis. 3. Paroxysmal supraventricular tachyarrhythmias. 4. Hypertensive heart disease with elevated blood pressure trend. PLAN: 1. Inhaled bronchodilators, respiratory hygiene, steroids per print line tailer. Continue diltiazem. Advanced dose for tighter blood pressure control and suppression of atrial arrhythmias. 2. Consider addition of JOSE F inhibitor should additional blood pressure control be needed. 3. Observe for tachyarrhythmias during inhaled bronchodilator therapies. Check thyroid panel and magnesium level. Amor Lorenzo M.D. DR: TAYLER JOB#: [id number] CC:
--- NOTE | 2018-12-23 19:00 | NUR ---
OBTAINED REPORT FROM BERT KOEHLER. PT RESTING IN BED COMFORTABLY. NO DISTRESS NOTED.
--- NOTE | 2018-12-23 19:21 | NUR ---
HAND-OFF: Report given to RODO Zaidi.
[2018-12-23 20:00] VITALS: BP 119/81
[2018-12-23] MEDS: cefTRIAXone 1 GM in D5W 55 ML IVPB SCH (22:24)
[2018-12-24] VITALS: BP 119/70
[2018-12-24] MEDS: Albuterol ud Inhalation HHN SCH ×3 (03:14→10:54)
[2018-12-24 04:00] VITALS: BP 138/69
--- NOTE | 2018-12-24 07:10 | NUR ---
HAND-OFF: Report given to Norberto KOEHLER. Pt resting comfortably in bed free from apparent distress.
--- NOTE | 2018-12-24 07:22 | NUR ---
NURSE NOTES: Received report from RODO Zaidi. Patient in bed resting, no active s/s cardiac, respiratory distress noticed at this time. Patient receiving breathing treatment at this time. SR with HR 84, IV right hand 22G, asymptomatic, patent, intact. Bed in lowest position, side rails xup2, call light within reach. Will continue to monitor.
[2018-12-24 08:00] VITALS: BP 126/77
--- NOTE | 2018-12-24 08:05 | Pulmonology Progress Note ---
Assessment/Plan Assessment/Plan IMPRESSION: 1. COPD with acute exacerbation. 2. Lightheadedness. 3. Prior history of supraventricular tachyarrhythmias. 4. History of hypertension. 5. History of C. diff, remote. PLAN maintain cardizem will add JOSE F dc iv solumedrol dc home home health close follow up impression, plan, and exam edited and reviewed in detail care discussed with RN Subjective Allergies: Coded Allergies: No Known Allergies (Unverified , 08/06/18) Subjective comfortable overnight cards noted and appreciated bp elevated Objective Last 24 Hour Vital Signs Date Time Temp Pulse Resp B/P (MAP) Pulse Ox O2 Delivery O2 Flow Rate FiO2 12/24/18 08:00 97.5 90 18 126/77 (93) 97 12/24/18 07:03 84 18 100 Room Air 21 84 18 100 12/24/18 04:00 97.5 87 18 138/69 (92) 95 12/24/18 04:00 84 12/24/18 03:24 80 20 99 Room Air 21 12/24/18 03:14 81 20 97 Room Air 21 12/24/18 00:00 98.2 84 20 119/70 (86) 97 12/24/18 00:00 80 12/23/18 23:06 82 20 100 Room Air 21 80 20 98 12/23/18 20:00 98.3 85 18 119/81 (94) 97 12/23/18 20:00 80 12/23/18 19:54 Room Air 12/23/18 19:54 84 20 100 Room Air 21 82 20 99 12/23/18 17:45 75 154/69 12/23/18 16:00 97.8 66 18 154/69 (97) 98 12/23/18 16:00 75 12/23/18 15:40 81 20 99 Room Air 76 20 96 12/23/18 13:17 85 20 99 Room Air 88 20 97 12/23/18 12:00 85 12/23/18 12:00 98.0 89 20 160/73 (102) 96 12/23/18 11:55 160/73 12/23/18 09:32 93 167/88 12/23/18 09:16 90 20 99 Room Air 92 20 97 12/23/18 09:16 93 20 97 Room Air 21 12/23/18 09:00 Room Air 2.0 Intake and Output 9/22/19 9/23/19 19:00 07:00 Intake Total 1580 ml Output Total 800 ml 800 ml Balance -800 ml 780 ml Intake Oral 480 ml Other 1100 ml Output Urine Total 800 ml 800 ml # Voids 3 # Bowel Movements 1 Objective GENERAL: A well-developed male, comfortable at present. NAD overnight HEENT: Negative. Extraocular movements grossly intact. Oropharynx is moist. NECK: Supple. LUNGS: Moderate air entry, reduced. No rhonchi or wheezes. CARDIAC: S1, S2. Regular rate and rhythm without murmurs, rubs, or gallops. ABDOMEN: Soft, nontender, nondistended. EXTREMITIES: No cyanosis, clubbing, or edema. NEUROLOGIC: Grossly nonfocal. The patient is able to ambulate. Microbiology Date/Time Source Procedure Growth Status 12/22/18 19:55 Nasal Nares MRSA Culture - Final NO METHICILLIN RESISTANT STAPH AUREUS... Complete 12/22/18 19:55 Rectum Received Current Medications Medications (Trade) Dose Ordered Sig/Charlie Route PRN Reason Start Time Stop Time Status Last Admin Dose Admin Acetaminophen (Tylenol) 650 mg Q4H PRN ORAL Mild Pain/Temp > 100.5 12/22/18 21:30 01/21/19 21:29 Al Hydroxide/Mg Hydroxide (Mylanta) 30 ml Q4H PRN ORAL stomach pain 12/23/18 18:45 01/22/19 18:44 12/23/18 18:46 Albuterol Sulfate (Proventil) 2.5 mg Q4HRT HHN 12/22/18 23:00 12/27/18 22:59 12/24/18 07:01 Aspirin (Ecotrin) 81 mg DAILY ORAL 12/23/18 09:00 01/22/19 08:59 12/23/18 09:33 Ceftriaxone Sodium 1 gm/ Dextrose 55 ml @ 110 mls/hr Q24H IVPB 12/22/18 23:00 12/29/18 22:59 12/23/18 22:24 Clonidine HCl (Catapres Tab) 0.1 mg Q4H PRN ORAL For High Blood Pressure 12/23/18 11:30 01/22/19 11:29 12/23/18 11:55 Cyanocobalamin (Vitamin B-12) 500 mcg DAILY ORAL 12/23/18 09:00 01/22/19 08:59 12/23/18 09:33 Diltiazem HCl (Cardizem CD) 180 mg BID ORAL 12/23/18 18:00 01/22/19 17:59 12/23/18 17:45 Fluticasone/ Vilanterol (Breo Ellipta 200/25) 2 puffs DAILY INH 12/23/18 09:00 01/22/19 08:59 12/23/18 10:12 Lorazepam (Ativan) 1 mg Q4HR PRN ORAL For Anxiety 12/23/18 00:45 12/30/18 00:44 Methylprednisolone Sodium Succinate (Solu-MEDROL) 60 mg EVERY 12 HOURS IVP 12/22/18 21:47 01/21/19 21:46 12/23/18 20:17 Tiotropium [place] (Spiriva Inhaler) 1 puff DAILY INH 12/23/18 09:00 01/22/19 08:59 12/23/18 10:12 Vitamin D (Vitamin D) 1,000 intlu DAILY ORAL 12/23/18 09:00 01/22/19 08:59 12/23/18 09:33 Phil Felipe MD Dec 24, 2018 08:05
--- NOTE | 2018-12-24 08:10 | General Progress Note ---
Assessment/Plan Problem List: (1) Dyspnea ICD Codes: R06.00 - Dyspnea, unspecified SNOMED: 841027324 (2) Respiratory distress ICD Codes: R06.00 - Dyspnea, unspecified SNOMED: 679847600 (3) COPD exacerbation ICD Codes: J44.1 - Chronic obstructive pulmonary disease with (acute) exacerbation SNOMED: 406060457 Status: stable Assessment/Plan: stable o2 steroids abx pt/ot Subjective Date patient seen: Dec 23, 2018 Time patient seen: 07:00 ROS Limited/Unobtainable: No Constitutional: Reports: malaise, weakness HEENT: Reports: no symptoms Cardiovascular: Reports: no symptoms Respiratory: Reports: cough, shortness of breath Gastrointestinal/Abdominal: Reports: no symptoms Genitourinary: Reports: no symptoms Neurologic/Psychiatric: Reports: no symptoms Endocrine: Reports: no symptoms Hematologic/Lymphatic: Reports: no symptoms Allergies: Coded Allergies: No Known Allergies (Unverified , 08/06/18) All Systems: reviewed and negative except above Subjective feels dizzy at times. no chest pain has productive cough with white phlegm. states he feels overall OK. Objective Last 24 Hour Vital Signs Date Time Temp Pulse Resp B/P (MAP) Pulse Ox O2 Delivery O2 Flow Rate FiO2 12/24/18 08:00 97.5 90 18 126/77 (93) 97 12/24/18 07:03 84 18 100 Room Air 21 84 18 100 12/24/18 04:00 97.5 87 18 138/69 (92) 95 12/24/18 04:00 84 12/24/18 03:24 80 20 99 Room Air 21 12/24/18 03:14 81 20 97 Room Air 21 12/24/18 00:00 98.2 84 20 119/70 (86) 97 12/24/18 00:00 80 12/23/18 23:06 82 20 100 Room Air 21 80 20 98 12/23/18 20:00 98.3 85 18 119/81 (94) 97 12/23/18 20:00 80 12/23/18 19:54 Room Air 12/23/18 19:54 84 20 100 Room Air 21 82 20 99 12/23/18 17:45 75 154/69 12/23/18 16:00 97.8 66 18 154/69 (97) 98 12/23/18 16:00 75 12/23/18 15:40 81 20 99 Room Air 76 20 96 12/23/18 13:17 85 20 99 Room Air 88 20 97 12/23/18 12:00 85 12/23/18 12:00 98.0 89 20 160/73 (102) 96 12/23/18 11:55 160/73 12/23/18 09:32 93 167/88 12/23/18 09:16 90 20 99 Room Air 92 20 97 12/23/18 09:16 93 20 97 Room Air 21 12/23/18 09:00 Room Air 2.0 Intake and Output 12/23/18 12/24/18 19:00 07:00 Intake Total 1580 ml Output Total 800 ml 800 ml Balance -800 ml 780 ml Intake Oral 480 ml Other 1100 ml Output Urine Total 800 ml 800 ml # Voids 3 # Bowel Movements 1 Height (Feet): 5 Height (Inches): 10.00 Weight (Pounds): 112 General Appearance: WD/WN, alert Neck: supple Cardiovascular: regular rhythm Respiratory/Chest: decreased breath sounds Abdomen: normal bowel sounds, non tender, soft, no organomegaly Edema: no edema noted Arm (L), no edema noted Arm (R), no edema noted Leg (L), no edema noted Leg (R), no edema noted Pedal (L), no edema noted Pedal (R), no edema noted Generalized Neurologic: bull rider II-XII grossly normal, alert, oriented x 3 Temo Navarro MD Dec 24, 2018 08:10
[2018-12-24] MEDS: Vitamin B-12 500mcg tab ORAL SCH (08:48)
[2018-12-24] MEDS: Solu-MEDROL 125mg Inj IVP SCH (08:48)
[2018-12-24] MEDS: Vitamin D 1000 IU Tab ORAL SCH (08:48)
[2018-12-24] MEDS: Breo Ellipta 200/25mcg-14 dose INH SCH (08:48)
[2018-12-24] MEDS: Aspirin EC 81mg tab ORAL SCH ×2 (08:48→08:57)
[2018-12-24] MEDS: dilTIAZem HCl CD 180mg cap ORAL SCH (08:48)
[2018-12-24 12:00] VITALS: BP 128/79
--- NOTE | 2018-12-24 12:30 | NUR ---
NURSE NOTES: Patient discharged home with home [facility], [facility], per Dr. Felipe. Patient's ID removed and placed in shredder. IV removed and polysomnograph tech returned to vascular technician. Patient taking private vehicle per patient's preference in a stable condition. Patient discharged with all belonging, signed belonging list, Patient AOX4, discharge instruction provided.
--- NOTE | 2018-12-24 13:35 | NUR ---
DISCHARGE PLANNING Discharge order noted [facility] verified acceptance Address: [address] [place] [id number]
--- NOTE | 2018-12-24 22:45 | Progress Note ---
DATE: 12/24/2018 CARDIOLOGY PROGRESS NOTE SUBJECTIVE: The patient feels better. No shortness of breath. No chest pain or palpitations. His dizziness has resolved. OBJECTIVE: VITAL SIGNS: Blood pressure 126/77, pulse rate 90, respiratory rate 18. LUNGS: With diminished breath sounds. No wheezing. CARDIAC: Regular rhythm and rate. Normal S1, S2 with a fourth heart sound. ABDOMEN: Soft. EXTREMITIES: No edema. IMPRESSION: 1. COPD exacerbation with paroxysmal bronchospasm, improved. 2. Hypertensive heart disease with stable blood pressure. 3. Orthostatic symptoms, resolved. 4. Paroxysmal atrial ectopy, suppressed. PLAN: 1. Stable for outpatient followup. 2. Cardiovascular regimen reviewed with the patient. 3. Outpatient Cardiology service offered and discussed. Amor Lorenzo M.D. DR: REGGIE JOB#: [id number] CC:
--- NOTE | 2018-12-25 08:05 | Discharge Summary ---
Discharge Summary Discharge Summary _ DATE OF ADMISSION: 12/22/2018 DATE OF DISCHARGE: 12/24/2018 DISCHARGED BY: Dr. Felipe/rod and tube straightener REASON FOR ADMISSION: 73 years old male with past medical history of end-stage COPD, chronic hypoxemia , vitamin D deficiency, hypertension, paroxysmal supraventricular tachyarrhythmia, remote history of C. difficile, significant debility, presented with complaint of cough for three days with associated dizziness and lightheadedness. Patient recently seen in rod and tube straightener office and was stable at that time. Upon evaluation in emergency department vital signs were stable. Laboratory work-up revealed no leukocytosis , stable hemoglobin and hematocrit. Stable electrolytes and renal parameters. Glucose 83. Troponin - 0.023. EKG revealed sinus rhythm , no acute ischemic changes. Stable LFT and lipase. Chest x-ray demonstrated no acute cardiopulmonary pathology and chronic hyperinflation. Patient admitted to telemetry floor for further management. CONSULTANTS: last trimmer internal medicine [facility] COURSE: Patient admitted to telemetry floor. Patient started on the IV steroids for 48 hours. Supplemental oxygen titrated as needed to keep pulse oximetry above 92%. Bronchodilator treatment and empiric antibiotics provided. Home inhalers resumed: Ellipta and Spiriva. Photovoltaic Installation Technician seen the patient for history of tachyarrhythmia. Heart rate remained stable. Diltiazem continued and dose advanced for tighter blood pressure control and suppression of atrial arrhythmia. Antiplatelet therapy with aspirin continued. No evidence of supraventricular tachycardia on telemetry. IV steroids tapered and changed to prednisone upon discharge to complete the course. Patient clinically stabilized and was ready for discharge home with home health services. FINAL DIAGNOSES: COPD with acute exacerbation Lightheadedness Hypertensive heart disease History of supraventricular tachyarrhythmia Paroxysmal atrial ectopy -suppressed Orthostatic symptoms =resolved Remote history of C. difficile. DISCHARGE MEDICATIONS: See Medication Reconciliation list. DISCHARGE INSTRUCTIONS: Patient was discharged home with home health services. Follow up with primary care provider in one week. Recommended outpatient follow-up with a last trimmer. I have been assigned to dictate discharge summary for this account. I was not involved in the patient's management. Sanam Buenrostro NP Dec 25, 2018 08:05
== END 2018-12-24 12:30 | disposition home health service (06) | DRG 191 ==
LOC: EMR 15:25 → 2E 18:59 → EDBEDREQ 19:50
DX: J44.0 Chronic obstructive pulmonary disease with (acute) lower respiratory infection (principal); I47.1 Supraventricular tachycardia; J20.9 Acute bronchitis, unspecified; J44.1 Chronic obstructive pulmonary disease with (acute) exacerbation; I11.9 Hypertensive heart disease without heart failure; Z87.891 Personal history of nicotine dependence; I49.1 Atrial premature depolarization; I95.1 Orthostatic hypotension
CPT/HCPCS: 36415; 71045; 80053; 83690; 84484; 85007; 85025; 87081; 93005; 94640; 94664; 96361; 96374; 96375; 99285

== ENCOUNTER 2019-02-08 18:58 | Inpatient (IN) | payer MEDICARE, MEDICAID ==
[~2019-02-08] VITALS: Ht 177.8 cm; Wt 55.1 kg
[~2019-02-08 18:58] MED LIST changes: +PREDNISONE50 MG ORAL
[2019-02-08 19:04] VITALS: BP 147/78
--- NOTE | 2019-02-08 19:10 | NUR ---
ED Nurse Note: pt presents to ED
--- NOTE | 2019-02-08 19:10 | NUR ---
Mary Kay luong in EDM - 02/08/19 at 1910 by QLE ED Nurse Note: pt presents to ED
--- NOTE | 2019-02-08 19:10 | NUR ---
ED Nurse Note: pt presents to ED with SOB x 3 hours. pt reports that he started feeling SOB when there were people over cleaning his home and thinks the chemicals triggered this episode. pt states that he used his albtuerol and ventolin inhalers with little relief of symptoms. per pt, he occasionally uses 2L of oxygen at home. pt has a h/o COPD and is UTD on immunizations pt is at 100% saturation on 2L nasal cannula, RR: 29
[2019-02-08] MEDS ORDERED: Solu-MEDROL 125mg Inj IVP ONE (19:15)
[2019-02-08] MEDS: Albuterol ud Inhalation HHN SCH ×3 (19:17→20:02)
[2019-02-08] MEDS: Ipratropium 0.02% Inh Soln 2.5ml UD HHN SCH ×3 (19:17→20:02)
[2019-02-08 19:59] LABS: ANION GAP 8 mmol/L (5-15); BLOOD UREA NITROGEN 16 mg/dL (7-18); CALCIUM 9.6 MG/DL (8.5-10.1); CARBON DIOXIDE 31 MMOL/L (21-32); CHLORIDE 103 MMOL/L (98-107); CREATININE 1.4 MG/DL (0.55-1.30); POTASSIUM 4.5 MMOL/L (3.5-5.1); SODIUM 142 MMOL/L (136-145)
[2019-02-08 20:08] LABS: BASOPHILS % (AUTO) 2.3 % (0.0-2.0); EOSINOPHILS % (AUTO) 3.6 % (0.0-3.0); HEMATOCRIT 46.3 % (42.0-52.0); HEMOGLOBIN 14.9 G/DL (14.2-18.0); LYMPHOCYTES % (AUTO) 37.1 % (20.0-45.0); MEAN CORPUSCULAR VOLUME 88 FL (80-99); MONOCYTES % (AUTO) 5.6 % (1.0-10.0); NEUTROPHILS % (AUTO) 51.5 % (45.0-75.0); PLATELET COUNT 382 K/UL (150-450); RED BLOOD COUNT 5.29 M/UL (4.70-6.10); RED CELL DISTRIBUTION WIDTH 12.8 % (11.6-14.8); WHITE BLOOD COUNT 6.4 K/UL (4.8-10.8)
[2019-02-08 20:10] LABS: ALANINE AMINOTRANSFERASE 18 U/L (12-78); ALBUMIN 3.5 G/DL (3.4-5.0); ALBUMIN/GLOBULIN RATIO 0.8 (1.0-2.7); ALKALINE PHOSPHATASE 89 U/L (46-116); ASPARTATE AMINO TRANSFERASE 23 U/L (15-37); BILIRUBIN,TOTAL 0.2 MG/DL (0.2-1.0)
--- NOTE | 2019-02-08 20:18 | NUR ---
ED Nurse Note: pt asked to stop breathing treatment because he feels tired. pt is still on 2L O2 via nasal cannula, SpO2 is 100%
--- NOTE | 2019-02-08 20:36 | Diagnostic Imaging Report ---
EXAM: XR Chest, 1 View CLINICAL HISTORY: SOB TECHNIQUE: Frontal view of the chest. COMPARISON: No relevant prior studies available. FINDINGS: Lungs: Beronica deflation the lungs bilaterally no acute abnormality. No change from prior study Pleural space: Unremarkable. No pneumothorax. Heart: Unremarkable. No cardiomegaly. Mediastinum: Unremarkable. Bones joints: Unremarkable. IMPRESSION: Hyperinflation lungs. No acute abnormality
--- NOTE | 2019-02-08 20:45 | NUR ---
ED Nurse Note: pt voided 120 mL of clear yellow urine into urinal. pt is using breathing treatment again, RT in with p Addendum: 02/08/19 at 2055 by ALEENAE correction: RT at bedside
[2019-02-08 20:59] LABS: APPEARANCE,URINE CLEAR; BILIRUBIN, URINE NEGATIVE (NEGATIVE); COLOR,URINE PALE YELLOW; GLUCOSE, URINE (UA) NEGATIVE (NEGATIVE); KETONES,URINE NEGATIVE (NEGATIVE); LEUKOCYTE ESTERASE ,URINE NEGATIVE (NEGATIVE); NITRITE,URINE NEGATIVE (NEGATIVE); PH,URINE 5 (4.5-8.0); PROTEIN,URINE NEGATIVE (NEGATIVE); UROBILINOGEN,URINE NORMAL MG/DL (0.0-1.0)
--- NOTE | 2019-02-08 21:00 | NUR ---
ED Nurse Note: pt offered bipap in ED but refused. ERMD aware, notified admitting nurse that ERMD requested bipap at bedside for pt on the floor.
--- NOTE | 2019-02-08 21:15 | NUR ---
ED Nurse Note: report given to RODO Salazar
--- NOTE | 2019-02-08 21:18 | NUR ---
NURSE NOTES: PT report received from [facility]. room prepared with suction, cardiac cath technician and biPAP on stand by. awaiting for Pt to arrive.
--- NOTE | 2019-02-08 21:25 | Emergency Room Report ---
History of Present Illness General Chief Complaint: Dyspnea/Respdistress Source: Patient Present Illness HPI 73-year-old male presents ED for evaluation. Complaining of shortness of breath for the last few days. History of COPD. States that if he feels very short of breath he will require oxygen at home.. Denies cough. Denies fevers or chills. Denies chest pain. No other aggravating relieving factors. Denies any other associated symptoms Allergies: Coded Allergies: No Known Allergies (Unverified , 08/06/18) Patient History Past Medical History: HTN, COPD Past Surgical History: none Pertinent Family History: none Social History: Denies: smoking, alcohol use, drug use Immunizations: UTD Reviewed Nursing Documentation: PMH: Agreed; PSxH: Agreed Nursing Documentation-PMH Past Medical History: No History, Except For Hx Cardiac Problems: Yes Hx Hypertension: Yes Hx COPD: Yes Hx Cancer: No Hx Gastrointestinal Problems: No Hx Neurological Problems: No Hx Neurologic Surgery: No Review of Systems All Other Systems: negative except mentioned in HPI Physical Exam Vital Signs Date Time Temp Pulse Resp B/P (MAP) Pulse Ox O2 Delivery O2 Flow Rate FiO2 02/08/19 18:59 97.9 110 30 199/79 (119) 87 Room Air 02/08/19 19:04 2.0 02/08/19 19:18 21 Sp02 EP Interpretation: reviewed, normal General Appearance: no apparent distress, alert, GCS 15, non-toxic, cachetic Head: normocephalic, atraumatic Eyes: bilateral eye normal inspection, bilateral eye PERRL ENT: hearing grossly normal, normal pharynx, no angioedema, normal voice Neck: full range of motion, supple/symm/no masses Respiratory: chest non-tender, decreased breath sounds, speaking full sentences , wheezing Cardiovascular #1: regular rate, rhythm, no edema Cardiovascular #2: 2+ carotid (R), 2+ carotid (L), 2+ radial (R), 2+ radial (L) , 2+ dorsalis pedis (R), 2+ dorsalis pedis (L) Gastrointestinal: normal bowel sounds, non tender, soft, non-distended, no guarding, no rebound Rectal: deferred Genitourinary: normal inspection, no CVA tenderness Musculoskeletal: back normal, gait/station normal, normal range of motion, non- tender Neurologic: alert, oriented x3, responsive, motor strength/tone normal, sensory intact, speech normal Psychiatric: judgement/insight normal, memory normal, mood/affect normal, no suicidal/homicidal ideation Reflexes: 3+ bicep (R), 3+ bicep (L), 3+ tricep (R), 3+ tricep (L), 3+ knee (R) , 3+ knee (L) Skin: other - see nursing notes Lymphatic: no adenopathy Procedures Critical Care Time Critical Care Time i. I feel this is a highly complex case requiring extensive working including EKG/Rhythm strip, Xray/CT/US, Blood/urine lab work, repeat exams while in ED, and administration of strong opiates/narcotics for pain control, admission to hospital or close patient follow up. Total time: 30 min bedside evaluation and treatment excludes procedures (EKG). Reason for critical care: COPD, hypoxia, hypercapnia Possible complications: hypotension, hypertension, NV, shock, arrhythmias, metabolic acidosis, end organ damage, respiratory failure. Interventions: labs, EKG, CXR, nebs, IVFs, abx, ABG Course: Presenting with shortness of breath. History of COPD. Started with breathing treatments. CBC and chemistry unremarkable. ABG shows mild acidosis with hypercapnia. Patient declines BiPAP. Upgraded to SDU. Will keep BiPAP at bedside Consultations: nursing staff, EMS, family Performed by: Dr Barber Tolerated well condition = serious j. because of unstable vital signs this patient had a condition that could potentially threaten life or limb. I feel this is a critical patient who required my full attention while patient was considered critical. Total Critical Care Time excluding procedures was greater than 30 minutes Medical Decision Making Diagnostic Impression: Primary Impression: COPD exacerbation Additional Impression: Hypercapnia ER Course Hospital Course 73-year-old M presenting to ED with SOB. h/o COPD Differential diagnoses include: Pneumonia, CHF exacerbation, pneumothorax, fluid overload Clinical course Patient placed on stretcher. On oxygraph operator with stable vitals. After initial history and physical, I ordered nebulizer treatments. I ordered labs, IV fluids, EKG, chest x-ray, blood cultures, UA. Labs - no leukocytosis noted, hemoglobin/hematocrit stable, electrolytes okay, lactate okay, troponins negative CXR - hyperinflated lungs. no infiltrates EKG - NSR no acute ischemic changes interpreted by me ABG shows mild acidosis with hypercapnia. On reassessment patient states he feels overall better. I discussed the option of BiPAP with the patient but he declined. Patient will be upgraded to SDU with BiPAP at bedside. Case discussed with Dr. Navarro and he agreed to the patient to his service for further care and support I feel this is a highly complex case requiring extensive working including EKG/ Rhythm strip, Xray/CT/US, Blood/urine lab work, repeat exams while in ED, and administration of strong opiates/narcotics for pain control, admission to hospital or close patient follow up. Diagnosis - COPD exacerbation, hypercapnia Patient admitted to SDU in serious condition Labs Test 02/08/19 19:30 02/08/19 20:38 02/08/19 20:44 White Blood Count 6.4 K/UL (4.8-10.8) Red Blood Count 5.29 M/UL (4.70-6.10) Hemoglobin 14.9 G/DL (14.2-18.0) Hematocrit 46.3 % (42.0-52.0) Mean Corpuscular Volume 88 FL (80-99) Mean Corpuscular Hemoglobin 28.2 PG (27.0-31.0) Mean Corpuscular Hemoglobin Concent 32.2 G/DL (32.0-36.0) Red Cell Distribution Width 12.8 % (11.6-14.8) Platelet Count 382 K/UL (150-450) Mean Platelet Volume 5.1 FL (6.5-10.1) Neutrophils (%) (Auto) 51.5 % (45.0-75.0) Lymphocytes (%) (Auto) 37.1 % (20.0-45.0) Monocytes (%) (Auto) 5.6 % (1.0-10.0) Eosinophils (%) (Auto) 3.6 % (0.0-3.0) Basophils (%) (Auto) 2.3 % (0.0-2.0) Sodium Level 142 MMOL/L (136-145) Potassium Level 4.5 MMOL/L (3.5-5.1) Chloride Level 103 MMOL/L (98-107) Carbon Dioxide Level 31 MMOL/L (21-32) Anion Gap 8 mmol/L (5-15) Blood Urea Nitrogen 16 mg/dL (7-18) Creatinine 1.4 MG/DL (0.55-1.30) Estimat Glomerular Filtration Rate mL/min (>60) Glucose Level 92 MG/DL (74-106) Lactic Acid Level 0.80 mmol/L (0.4-2.0) Calcium Level 9.6 MG/DL (8.5-10.1) Total Bilirubin 0.2 MG/DL (0.2-1.0) Aspartate Amino Transf (AST/SGOT) 23 U/L (15-37) Alanine Aminotransferase (ALT/SGPT) 18 U/L (12-78) Alkaline Phosphatase 89 U/L (46-116) Troponin I 0.046 ng/mL (0.000-0.056) Pro-B-Type Natriuretic Peptide 56 pg/mL (0-125) Total Protein 8.0 G/DL (6.4-8.2) Albumin 3.5 G/DL (3.4-5.0) Globulin 4.5 g/dL Albumin/Globulin Ratio 0.8 (1.0-2.7) Urine Color Pale yellow Urine Appearance Clear Urine pH 5 (4.5-8.0) Urine Specific Hawi 1.010 (1.005-1.035) Urine Protein Negative (NEGATIVE) Urine Glucose (UA) Negative (NEGATIVE) Urine Ketones Negative (NEGATIVE) Urine Blood Negative (NEGATIVE) Urine Nitrite Negative (NEGATIVE) Urine Bilirubin Negative (NEGATIVE) Urine Urobilinogen Normal MG/DL (0.0-1.0) Urine Leukocyte Esterase Negative (NEGATIVE) Arterial Blood pH 7.258 (7.350-7.450) Arterial Blood Partial Pressure CO2 66.1 mmHg (35.0-45.0) Arterial Blood Partial Pressure O2 35.1 mmHg (75.0-100.0) Arterial Blood HCO3 28.9 mmol/L (22.0-26.0) Arterial Blood Oxygen Saturation 58.8 % (95-100) Arterial Blood Base Excess 0 (-2-2) Bobby Test Positive EKG Diagnostic Results Rate: normal Rhythm: NSR ST Segments: no acute changes ASA given to the pt in ED: No Rhythm Strip Diag. Results EP Interpretation: yes Rhythm: NSR, no PVC's, no ectopy Chest X-Ray Diagnostic Results Chest X-Ray Diagnostic Results : Chest X-Ray Ordered: Yes # of Views/Limited/Complete: 1 View Indication: Shortness of Breath EP Interpretation: Yes Interpretation: no consolidation, no effusion, no pneumothorax, other - hyperinflated lungs Impression: Other - COPD Electronically Signed by: Electronically signed by Angelo Barber MD Last Vital Signs Date Time Temp Pulse Resp B/P (MAP) Pulse Ox O2 Delivery O2 Flow Rate FiO2 02/08/19 20:02 101 22 100 Room Air 21 98 22 100 02/08/19 19:04 97.9 147/78 2.0 Status: improved Disposition: ADMITTED INPATIENT Condition: Serious Referrals: Phil Felipe MD (PCP) Angelo Barber MD Feb 08, 2019 21:25
--- NOTE | 2019-02-08 22:18 | NUR ---
NURSE NOTES: Pt arrived from ED. pt is alert and oriented times 4, and able to walk. pt in on a cardiac cath technologist showing NSR, no abnormalities noted. pt is on 2 L NC, sating at 99%. pt presents with labored breathing with ADLs and excessive talking, however, no further distress noted. pt belongings at bed side. all belongings accounted for with bhaskar GAGE RN, pt, adilene RN. pt declines to place belongings at safe at this time. pt states "i feel more comfortable if all my belongings are next to me." Will establish plan of care.
[2019-02-08 22:20] VITALS: BP 124/73
[2019-02-08] MEDS: Solu-MEDROL 40mg Inj IVP SCH (22:30)
[2019-02-08] MEDS: Albuterol/Ipratropium 3ml neb HHN SCH (22:44)
[2019-02-08] MEDS ORDERED: XARELTO10 MG (23:29)
[2019-02-09] VITALS: BP 134/71
[2019-02-09] MEDS: Albuterol/Ipratropium 3ml neb HHN SCH ×6 (03:18→22:15)
[2019-02-09 04:00] VITALS: BP 116/79
[2019-02-09] MEDS: Solu-MEDROL 40mg Inj IVP SCH ×3 (05:20→22:09)
--- NOTE | 2019-02-09 07:05 | NUR ---
NURSE NOTES: Report received from Martin Ricci RN.Pt setting up in bed awake alert oriented ,watching TV ,in no resp distress,denies any c/o pain or discomfort,SR on the monitor,skin warm and dry and intact IV site to RH Heplock intact and flushes well,SR up x2 call sanchez within reach at bedside,bed lock in lowest position ,will continue with plans of care.
--- NOTE | 2019-02-09 07:05 | NUR ---
HAND-OFF: Report given to Leyla Ruelas Pt remains stable.
[2019-02-09 08:00] VITALS: BP 150/77
[2019-02-09] MEDS: Vitamin D 1000 IU Tab ORAL SCH (08:13)
[2019-02-09] MEDS: Aspirin EC 81mg tab ORAL SCH (08:13)
[2019-02-09] MEDS: dilTIAZem HCl CD 180mg cap ORAL SCH (08:14)
[2019-02-09] MEDS: Breo Ellipta 200/25mcg-14 dose INH SCH (09:08)
--- NOTE | 2019-02-09 11:51 | Pulmonology Progress Note ---
Subjective Allergies: Coded Allergies: No Known Allergies (Unverified , 08/06/18) Objective Last 24 Hour Vital Signs Date Time Temp Pulse Resp B/P (MAP) Pulse Ox O2 Delivery O2 Flow Rate FiO2 02/09/19 11:06 90 18 100 Nasal Cannula 1.0 24 88 18 98 02/09/19 09:17 92 18 99 Nasal Cannula 2.0 28 02/09/19 09:16 92 18 99 Nasal Cannula 2.0 28 02/09/19 09:12 91 18 99 Nasal Cannula 2.0 28 02/09/19 09:09 91 18 99 Nasal Cannula 2.0 28 02/09/19 08:14 94 150/77 02/09/19 08:14 94 150/77 02/09/19 08:00 97.9 92 20 150/77 (101) 100 02/09/19 08:00 Nasal Cannula 2.0 02/09/19 08:00 98 02/09/19 07:00 72 18 100 Nasal Cannula 1.0 24 70 18 100 02/09/19 06:57 70 18 100 Nasal Cannula 24 02/09/19 04:00 Nasal Cannula 2.0 02/09/19 04:00 98.2 92 20 116/79 (91) 99 02/09/19 04:00 88 02/09/19 03:18 80 18 99 Room Air 2.0 28 78 18 98 02/09/19 00:00 97.5 91 20 134/71 (92) 99 02/09/19 00:00 Nasal Cannula 2.0 02/08/19 23:45 100 02/08/19 22:51 Nasal Cannula 2.0 02/08/19 22:44 86 18 99 Room Air 2.0 28 84 20 99 02/08/19 22:20 Nasal Cannula 2.0 02/08/19 22:20 98.0 93 20 124/73 (90) 98 02/08/19 22:05 71 13 135/78 99 Nasal Cannula 2.0 02/08/19 20:02 101 22 100 Room Air 21 98 22 100 02/08/19 19:57 95 22 100 Room Air 21 92 22 100 02/08/19 19:18 92 20 100 Room Air 21 90 20 100 02/08/19 19:18 90 20 100 Room Air 21 02/08/19 19:04 92 25 02/08/19 19:04 97.9 25 147/78 100 Nasal Cannula 2.0 02/08/19 18:59 97.9 110 30 199/79 (119) 87 Room Air Intake and Output 02/08/19 02/09/19 19:00 07:00 Intake Total 0 ml Output Total 550 ml Balance -550 ml Intake Oral 0 ml Output Urine Total 550 ml # Bowel Movements 1 Microbiology Date/Time Source Procedure Growth Status 02/08/19 21:29 Nasal Nares - Final Complete 02/08/19 21:29 Nasal Nares - Final Complete Laboratory Tests 02/08/19 19:30: White Blood Count 6.4, Red Blood Count 5.29, Hemoglobin 14.9, Hematocrit 46.3, Mean Corpuscular Volume 88, Mean Corpuscular Hemoglobin 28.2, Mean Corpuscular Hemoglobin Concent 32.2, Red Cell Distribution Width 12.8, Platelet Count 382, Mean Platelet Volume 5.1L, Neutrophils (%) (Auto) 51.5, Lymphocytes (%) (Auto) 37.1, Monocytes (%) (Auto) 5.6, Eosinophils (%) (Auto) 3.6H, Basophils (%) (Auto ) 2.3H, Sodium Level 142, Potassium Level 4.5, Chloride Level 103, Carbon Dioxide Level 31, Anion Gap 8, Blood Urea Nitrogen 16, Creatinine 1.4H, Estimat Glomerular Filtration Rate , Glucose Level 92, Lactic Acid Level 0.80, Calcium Level 9.6, Total Bilirubin 0.2, Aspartate Amino Transf (AST/SGOT) 23, Alanine Aminotransferase (ALT/SGPT) 18, Alkaline Phosphatase 89, Troponin I 0.046, Pro-B -Type Natriuretic Peptide 56, Total Protein 8.0, Albumin 3.5, Globulin 4.5, Albumin/Globulin Ratio 0.8L 02/08/19 20:38: Urine Color Pale yellow, Urine Appearance Clear, Urine pH 5, Urine Specific [place] 1.010, Urine Protein Negative, Urine Glucose (UA) Negative, Urine Ketones Negative, Urine Blood Negative, Urine Nitrite Negative, Urine Bilirubin Negative, Urine Urobilinogen Normal, Urine Leukocyte Esterase Negative 02/08/19 20:44: Arterial Blood pH 7.258L, Arterial Blood Partial Pressure CO2 66.1*H, Arterial Blood Partial Pressure O2 35.1*L, Arterial Blood HCO3 28.9H, Arterial Blood Oxygen Saturation 58.8*L, Arterial Blood Base Excess 0, Bobby Test Positive Current Medications Medications (Trade) Dose Ordered Sig/Charlie Route PRN Reason Start Time Stop Time Status Last Admin Dose Admin Acetaminophen (Tylenol) 650 mg Q4H PRN ORAL Mild Pain/Temp > 100.5 02/08/19 21:00 03/10/19 20:59 Albuterol/ Ipratropium (Albuterol/ Ipratropium) 3 ml Q4HRT HHN 02/08/19 23:00 02/13/19 22:59 02/09/19 11:06 Amlodipine Besylate (Norvasc) 5 mg DAILY ORAL 02/09/19 09:00 03/11/19 08:59 02/09/19 08:14 Aspirin (Ecotrin) 81 mg DAILY ORAL 02/09/19 09:00 03/11/19 08:59 02/09/19 08:13 Diltiazem HCl (Cardizem CD) 180 mg DAILY ORAL 02/09/19 09:00 03/11/19 08:59 02/09/19 08:14 Fluticasone/ Vilanterol (Breo Ellipta 200/25) 1 puffs DAILY INH 02/09/19 09:00 03/11/19 08:59 02/09/19 09:08 Methylprednisolone Sodium Succinate (Solu-MEDROL) 40 mg EVERY 8 HOURS IVP 02/08/19 22:00 03/10/19 21:59 02/09/19 05:20 Ondansetron HCl (Zofran) 4 mg Q6H PRN IVP Nausea & Vomiting 02/08/19 21:00 03/10/19 20:59 Tiotropium [place] (Spiriva Inhaler) 1 puff DAILY INH 02/09/19 09:00 03/11/19 08:59 02/09/19 09:07 Vitamin D (Vitamin D) 4,000 intlu DAILY ORAL 02/09/19 09:00 03/11/19 08:59 02/09/19 08:13 Phil Felipe MD Feb 09, 2019 11:51
--- NOTE | 2019-02-09 11:51 | Consultation ---
Consult Note Consult Note 73-year-old patient complains of cough and shortness of breath over the past 3 days. patient with recent visit to the office. The patient was recently seen in the office and had been controlled. Care discussed and reviewed. The patient was seen and evaluated in the emergency room. Labs overall appeared to be stable. The patient's x- rays revealed only pulmonary hyperinflation without pneumonia. The patient now admitted for COPD with exacerbation. The patient's findings discussed and reviewed. The patient currently comfortable at present without significant distress or concerns PAST MEDICAL HISTORY: Notable for end-stage COPD, chronic hypoxemia, vitamin D deficiency, hypertension, paroxysmal supraventricular tachyarrhythmias, significant debility, remote history of C. diff. MEDICATIONS: Reviewed. ALLERGIES: Reviewed. SOCIAL HISTORY: The patient is a prior smoker, none currently. The patient is disabled. The patient is able to live independently at this time. REVIEW OF SYSTEMS: All 10 points reviewed and otherwise negative. FAMILY HISTORY: Noncontributory to the above. PHYSICAL EXAMINATION: GENERAL: A well-developed male, comfortable at present. HEENT: Negative. Extraocular movements grossly intact. Oropharynx is moist. NECK: Supple. LUNGS: Moderate air entry, but overall slightly reduced. No rhonchi or wheezes. CARDIAC: S1, S2. Regular rate and rhythm without murmurs, rubs, or gallops. ABDOMEN: Soft, nontender, nondistended. EXTREMITIES: No cyanosis, clubbing, or edema. NEUROLOGIC: Grossly nonfocal. alert LABORATORY DATA: Labs Test 02/08/19 19:30 02/08/19 20:38 02/08/19 20:44 White Blood Count 6.4 K/UL (4.8-10.8) Red Blood Count 5.29 M/UL (4.70-6.10) Hemoglobin 14.9 G/DL (14.2-18.0) Hematocrit 46.3 % (42.0-52.0) Mean Corpuscular Volume 88 FL (80-99) Mean Corpuscular Hemoglobin 28.2 PG (27.0-31.0) Mean Corpuscular Hemoglobin Concent 32.2 G/DL (32.0-36.0) Red Cell Distribution Width 12.8 % (11.6-14.8) Platelet Count 382 K/UL (150-450) Mean Platelet Volume 5.1 FL (6.5-10.1) Neutrophils (%) (Auto) 51.5 % (45.0-75.0) Lymphocytes (%) (Auto) 37.1 % (20.0-45.0) Monocytes (%) (Auto) 5.6 % (1.0-10.0) Eosinophils (%) (Auto) 3.6 % (0.0-3.0) Basophils (%) (Auto) 2.3 % (0.0-2.0) Sodium Level 142 MMOL/L (136-145) Potassium Level 4.5 MMOL/L (3.5-5.1) Chloride Level 103 MMOL/L (98-107) Carbon Dioxide Level 31 MMOL/L (21-32) Anion Gap 8 mmol/L (5-15) Blood Urea Nitrogen 16 mg/dL (7-18) Creatinine 1.4 MG/DL (0.55-1.30) Estimat Glomerular Filtration Rate mL/min (>60) Glucose Level 92 MG/DL (74-106) Lactic Acid Level 0.80 mmol/L (0.4-2.0) Calcium Level 9.6 MG/DL (8.5-10.1) Total Bilirubin 0.2 MG/DL (0.2-1.0) Aspartate Amino Transf (AST/SGOT) 23 U/L (15-37) Alanine Aminotransferase (ALT/SGPT) 18 U/L (12-78) Alkaline Phosphatase 89 U/L (46-116) Troponin I 0.046 ng/mL (0.000-0.056) Pro-B-Type Natriuretic Peptide 56 pg/mL (0-125) Total Protein 8.0 G/DL (6.4-8.2) Albumin 3.5 G/DL (3.4-5.0) Globulin 4.5 g/dL Albumin/Globulin Ratio 0.8 (1.0-2.7) Urine Color Pale yellow Urine Appearance Clear Urine pH 5 (4.5-8.0) Urine Specific [place] 1.010 (1.005-1.035) Urine Protein Negative (NEGATIVE) Urine Glucose (UA) Negative (NEGATIVE) Urine Ketones Negative (NEGATIVE) Urine Blood Negative (NEGATIVE) Urine Nitrite Negative (NEGATIVE) Urine Bilirubin Negative (NEGATIVE) Urine Urobilinogen Normal MG/DL (0.0-1.0) Urine Leukocyte Esterase Negative (NEGATIVE) Arterial Blood pH 7.258 (7.350-7.450) Arterial Blood Partial Pressure CO2 66.1 mmHg (35.0-45.0) Arterial Blood Partial Pressure O2 35.1 mmHg (75.0-100.0) Arterial Blood HCO3 28.9 mmol/L (22.0-26.0) Arterial Blood Oxygen Saturation 58.8 % (95-100) Arterial Blood Base Excess 0 (-2-2) Bobby Test Positive IMPRESSION: 1. COPD with acute exacerbation. 2. failure to thrive 3. Prior history of supraventricular tachyarrhythmias. 4. History of hypertension. 5. History of C. diff, remote. RECOMMENDATIONS: Supportive care. home medications. IV Solu-Medrol. Reassess and re-evaluate for change The patient is otherwise stable. We will proceed when improved. monitor for change and oxygen needs impression, plan, and exam edited and reviewed in detail care discussed with Phil Lopes MD Feb 09, 2019 11:51
[2019-02-09 12:00] VITALS: BP 131/66
--- NOTE | 2019-02-09 12:19 | NUR ---
NURSE NOTES: Pt stable no resp distress presented,,encouraged to wear Bipap,due to elevated PCO2 but refused.
--- NOTE | 2019-02-09 15:19 | Cardiology Report ---
APPROVED REPORT EKG Measurement Heart [id number] Normal sinus rhythm Anterior infarct, age undetermined Abnormal ECG
[2019-02-09 16:00] VITALS: BP 145/64
--- NOTE | 2019-02-09 16:30 | History and Physical Report ---
DATE OF ADMISSION: 02/08/2019 CHIEF COMPLAINT: COPD exacerbation. HISTORY OF PRESENT ILLNESS: The patient is a 73-year-old male, well known to me. He has history of severe COPD and atherosclerotic cardiovascular disease, who presented with complaints of one day of severe shortness of breath. According to the patient, he was well. His apartment has apparently been cleaned and the fumes from the press cleaner caused the patient to have an exacerbation of his COPD. He took some of his breathing treatments at home, but it did not improve. He presented to the emergency room. On evaluation there, his x-ray was clear. He had significant hypoxemia as well as CO2 retention on his ABG. He was given a dose of intravenous steroids. He declined BiPAP. He is now admitted for further evaluation and care. PAST MEDICAL HISTORY: As above. PAST SURGICAL HISTORY: None. CURRENT MEDICATIONS: Reconciled and reviewed. ALLERGIES: None. FAMILY HISTORY: None. SOCIAL HISTORY: The patient is a prior smoker. No alcohol. No drugs. REVIEW OF SYSTEMS: GENERAL: No fevers or chills. HEENT: No headaches or visual changes. CARDIOPULMONARY: No chest pain. Positive shortness of breath. No cough. GASTROINTESTINAL: No nausea or vomiting. GENITOURINARY: No urgency or frequency. MUSCULOSKELETAL: No joint pain or swelling. NEUROLOGIC: No evidence of seizures. PHYSICAL EXAMINATION: VITAL SIGNS: Temperature 97.9, pulse 92, respirations 20, and blood pressure 150/77. GENERAL: The patient is a well-developed thin male, in no apparent distress. HEART: Regular rate and rhythm. LUNGS: Significant for diminished breath sounds and bilateral wheezes. ABDOMEN: Soft, nontender, and nondistended. EXTREMITIES: Without clubbing, cyanosis, or edema. LABORATORY DATA: White count 6, hemoglobin 14, and platelets of 382,000. Sodium 142, potassium 4.5, creatinine was 1.4. Lactic acid was 0.8. Urine was clear. ASSESSMENT: This is a pleasant male, admitted with complaints of severe COPD exacerbation. PROBLEM LIST: 1. COPD exacerbation. 2. Hypercapnic and hypoxic respiratory failure. 3. History of atherosclerotic cardiovascular disease. PLAN: 1. IV steroids and breathing treatments [id number]. 2. BiPAP as needed. 3. Pulmonary consultation is pending. Temo Navarro M.D. DR: NIMA JOB#: [id number] CC:
--- NOTE | 2019-02-09 16:35 | NUR ---
CASE MANAGEMENT: INITIAL REVIEW 73 YO M PRESENTED TO OUR ED FROM HOME CC: DYSPNEA PMHx: HTN. COPD. SI:COPD EXACERBATION. T 97.9 HR 110 RR 30 B/P 199/79 SATS 87% ON RA LABS: CR 1.4 ABGs PH 7.258 PCO2 66.1 PO2 35.1 HCO3 28.9 O2 SAT 58.8 IS: DUO NEB HHN X1 SOLU MEDROL IV X1 NS BOLUS X1 PATIENT ADMITTED TO [facility] 02/08/2019 @ 1942 DCP: PATIENT TO BE DISCHARGED TO HOME ONCE MEDICALLY CLEARED. PLAN OF CARE: PULMO CONSULT RESP SUPPORT Addendum: 02/09/19 at 1929 by Krys Pedro CM INTERQUAL MET
--- NOTE | 2019-02-09 19:21 | NUR ---
HAND-OFF: Report given to Enma Gould RN,Pt awake, no resp distress presented during the shift..
--- NOTE | 2019-02-09 19:49 | NUR ---
NURSE NOTES: received patient from Mari Yo RN. patient is observed resting and sitting up in bed, AOX4, denies pain at this time. patient is on 2 L O2 via NC, tolerating well, no s/sx of respiratory distress noted at this time. urinal at bedside. patient able to ambulate with cane at bedside. IV site R wrist 20 g patent and intact, asymptomatic. bed in lowest position, brakes engaged, siderails up X2, call light within reach. will continue to monitor.
[2019-02-09 20:00] VITALS: BP 134/67
--- NOTE | 2019-02-09 21:03 | NUR ---
NURSE NOTES: left message for Dr. Pool regarding patient's magnesium level of 1.5. awaiting call back. Addendum: 02/09/19 at 2119 by KORI VELAZQUEZ RN RN wrong patient
[2019-02-10] VITALS: BP 142/69
--- NOTE | 2019-02-10 02:00 | Progress Note ---
DATE: 02/09/2019 CARDIOLOGY PROGRESS NOTE SUBJECTIVE: The patient refused BiPAP last night. He did not know why he needed it. I spent time explaining to him what BiPAP actually is for, what it does abnormal ABG and CO2 retention, and he agrees to use BiPAP if he needs it in the future. At this time, he has no shortness of breath. He notes some congestion and palpitations. He is on breathing treatments [id number], which helped him. Monitored rhythm, sinus, sinus arrhythmia, and occasional atrial ectopics. OBJECTIVE: VITAL SIGNS: Blood pressure 145/64, heart rate 97, respiratory rate 20, afebrile, and oxygen saturation on 2 L is 97%. GENERAL: No accessory muscle use. NECK: Jugular venous pressure is slightly elevated. LUNGS: With diminished breath sounds. No wheezing. CARDIAC: Regular rhythm and rate. Normal S1 and S2 with a fourth heart sound. ABDOMEN: Soft. EXTREMITIES: No edema. IMPRESSION: 1. COPD exacerbation. 2. Acute on chronic respiratory acidosis. 3. Hypoxia. 4. Arteriosclerotic cardiovascular disease. 5. Hypertensive heart disease. 6. Paroxysmal atrial tachyarrhythmia. 7. Sinus arrhythmia. 8. Pulmonary hypertension. PLAN: 1. Inhaled bronchodilators. 2. Intravenous steroids. 3. Continue diltiazem. 4. Anti-platelet therapy. 5. DVT prophylaxis. 6. Echocardiogram to assess PA systolic pressure. 7. Monitor electrolytes. Amor Lorenzo M.D. : Abrahan JOB#: [id number] CC:
[2019-02-10] MEDS: Albuterol/Ipratropium 3ml neb HHN SCH ×6 (03:43→23:59)
[2019-02-10 04:00] VITALS: BP 136/78
[2019-02-10 05:56] LABS: HEMATOCRIT 41.6 % (42.0-52.0); HEMOGLOBIN 13.3 G/DL (14.2-18.0); MEAN CORPUSCULAR VOLUME 90 FL (80-99); PLATELET COUNT 392 K/UL (150-450); RED BLOOD COUNT 4.64 M/UL (4.70-6.10); RED CELL DISTRIBUTION WIDTH 14.3 % (11.6-14.8); WHITE BLOOD COUNT 17.1 K/UL (4.8-10.8)
[2019-02-10] MEDS: Solu-MEDROL 40mg Inj IVP SCH ×2 (06:10→20:43)
[2019-02-10 06:30] LABS: ALANINE AMINOTRANSFERASE 18 U/L (12-78); ALBUMIN 3.2 G/DL (3.4-5.0); ALBUMIN/GLOBULIN RATIO 0.8 (1.0-2.7); ALKALINE PHOSPHATASE 81 U/L (46-116); ANION GAP 11 mmol/L (5-15); ASPARTATE AMINO TRANSFERASE 19 U/L (15-37); BILIRUBIN,TOTAL 0.2 MG/DL (0.2-1.0); BLOOD UREA NITROGEN 21 mg/dL (7-18); CALCIUM 9.5 MG/DL (8.5-10.1); CARBON DIOXIDE 27 MMOL/L (21-32); CHLORIDE 105 MMOL/L (98-107); CREATININE 1.2 MG/DL (0.55-1.30); POTASSIUM 4.3 MMOL/L (3.5-5.1); SODIUM 142 MMOL/L (136-145)
--- NOTE | 2019-02-10 07:14 | NUR ---
HAND-OFF: Report given to Mari Yo RN. patient is in stable condition. Endorsed plan of care to incoming RN.
--- NOTE | 2019-02-10 07:15 | NUR ---
NURSE NOTES: Report received from Enma Gould RN.Pt resting in bed awake alert watching TV,stable,denies any sob or discomfort at this time, on 2 L NC,SR on the monitor,skin warm and dry,IV heplock to RW intact ,call bwll within reach at bedside,SR up x2 HOB elevated,bed lock in lowest position,will continue with plans of care.
[2019-02-10 08:00] VITALS: BP 133/67
[2019-02-10] MEDS: dilTIAZem HCl CD 180mg cap ORAL SCH (08:31)
[2019-02-10] MEDS: Aspirin EC 81mg tab ORAL SCH (08:31)
[2019-02-10] MEDS: Vitamin D 1000 IU Tab ORAL SCH (08:32)
--- NOTE | 2019-02-10 09:30 | General Progress Note ---
Assessment/Plan Problem List: (1) Dyspnea ICD Codes: R06.00 - Dyspnea, unspecified SNOMED: 409556834 (2) Respiratory distress ICD Codes: R06.00 - Dyspnea, unspecified SNOMED: 215999621 (3) Hypercapnia ICD Codes: R06.89 - Other abnormalities of breathing SNOMED: 60005253 (4) COPD exacerbation ICD Codes: J44.1 - Chronic obstructive pulmonary disease with (acute) exacerbation SNOMED: 806077752 Status: stable, progressing Assessment/Plan: decrease steroids resp rx atc dvt/stress ulcer prophylaxis Subjective ROS Limited/Unobtainable: No Constitutional: Reports: malaise, weakness HEENT: Reports: no symptoms Cardiovascular: Reports: no symptoms Respiratory: Reports: cough, shortness of breath, SOB with excertion, SOB at rest, sputum Gastrointestinal/Abdominal: Reports: no symptoms Genitourinary: Reports: no symptoms Neurologic/Psychiatric: Reports: no symptoms Endocrine: Reports: no symptoms Hematologic/Lymphatic: Reports: no symptoms Allergies: Coded Allergies: No Known Allergies (Unverified , 08/06/18) All Systems: reviewed and negative except above Subjective c/o sob. minimal improvement. dyspneic with minimal activity. Objective Last 24 Hour Vital Signs Date Time Temp Pulse Resp B/P (MAP) Pulse Ox O2 Delivery O2 Flow Rate FiO2 02/10/19 09:16 93 02/10/19 08:31 92 133/67 02/10/19 08:31 92 133/67 02/10/19 08:00 97.9 92 20 133/67 (89) 100 02/10/19 06:40 74 18 99 Room Air 21 02/10/19 06:40 78 18 100 Room Air 21 74 18 33 02/10/19 04:00 91 02/10/19 04:00 Nasal Cannula 2.0 02/10/19 04:00 98.7 85 20 136/78 (97) 98 02/10/19 03:43 94 18 100 Room Air 21 93 18 100 02/10/19 00:00 Nasal Cannula 2.0 02/10/19 00:00 97.9 92 20 142/69 (93) 100 02/09/19 22:15 94 18 99 Room Air 21 91 18 97 02/09/19 20:00 Nasal Cannula 2.0 02/09/19 20:00 98.4 94 20 134/67 (89) 97 02/09/19 20:00 97 02/09/19 19:20 97 18 98 Room Air 21 02/09/19 19:18 96 18 99 Room Air 21 97 18 98 02/09/19 16:00 Nasal Cannula 2.0 02/09/19 16:00 98.0 92 20 145/64 (91) 97 02/09/19 16:00 97 02/09/19 15:07 88 18 98 Nasal Cannula 1.0 24 86 18 98 02/09/19 12:02 Nasal Cannula 2.0 02/09/19 12:00 98.6 86 20 131/66 (87) 100 02/09/19 12:00 94 02/09/19 11:06 90 18 100 Nasal Cannula 1.0 24 88 18 98 Intake and Output 02/09/19 02/10/19 19:00 07:00 Intake Total 320 ml Output Total 50 ml Balance 320 ml -50 ml Intake Oral 320 ml Output Urine Total 50 ml # Voids 2 # Bowel Movements 2 Laboratory Tests 02/10/19 03:37: White Blood Count 17.1#H, Red Blood Count 4.64L, Hemoglobin 13.3L, Hematocrit 41.6L, Mean Corpuscular Volume 90, Mean Corpuscular Hemoglobin 28.6, Mean Corpuscular Hemoglobin Concent 31.9L, Red Cell Distribution Width 14.3, Platelet Count 392, Mean Platelet Volume 5.2L, Neutrophils (%) (Auto) , Lymphocytes (%) (Auto) , Monocytes (%) (Auto) , Eosinophils (%) (Auto) , Basophils (%) (Auto) , Neutrophils % (Manual) [Pending], Lymphocytes % (Manual) [Pending], Platelet Estimate [Pending], Platelet Morphology [Pending], Sodium Level 142, Potassium Level 4.3, Chloride Level 105, Carbon Dioxide Level 27, Anion Gap 11, Blood Urea Nitrogen 21H, Creatinine 1.2, Estimat Glomerular Filtration Rate , Glucose Level 117H, Calcium Level 9.5, Total Bilirubin 0.2, Aspartate Amino Transf (AST/SGOT) 19, Alanine Aminotransferase (ALT/SGPT) 18, Alkaline Phosphatase 81, Troponin I 0.051, Pro-B-Type Natriuretic Peptide 213H, Total Protein 7.3, Albumin 3.2L, Globulin 4.1, Albumin/Globulin Ratio 0.8L, Thyroid Stimulating Hormone (TSH) 0.148L Height (Feet): 5 Height (Inches): 10.00 Weight (Pounds): 110 General Appearance: WD/WN, alert Neck: supple Cardiovascular: regular rhythm Respiratory/Chest: decreased breath sounds, expiratory wheezing Abdomen: normal bowel sounds, non tender, soft, no organomegaly Edema: no edema noted Arm (L), no edema noted Arm (R), no edema noted Leg (L), no edema noted Leg (R), no edema noted Pedal (L), no edema noted Pedal (R), no edema noted Generalized Temo Navarro MD Feb 10, 2019 09:30
[2019-02-10] MEDS: Breo Ellipta 200/25mcg-14 dose INH SCH (09:49)
--- NOTE | 2019-02-10 11:14 | Pulmonology Progress Note ---
Assessment/Plan Assessment/Plan COPD with exacerbation dyspnea hypoxemia leukocytosis mild PCM hypertension PSVT PLAN care noted IV antibiotics respiratory half-way meds supportive care encourage cough oxygen therapy prognosis guarded impression, plan, and exam edited and reviewed in detail care discussed with RN Subjective Allergies: Coded Allergies: No Known Allergies (Unverified , 08/06/18) Subjective care noted wbc elevated on steroids and oxygen Objective Last 24 Hour Vital Signs Date Time Temp Pulse Resp B/P (MAP) Pulse Ox O2 Delivery O2 Flow Rate FiO2 02/10/19 09:50 89 18 99 Nasal Cannula 2.0 28 02/10/19 09:50 89 18 99 Nasal Cannula 2.0 28 02/10/19 09:50 89 18 99 Nasal Cannula 2.0 28 02/10/19 09:50 89 18 99 Nasal Cannula 2.0 28 02/10/19 09:16 93 02/10/19 08:31 92 133/67 02/10/19 08:31 92 133/67 02/10/19 08:00 Nasal Cannula 2.0 02/10/19 08:00 97.9 92 20 133/67 (89) 100 02/10/19 06:40 74 18 99 Room Air 21 02/10/19 06:40 78 18 100 Room Air 21 74 18 33 02/10/19 04:00 91 02/10/19 04:00 Nasal Cannula 2.0 02/10/19 04:00 98.7 85 20 136/78 (97) 98 02/10/19 03:43 94 18 100 Room Air 21 93 18 100 02/10/19 00:00 Nasal Cannula 2.0 02/10/19 00:00 97.9 92 20 142/69 (93) 100 02/09/19 22:15 94 18 99 Room Air 21 91 18 97 02/09/19 20:00 Nasal Cannula 2.0 02/09/19 20:00 98.4 94 20 134/67 (89) 97 02/09/19 20:00 97 02/09/19 19:20 97 18 98 Room Air 21 02/09/19 19:18 96 18 99 Room Air 21 97 18 98 02/09/19 16:00 Nasal Cannula 2.0 02/09/19 16:00 98.0 92 20 145/64 (91) 97 02/09/19 16:00 97 11/9/19 15:07 88 18 98 Nasal Cannula 1.0 24 86 18 98 02/09/19 12:02 Nasal Cannula 2.0 02/09/19 12:00 98.6 86 20 131/66 (87) 100 02/09/19 12:00 94 Intake and Output 02/09/19 02/10/19 19:00 07:00 Intake Total 320 ml Output Total 50 ml Balance 320 ml -50 ml Intake Oral 320 ml Output Urine Total 50 ml # Voids 2 # Bowel Movements 2 Objective WDWN NAD reduced breath sounds bilaterally without rhonchi or wheeze [id number] without MRG NABS nontender no HSM no CCE nonfocal alert Microbiology Date/Time Source Procedure Growth Status 02/08/19 19:40 Blood Blood Culture - Preliminary NO GROWTH AFTER 24 HOURS Resulted 02/08/19 19:25 Blood Blood Culture - Preliminary NO GROWTH AFTER 24 HOURS Resulted 02/08/19 21:29 Nasal Nares - Final Complete 02/08/19 21:29 Nasal Nares - Final Complete Laboratory Tests 02/10/19 03:37: White Blood Count 17.1#H, Red Blood Count 4.64L, Hemoglobin 13.3L, Hematocrit 41.6L, Mean Corpuscular Volume 90, Mean Corpuscular Hemoglobin 28.6, Mean Corpuscular Hemoglobin Concent 31.9L, Red Cell Distribution Width 14.3, Platelet Count 392, Mean Platelet Volume 5.2L, Neutrophils (%) (Auto) , Lymphocytes (%) (Auto) , Monocytes (%) (Auto) , Eosinophils (%) (Auto) , Basophils (%) (Auto) , Differential Total Cells Counted 100, Neutrophils % ( Manual) 96H, Lymphocytes % (Manual) 3L, Monocytes % (Manual) 1, Eosinophils % ( Manual) 0, Basophils % (Manual) 0, Band Neutrophils 0, Platelet Estimate Adequate, Platelet Morphology Normal, Red Blood Cell Morphology Normal, Sodium Level 142, Potassium Level 4.3, Chloride Level 105, Carbon Dioxide Level 27, Anion Gap 11, Blood Urea Nitrogen 21H, Creatinine 1.2, Estimat Glomerular Filtration Rate , Glucose Level 117H, Calcium Level 9.5, Total Bilirubin 0.2, Aspartate Amino Transf (AST/SGOT) 19, Alanine Aminotransferase (ALT/SGPT) 18, Alkaline Phosphatase 81, Troponin I 0.051, Pro-B-Type Natriuretic Peptide 213H, Total Protein 7.3, Albumin 3.2L, Globulin 4.1, Albumin/Globulin Ratio 0.8L, Thyroid Stimulating Hormone (TSH) 0.148L Current Medications Medications (Trade) Dose Ordered Sig/Charlie Route PRN Reason Start Time Stop Time Status Last Admin Dose Admin Acetaminophen (Tylenol) 650 mg Q4H PRN ORAL Mild Pain/Temp > 100.5 02/08/19 21:00 03/10/19 20:59 Albuterol/ Ipratropium (Albuterol/ Ipratropium) 3 ml Q4HRT HHN 02/08/19 23:00 02/13/19 22:59 02/10/19 06:40 Amlodipine Besylate (Norvasc) 5 mg DAILY ORAL 02/09/19 09:00 03/11/19 08:59 02/10/19 08:31 Aspirin (Ecotrin) 81 mg DAILY ORAL 02/09/19 09:00 03/11/19 08:59 02/10/19 08:31 Diltiazem HCl (Cardizem CD) 180 mg DAILY ORAL 02/09/19 09:00 03/11/19 08:59 02/10/19 08:31 Fluticasone/ Vilanterol (Breo Ellipta 200/25) 1 puffs DAILY INH 02/09/19 09:00 03/11/19 08:59 02/10/19 09:49 Methylprednisolone Sodium Succinate (Solu-MEDROL) 40 mg EVERY 12 HOURS IVP 02/10/19 21:00 03/12/19 20:59 Ondansetron HCl (Zofran) 4 mg Q6H PRN IVP Nausea & Vomiting 02/08/19 21:00 03/10/19 20:59 Tiotropium [place] (Spiriva Inhaler) 1 puff DAILY INH 02/09/19 09:00 03/11/19 08:59 02/10/19 09:49 Vitamin D (Vitamin D) 4,000 intlu DAILY ORAL 02/09/19 09:00 03/11/19 08:59 02/10/19 08:32 Phil Felipe MD Feb 10, 2019 11:14
--- NOTE | 2019-02-10 11:48 | NUR ---
RD ASSESSMENT & RECOMMENDATIONS SEE CARE ACTIVITY FOR COMPLETE ASSESSMENT DAILY ESTIMATED NEEDS: Needs based on Underweight, wt loss, COPD/ 50kg 35-40 kcals/kg 4846-5144 total kcals 1-2 g protein/kg 50-100 g total protein 25-30 mL/kg 6746-4172 total fluid mLs NUTRITION DIAGNOSIS: * Increased kcal and pro needs R/T end stage COPD, as evidenced by previous hospitalizations w/ prior trach placement now removed, h/o of wt loss, currently severely underweight w/ BMI=15.8, 66% [place] Body Weight. CURRENT DIET: Cardiac PO DIET RECOMMENDATIONS: Liberalized REGULAR/ Soft easy chew + snacks TID in b/w meals ADDITIONAL RECOMMENDATIONS: * Standing wt as able for accurate CBW * Weekly wt monitoring- hx of severe wt loss, currently underweight * Snacks TID in b/w all meals * Monitor BGs closely while on solumedrol * Ensure Enlive x1 daily
[2019-02-10 12:00] VITALS: BP 131/63
--- NOTE | 2019-02-10 12:00 | NUR ---
NURSE NOTES: Pt stable,ambulates to bathroom several times with out using a cane no episode of SOB noted,activity tolerated
[2019-02-10 16:00] VITALS: BP 133/73
--- NOTE | 2019-02-10 19:11 | NUR ---
HAND-OFF: Report given to Enma Gould RN..
--- NOTE | 2019-02-10 19:30 | NUR ---
NURSE NOTES: Received patient from Mari Yo RN. patient is observed in bed, talking on cell phone and watching tv, denies pain at this time. patient is on 2 L O2 via NC, tolerating well; no s/sx of respiratory distress noted at this time. harm reduction worker shows sinus rhythm with current heart rate of 95, no s/sx of acute cardiac distress noted. Right wrist 20 g IV saline lock, patent and intact, asymptomatic. urinal and cane at bedside. bed in lowest position and locked, siderails up X2, call light within reach. will continue to monitor.
[2019-02-10 20:00] VITALS: BP 126/73
[2019-02-11] VITALS: BP 130/76
--- NOTE | 2019-02-11 01:29 | NUR ---
NURSE NOTES: court monitor showed 3 second, 7 beats of v-tach. patient is asymptomatic. no c/o chest pain. will continue to monitor.
--- NOTE | 2019-02-11 01:30 | Progress Note ---
DATE: 02/10/2019 CARDIOLOGY PROGRESS NOTE SUBJECTIVE: The patient feels better. He has not required BiPAP. Monitored rhythm sinus with atrial ectopics that are less frequent. OBJECTIVE: VITAL SIGNS: Blood pressure 133/67, pulse 92, respiratory rate 20, and room air oxygen saturation is 99%. LUNGS: Diminished breath sounds. No wheezing. CARDIAC: Regular rhythm and rate. Normal S1 and S2 with a fourth heart sound and 1/6 systolic murmur at apex. ABDOMEN: Soft. EXTREMITIES: No edema. LABORATORY DATA: Echocardiogram with normal ejection fraction and moderate pulmonary hypertension with PA systolic pressure estimated at almost 15 mmHg. Labs noted. White count 17 on steroids, hemoglobin 13, and potassium 4.3. Troponin 0.051. Albumin 3.2. Pro-natriuretic peptide 213. IMPRESSION: 1. Chronic obstructive pulmonary disease exacerbation. 2. Acute diastolic congestive heart failure. 3. Paroxysmal bronchospasm. 4. Acute on chronic respiratory acidosis, improved. 5. Mild protein-calorie malnutrition. 6. Paroxysmal atrial ectopy. 7. Moderate pulmonary hypertension. PLAN: Plan of care reviewed and updated and discussed with nursing staff and help desk consultant as well as the patient. continue in-house acute care, not stable for lower level of care, or discharge at this time. Amor Lorenzo M.D. DR: GILSON JOB#: [id number] CC:
--- NOTE | 2019-02-11 01:45 | Consultation ---
DATE OF CONSULTATION: 02/08/2019 CARDIOLOGY CONSULTATION CONSULTING PHYSICIAN: Amor Lorenzo M.D. REQUESTING PHYSICIAN: 1. Temo Navarro M.D. 2. Phil Felipe M.D. REASON FOR CONSULTATION: Shortness of breath and acidosis. HISTORY OF PRESENT ILLNESS: This is a 73-year-old male, who has a longstanding history of COPD, pulmonary hypertension, and atrial arrhythmias with chronic respiratory acidosis. Over the past few days, he has noted increasing shortness of breath, congestion, and the perceived need for oxygen. He has not had any chest pain. He has not had any fevers or chills or sputum production. He has been compliant with medications. He has not had any ill contacts. In the emergency room, the patient's blood pressure was up to 199/79, heart rate 110, and respiratory rate 30. An arterial blood gas was grossly abnormal and cardiovascular consultation has been requested. PAST MEDICAL HISTORY: 1. Chronic obstructive pulmonary disease. 2. Pulmonary hypertension. 3. Paroxysmal atrial ectopy. 4. Hypertension. 5. Degenerative joint disease. MEDICATIONS: Prior to admission, reviewed and reconciled. ALLERGIES: None. SOCIAL HISTORY: Prior smoker. No alcohol or substance abuse. FAMILY HISTORY: Noncontributory. REVIEW OF SYSTEMS: No fevers or chills. No loss of vision or hearing. He has been on steroids intermittently. There is no history of myocardial infarction. He does not have a history of sustained atrial arrhythmias or atrial fibrillation. There is no history of endocarditis. There is no history of diabetes or thyroid impairment. No history of seizure or stroke. No change in bowel habits. No history of prostate cancer or elevated PSA. PHYSICAL EXAMINATION: VITAL SIGNS: Blood pressure is 147/78, heart rate 101, respiratory rate 22, and afebrile. HEENT: Temporal wasting. Pale conjunctivae. Oropharynx clear. Some accessory muscle use. Jugular venous pressure elevation. No thyromegaly. Trachea midline. No stridor. LUNGS: Expiratory wheezes. Diminished breath sounds. CARDIAC: Regular rhythm. Rapid rate. Normal S1, S2 with a 1/6 lower left sternal border systolic murmur. ABDOMEN: Soft and nontender. There is some paradoxical motion. EXTREMITIES: No clubbing or cyanosis. No edema. NEUROLOGIC: Slight asterixis and resting tremor. No motor deficit. DIAGNOSTIC DATA: EKG, sinus rhythm with possible anterior infarction versus pseudo infarct pattern. LABORATORY DATA: White count 6.4 and hemoglobin 14.9. Sodium 142, potassium 4.5, bicarb 31, BUN 16, and creatinine 1.4. Glucose 92. Lactic acid 0.8. Troponin 0.046. ABG, pH 7.25, pCO2 66, and pO2 35. IMPRESSION: 1. Acute respiratory insufficiency. 2. Acute on chronic respiratory acidosis. 3. Severe hypoxia. 4. Acute myocardial ischemia. 5. Malignant hypertension, improved. 6. Secondary sinus tachycardia. 7. Paroxysmal atrial ectopy. 8. History of pulmonary hypertension, serious and guarded. 9. Acute renal insufficiency likely due to hypoxia. PLAN: 1. Cardiac monitoring. 2. BiPAP support. 3. Oxygenation. 4. DVT prophylaxis. 5. Continue diltiazem for suppression of atrial arrhythmias. 6. Monitor volume status and cardiorenal function closely. 7. Cautious hydration. 8. Inhaled bronchodilators. 9. Stress ulcer prophylaxis. Amor Lorenzo M.D. DR: BRET JOB#: [id number] CC:
[2019-02-11] MEDS: Albuterol/Ipratropium 3ml neb HHN SCH ×6 (03:17→23:11)
[2019-02-11 04:00] VITALS: BP 122/63
--- NOTE | 2019-02-11 07:15 | NUR ---
NURSE NOTES: Received pt from RODO Norwood. Pt is alert and awake, A/Ox4. Pt reports SOB upon exertion still. SPo2 94% on 2LNC at rest. Bilateral breath sounds are diminished. Denies any pain or discomfort at this time. SR on desk monitor. Pt ambulates to the bathroom with cane. Pt is continent. RW 20G, patent and asymptomatic. Bed locked, alarmed and in lowest position. Will continue plan of care.
--- NOTE | 2019-02-11 07:16 | NUR ---
HAND-OFF: Report given to RODO Winter. patient remains in stable condition. plan of care endorsed to incoming RN.
[2019-02-11 08:00] VITALS: BP 112/71
[2019-02-11] MEDS: Aspirin EC 81mg tab ORAL SCH (08:14)
[2019-02-11] MEDS: Vitamin D 1000 IU Tab ORAL SCH (08:14)
[2019-02-11] MEDS: Solu-MEDROL 40mg Inj IVP SCH ×2 (08:14→21:03)
[2019-02-11] MEDS: dilTIAZem HCl CD 180mg cap ORAL SCH (08:15)
--- NOTE | 2019-02-11 08:25 | Pulmonology Progress Note ---
Assessment/Plan Assessment/Plan COPD with exacerbation dyspnea hypoxemia leukocytosis mild PCM hypertension PSVT PLAN care noted IV steroids monitor for change respiratory nursing home meds supportive care encourage cough oxygen therapy prognosis guarded hope to dc next 1-2 days impression, plan, and exam edited and reviewed in detail care discussed with RN Subjective Allergies: Coded Allergies: No Known Allergies (Unverified , 08/06/18) Subjective care noted wbc elevated on steroids and oxygen still with sob no sputum joint pains Objective Last 24 Hour Vital Signs Date Time Temp Pulse Resp B/P (MAP) Pulse Ox O2 Delivery O2 Flow Rate FiO2 02/11/19 08:15 81 112/71 02/11/19 08:15 81 112/71 02/11/19 08:00 97.6 81 20 112/71 (85) 94 02/11/19 06:57 80 18 99 Nasal Cannula 2.0 28 77 18 99 02/11/19 06:56 77 18 99 Nasal Cannula 2.0 28 02/11/19 04:00 Nasal Cannula 2.0 02/11/19 04:00 97.3 88 20 122/63 (82) 100 02/11/19 04:00 92 02/11/19 03:17 89 18 99 Nasal Cannula 2.0 28 91 18 97 02/11/19 00:00 Nasal Cannula 2.0 02/11/19 00:00 98.4 87 20 130/76 (94) 99 02/11/19 00:00 94 02/10/19 23:59 88 18 100 Nasal Cannula 2.0 28 85 18 98 02/10/19 20:00 Nasal Cannula 2.0 02/10/19 20:00 98.1 67 20 126/73 (90) 100 02/10/19 20:00 94 02/10/19 18:01 91 18 99 Nasal Cannula 2.0 28 93 18 97 02/10/19 18:01 92 18 98 Nasal Cannula 2.0 28 02/10/19 16:00 96 02/10/19 16:00 Nasal Cannula 2.0 02/10/19 16:00 98.0 92 21 133/73 (93) 99 02/10/19 15:57 88 18 100 Room Air 21 89 18 98 02/10/19 12:00 84 02/10/19 12:00 98.0 82 20 131/63 (85) 100 02/10/19 12:00 Nasal Cannula 2.0 02/10/19 11:42 86 18 100 Room Air 21 88 18 100 02/10/19 09:50 89 18 99 Nasal Cannula 2.0 28 02/10/19 09:50 89 18 99 Nasal Cannula 2.0 28 02/10/19 09:50 89 18 99 Nasal Cannula 2.0 28 02/10/19 09:50 89 18 99 Nasal Cannula 2.0 28 02/10/19 09:16 93 02/10/19 08:31 92 133/67 02/10/19 08:31 92 133/67 Intake and Output 02/10/19 02/11/19 19:00 07:00 Intake Total 600 ml 60 ml Balance 600 ml 60 ml Intake Oral 600 ml 60 ml # Voids 5 3 # Bowel Movements 1 2 Objective WDWN NAD reduced breath sounds bilaterally without rhonchi or wheeze [id number] without MRG NABS nontender no HSM no CCE nonfocal alert Microbiology Date/Time Source Procedure Growth Status 02/08/19 19:40 Blood Blood Culture - Preliminary NO GROWTH AFTER 48 HOURS Resulted 02/08/19 19:25 Blood Blood Culture - Preliminary NO GROWTH AFTER 48 HOURS Resulted 02/08/19 21:29 Nasal Nares - Final Complete 02/08/19 21:29 Nasal Nares - Final Complete Current Medications Medications (Trade) Dose Ordered Sig/Charlie Route PRN Reason Start Time Stop Time Status Last Admin Dose Admin Acetaminophen (Tylenol) 650 mg Q4H PRN ORAL Mild Pain/Temp > 100.5 02/08/19 21:00 03/10/19 20:59 Albuterol/ Ipratropium (Albuterol/ Ipratropium) 3 ml Q4HRT HHN 02/08/19 23:00 02/13/19 22:59 02/11/19 06:56 Amlodipine Besylate (Norvasc) 5 mg DAILY ORAL 02/09/19 09:00 03/11/19 08:59 02/11/19 08:15 Aspirin (Ecotrin) 81 mg DAILY ORAL 02/09/19 09:00 03/11/19 08:59 02/11/19 08:14 Diltiazem HCl (Cardizem CD) 180 mg DAILY ORAL 02/09/19 09:00 03/11/19 08:59 02/11/19 08:15 Fluticasone/ Vilanterol (Breo Ellipta 200/25) 1 puffs DAILY INH 02/09/19 09:00 03/11/19 08:59 02/10/19 09:49 Methylprednisolone Sodium Succinate (Solu-MEDROL) 40 mg EVERY 12 HOURS IVP 02/10/19 21:00 03/12/19 20:59 02/11/19 08:14 Ondansetron HCl (Zofran) 4 mg Q6H PRN IVP Nausea & Vomiting 02/08/19 21:00 03/10/19 20:59 Tiotropium Gardner (Spiriva Inhaler) 1 puff DAILY INH 02/09/19 09:00 03/11/19 08:59 02/10/19 09:49 Vitamin D (Vitamin D) 4,000 intlu DAILY ORAL 02/09/19 09:00 03/11/19 08:59 02/11/19 08:14 Phil Felipe MD Feb 11, 2019 08:25
[2019-02-11] MEDS: Breo Ellipta 200/25mcg-14 dose INH SCH (09:08)
--- NOTE | 2019-02-11 10:41 | Cardiology Report ---
APPROVED REPORT EXAM: Two-dimensional and M-mode echocardiogram with Doppler and color Doppler. INDICATION Chron pulmonary heart disease M-Mode DIMENSIONS IVSd1.1 (0.7-1.1cm)Left Atrium (MM)3.6 (1.6-4.0cm) LVDd4.5 (3.5-5.6cm)Aortic Root2.9 (2.0-3.7cm) PWd0.8 (0.7-1.1cm)Aortic Cusp Exc.1.6 (1.5-2.0cm) LVDs2.6 (2.5-4.0cm) PWs1.3 cm Technically difficult and limited study due to poor acoustic windows. All images obtained from subcostal view. Study quality precludes accurate assessment of regional wall motion. Normal left ventricular chamber size, systolic function and wall motion. Left ventricular ejection fraction estimated to be 60 %. Borderline left ventricular hypertrophy. No evidence of pericardial effusion. All other cardiac chamber sizes are within normal limits. Focal aortic valve sclerosis with adequate cusp excursion. Thickened mitral valve leaflets with normal excursion. Mitral annulus and aortic root calcification. Pulmonic valve not well visualized. Normal tricuspid valve structure. IVC is normal in size with physiological collapse. A color flow and spectral Doppler study was performed and revealed: No aortic regurgitation. No mitral regurgitation. Mitral diastolic velocities suggest mild left ventricular diastolic dysfunction (Grade I). Mild tricuspid regurgitation. Tricuspid systolic velocities suggests peak right ventricular systolic pressure of 46 mmHg, consistent with moderate pulmonary hypertension.
--- NOTE | 2019-02-11 11:13 | General Progress Note ---
Assessment/Plan Problem List: (1) Dyspnea ICD Codes: R06.00 - Dyspnea, unspecified SNOMED: 308686661 (2) Respiratory distress ICD Codes: R06.00 - Dyspnea, unspecified SNOMED: 207183670 (3) Hypercapnia ICD Codes: R06.89 - Other abnormalities of breathing SNOMED: 26754775 (4) COPD exacerbation ICD Codes: J44.1 - Chronic obstructive pulmonary disease with (acute) exacerbation SNOMED: 050725075 Status: stable, progressing Assessment/Plan: iv steroids resp rx atc dvt/stress ulcer prophylaxis pulm/cards appreciated dc planning 1-2 days slow improvement Subjective ROS Limited/Unobtainable: No Constitutional: Reports: malaise, weakness HEENT: Reports: no symptoms Cardiovascular: Reports: no symptoms Respiratory: Reports: cough, shortness of breath Gastrointestinal/Abdominal: Reports: no symptoms Genitourinary: Reports: no symptoms Neurologic/Psychiatric: Reports: no symptoms Endocrine: Reports: no symptoms Hematologic/Lymphatic: Reports: no symptoms Allergies: Coded Allergies: No Known Allergies (Unverified , 08/06/18) All Systems: reviewed and negative except above Subjective c/o sob with minimal activity. minimal improvement. Objective Last 24 Hour Vital Signs Date Time Temp Pulse Resp B/P (MAP) Pulse Ox O2 Delivery O2 Flow Rate FiO2 02/11/19 09:12 89 18 98 Nasal Cannula 2.0 28 02/11/19 09:08 89 18 98 Nasal Cannula 2.0 28 02/11/19 09:06 88 18 96 Nasal Cannula 2.0 28 02/11/19 09:05 88 18 96 Nasal Cannula 2.0 28 02/11/19 08:15 81 112/71 02/11/19 08:15 81 112/71 02/11/19 08:00 95 02/11/19 08:00 Nasal Cannula 2.0 02/11/19 08:00 97.6 81 20 112/71 (85) 94 02/11/19 06:57 80 18 99 Nasal Cannula 2.0 28 77 18 99 02/11/19 06:56 77 18 99 Nasal Cannula 2.0 28 02/11/19 04:00 Nasal Cannula 2.0 02/11/19 04:00 97.3 88 20 122/63 (82) 100 02/11/19 04:00 92 02/11/19 03:17 89 18 99 Nasal Cannula 2.0 28 91 18 97 02/11/19 00:00 Nasal Cannula 2.0 02/11/19 00:00 98.4 87 20 130/76 (94) 99 02/11/19 00:00 94 02/10/19 23:59 88 18 100 Nasal Cannula 2.0 28 85 18 98 02/10/19 20:00 Nasal Cannula 2.0 02/10/19 20:00 98.1 67 20 126/73 (90) 100 02/10/19 20:00 94 02/10/19 18:01 91 18 99 Nasal Cannula 2.0 28 93 18 97 02/10/19 18:01 92 18 98 Nasal Cannula 2.0 28 02/10/19 16:00 96 02/10/19 16:00 Nasal Cannula 2.0 02/10/19 16:00 98.0 92 21 133/73 (93) 99 02/10/19 15:57 88 18 100 Room Air 21 89 18 98 02/10/19 12:00 84 02/10/19 12:00 98.0 82 20 131/63 (85) 100 02/10/19 12:00 Nasal Cannula 2.0 02/10/19 11:42 86 18 100 Room Air 21 88 18 100 Intake and Output 02/10/19 02/11/19 19:00 07:00 Intake Total 600 ml 60 ml Balance 600 ml 60 ml Intake Oral 600 ml 60 ml # Voids 5 3 # Bowel Movements 1 2 Height (Feet): 5 Height (Inches): 10.00 Weight (Pounds): 110 Objective General Appearance: WD/WN, alert Neck: supple Cardiovascular: regular rhythm Respiratory/Chest: decreased breath sounds, expiratory wheezing Abdomen: normal bowel sounds, non tender, soft, no organomegaly Edema: no edema noted Arm (L), no edema noted Arm (R), no edema noted Leg (L), no edema noted Leg (R), no edema noted Pedal (L), no edema noted Pedal (R), no edema noted Generalized Temo Navarro MD Feb 11, 2019 11:13
[2019-02-11 12:00] VITALS: BP 122/63
--- NOTE | 2019-02-11 12:28 | NUR ---
NURSE NOTES: IV infiltrated, removed and replaced on LFA 22G, patent and asymptomatic.
--- NOTE | 2019-02-11 12:34 | NUR ---
CASE MANAGEMENT:REVIEW 02/11/19 SI: ACUTE RESPIRATORY INSUFFICIENCY 98.1 84 20 122/63 94% ON 2L/NC IS: IV SOLUMEDROL 40MG Q12HRS NORVASC PO QD ASA PO QD CARDIZEM PO QD BREO INH QD SPIRIVA INH QD DUONEB HHN Q4HRS RTC : STEPDOWN UNIT DCP: FROM HOME PLAN: DOWNGRADE TO MED/SURG
--- NOTE | 2019-02-11 14:43 | NUR ---
NURSE NOTES: Complete linen change provided. No signs of distress from patient. Pt resting comfortably in bed, watching television. VSS,
[2019-02-11 16:00] VITALS: BP 135/66
--- NOTE | 2019-02-11 19:10 | NUR ---
HAND-OFF: Report given to Serina Pastrana RN.
--- NOTE | 2019-02-11 19:30 | NUR ---
NURSE NOTES: Received report from Maggy Mukherjee RN. Pt is in bed, awake, a&ox4, and denies pain or distress. Pt is stable, SR, sating at 94% on 2 LPM via nasal cannula. Pt is ambulatory with cane at bedside, uses urinal to void. Bed in lowest position, siderails x 2, bed alarm armed. Pt informed to use call light prior to getting out of bed or for any assistance, verbalized understanding. Will continue to monitor closely.
[2019-02-11 20:00] VITALS: BP 127/67
--- NOTE | 2019-02-11 21:20 | NUR ---
NURSE NOTES: Pt transferred from SDU to telemetry per MD order. Pt is stable, SR, A&Ox4, able to follow commands. Pt on 2 LPM via NC. BP 127/67, o2 99%, P 90, T 97.0, RR 20. Pt denies any pain or distress at this time. Endorsed care to RODO Hawthorne.
--- NOTE | 2019-02-11 22:07 | NUR ---
NURSE NOTES: At 0 patient was transferred from [facility] to telemetry unit. Patient was accompanied by transferring RN and another nurse. Report received from RODO Bragg. Patient is awake and responsive. A/O x4. Breathing regular and unlabored with presence on NC on 2L. Patient's IV is intact and saline locked at the moment. Patient denies any pain or discomfort at this time. Patient's bed is in lowest position, breaks engaged, and call light within reach. Educated patient to call in need of assistance, patient verbalized understanding. Patient is comfortably resting in bed. Will continue to monitor.
[2019-02-12] VITALS: BP 156/71
[2019-02-12] MEDS: Albuterol/Ipratropium 3ml neb HHN SCH ×6 (03:29→23:00)
[2019-02-12 04:00] VITALS: BP 142/77
--- NOTE | 2019-02-12 05:45 | Progress Note ---
DATE: 02/11/2019 CARDIOLOGY PROGRESS NOTE SUBJECTIVE: The patient has shortness of breath with minimal activity. No palpitations. No chest pain. OBJECTIVE: VITAL SIGNS: Blood pressure 112/71, heart rate 81, respirations 18, monitored rhythm sinus with rare atrial ectopics, oxygen saturation on 2 liters 98%. LUNGS: Diminished breath sounds. No wheezing. CARDIAC: Regular rhythm rate. Normal S1, S2 with a 1/6 systolic murmur at lower left sternal border. ABDOMEN: Soft. EXTREMITIES: No edema. IMPRESSION: 1. COPD exacerbation. 2. Paroxysmal bronchospasm. 3. Moderate pulmonary hypertension. 4. Sinus ectopy and arrhythmia. 5. Hypertensive heart disease. 6. Hypoxia. 7. Chronic respiratory acidosis. PLAN: 1. Bronchodilators. 2. Steroid taper. 3. Rehabilitation. 4. Continue diltiazem. 5. Trend natriuretic peptide assay. 6. We will consider diuresis based on clinical parameters. Amor Lorenzo M.D. DR: JESSICA JOB#: [id number] CC:
--- NOTE | 2019-02-12 07:16 | NUR ---
HAND-OFF: Report given to RODO Garcia. Patient in stable condition, plan of care endorsed.
--- NOTE | 2019-02-12 07:16 | NUR ---
NURSE NOTES: Report received from RODO Zuniga. PT in 2L NC. Sleeping comfortably. No sign of distress noted. Bed on lowest position, side rails upx2, brakes engaged, call light within easy reach.
[2019-02-12 07:27] LABS: HEMATOCRIT 40.8 % (42.0-52.0); HEMOGLOBIN 13.2 G/DL (14.2-18.0); MEAN CORPUSCULAR VOLUME 89 FL (80-99); PLATELET COUNT 382 K/UL (150-450); RED BLOOD COUNT 4.56 M/UL (4.70-6.10); RED CELL DISTRIBUTION WIDTH 14.1 % (11.6-14.8); WHITE BLOOD COUNT 12.7 K/UL (4.8-10.8)
[2019-02-12 07:59] LABS: ALANINE AMINOTRANSFERASE 20 U/L (12-78); ALBUMIN/GLOBULIN RATIO 0.8 (1.0-2.7); ALKALINE PHOSPHATASE 78 U/L (46-116); ANION GAP 6 mmol/L (5-15); ASPARTATE AMINO TRANSFERASE 17 U/L (15-37); BILIRUBIN,TOTAL 0.2 MG/DL (0.2-1.0); BLOOD UREA NITROGEN 25 mg/dL (7-18); CALCIUM 8.8 MG/DL (8.5-10.1); CARBON DIOXIDE 29 MMOL/L (21-32); CHLORIDE 107 MMOL/L (98-107); POTASSIUM 4.2 MMOL/L (3.5-5.1); SODIUM 142 MMOL/L (136-145)
[2019-02-12 08:00] VITALS: BP 137/76
[2019-02-12] MEDS: Aspirin EC 81mg tab ORAL SCH (08:28)
[2019-02-12] MEDS: dilTIAZem HCl CD 180mg cap ORAL SCH (08:29)
[2019-02-12] MEDS ORDERED: Solu-MEDROL 40mg Inj IVP SCH (09:00)
--- NOTE | 2019-02-12 09:02 | Pulmonology Progress Note ---
Assessment/Plan Assessment/Plan COPD with exacerbation dyspnea hypoxemia leukocytosis mild PCM hypertension PSVT PLAN care noted IV steroids- taper dc o2 monitor for change respiratory fdc meds supportive care hope to dc in am encourage ambulation impression, plan, and exam edited and reviewed in detail care discussed with RN Subjective Allergies: Coded Allergies: No Known Allergies (Unverified , 08/06/18) Subjective care noted wbc elevated seems improved oxygen sats better no sputum joint pains Objective Last 24 Hour Vital Signs Date Time Temp Pulse Resp B/P (MAP) Pulse Ox O2 Delivery O2 Flow Rate FiO2 02/12/19 08:29 83 137/76 02/12/19 08:28 83 137/76 02/12/19 08:00 98.6 83 18 137/76 (96) 100 02/12/19 07:45 89 20 98 Nasal Cannula 2.0 28 02/12/19 07:45 81 20 99 Nasal Cannula 2.0 28 82 20 98 02/12/19 04:00 85 02/12/19 04:00 97.5 81 20 142/77 (98) 98 02/12/19 03:25 86 18 100 Nasal Cannula 2.0 28 87 18 98 02/12/19 00:00 89 02/12/19 00:00 97.5 88 19 156/71 (99) 99 02/11/19 23:11 81 18 100 Nasal Cannula 2.0 28 84 18 97 02/11/19 20:00 97.0 90 20 127/67 (87) 99 02/11/19 20:00 90 02/11/19 20:00 Nasal Cannula 2.0 02/11/19 19:21 78 18 99 Nasal Cannula 2.0 28 89 18 98 02/11/19 19:21 89 18 98 Nasal Cannula 2.0 28 02/11/19 16:00 85 02/11/19 16:00 Nasal Cannula 2.0 02/11/19 16:00 98.4 89 20 135/66 (89) 98 02/11/19 15:39 78 18 99 Nasal Cannula 2.0 28 76 18 98 02/11/19 12:00 98.1 84 20 122/63 (82) 94 02/11/19 12:00 Nasal Cannula 2.0 02/11/19 12:00 89 02/11/19 11:13 87 18 97 Nasal Cannula 2.0 28 85 18 95 02/11/19 09:12 89 18 98 Nasal Cannula 2.0 28 02/11/19 09:08 89 18 98 Nasal Cannula 2.0 28 02/11/19 09:06 88 18 96 Nasal Cannula 2.0 28 02/11/19 09:05 88 18 96 Nasal Cannula 2.0 28 Intake and Output 02/11/19 02/12/19 19:00 07:00 Intake Total 540 ml 240 ml Output Total 950 ml Balance -410 ml 240 ml Intake Oral 540 ml 240 ml Output Urine Total 950 ml # Voids 5 2 Objective WDWN NAD reduced breath sounds bilaterally without rhonchi or wheeze [id number] without MRG NABS nontender no HSM no CCE nonfocal alert Laboratory Tests 02/12/19 06:13: White Blood Count 12.7H, Red Blood Count 4.56L, Hemoglobin 13.2L, Hematocrit 40.8L, Mean Corpuscular Volume 89, Mean Corpuscular Hemoglobin 28.9, Mean Corpuscular Hemoglobin Concent 32.3, Red Cell Distribution Width 14.1, Platelet Count 382, Mean Platelet Volume 5.4L, Neutrophils (%) (Auto) , Lymphocytes (%) ( Auto) , Monocytes (%) (Auto) , Eosinophils (%) (Auto) , Basophils (%) (Auto) , Neutrophils % (Manual) [Pending], Lymphocytes % (Manual) [Pending], Platelet Estimate [Pending], Platelet Morphology [Pending], Sodium Level 142, Potassium Level 4.2, Chloride Level 107, Carbon Dioxide Level 29, Anion Gap 6, Blood Urea Nitrogen 25H, Creatinine 1.0, Estimat Glomerular Filtration Rate , Glucose Level 116H, Calcium Level 8.8, Total Bilirubin 0.2, Aspartate Amino Transf (AST/ SGOT) 17, Alanine Aminotransferase (ALT/SGPT) 20, Alkaline Phosphatase 78, Pro-B -Type Natriuretic Peptide 110, Total Protein 6.8, Albumin 3.0L, Globulin 3.8, Albumin/Globulin Ratio 0.8L Current Medications Medications (Trade) Dose Ordered Sig/Charlie Route PRN Reason Start Time Stop Time Status Last Admin Dose Admin Acetaminophen (Tylenol) 650 mg Q4H PRN ORAL Mild Pain/Temp > 100.5 02/11/19 22:20 03/13/19 22:19 Albuterol/ Ipratropium (Albuterol/ Ipratropium) 3 ml Q4HRT HHN 02/11/19 23:00 02/13/19 22:59 02/12/19 08:15 Amlodipine Besylate (Norvasc) 5 mg DAILY ORAL 02/12/19 09:00 03/11/19 08:59 02/12/19 08:28 Aspirin (Ecotrin) 81 mg DAILY ORAL 02/12/19 09:00 03/11/19 08:59 02/12/19 08:28 Diltiazem HCl (Cardizem CD) 180 mg DAILY ORAL 02/12/19 09:00 03/11/19 08:59 02/12/19 08:29 Fluticasone/ Vilanterol (Breo Ellipta 200/25) 1 puffs DAILY INH 02/12/19 09:00 03/11/19 08:59 Methylprednisolone Sodium Succinate (Solu-MEDROL) 40 mg EVERY 12 HOURS IVP 02/12/19 09:00 03/12/19 20:59 02/12/19 08:30 Ondansetron HCl (Zofran) 4 mg Q6H PRN IVP Nausea & Vomiting 02/11/19 22:26 03/13/19 22:25 Tiotropium Prather (Spiriva Inhaler) 1 puff DAILY INH 02/12/19 09:00 03/11/19 08:59 Vitamin D (Vitamin D) 4,000 intlu DAILY ORAL 02/12/19 09:00 03/11/19 08:59 Phil Felipe MD Feb 12, 2019 09:02
[2019-02-12] MEDS: Breo Ellipta 200/25mcg-14 dose INH SCH (09:46)
[2019-02-12] MEDS: Vitamin D 1000 IU Tab ORAL SCH (10:33)
--- NOTE | 2019-02-12 10:54 | NUR ---
DISCHARGE PLANNING IN CASE SNF IS NEEDED UPON DISCHARGE ~ PATIENT HAS BEEN REFERRED TO [facility] MONTENE[facility]O [facility] RAYMUNDO
[2019-02-12 12:00] VITALS: BP 141/65
--- NOTE | 2019-02-12 15:46 | General Progress Note ---
Assessment/Plan Problem List: (1) Dyspnea ICD Codes: R06.00 - Dyspnea, unspecified SNOMED: 846939442 (2) Respiratory distress ICD Codes: R06.00 - Dyspnea, unspecified SNOMED: 601496873 (3) Hypercapnia ICD Codes: R06.89 - Other abnormalities of breathing SNOMED: 25356142 (4) COPD exacerbation ICD Codes: J44.1 - Chronic obstructive pulmonary disease with (acute) exacerbation SNOMED: 763004826 Status: stable, progressing Assessment/Plan: iv steroids resp rx atc dvt/stress ulcer prophylaxis pulm/cards appreciated dc planning tomorrow if stable slow improvement Subjective ROS Limited/Unobtainable: No Constitutional: Reports: malaise, weakness HEENT: Reports: no symptoms Cardiovascular: Reports: no symptoms Respiratory: Reports: cough, shortness of breath Gastrointestinal/Abdominal: Reports: no symptoms Genitourinary: Reports: no symptoms Neurologic/Psychiatric: Reports: no symptoms Endocrine: Reports: no symptoms Hematologic/Lymphatic: Reports: no symptoms Allergies: Coded Allergies: No Known Allergies (Unverified , 08/06/18) All Systems: reviewed and negative except above Subjective c/o sob with minimal activity. slow improvement. no chest pain minimal cough. Objective Last 24 Hour Vital Signs Date Time Temp Pulse Resp B/P (MAP) Pulse Ox O2 Delivery O2 Flow Rate FiO2 02/12/19 15:00 91 20 99 Nasal Cannula 2.0 28 93 20 96 02/12/19 12:00 98.1 88 18 141/65 (90) 96 02/12/19 12:00 88 02/12/19 11:33 86 20 100 Nasal Cannula 2.0 28 88 20 97 02/12/19 09:44 80 20 97 Nasal Cannula 2.0 28 02/12/19 09:43 81 20 97 Nasal Cannula 2.0 28 02/12/19 09:43 80 20 97 Nasal Cannula 2.0 28 02/12/19 09:42 82 20 97 Nasal Cannula 2.0 28 02/12/19 09:00 Nasal Cannula 2.0 02/12/19 08:29 83 137/76 02/12/19 08:28 83 137/76 02/12/19 08:00 90 02/12/19 08:00 98.6 83 18 137/76 (96) 100 02/12/19 07:45 89 20 98 Nasal Cannula 2.0 28 02/12/19 07:45 81 20 99 Nasal Cannula 2.0 28 82 20 98 02/12/19 04:00 85 02/12/19 04:00 97.5 81 20 142/77 (98) 98 02/12/19 03:25 86 18 100 Nasal Cannula 2.0 28 87 18 98 02/12/19 00:00 89 02/12/19 00:00 97.5 88 19 156/71 (99) 99 02/11/19 23:11 81 18 100 Nasal Cannula 2.0 28 84 18 97 02/11/19 20:00 97.0 90 20 127/67 (87) 99 02/11/19 20:00 90 02/11/19 20:00 Nasal Cannula 2.0 02/11/19 19:21 78 18 99 Nasal Cannula 2.0 28 89 18 98 02/11/19 19:21 89 18 98 Nasal Cannula 2.0 28 02/11/19 16:00 85 02/11/19 16:00 Nasal Cannula 2.0 02/11/19 16:00 98.4 89 20 135/66 (89) 98 Intake and Output 02/11/19 02/12/19 19:00 07:00 Intake Total 540 ml 240 ml Output Total 950 ml Balance -410 ml 240 ml Intake Oral 540 ml 240 ml Output Urine Total 950 ml # Voids 5 2 Laboratory Tests 02/12/19 06:13: White Blood Count 12.7H, Red Blood Count 4.56L, Hemoglobin 13.2L, Hematocrit 40.8L, Mean Corpuscular Volume 89, Mean Corpuscular Hemoglobin 28.9, Mean Corpuscular Hemoglobin Concent 32.3, Red Cell Distribution Width 14.1, Platelet Count 382, Mean Platelet Volume 5.4L, Neutrophils (%) (Auto) , Lymphocytes (%) ( Auto) , Monocytes (%) (Auto) , Eosinophils (%) (Auto) , Basophils (%) (Auto) , Differential Total Cells Counted 100, Neutrophils % (Manual) 87H, Lymphocytes % (Manual) 12L, Monocytes % (Manual) 1, Eosinophils % (Manual) 0, Basophils % ( Manual) 0, Band Neutrophils 0, Platelet Estimate Adequate, Platelet Morphology Normal, Anisocytosis 1+, Sodium Level 142, Potassium Level 4.2, Chloride Level 107, Carbon Dioxide Level 29, Anion Gap 6, Blood Urea Nitrogen 25H, Creatinine 1.0, Estimat Glomerular Filtration Rate , Glucose Level 116H, Calcium Level 8.8 , Total Bilirubin 0.2, Aspartate Amino Transf (AST/SGOT) 17, Alanine Aminotransferase (ALT/SGPT) 20, Alkaline Phosphatase 78, Pro-B-Type Natriuretic Peptide 110, Total Protein 6.8, Albumin 3.0L, Globulin 3.8, Albumin/Globulin Ratio 0.8L Height (Feet): 5 Height (Inches): 10.00 Weight (Pounds): 110 Objective General Appearance: WD/WN, alert Neck: supple Cardiovascular: regular rhythm Respiratory/Chest: decreased breath sounds, expiratory wheezing Abdomen: normal bowel sounds, non tender, soft, no organomegaly Edema: no edema noted Arm (L), no edema noted Arm (R), no edema noted Leg (L), no edema noted Leg (R), no edema noted Pedal (L), no edema noted Pedal (R), no edema noted Generalized Temo Navarro MD Feb 12, 2019 15:46
[2019-02-12 16:00] VITALS: BP 128/75
--- NOTE | 2019-02-12 19:25 | NUR ---
NURSE NOTES: Pt received from RODO Garcia alert and oriented x4 with no acute s/s of distress noted. IV site asymptomatic and patent. Bed in lowest position. Call light and belongings within reach.
[2019-02-12 20:00] VITALS: BP 134/68
[2019-02-13] VITALS: BP 136/68
[2019-02-13] MEDS: Albuterol/Ipratropium 3ml neb HHN SCH ×6 (02:07→22:55)
[2019-02-13 04:00] VITALS: BP 140/75
--- NOTE | 2019-02-13 06:30 | Progress Note ---
DATE: 02/12/2019 CARDIOLOGY PROGRESS NOTE SUBJECTIVE: The patient feels better. He is less short of breath, not at baseline. No leg swelling. OBJECTIVE: VITAL SIGNS: Blood pressure 141/65, pulse 88, respiratory rate 18. HEART: Monitor sinus to sinus arrhythmia. LUNGS: Diminished breath sounds. No wheezing. HEART: Regular rhythm and rate. Normal S1, S2 with a fourth heart sound. ABDOMEN: Soft. EXTREMITIES: No edema. IMPRESSION: 1. COPD exacerbation. 2. Paroxysmal bronchospasm . 3. Pulmonary hypertension. 4. Hypertensive heart disease . 5. Chronic diastolic congestive heart failure. 6. Paroxysmal atrial ectopy and sinus arrhythmia. PLAN: 1. Steroid taper. 2. Bronchodilators. 3. Continue current cardiovascular medications. 4. No additional diuretics presently indicated. 5. Mobilize and assess for outpatient followup. Amor Lorenzo M.D. DR: Laverne JOB#: [id number] CC:
--- NOTE | 2019-02-13 07:00 | NUR ---
NURSE NOTES: Report received from RODO Carnes. Patient AOx4. On breathing TX at this time. Denies pain. L FA 22g IV SL. Bed on lowest position, side rails upx2, brakes engaged. Call light within easy reach.
--- NOTE | 2019-02-13 07:34 | NUR ---
HAND-OFF: Report given to RODO Mccray. Plan of care endorsed.
[2019-02-13 08:00] VITALS: BP 145/80
[2019-02-13] MEDS: Aspirin EC 81mg tab ORAL SCH (09:08)
[2019-02-13] MEDS: Solu-MEDROL 40mg Inj IVP SCH (09:09)
[2019-02-13] MEDS: Vitamin D 1000 IU Tab ORAL SCH (09:09)
[2019-02-13] MEDS: dilTIAZem HCl CD 180mg cap ORAL SCH (09:09)
[2019-02-13] MEDS: Breo Ellipta 200/25mcg-14 dose INH SCH (09:12)
--- NOTE | 2019-02-13 11:34 | NUR ---
RD ASSESSMENT & RECOMMENDATIONS SEE CARE ACTIVITY FOR COMPLETE ASSESSMENT DAILY ESTIMATED NEEDS: Needs based on Underweight, wt loss, COPD/ 50kg 35-40 kcals/kg 0035-8989 total kcals 1-2 g protein/kg 50-100 g total protein 25-30 mL/kg 7962-4855 total fluid mLs NUTRITION DIAGNOSIS: * Increased kcal and pro needs R/T end stage COPD, as evidenced by previous hospitalizations w/ prior trach placement now removed, h/o of wt loss, currently severely underweight w/ BMI=15.8, 66% [place] Body Weight. CURRENT DIET: Cardiac PO DIET RECOMMENDATIONS: Liberalized REGULAR/ texture as tolerated, snacks TID in b/w meals ADDITIONAL RECOMMENDATIONS: * Standing wt as able for accurate CBW * Weekly wt monitoring- hx of severe wt loss, currently underweight * Snacks TID in b/w all meals * Monitor BGs closely while on solumedrol * Ensure Enlive x1 daily (350kcal/ 20g prot per bottle)
[2019-02-13 12:00] VITALS: BP 141/79
--- NOTE | 2019-02-13 13:52 | Pulmonology Progress Note ---
Assessment/Plan Assessment/Plan Pulmonary Progress Note Assessment/Plan COPD with exacerbation dyspnea hypoxemia leukocytosis mild PCM hypertension PSVT PLAN care noted IV steroids- taper o2 PRN monitor for change respiratory snf meds supportive care hope to dc in am encourage ambulation impression, plan, and exam edited and reviewed in detail care discussed with RN Subjective Allergies: Coded Allergies: No Known Allergies (Unverified , 08/06/18) Subjective care noted wbc elevated seems improved oxygen sats better no sputum joint pains Objective Vital Signs Noted Objective WDWN NAD reduced breath sounds bilaterally without rhonchi or wheeze [id number] without MRG NABS nontender no HSM no CCE nonfocal alert Laboratory Tests Noted Current Medications Medications (Trade) Dose Ordered Sig/Charlie Route PRN Reason Start Time Stop Time Status Last Admin Dose Admin Acetaminophen (Tylenol) 650 mg Q4H PRN ORAL Mild Pain/Temp > 100.5 02/11/19 22:20 03/13/19 22:19 Albuterol/ Ipratropium (Albuterol/ Ipratropium) 3 ml Q4HRT HHN 02/11/19 23:00 02/13/19 22:59 02/12/19 08:15 Amlodipine Besylate (Norvasc) 5 mg DAILY ORAL 02/12/19 09:00 03/11/19 08:59 02/12/19 08:28 Aspirin (Ecotrin) 81 mg DAILY ORAL 02/12/19 09:00 03/11/19 08:59 02/12/19 08:28 Diltiazem HCl (Cardizem CD) 180 mg DAILY ORAL 02/12/19 09:00 03/11/19 08:59 02/12/19 08:29 Fluticasone/ Vilanterol (Breo Ellipta 200/25) 1 puffs DAILY INH 02/12/19 09:00 03/11/19 08:59 Methylprednisolone Sodium Succinate (Solu-MEDROL) 40 mg EVERY 12 HOURS IVP 02/12/19 09:00 03/12/19 20:59 02/12/19 08:30 Ondansetron HCl (Zofran) 4 mg Q6H PRN IVP Nausea & Vomiting 02/11/19 22:26 03/13/19 22:25 Tiotropium [place] (Spiriva Inhaler) 1 puff DAILY INH 02/12/19 09:00 03/11/19 08:59 Vitamin D (Vitamin D) 4,000 intlu DAILY ORAL 02/12/19 09:00 03/11/19 08:59 Subjective ROS Limited/Unobtainable: No Allergies: Coded Allergies: No Known Allergies (Unverified , 08/06/18) Objective Last 24 Hour Vital Signs Date Time Temp Pulse Resp B/P (MAP) Pulse Ox O2 Delivery O2 Flow Rate FiO2 02/13/19 12:00 94 02/13/19 12:00 98.0 84 20 141/79 (99) 96 02/13/19 11:08 103 20 97 Room Air 21 101 20 95 02/13/19 09:15 88 20 99 Nasal Cannula 2.0 28 02/13/19 09:15 88 20 98 Nasal Cannula 2.0 28 02/13/19 09:14 86 18 98 Nasal Cannula 2.0 28 02/13/19 09:14 86 18 97 Nasal Cannula 2.0 28 02/13/19 09:09 83 145/80 02/13/19 09:08 83 145/80 02/13/19 09:00 Nasal Cannula 2.0 02/13/19 08:00 83 02/13/19 08:00 97.1 98 22 145/80 (101) 99 02/13/19 07:21 88 18 99 Nasal Cannula 2.0 86 18 99 02/13/19 04:00 85 02/13/19 04:00 97.0 79 18 140/75 (96) 99 02/13/19 02:07 80 20 99 Nasal Cannula 2.0 28 76 20 98 02/13/19 00:00 97.4 84 18 136/68 (90) 100 02/13/19 00:00 88 02/12/19 23:22 98 Nasal Cannula 2.0 28 02/12/19 21:00 Nasal Cannula 2.0 02/12/19 20:00 87 02/12/19 20:00 96.4 80 18 134/68 (90) 98 02/12/19 19:45 95 18 99 Room Air 21 97 21 96 02/12/19 16:00 89 02/12/19 16:00 96.7 66 18 128/75 (92) 100 02/12/19 15:00 91 20 99 Nasal Cannula 2.0 28 93 20 96 Intake and Output 02/12/19 02/13/19 19:00 07:00 Intake Total 260 ml 200 ml Balance 260 ml 200 ml Intake Oral 260 ml 200 ml # Voids 3 Current Medications Medications (Trade) Dose Ordered Sig/Charlie Route PRN Reason Start Time Stop Time Status Last Admin Dose Admin Acetaminophen (Tylenol) 650 mg Q4H PRN ORAL Mild Pain/Temp > 100.5 02/11/19 22:20 03/13/19 22:19 Albuterol/ Ipratropium (Albuterol/ Ipratropium) 3 ml Q4HRT HHN 02/11/19 23:00 02/13/19 22:59 02/13/19 11:07 Amlodipine Besylate (Norvasc) 5 mg DAILY ORAL 02/12/19 09:00 03/11/19 08:59 02/13/19 09:08 Aspirin (Ecotrin) 81 mg DAILY ORAL 02/12/19 09:00 03/11/19 08:59 02/13/19 09:08 Diltiazem HCl (Cardizem CD) 180 mg DAILY ORAL 02/12/19 09:00 03/11/19 08:59 02/13/19 09:09 Fluticasone/ Vilanterol (Breo Ellipta 200/25) 1 puffs DAILY INH 02/12/19 09:00 03/11/19 08:59 02/13/19 09:12 Methylprednisolone Sodium Succinate (Solu-MEDROL) 40 mg DAILY IVP 02/13/19 09:00 03/12/19 20:59 02/13/19 09:09 Ondansetron HCl (Zofran) 4 mg Q6H PRN IVP Nausea & Vomiting 02/11/19 22:26 03/13/19 22:25 Tiotropium [place] (Spiriva Inhaler) 1 puff DAILY INH 02/12/19 09:00 03/11/19 08:59 02/13/19 09:12 Vitamin D (Vitamin D) 4,000 intlu DAILY ORAL 02/12/19 09:00 03/11/19 08:59 02/13/19 09:09 Amor Schrader MD Feb 13, 2019 13:52
--- NOTE | 2019-02-13 15:04 | General Progress Note ---
Assessment/Plan Problem List: (1) Dyspnea ICD Codes: R06.00 - Dyspnea, unspecified SNOMED: 333829845 (2) Respiratory distress ICD Codes: R06.00 - Dyspnea, unspecified SNOMED: 226567578 (3) Hypercapnia ICD Codes: R06.89 - Other abnormalities of breathing SNOMED: 93994138 (4) COPD exacerbation ICD Codes: J44.1 - Chronic obstructive pulmonary disease with (acute) exacerbation SNOMED: 181721192 Status: stable, progressing Assessment/Plan: iv steroids wean per pulm resp rx atc dvt/stress ulcer prophylaxis pulm/cards appreciated dc planning tomorrow if stable slow improvement Subjective ROS Limited/Unobtainable: No Constitutional: Reports: malaise, weakness HEENT: Reports: no symptoms Cardiovascular: Reports: no symptoms Respiratory: Reports: shortness of breath, SOB at rest, wheezing Gastrointestinal/Abdominal: Reports: no symptoms Genitourinary: Reports: no symptoms Neurologic/Psychiatric: Reports: no symptoms Endocrine: Reports: no symptoms Hematologic/Lymphatic: Reports: no symptoms Allergies: Coded Allergies: No Known Allergies (Unverified , 08/06/18) All Systems: reviewed and negative except above Subjective c/o sob with minimal activity(eating). slow improvement. no chest pain minimal cough. remains on iv steroids Objective Last 24 Hour Vital Signs Date Time Temp Pulse Resp B/P (MAP) Pulse Ox O2 Delivery O2 Flow Rate FiO2 02/13/19 12:00 94 02/13/19 12:00 98.0 84 20 141/79 (99) 96 02/13/19 11:08 103 20 97 Room Air 21 101 20 95 02/13/19 09:15 88 20 99 Nasal Cannula 2.0 28 02/13/19 09:15 88 20 98 Nasal Cannula 2.0 28 02/13/19 09:14 86 18 98 Nasal Cannula 2.0 28 02/13/19 09:14 86 18 97 Nasal Cannula 2.0 28 02/13/19 09:09 83 145/80 02/13/19 09:08 83 145/80 02/13/19 09:00 Nasal Cannula 2.0 02/13/19 08:00 83 02/13/19 08:00 97.1 98 22 145/80 (101) 99 02/13/19 07:21 88 18 99 Nasal Cannula 2.0 28 86 18 99 02/13/19 04:00 85 02/13/19 04:00 97.0 79 18 140/75 (96) 99 02/13/19 02:07 80 20 99 Nasal Cannula 2.0 28 76 20 98 02/13/19 00:00 97.4 84 18 136/68 (90) 100 02/13/19 00:00 88 02/12/19 23:22 98 Nasal Cannula 2.0 28 02/12/19 21:00 Nasal Cannula 2.0 02/12/19 20:00 87 02/12/19 20:00 96.4 80 18 134/68 (90) 98 02/12/19 19:45 95 18 99 Room Air 21 97 21 96 02/12/19 16:00 89 02/12/19 16:00 96.7 66 18 128/75 (92) 100 Intake and Output 02/12/19 02/13/19 19:00 07:00 Intake Total 260 ml 200 ml Balance 260 ml 200 ml Intake Oral 260 ml 200 ml # Voids 3 Height (Feet): 5 Height (Inches): 10.00 Weight (Pounds): 121 Objective General Appearance: WD/WN, alert Neck: supple Cardiovascular: regular rhythm Respiratory/Chest: decreased breath sounds, expiratory wheezing Abdomen: normal bowel sounds, non tender, soft, no organomegaly Edema: no edema noted Arm (L), no edema noted Arm (R), no edema noted Leg (L), no edema noted Leg (R), no edema noted Pedal (L), no edema noted Pedal (R), no edema noted Generalized Temo Navarro MD Feb 13, 2019 15:04
[2019-02-13 16:00] VITALS: BP 136/63
--- NOTE | 2019-02-13 19:30 | NUR ---
HAND-OFF: Report given to RODO Fletcher. Pt. in stable condition.
--- NOTE | 2019-02-13 19:31 | NUR ---
NURSE NOTES: Received report from RODO Garcia. Patient in bed awake showing no signs of acute distress. AOx4. Respiration even and unlabored on 1L NC 02. No sob noted. Bed side rails up x2, wheels locked and bed in lowest position. Call button within reach. All needs attended and met. Will continue plan of care.
[2019-02-13 20:00] VITALS: BP 129/68
--- NOTE | 2019-02-13 23:45 | Progress Note ---
DATE: 02/13/2019 CARDIOLOGY PROGRESS NOTE SUBJECTIVE: The patient has less shortness of breath, but still has done minimal activity in the room and does have shortness of breath when he does ambulate out of the room. His cough has diminished significantly, he remains on steroids intravenously. He notes an episode of dizziness and room spinning for about 30 minutes this afternoon. No associated palpitations and monitored rhythm was sinus throughout. OBJECTIVE: VITAL SIGNS: Blood pressure 141/79, pulse 84, respirations 20. LUNGS: With diminished breath sounds. Few rhonchi. No wheezes. CARDIAC: Regular rhythm and rate. Normal S1, S2 with a fourth heart sound. ABDOMEN: Soft, nontender. EXTREMITIES: No edema. IMPRESSION: 1. COPD exacerbation with paroxysmal bronchospasm, improving. 2. Acute on chronic respiratory acidosis, resolved. 3. Hypertensive heart disease with controlled blood pressures. 4. Paroxysmal atrial ectopy, suppressed with diltiazem. 5. Episode of dizziness of unclear etiology, but definitively not associated with arrhythmias or hypotension based on records reviewed and discussions with nursing staff. PLAN: 1. Continue bronchodilator therapy. 2. Continue tapering steroid. 3. Continue current cardiovascular regimen. 4. Monitor orthostatics. 5. Physical therapy for mobilization. Amor Lorenzo M.D. DR: REGGIE JOB#: [id number] CC:
[2019-02-14] VITALS: BP 142/71
[2019-02-14 04:00] VITALS: BP 139/54
--- NOTE | 2019-02-14 07:43 | NUR ---
HAND-OFF: Report given to RODO Sherman.
--- NOTE | 2019-02-14 07:46 | NUR ---
NURSE NOTES: Received report from Adalberto/RN, Patient is awake, eating breakfast on bed. On 1L Nasal [place], no acute distress/SOB noted, denies pain at this time. Able to make needs known. IV on left FA patent, no bleeding or infiltration noted. Bed in low position and locked, Bed alarm engaged, Side-rails up x3. Encouraged to use call light when needed. Call light within reach. will continue to monitor.
[2019-02-14 08:00] VITALS: BP 143/78
--- NOTE | 2019-02-14 08:24 | Pulmonology Progress Note ---
Assessment/Plan Assessment/Plan COPD with exacerbation dyspnea hypoxemia leukocytosis mild PCM hypertension PSVT PLAN care noted prednisone taper dc o2 monitor for change respiratory group home meds supportive care hope to dc today with HH encourage ambulation impression, plan, and exam edited and reviewed in detail care discussed with RN Subjective Allergies: Coded Allergies: No Known Allergies (Unverified , 08/06/18) Subjective care noted near baseline seems improved oxygen sats stable no sputum joint pains Objective Last 24 Hour Vital Signs Date Time Temp Pulse Resp B/P (MAP) Pulse Ox O2 Delivery O2 Flow Rate FiO2 02/14/19 08:00 97.7 82 22 143/78 (99) 98 02/14/19 04:00 97.7 81 18 139/54 (82) 98 02/14/19 03:15 Nasal Cannula 1.0 24 02/14/19 00:00 97.9 81 18 142/71 (94) 98 02/13/19 22:55 Nasal Cannula 1.0 24 02/13/19 22:39 82 16 95 Nasal Cannula 1.0 24 83 16 98 02/13/19 21:00 Nasal Cannula 2.0 02/13/19 20:00 93 02/13/19 20:00 98.8 80 18 129/68 (88) 97 02/13/19 16:00 129 02/13/19 16:00 97.9 101 20 136/63 (87) 97 02/13/19 15:17 91 19 99 Nasal Cannula 1.0 24 89 96 02/13/19 12:00 94 02/13/19 12:00 98.0 84 20 141/79 (99) 96 02/13/19 11:08 103 20 97 Room Air 21 101 20 95 02/13/19 09:15 88 20 99 Nasal Cannula 2.0 28 02/13/19 09:15 88 20 98 Nasal Cannula 2.0 28 02/13/19 09:14 86 18 98 Nasal Cannula 2.0 28 02/13/19 09:14 86 18 97 Nasal Cannula 2.0 28 02/13/19 09:09 83 145/80 02/13/19 09:08 83 145/80 02/13/19 09:00 Nasal Cannula 2.0 Intake and Output 02/13/19 02/14/19 19:00 07:00 Intake Total 360 ml 200 ml Balance 360 ml 200 ml Intake Oral 360 ml 200 ml # Voids 3 2 Objective WDWN NAD reduced breath sounds bilaterally without rhonchi or wheeze [id number] without MRG NABS nontender no HSM no CCE nonfocal alert Current Medications Medications (Trade) Dose Ordered Sig/Charlie Route PRN Reason Start Time Stop Time Status Last Admin Dose Admin Acetaminophen (Tylenol) 650 mg Q4H PRN ORAL Mild Pain/Temp > 100.5 02/11/19 22:20 03/13/19 22:19 Amlodipine Besylate (Norvasc) 5 mg DAILY ORAL 02/12/19 09:00 03/11/19 08:59 02/13/19 09:08 Aspirin (Ecotrin) 81 mg DAILY ORAL 02/12/19 09:00 03/11/19 08:59 02/13/19 09:08 Diltiazem HCl (Cardizem CD) 180 mg DAILY ORAL 02/12/19 09:00 03/11/19 08:59 02/13/19 09:09 Fluticasone/ Vilanterol (Breo Ellipta 200/25) 1 puffs DAILY INH 02/12/19 09:00 03/11/19 08:59 02/13/19 09:12 Methylprednisolone Sodium Succinate (Solu-MEDROL) 40 mg DAILY IVP 02/13/19 09:00 03/12/19 20:59 02/13/19 09:09 Ondansetron HCl (Zofran) 4 mg Q6H PRN IVP Nausea & Vomiting 02/11/19 22:26 03/13/19 22:25 Tiotropium [place] (Spiriva Inhaler) 1 puff DAILY INH 02/12/19 09:00 03/11/19 08:59 02/13/19 09:12 Vitamin D (Vitamin D) 4,000 intlu DAILY ORAL 02/12/19 09:00 03/11/19 08:59 02/13/19 09:09 Phil Felipe MD Feb 14, 2019 08:24
[2019-02-14] MEDS: Vitamin D 1000 IU Tab ORAL SCH (09:11)
[2019-02-14] MEDS: dilTIAZem HCl CD 180mg cap ORAL SCH (09:11)
[2019-02-14] MEDS: Aspirin EC 81mg tab ORAL SCH (09:11)
[2019-02-14] MEDS: Solu-MEDROL 40mg Inj IVP SCH (09:12)
[2019-02-14] MEDS ORDERED: AMLODIPINE BESYL5 MG ORAL (09:36)
[2019-02-14] MEDS: Breo Ellipta 200/25mcg-14 dose INH SCH (09:49)
--- NOTE | 2019-02-14 11:20 | NUR ---
DISCHARGE PLANNING PATIENT HAS BEEN REFERRED TO [facility] T: [phone] F: [phone]
[2019-02-14 12:00] VITALS: BP 140/70
--- NOTE | 2019-02-14 12:23 | General Progress Note ---
Assessment/Plan Problem List: (1) Dyspnea ICD Codes: R06.00 - Dyspnea, unspecified SNOMED: 276691020 (2) Respiratory distress ICD Codes: R06.00 - Dyspnea, unspecified SNOMED: 170619806 (3) Hypercapnia ICD Codes: R06.89 - Other abnormalities of breathing SNOMED: 24997126 (4) COPD exacerbation ICD Codes: J44.1 - Chronic obstructive pulmonary disease with (acute) exacerbation SNOMED: 922924274 Status: stable, progressing Assessment/Plan: iv steroids wean per pulm resp rx atc dvt/stress ulcer prophylaxis pulm/cards appreciated check urine studies bladder scan flomax slow improvement Subjective ROS Limited/Unobtainable: No Constitutional: Reports: malaise, weakness HEENT: Reports: no symptoms Cardiovascular: Reports: no symptoms Respiratory: Reports: cough Gastrointestinal/Abdominal: Reports: no symptoms Genitourinary: Reports: frequency Neurologic/Psychiatric: Reports: no symptoms Endocrine: Reports: no symptoms Hematologic/Lymphatic: Reports: no symptoms Allergies: Coded Allergies: No Known Allergies (Unverified , 08/06/18) All Systems: reviewed and negative except above Subjective c/o sob with minimal activity(eating). slow improvement. no chest pain minimal cough. remains on iv steroids frequent urination every 10 mins no dysuria Objective Last 24 Hour Vital Signs Date Time Temp Pulse Resp B/P (MAP) Pulse Ox O2 Delivery O2 Flow Rate FiO2 02/14/19 09:49 87 18 96 Room Air 21 02/14/19 09:49 87 18 96 Room Air 21 02/14/19 09:47 87 18 96 Room Air 21 02/14/19 09:47 87 18 96 Room Air 21 02/14/19 09:11 82 143/78 02/14/19 09:11 82 143/78 02/14/19 09:00 Nasal Cannula 2.0 02/14/19 08:00 97.7 82 22 143/78 (99) 98 02/14/19 04:00 97.7 81 18 139/54 (82) 98 02/14/19 03:15 Nasal Cannula 1.0 24 02/14/19 00:00 97.9 81 18 142/71 (94) 98 02/13/19 22:55 Nasal Cannula 1.0 24 02/13/19 22:39 82 16 95 Nasal Cannula 1.0 24 83 16 98 02/13/19 21:00 Nasal Cannula 2.0 02/13/19 20:00 93 02/13/19 20:00 98.8 80 18 129/68 (88) 97 02/13/19 16:00 129 02/13/19 16:00 97.9 101 20 136/63 (87) 97 02/13/19 15:17 91 19 99 Nasal Cannula 1.0 24 89 96 Intake and Output 02/13/19 02/14/19 19:00 07:00 Intake Total 360 ml 200 ml Balance 360 ml 200 ml Intake Oral 360 ml 200 ml # Voids 3 2 Height (Feet): 5 Height (Inches): 10.00 Weight (Pounds): 121 Objective General Appearance: WD/WN, alert Neck: supple Cardiovascular: regular rhythm Respiratory/Chest: decreased breath sounds, expiratory wheezing Abdomen: normal bowel sounds, non tender, soft, no organomegaly Edema: no edema noted Arm (L), no edema noted Arm (R), no edema noted Leg (L), no edema noted Leg (R), no edema noted Pedal (L), no edema noted Pedal (R), no edema noted Generalized Temo Navarro MD Feb 14, 2019 12:23
--- NOTE | 2019-02-14 15:03 | NUR ---
NURSE NOTES: Discharge instruction given to patient, Verbalized understanding. Belonging given to patient. classroom monitor and IV removed, No distress, no bleeding. Patient in stable condition. Escorted downstairs by PRODUCT SAF[employer] SPECIALIST, left Via private vehicle.
[2019-02-14] MEDS ORDERED: Tamsulosin 0.4mg cap ORAL SCH (21:00)
--- NOTE | 2019-02-14 21:45 | Progress Note ---
DATE: 02/14/2019 CARDIOLOGY PROGRESS NOTE SUBJECTIVE: The patient feels better, less short of breath. No abdominal cramps. No leg pain. Voiding well now, but has frequency and nocturia. OBJECTIVE: VITAL SIGNS: Blood pressure 143/78, pulse 82, respirations 20. LUNGS: With diminished breath sounds. No wheezing or rales. HEART: Regular rhythm and rate. Normal S1, S2 with a fourth heart sound. ABDOMEN: Soft. No CVA tenderness. EXTREMITIES: No edema. LABORATORY DATA: Urinalysis on admission revealed no active sediment. IMPRESSION: 1. COPD exacerbation, improved. 2. Hypertensive heart disease with controlled blood pressure. 3. Paroxysmal atrial arrhythmia, suppressed with diltiazem. 4. Prostatic hypertrophy with urinary insufficiency. PLAN: 1. Consider tamsulosin. 2. Continue diltiazem, steroid taper, inhaled bronchodilators. 3. The patient wishes to follow up in my office from subsequent cardiology care. Amor Lorenzo M.D. DR: RANDI JOB#: [id number] CC:
--- NOTE | 2019-02-17 11:13 | Discharge Summary ---
Discharge Summary Discharge Summary _ DATE OF ADMISSION: 02/08/2019 DATE OF DISCHARGE: 02/14/2019 DISCHARGED BY: Dr Navarro REASON FOR ADMISSION: 73 years old male with past medical history of hypertension, COPD, presented to emergency department with shortness of breath for few days. He denied cough. He denied fever and chills. He denied chest pain. Upon evaluation patient was tachycardic , tachypneic; blood pressure was elevated 199/79 ; pulse oximetry was 87% on room air. EKG revealed sinus rhythm, no acute ischemic changes . Chest x-ray revealed hyperinflated lungs without infiltrates. Laboratory work-up revealed no leukocytosis, stable hemoglobin and hematocrit . Troponin was negative Lactic acid 0.8. Patient subsequently admitted for COPD exacerbation CONSULTANTS: retail advertising executive Dr. Lorenzo pulmonary [facility] [place] [employer]RSE: Patient admitted to monitored floor. Wired Sweatband Cutter and retail advertising executive followed. Patient started on IV steroids with gradual tapering down. Supplemental oxygen titrated to keep pulse oximetry above 92%. Nebulizing treatment with bronchodilator provided [id number] and as needed. Patient started on empiric antibiotic. Blood culture were negative. Patient developed leukocytosis, likely reactive secondary to steroids , which trended down Patient started on inhalers Breo and Spiriva. Prior to discharge pulse extremity was stable on room air. IV steroids were changed to short course of oral prednisone to complete at home. Prescription for inhalers Breo, Spiriva and rescue Ventolin provided. Antiplatelet therapy with aspirin continued. Patient on telemetry was noted to have paroxysmal atrial ectopy which was suppressed with Cardizem. Blood pressure was managed with calcium channel coleen and Cardizem. Echocardiogram revealed preserved ejection fraction of 60% with borderline left ventricular hypertrophy. No evidence of pericardial effusion. Right ventricular systolic pressure of 46 consistent with moderate pulmonary hypertension. Volumes and cardiorenal parameters were closely monitored. Patient was working with physical therapist . Ambulation was encouraged. Patient clinically stabilized and was ready for discharge home with home health services to follow. FINAL DIAGNOSES: COPD exacerbation Hypercapnic and hypoxic respiratory failure Acute on chronic respiratory acidosis -resolved Chronic diastolic congestive heart failure Pulmonary hypertension Paroxysmal bronchospasm Paroxysmal atrial ectopy/ suppressed with diltiazem Prostatic hypertrophy DISCHARGE MEDICATIONS: See Medication Reconciliation list. DISCHARGE INSTRUCTIONS: Patient was discharged home with home health services. Follow up with primary care provider in one week. I have been assigned to dictate discharge summary for this account. I was not involved in the patient's management. Sanam Buenrostro NP Feb 17, 2019 11:13
== END 2019-02-14 15:01 | disposition home health service (06) | DRG 190 ==
LOC: EMR 19:37 → 2W 19:42 → EDBEDREQ 21:07 → EDBEDREQSVC 21:12 → EDBEDREQ 21:13 → 2E 02-11 22:04
DX: J44.1 Chronic obstructive pulmonary disease with (acute) exacerbation (principal); J96.92 Respiratory failure, unspecified with hypercapnia; N17.9 Acute kidney failure, unspecified; E87.2 Acidosis; I47.1 Supraventricular tachycardia; I50.32 Chronic diastolic (congestive) heart failure; I27.20 Pulmonary hypertension, unspecified; Z87.891 Personal history of nicotine dependence; I49.1 Atrial premature depolarization; I51.3 Intracardiac thrombosis, not elsewhere classified; I25.10 Atherosclerotic heart disease of native coronary artery without angina pectoris; I11.0 Hypertensive heart disease with heart failure; N40.0 Benign prostatic hyperplasia without lower urinary tract symptoms
CPT/HCPCS: 36415; 36600; 71045; 80053; 81003; 82803; 83605; 83880; 84443; 84484; 85007; 85025; 86710; 87040; 93005; 93306; 94640; 94664; 96365; 96375; 99291; J7620

== ENCOUNTER 2019-03-03 11:12 | Inpatient (IN) | payer MEDICARE, MEDICAID ==
[~2019-03-03] VITALS: Ht 177.8 cm; Wt 49.9 kg
[~2019-03-03 11:12] MED LIST changes: +AMLODIPINE BESYL5 MG ORAL; +XARELTO10 MG
[2019-03-03 11:25] VITALS: BP 151/84
--- NOTE | 2019-03-03 11:25 | NUR ---
ED Nurse Note: Pt ambulated into ED for SOB onset 4 days ago. Pt states walking or activity makes the SOB worse. Pt has hx of COPD. Pt is awake alert and oriented x 4, breathing is normal and unlabored. Pt also reports left rib pain upon palpation only. Pt is speaking in full sentences. Pt connected to naturopath and placed in hospital gown. Safety measures in place. Will continue to monitor.
[2019-03-03] MEDS: Ipratropium 0.02% Inh Soln 2.5ml UD HHN SCH ×3 (11:38→12:13)
[2019-03-03] MEDS: Albuterol ud Inhalation HHN SCH ×3 (11:38→12:13)
--- NOTE | 2019-03-03 11:38 | NUR ---
RESPIRATORY NOTE: Pt refused to be on Bipap. He stated that he doesn't need Bipap, just breathing Tx. Educated pt about the indication of Bipap, pt still refused it. Pt is awake, alert, saturates at 100% on room air. Dr. Baldwin aware. Will continue to monitor pt.
--- NOTE | 2019-03-03 11:47 | NUR ---
ED Nurse Note: RN received verbal order of prednisone 10mg oral once from Dr. Baldwin. Will put the order in accordingly.
--- NOTE | 2019-03-03 11:50 | NUR ---
ED Nurse Note: skin warm to touch. no open wound noted.
--- NOTE | 2019-03-03 12:07 | Diagnostic Imaging Report ---
EXAM: XR Chest, 1 View CLINICAL HISTORY: CP TECHNIQUE: Frontal view of the chest. COMPARISON: Chest x-ray 02/08/19 FINDINGS: Lungs: Hyperinflated lungs of COPD. Mild perihilar interstitial prominence. No focal infiltrate or consolidation. Linear scarring left upper lung. Pleural space: Unremarkable. No pneumothorax. Heart: Unremarkable. No cardiomegaly. Mediastinum: Unremarkable. Bones/joints: Unremarkable. IMPRESSION: Hyperinflated lungs of COPD. Mild perihilar interstitial prominence. No focal infiltrate or consolidation.
[2019-03-03 12:15] LABS: BASOPHILS % (AUTO) 1.7 % (0.0-2.0); EOSINOPHILS % (AUTO) 2.5 % (0.0-3.0); HEMATOCRIT 47.4 % (42.0-52.0); HEMOGLOBIN 14.9 G/DL (14.2-18.0); MEAN CORPUSCULAR VOLUME 90 FL (80-99); MONOCYTES % (AUTO) 6.7 % (1.0-10.0); NEUTROPHILS % (AUTO) 55.1 % (45.0-75.0); PLATELET COUNT 361 K/UL (150-450); RED BLOOD COUNT 5.26 M/UL (4.70-6.10); WHITE BLOOD COUNT 5.9 K/UL (4.8-10.8)
--- NOTE | 2019-03-03 12:20 | NUR ---
ED Nurse Note: Per KULDEEP Baldwin, run IV magnesium sulfate over 30 minutes.
[2019-03-03 12:23] LABS: ANION GAP 3 mmol/L (5-15); BLOOD UREA NITROGEN 12 mg/dL (7-18); CALCIUM 9.6 MG/DL (8.5-10.1); CARBON DIOXIDE 36 MMOL/L (21-32); CHLORIDE 104 MMOL/L (98-107); CREATININE 1.2 MG/DL (0.55-1.30); POTASSIUM 4.6 MMOL/L (3.5-5.1); SODIUM 143 MMOL/L (136-145)
[2019-03-03 12:30] VITALS: BP 151/86
[2019-03-03 12:39] LABS: ALANINE AMINOTRANSFERASE 25 U/L (12-78); ALBUMIN 3.6 G/DL (3.4-5.0); ALBUMIN/GLOBULIN RATIO 0.8 (1.0-2.7); ALKALINE PHOSPHATASE 102 U/L (46-116); ASPARTATE AMINO TRANSFERASE 23 U/L (15-37); BILIRUBIN,TOTAL 0.2 MG/DL (0.2-1.0)
--- NOTE | 2019-03-03 12:39 | Emergency Room Report ---
History of Present Illness General Chief Complaint: Dyspnea/Respdistress Source: Patient Present Illness HPI 73-year-old male history of COPD, no longer smoking history of recent hospitalization for COPD exacerbation presents with left-sided chest pain, on the rib, aggravated with deep breathing alleviated with rest severity is mild, patient also endorses some cough without sputum production, no fevers no chills , he does endorse shortness of breath, patient presents for evaluation Allergies: Coded Allergies: No Known Allergies (Unverified , 08/06/18) Patient History Past Medical History: see triage record Reviewed Nursing Documentation: PMH: Agreed; PSxH: Agreed Nursing Documentation-PMH Past Medical History: No History, Except For Hx Cardiac Problems: Yes - HTN Hx Hypertension: Yes Hx COPD: Yes Hx Cancer: No Hx Gastrointestinal Problems: No Hx Neurological Problems: No Hx Neurologic Surgery: No Review of Systems All Other Systems: negative except mentioned in HPI Physical Exam Vital Signs Date Time Temp Pulse Resp B/P (MAP) Pulse Ox O2 Delivery O2 Flow Rate FiO2 03/03/19 11:15 98.1 99 20 151/84 (106) 95 Room Air 03/03/19 11:38 21 Sp02 EP Interpretation: reviewed, normal General Appearance: well appearing, no apparent distress, alert Head: normocephalic, atraumatic Eyes: bilateral eye PERRL, bilateral eye EOMI ENT: uvula midline, moist mucus membranes Neck: supple, thyroid normal, supple/symm/no masses Respiratory: no respiratory distress, no retraction, decreased breath sounds, accessory muscle use, wheezing - Moderate Cardiovascular #1: normal peripheral pulses, regular rate, rhythm, no edema, no gallop, no murmur Gastrointestinal: non tender, soft, no guarding, no rebound Musculoskeletal: normal inspection Neurologic: alert, oriented x3 Psychiatric: mood/affect normal Skin: no rash, warm/dry Medical Decision Making Diagnostic Impression: Primary Impression: COPD exacerbation ER Course 73-year-old male presents with dyspnea, shortness of breath and atypical chest pain, chest pain is most likely costochondritis, shortness of breath most likely due to COPD versus pneumonia versus ACS We will start duo nebs, BiPAP, steroids Patient improving with DuoNeb's, patient only wanted a small dose of steroid, steroids were switched to 10 mg Patient refused BiPAP Patient admitted to Dr. Navarro Laboratory Tests Test 03/03/19 12:00 White Blood Count 5.9 K/UL (4.8-10.8) Red Blood Count 5.26 M/UL (4.70-6.10) Hemoglobin 14.9 G/DL (14.2-18.0) Hematocrit 47.4 % (42.0-52.0) Mean Corpuscular Volume 90 FL (80-99) Mean Corpuscular Hemoglobin 28.3 PG (27.0-31.0) Mean Corpuscular Hemoglobin Concent 31.3 G/DL (32.0-36.0) L Red Cell Distribution Width 14.0 % (11.6-14.8) Platelet Count 361 K/UL (150-450) Mean Platelet Volume 5.4 FL (6.5-10.1) L Neutrophils (%) (Auto) 55.1 % (45.0-75.0) Lymphocytes (%) (Auto) 34.0 % (20.0-45.0) Monocytes (%) (Auto) 6.7 % (1.0-10.0) Eosinophils (%) (Auto) 2.5 % (0.0-3.0) Basophils (%) (Auto) 1.7 % (0.0-2.0) Sodium Level 143 MMOL/L (136-145) Potassium Level 4.6 MMOL/L (3.5-5.1) Chloride Level 104 MMOL/L (98-107) Carbon Dioxide Level 36 MMOL/L (21-32) H Anion Gap 3 mmol/L (5-15) L Blood Urea Nitrogen 12 mg/dL (7-18) Creatinine 1.2 MG/DL (0.55-1.30) Estimate Glomerular Filtration Rate mL/min (>60) Glucose Level 94 MG/DL (74-106) Calcium Level 9.6 MG/DL (8.5-10.1) Total Bilirubin 0.2 MG/DL (0.2-1.0) Aspartate Amino Transferase (AST) 23 U/L (15-37) Alanine Aminotransferase (ALT) 25 U/L (12-78) Alkaline Phosphatase 102 U/L (46-116) Troponin I 0.032 ng/mL (0.000-0.056) Pro-B-Type Natriuretic Peptide 56 pg/mL (0-125) Total Protein 8.2 G/DL (6.4-8.2) Albumin 3.6 G/DL (3.4-5.0) Globulin 4.6 g/dL Albumin/Globulin Ratio 0.8 (1.0-2.7) L Lipase 64 U/L (73-393) L EKG Diagnostic Results EKG Time: 11:38 EP Interpretation: NSR, rate 87, QTc 423, right axis deviation Rhythm Strip Diag. Results Rhythm Strip Time: 12:38 EP Interpretation: yes Rate: 95 Rhythm: NSR, no PVC's, no ectopy Chest X-Ray Diagnostic Results Chest X-Ray Diagnostic Results : Chest X-Ray Ordered: Yes # of Views/Limited/Complete: 1 View Indication: Shortness of Breath EP Interpretation: Yes Interpretation: other - Large lung volumes Impression: Other - Large lung volumes Electronically Signed by: Jose Armando Baldwin MD Last Vital Signs Date Time Temp Pulse Resp B/P (MAP) Pulse Ox O2 Delivery O2 Flow Rate FiO2 03/03/19 12:13 83 18 100 Room Air 21 90 18 100 03/03/19 11:15 98.1 151/84 (106) Disposition: ADMITTED INPATIENT Condition: Stable Referrals: Phil Felipe MD (PCP) Jose Armando Baldwin MD Mar 03, 2019 12:39
--- NOTE | 2019-03-03 13:39 | NUR ---
NURSE NOTES: Received report from RODO Gallagher in ED. Will swab pt and bring to 2E
--- NOTE | 2019-03-03 13:42 | NUR ---
ED Nurse Note: Reports given to RODO Leigh.
--- NOTE | 2019-03-03 13:44 | NUR ---
NURSE NOTES: Notified Dr. Navarro of new admission, asked to enter admission orders
--- NOTE | 2019-03-03 13:45 | NUR ---
ED Nurse Note: Pt given luch tray. Pt ate 80% of food, tolerated well.
[2019-03-03] MEDS ORDERED: UNOBMED (13:49)
[2019-03-03 14:03] VITALS: BP 114/92
--- NOTE | 2019-03-03 14:13 | NUR ---
NURSE NOTES: Pt brought to [facility] via gurney. Pt able to transfer to bed, vitals done, assessment done and charted, see flowsheet. Pt is talkative, A/OX4, no complaints of pain, no apparent distress noted, respirations are shallow and diminished, SpO2 100% on RA, bed in lowest position, call light within reach, IV infiltrated, RN will start new IV
[2019-03-03 14:23] VITALS: BP 154/74
[2019-03-03] MEDS: Solu-MEDROL 40mg Inj IVP SCH ×2 (14:23→22:58)
[2019-03-03] MEDS: Albuterol/Ipratropium 3ml neb HHN SCH ×3 (15:10→22:57)
[2019-03-03] MEDS: cefTRIAXone 1 GM in D5W 55 ML IVPB SCH (15:17)
[2019-03-03] MEDS ORDERED: VENTOLIN HFA18 GM INH (15:47)
--- NOTE | 2019-03-03 16:03 | NUR ---
NURSE NOTES: Pt states he came to hospital because he has been having a pain on the left side in the ribs. It was new and continued for a few days. Now only hurts with palpation. RN notified MD Navarro, asked if he wanted order anything. stated no.
--- NOTE | 2019-03-03 19:11 | NUR ---
HAND-OFF: Report given to RODO Paz. Pt stable.
--- NOTE | 2019-03-03 19:43 | NUR ---
NURSE NOTES: Received report from RODO Leigh. Patient is in bed, awake and responsive, A/O x4. Breathing regular with no C/O chest pain or SOB noted at this time. Patient's IV is intact and saline locked at the moment. Patient denies any pain or discomfort at this time. Made patient aware to call in need of assistance, patient verbalized understanding. Bed is in the lowest position, breaks engaged, and call light within reach at all times. Will continue to monitor.
[2019-03-03 20:00] VITALS: BP 124/66
[2019-03-04] VITALS: BP 137/69
[2019-03-04] MEDS: Albuterol/Ipratropium 3ml neb HHN SCH ×3 (02:55→11:00)
[2019-03-04 04:00] VITALS: BP 149/99
[2019-03-04] MEDS: Solu-MEDROL 40mg Inj IVP SCH (06:24)
--- NOTE | 2019-03-04 07:15 | History and Physical Report ---
DATE OF ADMISSION: 03/03/2019 CHIEF COMPLAINT: COPD exacerbation. HISTORY OF PRESENT ILLNESS: The patient a pleasant 73-year-old male. He has a history of COPD. He presented with complaints of shortness of breath. According to the patient, he has had worsening shortness of breath for the last several days. He was cooking with some green and inhaled the green and he believed that made his COPD exacerbation even worse. He also notes that he has been out of some of his inhalers. On evaluation in the emergency room, the patient was wheezing, dyspneic, and hypoxic. He was given steroids. He had a chest x-ray, which showed no evidence of any pneumonia although there were some mild perihilar interstitial prominence. The patient is now admitted for further evaluation and care. PAST MEDICAL HISTORY: As above. PAST SURGICAL HISTORY: None. CURRENT MEDICATIONS: Reconciled and reviewed. ALLERGIES: None. FAMILY HISTORY: None. SOCIAL HISTORY: The patient is a prior smoker. No alcohol. No drugs. REVIEW OF SYSTEMS: GENERAL: No fevers or chills. HEENT: No headaches or visual changes. CARDIOPULMONARY: No chest pain. Positive for shortness of breath. GASTROINTESTINAL: No nausea or vomiting. GENITOURINARY: No urgency or frequency. MUSCULOSKELETAL: No joint pain or swelling. NEUROLOGIC: No evidence of seizures. PHYSICAL EXAMINATION: VITAL SIGNS: Temperature 98 degrees, pulse 84, respirations 20, blood pressure 149/99, the patient is 99% on room air. GENERAL: The patient is a well-developed thin male, in no apparent distress. HEART: Regular rate and rhythm. LUNGS: Significantly diminished breath sounds with bilateral wheezes. ABDOMEN: Soft, nontender, nondistended. EXTREMITIES: Without clubbing, cyanosis, or edema. LABORATORY DATA: White count 6, hemoglobin 14, platelets of 361. Sodium 143, potassium 4.6. Troponin 0.032. ASSESSMENT: This is a pleasant male admitted with complaints of COPD exacerbation. PROBLEM LIST: 1. COPD exacerbation. 2. History of hypertension. PLAN: 1. IV steroids. 2. Respiratory treatments. 3. Intravenous antibiotics. 4. Pulmonary, Cardiology follow up. 5. Supplemental O2 as needed. 6. PRN anxiolytics. Temo Navarro M.D. DR: RUCHI JOB#: [id number] CC:
--- NOTE | 2019-03-04 07:37 | NUR ---
HAND-OFF: Report given to RODO Thornton. Patient in stable condition, plan of care endorsed.
--- NOTE | 2019-03-04 07:57 | NUR ---
NURSE NOTES: Received report from RODO Sharp. Patient in bed resting, no active s/s cardiac, respiratory distress noticed at this time. Patient on room air, AOx4, SR with HR 88, denies pain at this time. IV on right FA 22G, asymptomatic, patent, intact. Bed in lowest position, side rails upx3, call light within reach, urinal at easy reach, informed to call staff when move out of bed, bed alarm on, call light within easy reach. Will continue to monitor.
[2019-03-04 08:00] VITALS: BP 129/73
[2019-03-04] MEDS: cefTRIAXone 1 GM in D5W 55 ML IVPB SCH (08:37)
--- NOTE | 2019-03-04 08:43 | Pulmonology Progress Note ---
Assessment/Plan Assessment/Plan COPD with exacerbation chronic respiratory failure PSVT debility acute bronchospasm hypertension BPH PLAN dc home resume home meds oxygen as needed Trelegy to pharmacy avoid excessive albuterol monitor for change impression, plan, and exam edited and reviewed in detail care discussed with RN Subjective Allergies: Coded Allergies: No Known Allergies (Unverified , 08/06/18) Subjective care noted confirms exposure to fumes from cooking now at baseline not taking trelegy Objective Last 24 Hour Vital Signs Date Time Temp Pulse Resp B/P (MAP) Pulse Ox O2 Delivery O2 Flow Rate FiO2 03/04/19 08:37 88 129/73 03/04/19 08:37 88 129/73 03/04/19 08:13 88 16 99 Room Air 21 86 16 97 03/04/19 08:00 98.0 83 18 129/73 (91) 98 03/04/19 04:00 98.1 88 21 149/99 (116) 99 03/04/19 04:00 84 03/04/19 02:55 86 18 97 Room Air 21 84 18 96 03/04/19 00:00 92 03/04/19 00:00 97.9 92 19 137/69 (91) 96 03/03/19 23:08 95 16 99 Room Air 21 94 16 98 03/03/19 21:00 Room Air 03/03/19 20:00 89 03/03/19 20:00 97.3 77 19 124/66 (85) 96 03/03/19 19:45 83 18 98 Room Air 21 81 18 97 03/03/19 16:02 100 03/03/19 15:20 86 18 100 Room Air 21 85 17 100 03/03/19 15:06 100 21 03/03/19 14:39 Room Air Room Air 03/03/19 14:23 98.2 93 20 154/74 (100) 100 03/03/19 14:03 97.7 95 24 114/92 100 Room Air 03/03/19 13:55 98.0 97 22 151/95 95 Room Air 21 03/03/19 12:39 100 21 03/03/19 12:33 89 16 100 Room Air 21 83 18 100 03/03/19 12:30 86 22 151/86 100 Room Air 03/03/19 12:13 83 18 100 Room Air 21 90 18 100 03/03/19 11:53 90 18 100 Room Air 21 85 15 100 03/03/19 11:38 85 15 100 Room Air 21 03/03/19 11:38 100 21 03/03/19 11:25 98.1 99 20 151/84 95 Room Air 03/03/19 11:25 99 20 Room Air 03/03/19 11:15 98.1 99 20 151/84 (106) 95 Room Air Intake and Output 03/03/19 03/04/19 18:59 06:59 Intake Total 1880 ml Balance 1880 ml Intake Oral 780 ml IV Total 1100 ml # Voids 3 Objective WDWN NAD reduced breath sounds bilaterally without rhonchi or wheeze [id number] without MRG NABS nontender no HSM no CCE nonfocal Microbiology Date/Time Source Procedure Growth Status 03/03/19 14:00 Rectum Received Laboratory Tests 03/03/19 12:00: White Blood Count 5.9, Red Blood Count 5.26, Hemoglobin 14.9, Hematocrit 47.4, Mean Corpuscular Volume 90, Mean Corpuscular Hemoglobin 28.3, Mean Corpuscular Hemoglobin Concent 31.3L, Red Cell Distribution Width 14.0, Platelet Count 361, Mean Platelet Volume 5.4L, Neutrophils (%) (Auto) 55.1, Lymphocytes (%) (Auto) 34.0, Monocytes (%) (Auto) 6.7, Eosinophils (%) (Auto) 2.5, Basophils (%) (Auto ) 1.7, Sodium Level 143, Potassium Level 4.6, Chloride Level 104, Carbon Dioxide Level 36H, Anion Gap 3L, Blood Urea Nitrogen 12, Creatinine 1.2, Estimat Glomerular Filtration Rate , Glucose Level 94, Calcium Level 9.6, Total Bilirubin 0.2, Aspartate Amino Transf (AST/SGOT) 23, Alanine Aminotransferase ( ALT/SGPT) 25, Alkaline Phosphatase 102, Troponin I 0.032, Pro-B-Type Natriuretic Peptide 56, Total Protein 8.2, Albumin 3.6, Globulin 4.6, Albumin/ Globulin Ratio 0.8L, Lipase 64L Current Medications Medications (Trade) Dose Ordered Sig/Charlie Route PRN Reason Start Time Stop Time Status Last Admin Dose Admin Albuterol/ Ipratropium (Albuterol/ Ipratropium) 3 ml Q4HRT N 03/03/19 15:00 03/08/19 14:59 03/04/19 08:02 Amlodipine Besylate (Norvasc) 5 mg DAILY ORAL 03/04/19 09:00 04/03/19 08:59 03/04/19 08:37 Aspirin (Ecotrin) 81 mg DAILY ORAL 03/04/19 09:00 04/03/19 08:59 03/04/19 08:37 Ceftriaxone Sodium 1 gm/ Dextrose 55 ml @ 110 mls/hr DAILY IVPB 03/03/19 15:00 03/10/19 14:59 03/04/19 08:37 Diltiazem HCl (Cardizem CD) 180 mg DAILY ORAL 03/04/19 09:00 04/03/19 08:59 03/04/19 08:37 Fluticasone/ Vilanterol (Breo Ellipta 200/25) 1 puffs DAILY INH 03/04/19 09:00 04/03/19 08:59 Methylprednisolone Sodium Succinate (Solu-MEDROL) 40 mg EVERY 8 HOURS IVP 03/03/19 14:00 04/02/19 13:59 03/04/19 06:24 Rivaroxaban (Xarelto) 10 mg DAILY ORAL 03/04/19 09:00 04/03/19 08:59 03/04/19 08:37 Tiotropium Barnett (Spiriva Inhaler) 1 puff DAILY INH 03/04/19 09:00 04/03/19 08:59 Vitamin D (Vitamin D) 1,000 intlu DAILY ORAL 03/04/19 09:00 04/03/19 08:59 03/04/19 08:37 Phil Felipe MD Mar 04, 2019 08:43
[2019-03-04] MEDS ORDERED: Vitamin D 1000 IU Tab ORAL SCH (09:00)
[2019-03-04] MEDS ORDERED: Xarelto 10mg tab ORAL SCH (09:00)
[2019-03-04] MEDS ORDERED: Breo Ellipta 200/25mcg-14 dose INH SCH (09:00)
[2019-03-04] MEDS ORDERED: Aspirin EC 81mg tab ORAL SCH (09:00)
[2019-03-04] MEDS ORDERED: dilTIAZem HCl CD 180mg cap ORAL SCH (09:00)
--- NOTE | 2019-03-04 09:39 | NUR ---
CASE MANAGEMENT:REVIEW 73 YR OLD MALE PRESENTED TO ER CC; SOB SI: COPD EXACERBATION 98.1 99 20 151/84 95% ON RA CO2+36 IS: DUONEB HHN X3 PREDNISONE PO IV MAG SULFATE 1L NS BOLUS CXR : TO TELEMETRY UNIT INTERQUAL CRITERIA MET
--- NOTE | 2019-03-04 09:49 | NUR ---
DISCHARGE PLANNED DISCHARGE ORDER NOTED PATIENT HAS BEEN REFERRED TO [address] T: [phone] F: [phone]
[2019-03-04 12:00] VITALS: BP 140/79
--- NOTE | 2019-03-04 13:42 | NUR ---
NURSE NOTES: Patient discharged to home with home health per Dr. Felipe. Patient child monitor returned to child monitor. IV removed and placed in shredder. Patient taking private vehicle per patient's preference in a stable condition. Patient discharged with all belongings. Family member unable to contact due to patient refuse to give number. Patient made aware medication will be ordered by Dr. Felipe at his preference pharmacy.
--- NOTE | 2019-03-04 15:45 | Consultation ---
DATE OF CONSULTATION: 03/03/2019 CARDIOLOGY CONSULTATION REASON FOR CONSULTATION: Left-sided chest pain and shortness of breath. HISTORY OF PRESENT ILLNESS: This is a 73-year-old male has a known history of COPD with history of paroxysmal atrial tachyarrhythmias and atrial ectopy. He came to the emergency room yesterday with shortness of breath. He notes it has been progressing for few days. He feels it started after he inhaled some green that he was cooking on the day of presentation however he also noted left lower chest pain over several lower anterior ribs. He thinks but is not sure whether or not inspiration aggravated the symptoms. He is not sure what improved it. Since admission, the patient has been on inhaled bronchodilators and steroids. I have been asked to address cardiovascular care. The patient does not have a prior history of myocardial infarction. He does have a known history of atrial ectopy associated with exacerbations of COPD related to pulmonary hypertension. There is no known history of flow-limiting coronary artery disease. An echocardiogram performed here on February 10, 2019 revealed a normal ejection fraction with diastolic dysfunction. Mild tricuspid regurgitation and right ventricular systolic pressure 46 mmHg suggesting moderate pulmonary hypertension. PAST MEDICAL HISTORY: 1. COPD. 2. Pulmonary hypertension. 3. Hypertension. 4. Paroxysmal atrial ectopy. 5. Degenerative joint disease. ALLERGIES: None. MEDICATIONS: Reviewed and reconciled. SOCIAL HISTORY: Prior smoker. No alcohol or substance abuse. Lives at home. FAMILY HISTORY: Noncontributory. REVIEW OF SYSTEMS: No fevers or chills. No sputum production. No loss of vision or hearing. No change in bowel habits. No history of atrial fibrillation, endocarditis, myocardial infarction, rheumatic heart disease. There is no history of diabetes mellitus or thyroid impairment. No history of prostate cancer or elevated PSA. No history of positive PPD. PHYSICAL EXAMINATION: VITAL SIGNS: Blood pressure 124/66, pulse 77, respiratory rate 19, afebrile, oxygen saturation room air 96%. HEENT: Conjunctivae are pink. No nasal flaring. Oropharynx clear. No thrush. NECK: Supple. No accessory muscle use or adenopathy. Thyroid not enlarged. Trachea midline. LUNGS: Diminished breath sounds. No active wheezing. Chest wall with tenderness over the left lower costal margin. ABDOMEN: Soft and nontender. CARDIAC: Regular rhythm and rate. Normal S1 and S2 with right-sided fourth heart sound. EXTREMITIES: Without clubbing cyanosis or edema. LABORATORY AND DIAGNOSTIC DATA: Admission EKG revealed sinus rhythm with nonspecific ST-T wave changes, rightward axis, ventricular rate 87. White count 5.9, hemoglobin 14.9. Bicarb 36, BUN 12, creatinine 1.2. Troponin 0.032. Sodium 143, potassium 4.6. IMPRESSION: 1. Noncardiac chest pain. 2. Costochondral chest pain. 3. COPD exacerbation with paroxysmal bronchospasm. 4. Pulmonary hypertension of at least moderate severity. 5. Chronic respiratory acidosis with metabolic compensation. 6. Nonsustained atrial ectopy. PLAN: 1. Maintain adequate hydration. 2. Continue cardiac monitoring for now. 3. Taper beta agonist and steroid therapy as able. 4. We will review PA lateral chest x-ray with attention to ribs. Amor Lorenzo M.D. DR: Laverne JOB#: [id number] CC:
--- NOTE | 2019-03-04 19:20 | Cardiology Report ---
APPROVED REPORT EKG Measurement Heart [id number] Normal sinus rhythm Normal ECG
--- NOTE | 2019-03-05 00:45 | Progress Note ---
DATE: 03/04/2019 CARDIOLOGY PROGRESS NOTE SUBJECTIVE: The patient is ambulatory without shortness of breath. Left-sided chest pain has resolved although at times when he twists his body in a certain way, he can feel it. He is not coughing and he is not short of breath. OBJECTIVE: VITAL SIGNS: Blood pressure 129/73, heart rate 88, respirations 20, afebrile, oxygen saturation on room air 96%. LUNGS: Diminished breath sounds. No wheezing. CARDIAC: Regular rhythm and rate. Normal S1, S2 with a fourth heart sound. ABDOMEN: Soft. EXTREMITIES: No edema. IMPRESSION: 1. Paroxysmal bronchospasm, likely precipitated by inhaled spice. 2. COPD with mild exacerbation, improved. 3. Paroxysmal atrial ectopy, suppressed. 4. Secondary sinus tachycardia due to medication. PLAN: 1. Stable for outpatient followup. 2. Continue baseline medication regimen with ongoing steroid taper. 3. Limit beta-agonist therapy. 4. Continue diltiazem. 5. Outpatient cardiac followup has been arranged in 1 week's time. Amor Lorenzo M.D. DR: JESSICA JOB#: [id number] CC:
--- NOTE | 2019-03-05 10:21 | Discharge Summary ---
Discharge Summary Discharge Summary _ DATE OF ADMISSION: 03/03/2019 DATE OF DISCHARGE: 03/04/2019 DISCHARGED BY: Dr. Navarro REASON FOR ADMISSION: 73 years old male with past medical history of hypertension, COPD, history of prior smoking, recent hospitalization for COPD exacerbation , presented with left-sided chest pain under rib , aggravated with deep breathing and alleviated with rest. Patient reported dry nonproductive cough. He endorsed shortness of breath. He denied fever or chills. Upon evaluation vital signs were stable. Laboratory work-up revealed no leukocytosis, stable hemoglobin and hematocrit. Stable electrolytes and renal parameters. Glucose 94. Troponin 0.032. pro BNP 56. Stable LFT and lipase. EKG revealed sinus rhythm , no acute ischemic changes. Chest x-ray demonstrated hyperinflated lungs consistent with COPD. Patient declined BiPAP. In emergency department patient received nebulizing treatment , small dose of steroid and admitted for further management. CONSULTANTS: casket upholsterer Dr. Lorenzo pulmonary [facility] COURSE: Patient admitted to telemetry floor. Professor Of Forestry and casket upholsterer followed. Supplemental oxygen titrated to keep pulse oximetry above 92% , pulmonary toilet with bronchodilator provided. However public services librarian cautioned to avoid excessive albuterol, given sinus tachycardia. Patient started on IV steroids , which changed to oral upon discharge and empiric antibiotics. In the hospital, patient was on inhalers : Breo Ellipta and Spiriva. Professor Of Forestry will start the patient on Trelegy as outpatient , instead of these two inhalers above , to improve compliance, Prescription was sent to pharmacy. Blood pressure was managed with calcium channel coleen and Cardizem. Antiplatelet therapy with aspirin continued Telemetry showed paroxysmal atrial ectopy , which suppressed and secondary sinus tachycardia , likely due to albuterol. Face Painter recommended to limit beta agonist therapy. Patient clinically stabilized and was ready for discharge. Pulse oximetry was stable room air prior to discharge. Due to rapid and unexpected improvement in patient condition, patient was discharged in 1 day. FINAL DIAGNOSES: COPD with exacerbation Chronic respiratory failure Acute bronchospasm Hypertension BPH Paroxysmal atrial ectopy, suppressed Secondary sinus tachycardia, due to medication/albuterol DISCHARGE MEDICATIONS: See Medication Reconciliation list. DISCHARGE INSTRUCTIONS: Patient was discharged home with home health services to follow. Follow-up with public services librarian and casket upholsterer as outpatient I have been assigned to dictate discharge summary for this account. I was not involved in the patient's management. Sanam Buenrostro NP Mar 05, 2019 10:21
== END 2019-03-04 13:32 | disposition home health service (06) | DRG 191 ==
LOC: EMR 11:47 → EDBEDREQ 12:40 → 2E 12:51 → EDBEDREQ 13:18
DX: J44.1 Chronic obstructive pulmonary disease with (acute) exacerbation (principal); J96.10 Chronic respiratory failure, unspecified whether with hypoxia or hypercapnia; E87.2 Acidosis; Z87.891 Personal history of nicotine dependence; J98.01 Acute bronchospasm; I10 Essential (primary) hypertension; I49.1 Atrial premature depolarization; R00.0 Tachycardia, unspecified; T48.6X5A Adverse effect of antiasthmatics, initial encounter; I36.1 Nonrheumatic tricuspid (valve) insufficiency; I27.20 Pulmonary hypertension, unspecified; M19.90 Unspecified osteoarthritis, unspecified site; R07.1 Chest pain on breathing
CPT/HCPCS: 36415; 71045; 80053; 83690; 83880; 84484; 85025; 87081; 93005; 94640; 94664; 96365; 99285; J7620

== ENCOUNTER 2019-05-18 19:22 | Emergency (ER) | payer MEDICAID, MEDICARE ==
[~2019-05-18] VITALS: Ht 177.8 cm; Wt 51.7 kg
[2019-05-18 19:45] VITALS: BP 145/88
--- NOTE | 2019-05-18 19:45 | NUR ---
ED Nurse Note: Patient walked in to ER with IV access on on his right forearm. Stated home care nurse placed it in, and now it is bleeding. Patient is asking to remove his IV. Patient AAO x4, VSS at this time, skin is warm to touch.
--- NOTE | 2019-05-18 19:47 | Emergency Room Report ---
History of Present Illness General Chief Complaint: General Complaint Source: Patient Present Illness HPI Disclaimer: Please note that this report is being documented using DRAGON technology. This can lead to erroneous entry secondary to incorrect interpretation by the dictating instrument. HPI: 73-year-old male with history of COPD presents requesting peripheral IV removal. He had a IV placed and sutured in the right forearm for home treatment of COPD exacerbation. He received his medications today. He noted pain and oozing around the IV site. Denied any brisk bleeding. No injury reported. Denied infiltration. He was requesting it removed so he can be replaced tomorrow by home health aide again. No other complaints at this time. Allergies: Coded Allergies: No Known Allergies (Unverified , 08/06/18) Nursing Documentation-PMH Hx Cardiac Problems: Yes - HTN Hx Hypertension: Yes Hx COPD: Yes Hx Cancer: No Hx Gastrointestinal Problems: No Hx Neurological Problems: No Hx Neurologic Surgery: No Review of Systems All Other Systems: negative except mentioned in HPI Physical Exam Vital Signs Date Time Temp Pulse Resp B/P (MAP) Pulse Ox O2 Delivery O2 Flow Rate FiO2 05/18/19 19:37 98.1 107 20 145/88 (107) 97 Room Air General: Awake and alert, no acute distress HEENT: NC/AT. EOMI. Resp: Normal work of breathing Skin: Peripheral IV with surrounding oozing but no evidence of infiltrate in the right forearm. No overlying erythema. MSK: Normal tone and bulk. Moving all extremities. No obvious deformity. Neuro: Awake and alert. Mentating appropriately Medical Decision Making Diagnostic Impression: Primary Impression: Displacement of peripheral intravenous catheter ER Course 73-year-old male receiving home medication through a peripheral IV presents for evaluation and requesting peripheral IV removal. He is complaining of discomfort and oozing around the sides. There is some oozing but no evidence of infiltrate, no evidence of infection. IV was removed without difficulty. Bandage applied. No bleeding after removal. He will be discharged and his home nurse can replace it tomorrow to receive his medications. He will follow- up with his PMD. Discussed reasons to return to the emergency department. He understands and agrees with this treatment plan. Last Vital Signs Date Time Temp Pulse Resp B/P (MAP) Pulse Ox O2 Delivery O2 Flow Rate FiO2 05/18/19 19:37 98.1 107 20 145/88 (107) 97 Room Air Disposition: HOME, SELF-CARE Condition: Stable Referrals: Phil Felipe MD Additional Instructions: Please follow-up with Dr. Felipe as sheduled. Have your home nurse replace the IV tomorrow to continue receiving your medications. Return to the emergency department any new or worsening symptoms. Herson Kaufman MD May 18, 2019 19:47
--- NOTE | 2019-05-18 19:50 | NUR ---
ED Nurse Note: Patient's IV was removed without any complications.
[2019-05-18 20:04] VITALS: BP 145/88
== END 2019-05-18 20:04 | disposition home or self-care (01) ==
LOC: EMR 19:42
DX: T82.898A Other specified complication of vascular prosthetic devices, implants and grafts, initial encounter (principal); X58.XXXA Exposure to other specified factors, initial encounter; Y92.9 Unspecified place or not applicable; I10 Essential (primary) hypertension; J44.9 Chronic obstructive pulmonary disease, unspecified
CPT/HCPCS: 99281

== ENCOUNTER 2019-08-19 12:18 | Inpatient (IN) | payer MEDICARE ==
[~2019-08-19] VITALS: Ht 177.8 cm; Wt 49.4 kg
[2019-08-19] MEDS ORDERED: PROSCAR5 MG ORAL (12:36)
[2019-08-19] MEDS ORDERED: FAMOTIDINE20 MG ORAL (12:36)
[2019-08-19] MEDS ORDERED: HYDROXYZINE HCL10 M1 PO (12:36)
[2019-08-19] MEDS ORDERED: FLOMAX0.4 MG ORAL (12:36)
[2019-08-19 12:40] VITALS: BP 160/107
--- NOTE | 2019-08-19 13:54 | Emergency Room Report ---
History of Present Illness General Chief Complaint: Dyspnea/Respdistress Source: Patient, Medical Record Present Illness HPI 73-year-old male presents to the emergency department complaining of progressive difficulty breathing x3 days. Patient with history of high blood pressure, BPH, and COPD. Pt. consulted his primary care physician Dr. Felipe regarding his symptoms and was instructed to report to the emergency department for evaluation. Patient reports that he is prescribed an albuterol rescue inhaler which he has been using every 2 hours x1 day with minimal relief and only temporary relief. Patient denies cough, fevers, chills, sputum production , sore throat, chest pain, palpitations. Denies recent travel. Denies contact with persons who have tested positive for or are under investigation/quarantine for COVID-19. Allergies: Coded Allergies: No Known Allergies (Unverified , 08/06/18) COVID-19 Screening Contact w/high risk pt: No Recent Travel to affected area: No Experienced COVID-19 symptoms?: No COVID-19 symptoms experienced: Shortness of Breath COVID-19 Testing performed TELE TECH: No Patient History Past Medical History: see triage record, HTN, COPD Past Surgical History: none Immunizations: UTD Reviewed Nursing Documentation: PMH: Agreed; PSxH: Agreed Nursing Documentation-PMH Hx Cardiac Problems: Yes - HTN Hx Hypertension: Yes Hx COPD: Yes Hx Cancer: No Hx Gastrointestinal Problems: No Hx Neurological Problems: No Hx Neurologic Surgery: No Review of Systems All Other Systems: negative except mentioned in HPI Physical Exam Vital Signs Date Time Temp Pulse Resp B/P (MAP) Pulse Ox O2 Delivery O2 Flow Rate FiO2 08/19/19 12:27 98.8 107 34 173/99 (123) 99 Nasal Cannula 2.0 Sp02 EP Interpretation: reviewed, normal General Appearance: alert, GCS 15, non-toxic, moderate distress, thin Head: normocephalic, atraumatic Eyes: bilateral eye normal inspection, bilateral eye PERRL ENT: hearing grossly normal, normal voice Neck: full range of motion Respiratory: no rhonchi, respiratory distress - Tachypneic and prused lip breathing. , accessory muscle use, speaking full sentences, wheezing, expiration - Expiratory wheezes Cardiovascular #1: regular rate, rhythm, no edema Gastrointestinal: normal bowel sounds, non tender, soft Rectal: deferred Genitourinary: normal inspection Musculoskeletal: back normal, normal range of motion, gait/station normal, non- tender Neurologic: alert, motor strength/tone normal, oriented x3, sensory intact, responsive, speech normal Psychiatric: judgement/insight normal Lymphatic: no adenopathy Medical Decision Making PA Attestation Dr. Eisenberg Is my supervising Physician whom patient management has been discussed with. Diagnostic Impression: Primary Impression: COPD exacerbation Additional Impression: Pneumonia Qualified Codes: J18.9 - Pneumonia, unspecified organism ER Course 73-year-old male presents to the emergency department complaining of progressive difficulty breathing x3 days. Patient with history of high blood pressure, BPH, and COPD. Pt. consulted his primary care physician Dr. Felipe regarding his symptoms and was instructed to report to the emergency department for evaluation. Patient reports that he is prescribed an albuterol rescue inhaler which he has been using every 2 hours x1 day with minimal relief and only temporary relief. Patient denies cough, fevers, chills, sputum production , sore throat, chest pain, palpitations. Denies recent travel. Denies contact with persons who have tested positive for or are under investigation/quarantine for COVID-19. Ddx considered but are not limited to [place], PE, atelectasis, CHF, asthma, anxiety , COPD exacerbation, URI, PNA, Covid-19 hyper-ventilation syndrome, pneumonia, costochondritis, chest wall pain, No acute pulmonary or cardiac causes at this time patient is in no acute distress her oxygen saturation is within normal limits, patient is not in any respiratory distress at this time Vital signs: Pt. O2 Sat is 92-93 on RA, and 100 on 3 liters NS. Pt. is afebrile. PT. is tachypneic with pursed lip breathing. H&PE are most consistent with acute respiratory distress ORDERS: -EK NSR ED INTERVENTIONS: -Pt. Placed on 3L NS--oxygen sat increased to 100% DISCHARGE: At this time pt. is stable for d/c to home. s. Will provide printed patient care instructions, and any necessary prescriptions. Care plan and follow up instructions have been discussed with the patient prior to discharge. EKG Diagnostic Results EP Interpretation: Dr. Eisenberg Rate: normal - 81 Rhythm: NSR ST Segments: no acute changes ASA given to the pt in ED: No PA Scribe Text This Interpretation was scribed by TEREZA Smith. Chest X-Ray Diagnostic Results Chest X-Ray Diagnostic Results : Chest X-Ray Ordered: Yes # of Views/Limited/Complete: 1 View Indication: Shortness of Breath EP Interpretation: Yes PA Xray: Interpretation reviewed, by supervising MD, and agrees with findings. Interpretation: no effusion, no pneumothorax, other - Interstitial infiltrates in the RLL Impression: Other - abnormal- possible developing PNA vs. COVID-19 Last Vital Signs Date Time Temp Pulse Resp B/P (MAP) Pulse Ox O2 Delivery O2 Flow Rate FiO2 08/19/19 12:40 98.8 88 24 160/107 99 Nasal Cannula 2.0 Disposition: ADMITTED INPATIENT Condition: Serious Referrals: Phil Felipe MD (PCP) Shilpi Smith August 19, 2019 13:54
[2019-08-19 14:23] LABS: BASOPHILS % (AUTO) 2.4 % (0.0-2.0); EOSINOPHILS % (AUTO) 5.1 % (0.0-3.0); HEMATOCRIT 44.6 % (42.0-52.0); HEMOGLOBIN 14.3 G/DL (14.2-18.0); LYMPHOCYTES % (AUTO) 36.1 % (20.0-45.0); MEAN CORPUSCULAR VOLUME 87 FL (80-99); MONOCYTES % (AUTO) 6.2 % (1.0-10.0); NEUTROPHILS % (AUTO) 50.2 % (45.0-75.0); PLATELET COUNT 351 K/UL (150-450); RED BLOOD COUNT 5.13 M/UL (4.70-6.10); RED CELL DISTRIBUTION WIDTH 13.9 % (11.6-14.8); WHITE BLOOD COUNT 4.8 K/UL (4.8-10.8)
[2019-08-19 14:33] LABS: ANION GAP 8 mmol/L (5-15); BLOOD UREA NITROGEN 11 mg/dL (7-18); CALCIUM 9.9 MG/DL (8.5-10.1); CARBON DIOXIDE 32 MMOL/L (21-32); CHLORIDE 105 MMOL/L (98-107); CREATININE 1.1 MG/DL (0.55-1.30); POTASSIUM 4.8 MMOL/L (3.5-5.1); SODIUM 144 MMOL/L (136-145)
[2019-08-19] MEDS ORDERED: cefTRIAXone 1 GM in NS 55 ML IV SCH (14:45)
[2019-08-19] MEDS ORDERED: Azithromycin 500 MG in NS 275 ML IV SCH (14:45)
[2019-08-19 14:46] LABS: ALANINE AMINOTRANSFERASE 21 U/L (12-78); ALBUMIN 3.7 G/DL (3.4-5.0); ALBUMIN/GLOBULIN RATIO 0.9 (1.0-2.7); ALKALINE PHOSPHATASE 99 U/L (46-116); ASPARTATE AMINO TRANSFERASE 32 U/L (15-37); BILIRUBIN,TOTAL 0.4 MG/DL (0.2-1.0); CREATINE KINASE 214 U/L (26-308)
--- NOTE | 2019-08-19 14:48 | Diagnostic Imaging Report ---
Indication: Shortness of breath Technique: XRAY Chest 1v Comparison: 03/03/2019 Findings: Heart size and mediastinal contours within normal limits and stable compared to the prior exam. Atherosclerotic calcifications again noted in the aorta. There is hyperexpansion and flattening of the diaphragms. There are new streaky opacities at the right lung base. There is lucency and bullous/emphysematous changes at the apices. No pleural effusion or pneumothorax. Osseous structures show no acute abnormality IMPRESSION: COPD changes. New patchy opacities in the right lung base concerning for pneumonia. Correlation with clinical findings and follow-up recommended.
[2019-08-19 15:07] VITALS: BP 151/97
[2019-08-19] MEDS ORDERED: Solu-MEDROL 125mg Inj IVP ONE (16:00)
[2019-08-19 17:07] VITALS: BP 156/100
[2019-08-19 17:40] VITALS: BP 154/86
[2019-08-19] MEDS ORDERED: Albuterol ud Inhalation HHN PRN (17:45)
[2019-08-19] MEDS ORDERED: Albuterol 90mcg Inhaler 8gm INH SCH (18:00)
[2019-08-19] MEDS ORDERED: Albuterol 90mcg Inhaler 8gm INH PRN (18:45)
[2019-08-19 20:00] VITALS: BP 138/77
[2019-08-19] MEDS: Solu-MEDROL 125mg Inj IVP SCH (20:19)
[2019-08-19] MEDS: Heparin 5000 units/ml inj SUBQ SCH (20:21)
[2019-08-20] VITALS (7 sets, daily range): BP systolic 128–165; BP diastolic 58–91
[2019-08-20] MEDS: Tamsulosin 0.4mg cap ORAL SCH (08:12)
[2019-08-20] MEDS: Solu-MEDROL 125mg Inj IVP SCH ×2 (08:12→21:51)
[2019-08-20] MEDS: Heparin 5000 units/ml inj SUBQ SCH ×2 (08:13→21:51)
--- NOTE | 2019-08-20 08:19 | Consultation ---
Consult Note Consult Note 73-year-old patient complains of cough and worsening shortness of breath over the past 3 days. patient with recent visit to the office and via telehealth. The patient was recently seen in the office and given iv steroids at home. Care discussed and reviewed. The patient was seen and evaluated in the emergency room and noted to be in respiratory distress. Labs overall reviewed. The patient's x-rays revealed only pulmonary hyperinflation with possible patchy pneumonia. The patient now admitted for COPD with exacerbation. The patient's findings discussed and reviewed. The patient care discussed and he is currently on oxygen PAST MEDICAL HISTORY: end-stage COPD, chronic hypoxemia, vitamin D deficiency, hypertension, paroxysmal supraventricular tachyarrhythmias, significant debility, remote history of C. diff. MEDICATIONS: Reviewed. ALLERGIES: Reviewed. SOCIAL HISTORY: prior smoker, none currently. The patient is disabled. The patient is able to live independently at this time. REVIEW OF SYSTEMS: All 10 points reviewed and otherwise negative. FAMILY HISTORY: Noncontributory to the above. PHYSICAL EXAMINATION: GENERAL: A well-developed male, with mild sob at present on oxygen HEENT: Negative. Extraocular movements grossly intact. Oropharynx is moist. NECK: Supple. LUNGS: Moderate air entry, but overall reduced. No rhonchi or wheezes. CARDIAC: S1, S2. Regular rate and rhythm without murmurs, rubs, or gallops. ABDOMEN: Soft, nontender, nondistended. EXTREMITIES: No cyanosis, clubbing, or edema. NEUROLOGIC: Grossly nonfocal. alert Labs Test 08/19/19 13:37 White Blood Count 4.8 K/UL (4.8-10.8) Red Blood Count 5.13 M/UL (4.70-6.10) Hemoglobin 14.3 G/DL (14.2-18.0) Hematocrit 44.6 % (42.0-52.0) Mean Corpuscular Volume 87 FL (80-99) Mean Corpuscular Hemoglobin 27.9 PG (27.0-31.0) Mean Corpuscular Hemoglobin Concent 32.1 G/DL (32.0-36.0) Red Cell Distribution Width 13.9 % (11.6-14.8) Platelet Count 351 K/UL (150-450) Mean Platelet Volume 5.2 FL (6.5-10.1) Neutrophils (%) (Auto) 50.2 % (45.0-75.0) Lymphocytes (%) (Auto) 36.1 % (20.0-45.0) Monocytes (%) (Auto) 6.2 % (1.0-10.0) Eosinophils (%) (Auto) 5.1 % (0.0-3.0) Basophils (%) (Auto) 2.4 % (0.0-2.0) Sodium Level 144 MMOL/L (136-145) Potassium Level 4.8 MMOL/L (3.5-5.1) Chloride Level 105 MMOL/L (98-107) Carbon Dioxide Level 32 MMOL/L (21-32) Anion Gap 8 mmol/L (5-15) Blood Urea Nitrogen 11 mg/dL (7-18) Creatinine 1.1 MG/DL (0.55-1.30) Estimat Glomerular Filtration Rate > 60 mL/min (>60) Glucose Level 110 MG/DL (74-106) Calcium Level 9.9 MG/DL (8.5-10.1) Total Bilirubin 0.4 MG/DL (0.2-1.0) Aspartate Amino Transf (AST/SGOT) 32 U/L (15-37) Alanine Aminotransferase (ALT/SGPT) 21 U/L (12-78) Alkaline Phosphatase 99 U/L (46-116) Total Creatine Kinase 214 U/L (26-308) Creatine Kinase MB 4.0 NG/ML (0.0-3.6) Creatine Kinase MB Relative Index 1.8 Troponin I 0.044 ng/mL (0.000-0.056) Total Protein 7.8 G/DL (6.4-8.2) Albumin 3.7 G/DL (3.4-5.0) Globulin 4.1 g/dL Albumin/Globulin Ratio 0.9 (1.0-2.7) IMPRESSION COPD with acute exacerbation hypercapnia hypoxemia PSVT weight loss debility possible pneumonia PLAN isolation IV antibiotics IV steroids respiratory care oxygen monitor imaging optimize DVT prophylaxis impression, plan, and exam edited and reviewed in detail care discussed with Phil Lopse MD August 20, 2019 08:19
[2019-08-20] MEDS: cefTRIAXone 1 GM in D5W 55 ML IVPB SCH (15:11)
--- NOTE | 2019-08-20 23:14 | History and Physical Report ---
DATE OF ADMISSION: 08/19/2019 CHIEF COMPLAINT: Shortness of breath, COPD exacerbation, rule out COVID-19 pneumonia. HISTORY OF PRESENT ILLNESS: The patient is a pleasant 73-year-old male, well known to me. He has a history of COPD as well as recurrent pneumonia. He presented with complaints of worsening shortness of breath for several days. He denies any fevers or chills. He has had a chronic cough that is nonproductive. On evaluation in the emergency room, his x-ray showed evidence of a new right-sided infiltrate. He was evaluated for COVID, which is currently pending. He is now admitted for further evaluation and care. He denies any ill contacts. He has had no recent travel. He has been self-isolating with his . PAST MEDICAL HISTORY: As above. PAST SURGICAL HISTORY: None. CURRENT MEDICATIONS: Reconciled and reviewed. ALLERGIES: None. FAMILY HISTORY: None. SOCIAL HISTORY: The patient is a prior smoker. No alcohol. No drugs. REVIEW OF SYSTEMS: GENERAL: No fevers or chills. HEENT: No headaches or visual changes. CARDIOPULMONARY: No chest pain. Positive shortness of breath. Positive dry cough. GASTROINTESTINAL: No nausea or vomiting. No melena. No bright red blood per rectum. GENITOURINARY: No urgency or frequency. MUSCULOSKELETAL: No joint pain or swelling. NEUROLOGIC: No evidence of seizures. SKIN: No history of rash. PHYSICAL EXAMINATION: VITAL SIGNS: Temperature 98, pulse 98, respirations 20, and blood pressure 165/91. GENERAL: The patient is well developed, in no apparent distress. The patient is a thin male, awake, alert, oriented x4. HEENT: Head was normocephalic and atraumatic. Pupils equal, round, and reactive to light. Sclerae anicteric. Oropharynx is clear. Mucous membranes are moist. NECK: Supple. HEART: Regular rate and rhythm. LUNGS: He has significant scattered wheezes. ABDOMEN: Soft, nontender, nondistended. EXTREMITIES: Without clubbing, cyanosis, or edema. NEUROLOGIC: Motor strength is 5/5 bilaterally. Sensation is intact bilaterally. LABORATORY DATA: White count 5, hemoglobin 14. Sodium 144, creatinine is 1.1. Troponin is 0.044. X-ray showed right-sided infiltrate. ASSESSMENT: This is a pleasant male with history of COPD and complaints of cough and congestion, likely due to community-acquired pneumonia. PLAN: Follow up COVID-19 swab. Supplemental oxygen. Breathing treatments. Consider IV steroids. DVT and stress ulcer prophylaxis. Pulmonary consultation has been obtained. Temo Navarro M.D. DR: Verna JOB#: [id number] CC:
[2019-08-21] VITALS (7 sets, daily range): BP systolic 138–151; BP diastolic 66–83
[2019-08-21] MEDS: Tamsulosin 0.4mg cap ORAL SCH (08:54)
[2019-08-21] MEDS: Solu-MEDROL 125mg Inj IVP SCH ×2 (08:54→20:42)
[2019-08-21] MEDS: Heparin 5000 units/ml inj SUBQ SCH ×2 (09:00→20:43)
--- NOTE | 2019-08-21 09:14 | Pulmonology Progress Note ---
Subjective Allergies: Coded Allergies: No Known Allergies (Unverified , 08/06/18) Subjective care noted reduced sob Objective Last 24 Hour Vital Signs Date Time Temp Pulse Resp B/P (MAP) Pulse Ox O2 Delivery O2 Flow Rate FiO2 08/21/19 08:00 98.2 87 19 151/83 (105) 100 08/21/19 06:45 79 18 99 Nasal Cannula 2.0 28 08/21/19 04:00 98.2 79 24 150/70 (96) 99 08/21/19 00:00 97.9 82 24 138/75 (96) 99 08/20/19 21:00 Nasal Cannula 2.0 08/20/19 20:03 77 18 97 Nasal Cannula 2.0 28 08/20/19 20:00 97.8 85 24 135/85 (102) 100 08/20/19 16:39 97.9 78 18 128/58 (81) 99 08/20/19 16:00 97.0 78 20 134/76 (95) 100 08/20/19 12:00 98.1 98 20 165/91 (115) 100 Intake and Output 08/20/19 08/21/19 19:00 07:00 Intake Total 830 ml 480 ml Balance 830 ml 480 ml Intake Oral 720 ml 480 ml IV Total 110 ml # Voids 2 2 Objective WDWN NAD reduced breath sounds bilaterally without rhonchi or wheeze [id number] without MRG NABS nontender no HSM no CCE nonfocal thin Microbiology Date/Time Source Procedure Growth Status 08/19/19 16:03 Blood Blood Culture - Preliminary NO GROWTH AFTER 24 HOURS Resulted 08/19/19 15:48 Blood Blood Culture - Preliminary NO GROWTH AFTER 24 HOURS Resulted 08/19/19 15:56 Nasopharynx Coronavirus COVID-19 PCR (ANA LUISA) - Final Complete Current Medications Medications (Trade) Dose Ordered Sig/Charlie Route PRN Reason Start Time Stop Time Status Last Admin Dose Admin Acetaminophen (Tylenol) 650 mg Q4H PRN ORAL Mild Pain (Pain Scale 1-3) 08/19/19 17:45 09/18/19 17:44 Al Hydroxide/Mg Hydroxide (Mylanta) 30 ml Q6H PRN ORAL Abdominal cramps 08/19/19 17:45 09/18/19 17:44 Albuterol Sulfate (Proventil MDI) 2 puff Q4H PRN INH Shortness of Breath 08/19/19 18:45 11/17/19 18:44 08/20/19 00:43 Amlodipine Besylate (Norvasc) 5 mg DAILY ORAL 08/20/19 09:00 09/19/19 08:59 08/20/19 08:12 Ceftriaxone Sodium 1 gm/ Dextrose 55 ml @ 110 mls/hr Q24H IVPB 08/20/19 15:00 08/27/19 14:59 08/20/19 15:11 Clonidine HCl (Catapres Tab) 0.1 mg Q4H PRN ORAL For High Blood Pressure 08/20/19 12:25 11/18/19 12:24 Famotidine (Pepcid) 20 mg DAILY ORAL 08/20/19 09:00 11/18/19 08:59 08/20/19 08:11 Finasteride (Proscar) 5 mg DAILY ORAL 08/20/19 09:00 11/18/19 08:59 08/20/19 08:11 Heparin Sodium (Porcine) (Heparin 5000 units/ml) 5,000 units EVERY 12 HOURS SUBQ 08/19/19 21:00 10/03/19 20:59 08/19/19 20:21 Methylprednisolone Sodium Succinate (Solu-MEDROL) 60 mg EVERY 12 HOURS IVP 08/19/19 21:00 11/17/19 20:59 08/20/19 21:51 Tamsulosin HCl (Flomax) 0.4 mg DAILY ORAL 08/20/19 09:00 09/19/19 08:59 08/20/19 08:12 Assessment/Plan Assessment/Plan IMPRESSION COPD with acute exacerbation hypercapnia hypoxemia PSVT weight loss debility possible pneumonia PLAN isolation ? dc COVID negative IV antibiotics as is IV steroids respiratory care oxygen as needed monitor imaging optimize DVT prophylaxis impression, plan, and exam edited and reviewed in detail care discussed with Phil Lopes MD August 21, 2019 09:14
--- NOTE | 2019-08-21 15:39 | General Progress Note ---
Assessment/Plan Problem List: (1) Dyspnea ICD Codes: R06.00 - Dyspnea, unspecified SNOMED: 440652978 (2) Displacement of peripheral intravenous catheter ICD Codes: T82.528A - Displacement of other cardiac and vascular devices and implants, initial encounter SNOMED: 720183027952340 (3) Respiratory distress ICD Codes: R06.00 - Dyspnea, unspecified SNOMED: 389393870 (4) Pneumonia ICD Codes: J18.9 - Pneumonia, unspecified organism SNOMED: 586387247 Qualifiers: Qualified Codes: J18.9 - Pneumonia, unspecified organism (5) COPD exacerbation ICD Codes: J44.1 - Chronic obstructive pulmonary disease with (acute) exacerbation SNOMED: 507837467 Status: stable, progressing Assessment/Plan: steroids resp rx abx pt/ot order home portable o2 Subjective ROS Limited/Unobtainable: No Constitutional: Reports: malaise, weakness HEENT: Reports: no symptoms Cardiovascular: Reports: no symptoms Respiratory: Reports: cough, shortness of breath, SOB with excertion Gastrointestinal/Abdominal: Reports: no symptoms Genitourinary: Reports: no symptoms Neurologic/Psychiatric: Reports: no symptoms Endocrine: Reports: no symptoms Hematologic/Lymphatic: Reports: anemia Allergies: Coded Allergies: No Known Allergies (Unverified , 08/06/18) All Systems: reviewed and negative except above Subjective stable. still with sob. no fever or chills. no chest pain +SANDS. has home o2 concentrator but needs portable o2. Objective Last 24 Hour Vital Signs Date Time Temp Pulse Resp B/P (MAP) Pulse Ox O2 Delivery O2 Flow Rate FiO2 08/21/19 12:00 98.1 81 20 145/66 (92) 100 08/21/19 09:00 Nasal Cannula 2.0 08/21/19 08:55 87 151/83 08/21/19 08:00 98.2 87 19 151/83 (105) 100 08/21/19 06:45 79 18 99 Nasal Cannula 2.0 28 08/21/19 04:00 98.2 79 24 150/70 (96) 99 08/21/19 00:00 97.9 82 24 138/75 (96) 99 08/20/19 21:00 Nasal Cannula 2.0 08/20/19 20:03 77 18 97 Nasal Cannula 2.0 28 08/20/19 20:00 97.8 85 24 135/85 (102) 100 08/20/19 16:39 97.9 78 18 128/58 (81) 99 08/20/19 16:00 97.0 78 20 134/76 (95) 100 Intake and Output 08/20/19 08/21/19 19:00 07:00 Intake Total 830 ml 480 ml Balance 830 ml 480 ml Intake Oral 720 ml 480 ml IV Total 110 ml # Voids 2 2 Height (Feet): 5 Height (Inches): 10.00 Weight (Pounds): 109 General Appearance: WD/WN, alert, thin EENT: PERRL/EOMI, normal ENT inspection Neck: non-tender, normal alignment, supple Cardiovascular: normal peripheral pulses, normal rate, regular rhythm Respiratory/Chest: chest wall non-tender, lungs clear, normal breath sounds, no respiratory distress Abdomen: normal bowel sounds, non tender, soft, no organomegaly, no mass Edema: no edema noted Arm (L), no edema noted Arm (R), no edema noted Leg (L), no edema noted Leg (R), no edema noted Pedal (L), no edema noted Pedal (R), no edema noted Generalized Edema: trace edema Neurologic: 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
[2019-08-21] MEDS: cefTRIAXone 1 GM in D5W 55 ML IVPB SCH (16:17)
[2019-08-22 04:00] VITALS: BP 134/77
[2019-08-22 08:00] VITALS: BP 146/73
[2019-08-22] MEDS: Tamsulosin 0.4mg cap ORAL SCH (08:31)
[2019-08-22] MEDS: Solu-MEDROL 125mg Inj IVP SCH ×2 (08:32→09:31)
--- NOTE | 2019-08-22 08:52 | Pulmonology Progress Note ---
Subjective ROS Limited/Unobtainable: No Allergies: Coded Allergies: No Known Allergies (Unverified , 08/06/18) All Systems: reviewed and negative except above Subjective care noted reduced sob still on isolation Objective Last 24 Hour Vital Signs Date Time Temp Pulse Resp B/P (MAP) Pulse Ox O2 Delivery O2 Flow Rate FiO2 08/22/19 08:31 73 146/73 08/22/19 08:00 97.8 73 20 146/73 (97) 100 08/22/19 04:00 97.5 74 18 134/77 (96) 100 08/21/19 23:58 97.2 82 20 145/76 (99) 97 08/21/19 21:00 Nasal Cannula 2.0 08/21/19 20:00 97.0 77 18 142/72 (95) 97 08/21/19 16:00 98.2 83 20 147/74 (98) 99 08/21/19 12:00 98.1 81 20 145/66 (92) 100 08/21/19 09:00 Nasal Cannula 2.0 08/21/19 08:55 87 151/83 Intake and Output 08/21/19 08/22/19 19:00 07:00 Intake Total 800 ml 400 ml Output Total 700 ml Balance 800 ml -300 ml Intake Oral 800 ml 400 ml Output Urine Total 700 ml # Voids 2 Objective WDWN NAD reduced breath sounds bilaterally without rhonchi or wheeze [id number] without MRG NABS nontender no HSM no CCE nonfocal thin Microbiology Date/Time Source Procedure Growth Status 08/19/19 16:03 Blood Blood Culture - Preliminary NO GROWTH AFTER 48 HOURS Resulted 08/19/19 15:48 Blood Blood Culture - Preliminary NO GROWTH AFTER 48 HOURS Resulted 08/19/19 15:56 Nasopharynx Coronavirus COVID-19 PCR (ANA LUISA) - Final Complete Current Medications Medications (Trade) Dose Ordered Sig/Charlie Route PRN Reason Start Time Stop Time Status Last Admin Dose Admin Acetaminophen (Tylenol) 650 mg Q4H PRN ORAL Mild Pain (Pain Scale 1-3) 08/19/19 17:45 09/18/19 17:44 Al Hydroxide/Mg Hydroxide (Mylanta) 30 ml Q6H PRN ORAL Abdominal cramps 08/19/19 17:45 09/18/19 17:44 Albuterol Sulfate (Proventil MDI) 2 puff Q4H PRN INH Shortness of Breath 08/19/19 18:45 11/17/19 18:44 08/20/19 00:43 Amlodipine Besylate (Norvasc) 5 mg DAILY ORAL 08/20/19 09:00 09/19/19 08:59 08/22/19 08:31 Ceftriaxone Sodium 1 gm/ Dextrose 55 ml @ 110 mls/hr Q24H IVPB 08/20/19 15:00 08/27/19 14:59 08/21/19 16:17 Clonidine HCl (Catapres Tab) 0.1 mg Q4H PRN ORAL For High Blood Pressure 08/20/19 12:25 11/18/19 12:24 Famotidine (Pepcid) 20 mg DAILY ORAL 08/20/19 09:00 11/18/19 08:59 08/22/19 08:31 Finasteride (Proscar) 5 mg DAILY ORAL 08/20/19 09:00 11/18/19 08:59 08/22/19 08:31 Heparin Sodium (Porcine) (Heparin 5000 units/ml) 5,000 units EVERY 12 HOURS SUBQ 08/19/19 21:00 10/03/19 20:59 08/19/19 20:21 Methylprednisolone Sodium Succinate (Solu-MEDROL) 60 mg EVERY 12 HOURS IVP 08/19/19 21:00 11/17/19 20:59 08/22/19 08:32 Tamsulosin HCl (Flomax) 0.4 mg DAILY ORAL 08/20/19 09:00 09/19/19 08:59 08/22/19 08:31 Assessment/Plan Assessment/Plan IMPRESSION COPD with acute exacerbation hypercapnia hypoxemia PSVT weight loss debility possible pneumonia PLAN isolation ? dc COVID negative x1 IV antibiotics as is IV steroids- taper respiratory care oxygen as needed monitor imaging optimize DVT prophylaxis dc planning impression, plan, and exam edited and reviewed in detail care discussed with Phil Lopes MD August 22, 2019 08:52
[2019-08-22] MEDS: Heparin 5000 units/ml inj SUBQ SCH ×2 (09:00→20:55)
[2019-08-22 12:00] VITALS: BP 133/84
[2019-08-22] MEDS: cefTRIAXone 1 GM in D5W 55 ML IVPB SCH (15:21)
--- NOTE | 2019-08-22 15:47 | General Progress Note ---
Assessment/Plan Problem List: (1) Dyspnea ICD Codes: R06.00 - Dyspnea, unspecified SNOMED: 160142545 (2) Displacement of peripheral intravenous catheter ICD Codes: T82.528A - Displacement of other cardiac and vascular devices and implants, initial encounter SNOMED: 972287598141366 (3) Respiratory distress ICD Codes: R06.00 - Dyspnea, unspecified SNOMED: 974403791 (4) Pneumonia ICD Codes: J18.9 - Pneumonia, unspecified organism SNOMED: 662343051 Qualifiers: Qualified Codes: J18.9 - Pneumonia, unspecified organism (5) COPD exacerbation ICD Codes: J44.1 - Chronic obstructive pulmonary disease with (acute) exacerbation SNOMED: 875886706 Status: stable, progressing Assessment/Plan: wean steroids resp rx o2 as needed abx pt/ot order home portable o2 dvt/stress ulcer prophylaxis Subjective ROS Limited/Unobtainable: No Constitutional: Reports: malaise, weakness HEENT: Reports: no symptoms Cardiovascular: Reports: no symptoms Respiratory: Reports: cough, shortness of breath, sputum Gastrointestinal/Abdominal: Reports: no symptoms Genitourinary: Reports: no symptoms Neurologic/Psychiatric: Reports: no symptoms Endocrine: Reports: no symptoms Hematologic/Lymphatic: Reports: no symptoms Allergies: Coded Allergies: No Known Allergies (Unverified , 08/06/18) All Systems: reviewed and negative except above Subjective stable. still with sob.Patient feels slightly improved today. Still with significant dyspnea on exertion with minimal activity.no fever or chills. no chest pain +SANDS. has home o2 concentrator but needs portable o2. Objective Last 24 Hour Vital Signs Date Time Temp Pulse Resp B/P (MAP) Pulse Ox O2 Delivery O2 Flow Rate FiO2 08/22/19 12:00 97.7 74 20 133/84 (100) 94 08/22/19 09:00 Nasal Cannula 2.0 08/22/19 08:31 73 146/73 08/22/19 08:00 97.8 73 20 146/73 (97) 100 08/22/19 04:00 97.5 74 18 134/77 (96) 100 08/21/19 23:58 97.2 82 20 145/76 (99) 97 08/21/19 21:00 Nasal Cannula 2.0 08/21/19 20:00 97.0 77 18 142/72 (95) 97 08/21/19 16:00 98.2 83 20 147/74 (98) 99 Intake and Output 08/21/19 08/22/19 19:00 07:00 Intake Total 800 ml 400 ml Output Total 700 ml Balance 800 ml -300 ml Intake Oral 800 ml 400 ml Output Urine Total 700 ml # Voids 2 Laboratory Tests 08/22/19 08:45: Hepatitis B Surface Antibody, Quant [Pending], Hepatitis Be Antibody [Pending], Hepatitis C Antibody [Pending], HIV (1&2) Antibody Rapid Negative Height (Feet): 5 Height (Inches): 10.00 Weight (Pounds): 109 General Appearance: WD/WN, alert, thin EENT: PERRL/EOMI, normal ENT inspection Neck: non-tender, normal alignment, supple Cardiovascular: normal peripheral pulses, normal rate, regular rhythm Respiratory/Chest: chest wall non-tender, lungs clear, normal breath sounds, no accessory muscle use, expiratory wheezing Abdomen: normal bowel sounds, non tender, soft, no organomegaly Genitourinary/Rectal: normal genital exam Extremities: normal range of motion, non-tender Edema: no edema noted Arm (L), no edema noted Arm (R), no edema noted Leg (L), no edema noted Leg (R), no edema noted Pedal (L), no edema noted Pedal (R), no edema noted Generalized 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
[2019-08-22 16:00] VITALS: BP 141/78
[2019-08-22 20:00] VITALS: BP 143/80
[2019-08-23] VITALS: BP 140/69
[2019-08-23 04:00] VITALS: BP 130/80
[2019-08-23 08:00] VITALS: BP 141/78
[2019-08-23] MEDS: Tamsulosin 0.4mg cap ORAL SCH (08:49)
[2019-08-23] MEDS: Heparin 5000 units/ml inj SUBQ SCH ×2 (08:50→20:54)
[2019-08-23] MEDS: Solu-MEDROL 125mg Inj IVP SCH (08:58)
--- NOTE | 2019-08-23 11:43 | Pulmonology Progress Note ---
Subjective ROS Limited/Unobtainable: No Allergies: Coded Allergies: No Known Allergies (Unverified , 08/06/18) All Systems: reviewed and negative except above Subjective care noted ++ sob still on isolation Objective Last 24 Hour Vital Signs Date Time Temp Pulse Resp B/P (MAP) Pulse Ox O2 Delivery O2 Flow Rate FiO2 08/23/19 09:05 Nasal Cannula 2.0 08/23/19 08:48 90 141/78 08/23/19 08:00 98.4 90 20 141/78 (99) 99 08/23/19 04:00 98.0 85 21 130/80 (97) 98 08/23/19 00:00 98.0 89 18 140/69 (92) 100 08/22/19 21:00 Nasal Cannula 2.0 08/22/19 20:00 98.4 105 22 143/80 (101) 94 08/22/19 16:00 97.9 101 20 141/78 (99) 99 08/22/19 12:00 97.7 74 20 133/84 (100) 94 Intake and Output 08/22/19 08/23/19 19:00 07:00 Intake Total 900 ml Balance 900 ml Intake Oral 900 ml # Voids 4 1 Objective WDWN NAD reduced breath sounds bilaterally without rhonchi or wheeze [id number] without MRG NABS nontender no HSM no CCE nonfocal thin Current Medications Medications (Trade) Dose Ordered Sig/Charlie Route PRN Reason Start Time Stop Time Status Last Admin Dose Admin Acetaminophen (Tylenol) 650 mg Q4H PRN ORAL Mild Pain (Pain Scale 1-3) 08/19/19 17:45 09/18/19 17:44 Al Hydroxide/Mg Hydroxide (Mylanta) 30 ml Q6H PRN ORAL Abdominal cramps 08/19/19 17:45 09/18/19 17:44 Albuterol Sulfate (Proventil MDI) 2 puff Q4H PRN INH Shortness of Breath 08/19/19 18:45 11/17/19 18:44 08/20/19 00:43 Amlodipine Besylate (Norvasc) 5 mg DAILY ORAL 08/20/19 09:00 09/19/19 08:59 08/23/19 08:48 Ceftriaxone Sodium 1 gm/ Dextrose 55 ml @ 110 mls/hr Q24H IVPB 08/20/19 15:00 08/27/19 14:59 08/22/19 15:21 Clonidine HCl (Catapres Tab) 0.1 mg Q4H PRN ORAL For High Blood Pressure 08/20/19 12:25 11/18/19 12:24 Famotidine (Pepcid) 20 mg DAILY ORAL 08/20/19 09:00 11/18/19 08:59 08/23/19 08:48 Finasteride (Proscar) 5 mg DAILY ORAL 08/20/19 09:00 11/18/19 08:59 08/23/19 08:49 Heparin Sodium (Porcine) (Heparin 5000 units/ml) 5,000 units EVERY 12 HOURS SUBQ 08/19/19 21:00 10/03/19 20:59 08/23/19 08:50 Methylprednisolone Sodium Succinate (Solu-MEDROL) 60 mg DAILY IVP 08/22/19 09:00 11/17/19 20:59 08/23/19 08:58 Tamsulosin HCl (Flomax) 0.4 mg DAILY ORAL 08/20/19 09:00 09/19/19 08:59 08/23/19 08:49 Assessment/Plan Assessment/Plan IMPRESSION COPD with acute exacerbation hypercapnia hypoxemia PSVT weight loss debility possible pneumonia PLAN off isolation COVID negative x1 IV antibiotics as is IV steroids- as is respiratory care oxygen as needed monitor imaging optimize DVT prophylaxis dc planning once improved easily dyspneic POC oxygen impression, plan, and exam edited and reviewed in detail care discussed with Phil Lopes MD August 23, 2019 11:43
[2019-08-23 12:00] VITALS: BP 137/74
--- NOTE | 2019-08-23 14:18 | General Progress Note ---
Assessment/Plan Problem List: (1) Dyspnea ICD Codes: R06.00 - Dyspnea, unspecified SNOMED: 486870474 (2) Displacement of peripheral intravenous catheter ICD Codes: T82.528A - Displacement of other cardiac and vascular devices and implants, initial encounter SNOMED: 210681174045626 (3) Respiratory distress ICD Codes: R06.00 - Dyspnea, unspecified SNOMED: 351709335 (4) Pneumonia ICD Codes: J18.9 - Pneumonia, unspecified organism SNOMED: 264134897 Qualifiers: Qualified Codes: J18.9 - Pneumonia, unspecified organism (5) COPD exacerbation ICD Codes: J44.1 - Chronic obstructive pulmonary disease with (acute) exacerbation SNOMED: 426801947 Status: stable, progressing Assessment/Plan: wean steroids resp rx o2 as needed abx pt/ot order home portable o2 dvt/stress ulcer prophylaxis slow improvement Subjective ROS Limited/Unobtainable: No Constitutional: Reports: malaise, weakness HEENT: Reports: no symptoms Cardiovascular: Reports: lightheadedness Respiratory: Reports: shortness of breath, SOB with excertion, wheezing Gastrointestinal/Abdominal: Reports: no symptoms Genitourinary: Reports: no symptoms Neurologic/Psychiatric: Reports: anxiety Endocrine: Reports: no symptoms Hematologic/Lymphatic: Reports: no symptoms Allergies: Coded Allergies: No Known Allergies (Unverified , 08/06/18) All Systems: reviewed and negative except above Subjective There have been no overnight events. Patient continues to improve. Still has significant dyspnea on exertion with minimal activity. Gets winded just walking to the bedside commode. No fevers or chills. No cough. Less congested. Remains on steroids and IV antibiotics. Has chest tightness. Objective Last 24 Hour Vital Signs Date Time Temp Pulse Resp B/P (MAP) Pulse Ox O2 Delivery O2 Flow Rate FiO2 08/23/19 12:00 98.1 81 20 137/74 (95) 98 08/23/19 09:05 Nasal Cannula 2.0 08/23/19 08:48 90 141/78 08/23/19 08:00 98.4 90 20 141/78 (99) 99 08/23/19 04:00 98.0 85 21 130/80 (97) 98 08/23/19 00:00 98.0 89 18 140/69 (92) 100 08/22/19 21:00 Nasal Cannula 2.0 08/22/19 20:00 98.4 105 22 143/80 (101) 94 08/22/19 16:00 97.9 101 20 141/78 (99) 99 Intake and Output 08/22/19 08/23/19 19:00 07:00 Intake Total 900 ml Balance 900 ml Intake Oral 900 ml # Voids 4 1 Height (Feet): 5 Height (Inches): 10.00 Weight (Pounds): 109 Objective General Appearance: WD/WN, alert, thin EENT: PERRL/EOMI, normal ENT inspection Neck: non-tender, normal alignment, supple Cardiovascular: normal peripheral pulses, normal rate, regular rhythm Respiratory/Chest: chest wall non-tender, lungs clear, normal breath sounds, no accessory muscle use, expiratory wheezing Abdomen: normal bowel sounds, non tender, soft, no organomegaly Genitourinary/Rectal: normal genital exam Extremities: normal range of motion, non-tender Edema: no edema noted Arm (L), no edema noted Arm (R), no edema noted Leg (L), no edema noted Leg (R), no edema noted Pedal (L), no edema noted Pedal (R), no edema noted 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
[2019-08-23 16:00] VITALS: BP 133/65
[2019-08-23] MEDS: cefTRIAXone 1 GM in D5W 55 ML IVPB SCH (17:21)
[2019-08-23 20:00] VITALS: BP 137/70
[2019-08-24] VITALS (8 sets, daily range): BP systolic 120–153; BP diastolic 61–86
[2019-08-24] MEDS: Heparin 5000 units/ml inj SUBQ SCH ×2 (09:00→21:00)
--- NOTE | 2019-08-24 09:00 | Pulmonology Progress Note ---
Subjective ROS Limited/Unobtainable: No Allergies: Coded Allergies: No Known Allergies (Unverified , 08/06/18) All Systems: reviewed and negative except above Subjective care noted ++ sob but slightly better off isolation Objective Last 24 Hour Vital Signs Date Time Temp Pulse Resp B/P (MAP) Pulse Ox O2 Delivery O2 Flow Rate FiO2 08/24/19 04:00 97.9 82 18 152/70 (97) 96 08/24/19 00:00 97.8 85 18 146/72 (96) 95 08/23/19 21:00 Nasal Cannula 2.0 08/23/19 20:00 98.2 82 18 137/70 (92) 96 08/23/19 16:00 98.6 81 20 133/65 (87) 96 08/23/19 12:00 98.1 81 20 137/74 (95) 98 08/23/19 09:05 Nasal Cannula 2.0 Intake and Output 08/23/19 08/24/19 19:00 07:00 Intake Total 480 ml 720 ml Balance 480 ml 720 ml Intake Oral 480 ml 720 ml # Voids 3 3 Objective WDWN NAD reduced breath sounds bilaterally without rhonchi or wheeze [id number] without MRG NABS nontender no HSM no CCE nonfocal thin Current Medications Medications (Trade) Dose Ordered Sig/Charlie Route PRN Reason Start Time Stop Time Status Last Admin Dose Admin Acetaminophen (Tylenol) 650 mg Q4H PRN ORAL Mild Pain (Pain Scale 1-3) 08/19/19 17:45 09/18/19 17:44 Al Hydroxide/Mg Hydroxide (Mylanta) 30 ml Q6H PRN ORAL Abdominal cramps 08/19/19 17:45 09/18/19 17:44 Albuterol Sulfate (Proventil MDI) 2 puff Q4H PRN INH Shortness of Breath 08/19/19 18:45 11/17/19 18:44 08/20/19 00:43 Amlodipine Besylate (Norvasc) 5 mg DAILY ORAL 08/20/19 09:00 09/19/19 08:59 08/23/19 08:48 Ceftriaxone Sodium 1 gm/ Dextrose 55 ml @ 110 mls/hr Q24H IVPB 08/20/19 15:00 08/27/19 14:59 5/22/20 17:21 Clonidine HCl (Catapres Tab) 0.1 mg Q4H PRN ORAL For High Blood Pressure 08/20/19 12:25 11/18/19 12:24 Famotidine (Pepcid) 20 mg DAILY ORAL 08/20/19 09:00 11/18/19 08:59 08/23/19 08:48 Finasteride (Proscar) 5 mg DAILY ORAL 08/20/19 09:00 11/18/19 08:59 08/23/19 08:49 Heparin Sodium (Porcine) (Heparin 5000 units/ml) 5,000 units EVERY 12 HOURS SUBQ 08/19/19 21:00 10/03/19 20:59 08/23/19 20:54 Methylprednisolone Sodium Succinate (Solu-MEDROL) 60 mg DAILY IVP 08/22/19 09:00 11/17/19 20:59 08/23/19 08:58 Tamsulosin HCl (Flomax) 0.4 mg DAILY ORAL 08/20/19 09:00 09/19/19 08:59 08/23/19 08:49 Assessment/Plan Assessment/Plan IMPRESSION COPD with acute exacerbation hypercapnia hypoxemia PSVT weight loss debility possible pneumonia PLAN off isolation IV antibiotics as is IV steroids- as is respiratory care oxygen as needed DVT prophylaxis dc planning soon easily dyspneic POC oxygen RX given impression, plan, and exam edited and reviewed in detail care discussed with Phil Lopes MD August 24, 2019 09:00
[2019-08-24] MEDS: Solu-MEDROL 125mg Inj IVP SCH (09:27)
[2019-08-24] MEDS: Tamsulosin 0.4mg cap ORAL SCH (09:27)
--- NOTE | 2019-08-24 11:17 | General Progress Note ---
Assessment/Plan Problem List: (1) Dyspnea ICD Codes: R06.00 - Dyspnea, unspecified SNOMED: 341728906 (2) Displacement of peripheral intravenous catheter ICD Codes: T82.528A - Displacement of other cardiac and vascular devices and implants, initial encounter SNOMED: 053818445745060 (3) Respiratory distress ICD Codes: R06.00 - Dyspnea, unspecified SNOMED: 926236463 (4) Pneumonia ICD Codes: J18.9 - Pneumonia, unspecified organism SNOMED: 547218776 Qualifiers: Qualified Codes: J18.9 - Pneumonia, unspecified organism (5) COPD exacerbation ICD Codes: J44.1 - Chronic obstructive pulmonary disease with (acute) exacerbation SNOMED: 936960201 Status: stable, progressing Assessment/Plan: wean steroids resp rx o2 as needed abx pt/ot order home portable o2 dvt/stress ulcer prophylaxis slow improvement Subjective ROS Limited/Unobtainable: No Constitutional: Reports: malaise, weakness HEENT: Reports: no symptoms Cardiovascular: Reports: chest pain Respiratory: Reports: cough, shortness of breath, SOB with excertion Gastrointestinal/Abdominal: Reports: no symptoms Genitourinary: Reports: no symptoms Neurologic/Psychiatric: Reports: no symptoms Endocrine: Reports: no symptoms Hematologic/Lymphatic: Reports: no symptoms Allergies: Coded Allergies: No Known Allergies (Unverified , 08/06/18) All Systems: reviewed and negative except above Subjective There have been no overnight events. Patient continues to improve but still has significant dyspnea on exertion with minimal activity. Gets winded just walking to the bedside commode. No fevers or chills. No cough. Less congested. Remains on steroids and IV antibiotics. Has chest tightness with sob- worse with walking Objective Last 24 Hour Vital Signs Date Time Temp Pulse Resp B/P (MAP) Pulse Ox O2 Delivery O2 Flow Rate FiO2 08/24/19 09:27 80 153/77 08/24/19 08:00 98.2 80 18 153/77 (102) 96 08/24/19 04:00 97.9 82 18 152/70 (97) 96 08/24/19 00:00 97.8 85 18 146/72 (96) 95 08/23/19 21:00 Nasal Cannula 2.0 08/23/19 20:00 98.2 82 18 137/70 (92) 96 08/23/19 16:00 98.6 81 20 133/65 (87) 96 08/23/19 12:00 98.1 81 20 137/74 (95) 98 Intake and Output 08/23/19 08/24/19 19:00 07:00 Intake Total 480 ml 720 ml Balance 480 ml 720 ml Intake Oral 480 ml 720 ml # Voids 3 3 Height (Feet): 5 Height (Inches): 10.00 Weight (Pounds): 109 Objective General Appearance: WD/WN, alert, thin EENT: PERRL/EOMI, normal ENT inspection Neck: non-tender, normal alignment, supple Cardiovascular: normal peripheral pulses, normal rate, regular rhythm Respiratory/Chest: chest wall non-tender, lungs clear, normal breath sounds, no accessory muscle use, expiratory wheezing Abdomen: normal bowel sounds, non tender, soft, no organomegaly Genitourinary/Rectal: normal genital exam Extremities: normal range of motion, non-tender Edema: no edema noted Arm (L), no edema noted Arm (R), no edema noted Leg (L), no edema noted Leg (R), no edema noted Pedal (L), no edema noted Pedal (R), no edema noted 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
[2019-08-24] MEDS: cefTRIAXone 1 GM in D5W 55 ML IVPB SCH (15:24)
[2019-08-25] VITALS: BP_SYST 130; BP_SYST 141; BP_DIAS 68; BP_DIAS 77
--- NOTE | 2019-08-25 07:21 | General Progress Note ---
Assessment/Plan Problem List: (1) Dyspnea ICD Codes: R06.00 - Dyspnea, unspecified SNOMED: 904238733 (2) Displacement of peripheral intravenous catheter ICD Codes: T82.528A - Displacement of other cardiac and vascular devices and implants, initial encounter SNOMED: 135564817677634 (3) Respiratory distress ICD Codes: R06.00 - Dyspnea, unspecified SNOMED: 747490271 (4) Pneumonia ICD Codes: J18.9 - Pneumonia, unspecified organism SNOMED: 740619576 Qualifiers: Qualified Codes: J18.9 - Pneumonia, unspecified organism (5) COPD exacerbation ICD Codes: J44.1 - Chronic obstructive pulmonary disease with (acute) exacerbation SNOMED: 701805380 Status: stable, progressing Assessment/Plan: wean steroids resp rx o2 as needed abx pt/ot order home portable o2 dvt/stress ulcer prophylaxis dc planning per pulm Subjective ROS Limited/Unobtainable: No Constitutional: Reports: malaise, weakness HEENT: Reports: no symptoms Cardiovascular: Reports: no symptoms Respiratory: Reports: cough, shortness of breath, SOB with excertion Gastrointestinal/Abdominal: Reports: no symptoms Genitourinary: Reports: no symptoms Neurologic/Psychiatric: Reports: no symptoms Endocrine: Reports: no symptoms Hematologic/Lymphatic: Reports: no symptoms Allergies: Coded Allergies: No Known Allergies (Unverified , 08/06/18) All Systems: reviewed and negative except above Subjective feels much better today. no chest pain no sob. has some SANDS. thinks that he can go home today. no fevers or chills. cough improving Objective Last 24 Hour Vital Signs Date Time Temp Pulse Resp B/P (MAP) Pulse Ox O2 Delivery O2 Flow Rate FiO2 08/25/19 00:00 98.2 80 17 141/68 (92) 97 08/24/19 21:00 Nasal Cannula 2.0 08/24/19 20:00 98.1 80 20 140/86 (104) 96 08/24/19 12:00 98.2 86 20 133/75 (94) 100 08/24/19 09:27 80 153/77 08/24/19 09:00 Nasal Cannula 2.0 08/24/19 08:00 98.2 80 18 153/77 (102) 96 Intake and Output 08/24/19 08/25/19 19:00 07:00 Intake Total 355 ml Balance 355 ml Intake Oral 300 ml IV Total 55 ml # Voids 1 2 Height (Feet): 5 Height (Inches): 10.00 Weight (Pounds): 109 Objective General Appearance: WD/WN, alert, thin EENT: PERRL/EOMI, normal ENT inspection Neck: non-tender, normal alignment, supple Cardiovascular: normal peripheral pulses, normal rate, regular rhythm Respiratory/Chest: chest wall non-tender, lungs clear, normal breath sounds, no accessory muscle use, expiratory wheezing Abdomen: normal bowel sounds, non tender, soft, no organomegaly Genitourinary/Rectal: normal genital exam Extremities: normal range of motion, non-tender Edema: no edema noted Arm (L), no edema noted Arm (R), no edema noted Leg (L), no edema noted Leg (R), no edema noted Pedal (L), no edema noted Pedal (R), no edema noted 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
[2019-08-25 08:00] VITALS: BP 155/84
--- NOTE | 2019-08-25 08:01 | Pulmonology Progress Note ---
Subjective ROS Limited/Unobtainable: No Allergies: Coded Allergies: No Known Allergies (Unverified , 08/06/18) All Systems: reviewed and negative except above Subjective care noted sob better off isolation ambulatory Objective Last 24 Hour Vital Signs Date Time Temp Pulse Resp B/P (MAP) Pulse Ox O2 Delivery O2 Flow Rate FiO2 08/25/19 00:00 98.2 80 17 141/68 (92) 97 08/24/19 21:00 Nasal Cannula 2.0 08/24/19 20:00 98.1 80 20 140/86 (104) 96 08/24/19 12:00 98.2 86 20 133/75 (94) 100 08/24/19 09:27 80 153/77 08/24/19 09:00 Nasal Cannula 2.0 Intake and Output 08/24/19 08/25/19 19:00 07:00 Intake Total 355 ml Balance 355 ml Intake Oral 300 ml IV Total 55 ml # Voids 1 2 Objective WDWN NAD reduced breath sounds bilaterally without rhonchi or wheeze [id number] without MRG NABS nontender no HSM no CCE nonfocal thin Current Medications Medications (Trade) Dose Ordered Sig/Charlie Route PRN Reason Start Time Stop Time Status Last Admin Dose Admin Acetaminophen (Tylenol) 650 mg Q4H PRN ORAL Mild Pain (Pain Scale 1-3) 08/19/19 17:45 09/18/19 17:44 Al Hydroxide/Mg Hydroxide (Mylanta) 30 ml Q6H PRN ORAL Abdominal cramps 08/19/19 17:45 09/18/19 17:44 Albuterol Sulfate (Proventil MDI) 2 puff Q4H PRN INH Shortness of Breath 08/19/19 18:45 11/17/19 18:44 08/20/19 00:43 Amlodipine Besylate (Norvasc) 5 mg DAILY ORAL 08/20/19 09:00 09/19/19 08:59 08/24/19 09:27 Ceftriaxone Sodium 1 gm/ Dextrose 55 ml @ 110 mls/hr Q24H IVPB 08/20/19 15:00 08/27/19 14:59 08/24/19 15:24 Clonidine HCl (Catapres Tab) 0.1 mg Q4H PRN ORAL For High Blood Pressure 08/20/19 12:25 11/18/19 12:24 Famotidine (Pepcid) 20 mg DAILY ORAL 08/20/19 09:00 11/18/19 08:59 08/24/19 09:28 Finasteride (Proscar) 5 mg DAILY ORAL 08/20/19 09:00 11/18/19 08:59 08/24/19 09:27 Heparin Sodium (Porcine) (Heparin 5000 units/ml) 5,000 units EVERY 12 HOURS SUBQ 08/19/19 21:00 10/03/19 20:59 08/23/19 20:54 Methylprednisolone Sodium Succinate (Solu-MEDROL) 60 mg DAILY IVP 08/22/19 09:00 11/17/19 20:59 08/24/19 09:27 Tamsulosin HCl (Flomax) 0.4 mg DAILY ORAL 08/20/19 09:00 09/19/19 08:59 08/24/19 09:27 Assessment/Plan Assessment/Plan IMPRESSION COPD with acute exacerbation hypercapnia hypoxemia PSVT weight loss debility possible pneumonia PLAN off isolation dc home steroid taper respiratory care oxygen as needed DVT prophylaxis HH on discharge POC oxygen RX given impression, plan, and exam edited and reviewed in detail care discussed with Phil Lopes MD August 25, 2019 08:01
[2019-08-25] MEDS: Heparin 5000 units/ml inj SUBQ SCH ×2 (09:00→21:00)
[2019-08-25] MEDS: Tamsulosin 0.4mg cap ORAL SCH (09:00)
[2019-08-25] MEDS: Solu-MEDROL 125mg Inj IVP SCH (09:01)
[2019-08-25 12:00] VITALS: BP 142/83
[2019-08-25] MEDS: cefTRIAXone 1 GM in D5W 55 ML IVPB SCH (14:11)
[2019-08-25 16:00] VITALS: BP 152/84
[2019-08-25 20:00] VITALS: BP 139/73
[2019-08-26] VITALS: BP 142/87
[2019-08-26 04:00] VITALS: BP 141/72
[2019-08-26 08:00] VITALS: BP 146/88
[2019-08-26] MEDS: Solu-MEDROL 125mg Inj IVP SCH (08:23)
[2019-08-26] MEDS: Heparin 5000 units/ml inj SUBQ SCH ×2 (08:23→20:43)
[2019-08-26] MEDS: Tamsulosin 0.4mg cap ORAL SCH (08:23)
--- NOTE | 2019-08-26 08:28 | General Progress Note ---
Assessment/Plan Problem List: (1) Dyspnea ICD Codes: R06.00 - Dyspnea, unspecified SNOMED: 683582099 (2) Displacement of peripheral intravenous catheter ICD Codes: T82.528A - Displacement of other cardiac and vascular devices and implants, initial encounter SNOMED: 453439714981456 (3) Respiratory distress ICD Codes: R06.00 - Dyspnea, unspecified SNOMED: 237647687 (4) Pneumonia ICD Codes: J18.9 - Pneumonia, unspecified organism SNOMED: 789208492 Qualifiers: Qualified Codes: J18.9 - Pneumonia, unspecified organism (5) COPD exacerbation ICD Codes: J44.1 - Chronic obstructive pulmonary disease with (acute) exacerbation SNOMED: 807696765 Status: stable, progressing Assessment/Plan: wean steroids resp rx o2 as needed abx pt/ot order home portable o2 dvt/stress ulcer prophylaxis dc planning per pulm Subjective ROS Limited/Unobtainable: No Constitutional: Reports: weakness HEENT: Reports: no symptoms Cardiovascular: Reports: no symptoms Respiratory: Reports: cough, SOB with excertion Gastrointestinal/Abdominal: Reports: no symptoms Genitourinary: Reports: no symptoms Neurologic/Psychiatric: Reports: no symptoms Endocrine: Reports: no symptoms Hematologic/Lymphatic: Reports: no symptoms Allergies: Coded Allergies: No Known Allergies (Unverified , 08/06/18) All Systems: reviewed and negative except above Subjective feels good at rest. very sob and dyspneic with minimal activity. scared to go home. doesnt want to have to come back. no chest pain. minimal cough. no chest pain no fevers. Objective Last 24 Hour Vital Signs Date Time Temp Pulse Resp B/P (MAP) Pulse Ox O2 Delivery O2 Flow Rate FiO2 08/26/19 08:23 81 146/88 08/26/19 08:00 98.2 81 18 146/88 (107) 99 08/26/19 04:00 97.9 78 20 141/72 (95) 100 08/26/19 00:00 98.1 97 20 142/87 (105) 97 08/25/19 21:00 Nasal Cannula 2.0 08/25/19 20:00 98.2 82 17 139/73 (95) 99 08/25/19 16:00 97.2 97 20 152/84 (106) 100 08/25/19 12:00 97.0 95 20 142/83 (102) 100 08/25/19 09:00 106 155/84 08/25/19 09:00 Nasal Cannula 2.0 Intake and Output 08/25/19 08/26/19 19:00 07:00 Intake Total 510 ml Balance 510 ml Intake Oral 400 ml IV Total 110 ml # Voids 1 1 Height (Feet): 5 Height (Inches): 10.00 Weight (Pounds): 109 Objective General Appearance: WD/WN, alert, thin EENT: PERRL/EOMI, normal ENT inspection Neck: non-tender, normal alignment, supple Cardiovascular: normal peripheral pulses, normal rate, regular rhythm Respiratory/Chest: chest wall non-tender, lungs clear, normal breath sounds, no accessory muscle use, expiratory wheezing Abdomen: normal bowel sounds, non tender, soft, no organomegaly Genitourinary/Rectal: normal genital exam Extremities: normal range of motion, non-tender Edema: no edema noted Arm (L), no edema noted Arm (R), no edema noted Leg (L), no edema noted Leg (R), no edema noted Pedal (L), no edema noted Pedal (R), no edema noted 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
--- NOTE | 2019-08-26 09:00 | Pulmonology Progress Note ---
Subjective ROS Limited/Unobtainable: No Allergies: Coded Allergies: No Known Allergies (Unverified , 08/06/18) All Systems: reviewed and negative except above Subjective care noted sob slowly improving off isolation ambulatory apprehensive about dc Objective Last 24 Hour Vital Signs Date Time Temp Pulse Resp B/P (MAP) Pulse Ox O2 Delivery O2 Flow Rate FiO2 08/26/19 08:23 81 146/88 08/26/19 08:00 98.2 81 18 146/88 (107) 99 08/26/19 04:00 97.9 78 20 141/72 (95) 100 08/26/19 00:00 98.1 97 20 142/87 (105) 97 08/25/19 21:00 Nasal Cannula 2.0 08/25/19 20:00 98.2 82 17 139/73 (95) 99 08/25/19 16:00 97.2 97 20 152/84 (106) 100 08/25/19 12:00 97.0 95 20 142/83 (102) 100 08/25/19 09:00 106 155/84 08/25/19 09:00 Nasal Cannula 2.0 Intake and Output 08/25/19 08/26/19 19:00 07:00 Intake Total 510 ml Balance 510 ml Intake Oral 400 ml IV Total 110 ml # Voids 1 1 Objective WDWN NAD reduced breath sounds bilaterally without rhonchi or wheeze [id number] without MRG NABS nontender no HSM no CCE nonfocal thin Current Medications Medications (Trade) Dose Ordered Sig/Charlie Route PRN Reason Start Time Stop Time Status Last Admin Dose Admin Acetaminophen (Tylenol) 650 mg Q4H PRN ORAL Mild Pain (Pain Scale 1-3) 08/19/19 17:45 09/18/19 17:44 Al Hydroxide/Mg Hydroxide (Mylanta) 30 ml Q6H PRN ORAL Abdominal cramps 08/19/19 17:45 09/18/19 17:44 Albuterol Sulfate (Proventil MDI) 2 puff Q4H PRN INH Shortness of Breath 08/19/19 18:45 11/17/19 18:44 08/20/19 00:43 Amlodipine Besylate (Norvasc) 5 mg DAILY ORAL 08/20/19 09:00 09/19/19 08:59 08/26/19 08:23 Ceftriaxone Sodium 1 gm/ Dextrose 55 ml @ 110 mls/hr Q24H IVPB 08/20/19 15:00 08/27/19 14:59 08/25/19 14:11 Clonidine HCl (Catapres Tab) 0.1 mg Q4H PRN ORAL For High Blood Pressure 08/20/19 12:25 11/18/19 12:24 Famotidine (Pepcid) 20 mg DAILY ORAL 08/20/19 09:00 11/18/19 08:59 08/26/19 08:23 Finasteride (Proscar) 5 mg DAILY ORAL 08/20/19 09:00 11/18/19 08:59 08/26/19 08:23 Heparin Sodium (Porcine) (Heparin 5000 units/ml) 5,000 units EVERY 12 HOURS SUBQ 08/19/19 21:00 10/03/19 20:59 08/23/19 20:54 Methylprednisolone Sodium Succinate (Solu-MEDROL) 60 mg DAILY IVP 08/22/19 09:00 11/17/19 20:59 08/26/19 08:23 Tamsulosin HCl (Flomax) 0.4 mg DAILY ORAL 08/20/19 09:00 09/19/19 08:59 08/26/19 08:23 Assessment/Plan Assessment/Plan IMPRESSION COPD with acute exacerbation hypercapnia hypoxemia PSVT weight loss debility possible pneumonia PLAN off isolation dc home discussed steroid taper after dc respiratory care oxygen as needed DVT prophylaxis HH on discharge POC oxygen RX given impression, plan, and exam edited and reviewed in detail care discussed with Phil Lopes MD August 26, 2019 09:00
[2019-08-26 12:00] VITALS: BP 151/92
[2019-08-26] MEDS: cefTRIAXone 1 GM in D5W 55 ML IVPB SCH (14:46)
[2019-08-26 16:00] VITALS: BP 134/84
[2019-08-26 20:00] VITALS: BP 147/87
[2019-08-27 04:40] VITALS: BP 137/95
[2019-08-27 08:00] VITALS: BP 132/64
--- NOTE | 2019-08-27 08:01 | Pulmonology Progress Note ---
Subjective ROS Limited/Unobtainable: No Allergies: Coded Allergies: No Known Allergies (Unverified , 08/06/18) All Systems: reviewed and negative except above Subjective care noted sob - chronic off isolation ambulatory apprehensive about dc Objective Last 24 Hour Vital Signs Date Time Temp Pulse Resp B/P (MAP) Pulse Ox O2 Delivery O2 Flow Rate FiO2 08/27/19 04:40 97.7 89 18 137/95 (109) 95 08/26/19 21:32 Nasal Cannula 2.0 08/26/19 20:00 97.3 86 18 147/87 (107) 95 08/26/19 16:00 98.4 97 18 134/84 (101) 95 08/26/19 12:00 97.5 82 18 151/92 (111) 95 08/26/19 09:00 Nasal Cannula 2.0 08/26/19 08:23 81 146/88 Intake and Output 08/26/19 08/27/19 19:00 07:00 Intake Total 230 ml 300 ml Output Total 300 ml Balance -70 ml 300 ml Intake Oral 120 ml 300 ml IV Total 110 ml Output Urine Total 300 ml # Voids 3 # Bowel Movements 2 Objective WDWN NAD reduced breath sounds bilaterally without rhonchi or wheeze [id number] without MRG NABS nontender no HSM no CCE nonfocal thin Current Medications Medications (Trade) Dose Ordered Sig/Charlie Route PRN Reason Start Time Stop Time Status Last Admin Dose Admin Acetaminophen (Tylenol) 650 mg Q4H PRN ORAL Mild Pain (Pain Scale 1-3) 08/19/19 17:45 09/18/19 17:44 Al Hydroxide/Mg Hydroxide (Mylanta) 30 ml Q6H PRN ORAL Abdominal cramps 08/19/19 17:45 09/18/19 17:44 Albuterol Sulfate (Proventil MDI) 2 puff Q4H PRN INH Shortness of Breath 08/19/19 18:45 11/17/19 18:44 08/20/19 00:43 Amlodipine Besylate (Norvasc) 5 mg DAILY ORAL 08/20/19 09:00 09/19/19 08:59 08/26/19 08:23 Ceftriaxone Sodium 1 gm/ Dextrose 55 ml @ 110 mls/hr Q24H IVPB 08/20/19 15:00 08/27/19 14:59 08/26/19 14:46 Clonidine HCl (Catapres Tab) 0.1 mg Q4H PRN ORAL For High Blood Pressure 08/20/19 12:25 11/18/19 12:24 Famotidine (Pepcid) 20 mg DAILY ORAL 08/20/19 09:00 11/18/19 08:59 08/26/19 08:23 Finasteride (Proscar) 5 mg DAILY ORAL 08/20/19 09:00 11/18/19 08:59 08/26/19 08:23 Heparin Sodium (Porcine) (Heparin 5000 units/ml) 5,000 units EVERY 12 HOURS SUBQ 08/19/19 21:00 10/03/19 20:59 08/23/19 20:54 Methylprednisolone Sodium Succinate (Solu-MEDROL) 60 mg DAILY IVP 08/22/19 09:00 11/17/19 20:59 08/26/19 08:23 Tamsulosin HCl (Flomax) 0.4 mg DAILY ORAL 08/20/19 09:00 09/19/19 08:59 08/26/19 08:23 Assessment/Plan Assessment/Plan IMPRESSION COPD with acute exacerbation hypercapnia hypoxemia PSVT weight loss debility possible pneumonia PLAN off isolation dc planning steroid - po and will need close monitoring respiratory care oxygen as needed DVT prophylaxis HH on discharge POC oxygen RX given impression, plan, and exam edited and reviewed in detail care discussed with Phil Lopes MD August 27, 2019 08:01
--- NOTE | 2019-08-27 08:41 | General Progress Note ---
Assessment/Plan Problem List: (1) Dyspnea ICD Codes: R06.00 - Dyspnea, unspecified SNOMED: 803487974 (2) Displacement of peripheral intravenous catheter ICD Codes: T82.528A - Displacement of other cardiac and vascular devices and implants, initial encounter SNOMED: 375117153461243 (3) Respiratory distress ICD Codes: R06.00 - Dyspnea, unspecified SNOMED: 254785174 (4) Pneumonia ICD Codes: J18.9 - Pneumonia, unspecified organism SNOMED: 564515893 Qualifiers: Qualified Codes: J18.9 - Pneumonia, unspecified organism (5) COPD exacerbation ICD Codes: J44.1 - Chronic obstructive pulmonary disease with (acute) exacerbation SNOMED: 072673611 Status: stable, progressing Assessment/Plan: wean steroids resp rx o2 as needed abx pt/ot order home portable o2 dvt/stress ulcer prophylaxis dc planning per pulm Subjective ROS Limited/Unobtainable: No Constitutional: Reports: malaise, weakness HEENT: Reports: no symptoms Cardiovascular: Reports: no symptoms Respiratory: Reports: cough, shortness of breath, SOB with excertion, wheezing Gastrointestinal/Abdominal: Reports: no symptoms Genitourinary: Reports: no symptoms Neurologic/Psychiatric: Reports: anxiety Endocrine: Reports: no symptoms Hematologic/Lymphatic: Reports: no symptoms Allergies: Coded Allergies: No Known Allergies (Unverified , 08/06/18) All Systems: reviewed and negative except above Subjective no complaints. less sob. "fine" at rest. +SANDS. "thinks" he can go home today. no nausea or vomiting. on atc resp rx and iv solumderol Objective Last 24 Hour Vital Signs Date Time Temp Pulse Resp B/P (MAP) Pulse Ox O2 Delivery O2 Flow Rate FiO2 08/27/19 04:40 97.7 89 18 137/95 (109) 95 08/26/19 21:32 Nasal Cannula 2.0 08/26/19 20:00 97.3 86 18 147/87 (107) 08/26/19 16:00 98.4 97 18 134/84 (101) 08/26/19 12:00 97.5 82 18 151/92 (111) 08/26/19 09:00 Nasal Cannula 2.0 Intake and Output 08/26/19 08/27/19 18:59 06:59 Intake Total 230 ml 300 ml Output Total 300 ml Balance -70 ml 300 ml Intake Oral 120 ml 300 ml IV Total 110 ml Output Urine Total 300 ml # Voids 3 # Bowel Movements 2 Height (Feet): 5 Height (Inches): 10.00 Weight (Pounds): 109 Objective General Appearance: WD/WN, alert, thin EENT: PERRL/EOMI, normal ENT inspection Neck: non-tender, normal alignment, supple Cardiovascular: normal peripheral pulses, normal rate, regular rhythm Respiratory/Chest: chest wall non-tender, lungs clear, normal breath sounds, no accessory muscle use, expiratory wheezing Abdomen: normal bowel sounds, non tender, soft, no organomegaly Genitourinary/Rectal: normal genital exam Extremities: normal range of motion, non-tender Edema: no edema noted Arm (L), no edema noted Arm (R), no edema noted Leg (L), no edema noted Leg (R), no edema noted Pedal (L), no edema noted Pedal (R), no edema noted 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
[2019-08-27] MEDS: Solu-MEDROL 125mg Inj IVP SCH (09:00)
[2019-08-27] MEDS: Heparin 5000 units/ml inj SUBQ SCH (09:00)
[2019-08-27] MEDS: Tamsulosin 0.4mg cap ORAL SCH (09:39)
[2019-08-27 12:00] VITALS: BP 148/71
--- NOTE | 2019-08-29 10:07 | Discharge Summary ---
Discharge Summary Discharge Summary _ DATE OF ADMISSION: 08/19/2019 DATE OF DISCHARGE: 08/27/2019 DISCHARGED BY: Dr. Navarro REASON FOR ADMISSION: 74 years old male with past medical history of COPD, hypertension, BPH, presented to emergency room complaining of progressive difficulty breathing for the last 3 days. Patient was consulted with his primary care physician regarding his symptoms , who was instructed him to come to emergency room for further evaluation. Patient reported that he was using albuterol rescue inhaler every 2 hours for 1 day with minimal relief. Patient denied cough, fever , chills. No chest pain. No palpitation. No recent traveling. Upon evaluation patient was slightly tachycardic, tachypneic , hypertensive and hypoxic . He required supplemental oxygen to keep appropriate oxygen saturation. Patient was afebrile. Laboratory work-up revealed no leukocytosis, stable hemoglobin and hematocrit , stable electrolytes and renal parameters. Troponin negative. EKG revealed sinus tachycardia, no acute ischemic changes, heart rate 107 . Chest x-ray revealed new patchy opacity in the right lung base concerning for pneumonia. In emergency department patient was swabbed for COVID-19. Patient started on empiric antibiotic , received loading dose of Solu-Medrol , and admitted to hospital for further management. CONSULTANTS: pulmonary [facility] COURSE: Patient initially admitted to isolation room. Supplemental oxygen provided and titrated to keep pulse oximetry above 92%. Pulmonary toilet provided. Patient was continued on empiric antibiotic for pneumonia. Patient started on IV steroids with gradual tapering. DVT prophylaxis provided. Blood pressure was managed with the calcium channel coleen . Clonidine was on board as needed for blood pressure spikes. Blood pressure stabilized. Flomax and Proscar continued. GI prophylaxis provided. SARS COV2 by PCR came back negative. Isolation discontinued. Blood cultures were negative. Patient clinically improved prior to discharge . Patient was working with a physical therapist. Patient was unable to be weaned from oxygen. Home O2 was ordered to be delivered to patient's home. Patient clinically stabilized and was ready for discharge home with home health services. FINAL DIAGNOSES: COPD with acute exacerbation Pneumonia Suspected COVID-19 -ruled out Hypoxemia/ requiring home O2 to be arranged Hypercapnia PSVT HTN DISCHARGE MEDICATIONS: See Medication Reconciliation list. DISCHARGE INSTRUCTIONS: Patient was discharged home with home health services. Follow up with primary care provider in one week. I have been assigned to dictate discharge summary for this account. I was not involved in the patient's management. Sanam Buenrostro NP August 29, 2019 10:07
== END 2019-08-27 15:21 | disposition home or self-care (01) | DRG 190 ==
LOC: EMR 12:32 → 4E 15:25 → EDBEDREQ 16:05 → 4E 19:45
DX: J44.0 Chronic obstructive pulmonary disease with (acute) lower respiratory infection (principal); J18.9 Pneumonia, unspecified organism; T82.528A Displacement of other cardiac and vascular devices and implants, initial encounter; I47.2 Ventricular tachycardia; J44.1 Chronic obstructive pulmonary disease with (acute) exacerbation; Y84.8 Other medical procedures as the cause of abnormal reaction of the patient, or of later complication, without mention of misadventure at the time of the procedure; R09.02 Hypoxemia; R06.89 Other abnormalities of breathing; I10 Essential (primary) hypertension; Z87.891 Personal history of nicotine dependence; N40.0 Benign prostatic hyperplasia without lower urinary tract symptoms
CPT/HCPCS: 36415; 71045; 80053; 82550; 82553; 84484; 85025; 86703; 86707; 86803; 87040; 87517; 87635; 93005; 94664; 96361; 96365; 96368; 96375; 99285; J7030